=== PATIENT | female | born 1980 | race Caucasian/White ===

== ENCOUNTER → 2017-07-29 12:05 | Outpatient (CLI) | payer OTHER, SELFPAY | PROVIDERS: Family Provider Family Medicine; PCP Family Medicine; Visit Provider Family Medicine | DX: R07.81 Pleurodynia (principal) | CPT/HCPCS: 87086 ==

== ENCOUNTER → 2017-08-06 14:56 | Outpatient (CLI) | payer OTHER, SELFPAY | PROVIDERS: Family Provider Family Medicine; PCP Family Medicine; Visit Provider Family Medicine | DX: N89.8 Other specified noninflammatory disorders of vagina (principal) | CPT/HCPCS: 87070; 87205 ==

== ENCOUNTER → 2017-09-24 14:46 | Outpatient (CLI) | payer OTHER, SELFPAY ==
[2017-09-24 15:46] LABS: Hematocrit 39.6 % (36-46); Hemoglobin 13.2 g/dL (12.0-16.0); Mean Corpuscular HGB Conc 33.2 % (30-36); Mean Corpuscular Hemoglobin 29.3 PG (26-34); Mean Corpuscular Volume 88.1 fL (80-100); Platelet Count 392 X10^3/uL (150-400); Red Cell Distribution Width 13.9 % (11.6-14.8); White Blood Cell Count 8.6 X10^3/uL (4.5-11.0)
[2017-09-24 16:26] LABS: HEMOLYSIS < 15 (0-50); Iron 90 ug/dL (37-170)
[2017-09-24 16:39] LABS: Percent Iron Saturation 29 % (15-50); Total Iron Binding Capacity 307 ug/dL (265-497); Transferrin 252 mg/dL (206-381)
[2017-09-24 16:41] LABS: Vitamin D 25 Hydroxy (D3) 75.1 ng/mL (30.0-100.0)
== END ==
PROVIDERS: Family Provider Family Medicine; PCP Family Medicine; Visit Provider Family Medicine
DX: D64.9 Anemia, unspecified (principal); E55.9 Vitamin D deficiency, unspecified
CPT/HCPCS: 36415; 82306; 83540; 83550; 85027

== ENCOUNTER → 2018-11-24 10:48 | Outpatient (CLI) | payer OTHER, SELFPAY ==
[2018-11-24 12:07] LABS: Add Manual Diff / Slide Review NO; Basophils Absolute Auto 200 /uL (0-100); Basophils Percent Auto 2.3 % (0-2); Eosinophils Absolute Auto 600 /uL (0-450); Eosinophils Percent Auto 8.5 % (2-4); Hematocrit 40.7 % (36-46); Hemoglobin 13.9 g/dL (12.0-16.0); Lymphocytes Absolute Auto 3200 /uL (1100-4500); Lymphocytes Percent Auto 42.4 % (25-40); Mean Corpuscular HGB Conc 34.1 % (30-36); Mean Corpuscular Hemoglobin 29.7 PG (26-34); Monocytes Absolute Auto 600 /uL (0-900); Monocytes Percent Auto 7.6 % (3-14); Neutrophils Absolute Auto 2900 /uL (1500-7000); Neutrophils Percent Auto 39.2 % (50-75); Platelet Count 373 X10^3/uL (150-400); Red Blood Cell Count 4.68 X10^6/uL (4.0-5.2); Red Cell Distribution Width 13.7 % (11.6-14.8); White Blood Cell Count 7.5 X10^3/uL (4.5-11.0)
[2018-11-24 12:15] LABS: Hemoglobin A1C% w Est Avg Glu 5.2 % (4.0-6.0)
[2018-11-24 13:25] LABS: Alanine Aminotransferase 25 IU/L (9-52); Albumin Globulin Ratio 1.4 (1.0-2.8); Alkaline Phosphatase 70 U/L (38-126); Aspartate Aminotransferase 19 IU/L (14-36); BUN Creatinine Ratio 14.3 (6-22); Bilirubin Total 0.3 mg/dL (0.2-1.3); Blood Urea Nitrogen 10 mg/dL (7-17); Calcium 9.5 mg/dL (8.4-10.2); Carbon Dioxide 28 mmol/L (22-32); Chloride 104 mmol/L (98-107); Cholesterol 209 mg/dL (140-199); Estimated Glomerular Filt Rate > 60.0 mL/min (>60); Globulin 2.8 g/dL (1.7-4.1); Glucose 92 mg/dL (70-100); HDL Cholesterol 50 mg/dL (40-60); HEMOLYSIS < 15 (0-50); LDL Cholesterol Calculated 131 mg/dL (<100); Potassium 4.7 mmol/L (3.4-5.1); Sodium 140 mmol/L (137-145); Total Protein 6.8 g/dL (6.3-8.2); Triglycerides 139 mg/dL (35-150)
[2018-11-24 13:26] LABS: HEMOLYSIS < 15 (0-50); Iron 38 ug/dL (37-170)
[2018-11-24 13:38] LABS: Percent Iron Saturation 12 % (15-50); Total Iron Binding Capacity 315 ug/dL (265-497); Transferrin 267 mg/dL (206-381)
[2018-11-24 13:45] LABS: Free T3, Triiodothyronine Free 3.79 pg/mL (2.77-5.27); Free T4, Direct Thyroxine 0.96 ng/dL (0.78-2.19)
[2018-11-24 13:58] LABS: Thyroid Stimulating Hormone 1.59 uIU/mL (0.47-4.68)
[2018-11-24 14:00] LABS: Ferritin 13.8 ng/mL (6.27-137)
== END ==
PROVIDERS: PCP Family Medicine; Visit Provider Naturopath
DX: R53.82 Chronic fatigue, unspecified (principal); R63.5 Abnormal weight gain; J30.2 Other seasonal allergic rhinitis; G47.00 Insomnia, unspecified; N95.8 Other specified menopausal and perimenopausal disorders
CPT/HCPCS: 36415; 80053; 80061; 82728; 83036; 83540; 83550; 84439; 84443; 84481; 85025

== ENCOUNTER → 2019-01-20 13:30 | Outpatient (CLI) | payer OTHER, SELFPAY ==
--- NOTE | 2019-01-20 13:35 | DI.RAD.S_ITS ---
PROCEDURE: XR LUMBAR SPINE 2-3V INDICATIONS: back pain with L sided sciatica, r/o bony abnormality TECHNIQUE: 3 views of the lumbar spine were acquired. COMPARISON: None. FINDINGS: Bones: 5 [id number] vertebrae are present. There is normal bony alignment. No vertebral body compression fractures. No suspicious bony lesions. The disc heights are well-preserved. Soft tissues: Overlying bowel gas pattern is normal. No suspicious soft tissue calcifications. IMPRESSION: Normal lumbar plain films. If it would be helpful for clinical management decision making, please consider a dedicated lumbar spine MRI for further evaluation (assuming that there is no contraindication). Dictated by: Dinh Robert M.D. on 01/20/2019 at 13:07 Approved by: Dinh Robert M.D. on 01/20/2019 at 13:07
== END ==
PROVIDERS: Visit Provider Physician Assistant
DX: M54.42 Lumbago with sciatica, left side (principal)
CPT/HCPCS: 72100

== ENCOUNTER → 2019-02-04 20:39 | Outpatient (CLI) | payer OTHER, SELFPAY ==
--- NOTE | 2019-02-04 | DI.MRI.S_ITS ---
PROCEDURE: MR LUMBAR SPINE WO CON INDICATIONS: Low back pain TECHNIQUE: Noncontrast sagittal T1 spin echo and T2 fast echo, sagittal STIR, axial T1 and T2 fast spin echo through the lumbar spine. In cases with scoliosis, additional coronal T2 fast spin echo may be performed. COMPARISON: [facility], CR, XR LUMBAR SPINE 2-3V, 01/20/2019, 13:35. FINDINGS: Image quality: Excellent. Alignment and Curvature: 5 lumbar type vertebral bodies are present by plain film. Bone Marrow: Marrow is of normal overall signal. No acute vertebral body compression fractures. Spinal Cord: Conus medullaris terminates at the upper L1 level. Visualized cord demonstrates normal signal and size. Paraspinous Soft Tissues: No paravertebral masses. L1-L2: Normal appearance. L2-L3: Normal appearance. L3-L4: Normal appearance. L4-L5: Mild facet hypertrophy. No significant canal, nor foraminal stenosis. L5-S1: Mild facet hypertrophy. No significant canal, nor foraminal stenosis. IMPRESSION: 1. Mild lower lumbar facet osteoarthritis. No significant canal, nor foraminal stenosis. No neural impingement. Dictated by: Saran Phelan M.D. on 02/06/2019 at 8:54 Approved by: Saran Phelan M.D. on 02/06/2019 at 8:56
== END ==
PROVIDERS: Visit Provider Orthopaedic Surgery Orthopaedic Surgery of the Spine
DX: M54.5 Low back pain (principal); M47.816 Spondylosis without myelopathy or radiculopathy, lumbar region; M47.817 Spondylosis without myelopathy or radiculopathy, lumbosacral region
CPT/HCPCS: 72148

== ENCOUNTER → 2019-08-27 15:38 | Outpatient (CLI) | payer OTHER, SELFPAY ==
--- NOTE | 2019-08-27 | DI.CT.S_ITS ---
PROCEDURE: CT SINUS SCREEN WO CON INDICATIONS: Other chronic sinusitis TECHNIQUE: Noncontrast 3.0 mm axial images acquired from the frontal sinuses to the mid-sella, with coronal and sagittal reformats. For radiation dose reduction, the following was used: automated exposure control, adjustment of mA and/or kV according to patient size. COMPARISON: [facility], CT, SINUS SCREEN WO CONTRAST, 12/11/2013, 9:36. FINDINGS: Image quality: Excellent. Maxillary Sinuses: There is a mild to moderate amount of mucosal thickening seen within the inferior maxillary sinuses. Sinuses are clear. Ethmoid Air Cells: No bony remodeling or destruction. Sinuses are clear. Sphenoid Sinuses: No bony remodeling or destruction. Sinuses are clear. Frontal Sinuses: No bony remodeling or destruction. Sinuses are clear. Ostiomeatal Complexes: Ostiomeatal complexes are patent. No Marina cells. Miscellaneous: Visualized intra-orbital contents are normal. No eyad bullosa or paradoxical turbinate curvature. There is mild rightward nasal septal deviation. IMPRESSION: Focal mild to moderate mucosal thickening is seen within the inferior aspects of both maxillary sinuses. The sinuses demonstrate an improved appearance compared to 2013. Mild rightward nasal septal deviation. Dictated by: Dinh Robert M.D. on 08/27/2019 at 15:19 Approved by: Dinh Robert M.D. on 08/27/2019 at 15:21
== END ==
PROVIDERS: PCP Naturopath; Referring Provider Otolaryngology; Visit Provider Otolaryngology
DX: J32.8 Other chronic sinusitis (principal); J34.2 Deviated nasal septum
CPT/HCPCS: 70486

== ENCOUNTER → 2019-12-31 11:01 | Outpatient (CLI) | payer OTHER, SELFPAY ==
[2020-01-01 09:02] LABS: COVID19 Sendout Not Detected (Not Detected)
== END ==
PROVIDERS: PCP Naturopath; Visit Provider Physician Assistant
DX: Z11.59 Encounter for screening for other viral diseases (principal)
CPT/HCPCS: 87635

== ENCOUNTER → 2020-05-13 12:43 | Outpatient (CLI) | payer OTHER, MEDICAID, SELFPAY ==
--- NOTE | 2020-05-13 12:44 | DI.US.S_ITS ---
PROCEDURE: US PELVIC COMPLETE INDICATIONS: DUB TECHNIQUE: Real-time scanning was performed of the pelvic organs, with image documentation. Additional endovaginal scanning was necessary due to incomplete visualization of the adnexal and endometrial structures by transabdominal scanning. COMPARISON: None. FINDINGS: Uterus: Uterus is normal in size at 7.4 x 4.1 x 4.8 cm. The endometrium measures 9.2 mm in combined thickness. Ovaries: Simple cyst involving the left ovary measuring up to 2.1 cm; otherwise normal ovaries. No free fluid. Other: No pathologic free abdominal or pelvic fluid. IMPRESSION: No source for menorrhagia identified. Dictated by: Nathan ARNOLD Interpreted: Adolfo De Los Santos MD on 05/13/2020 at 13:41 Approved by: Adolfo De Los Santos M.D. on 05/13/2020 at 13:51
== END ==
PROVIDERS: PCP Family Medicine; Referring Provider Family Medicine; Visit Provider Family Medicine
DX: N92.0 Excessive and frequent menstruation with regular cycle (principal); N83.292 Other ovarian cyst, left side
CPT/HCPCS: 76830; 76856

== ENCOUNTER → 2020-06-10 12:45 | Outpatient (CLI) | payer OTHER, MEDICAID, SELFPAY ==
--- NOTE | 2020-06-10 | DI.US.S_ITS ---
ULTRASOUND OF RIGHT BREAST: 06/10/2020 CLINICAL: Intermitten pain in bilateral breasts. Comparison is made to exams dated: 06/10/2020 ultrasound and 06/10/2020 mammogram [facility]. Real-time ultrasound of the right breast was performed. Escobar scale images of the real-time examination were reviewed. No significant abnormalities were seen sonographically in the right breast. IMPRESSION: NEGATIVE There is no sonographic evidence of malignancy. There is no abnormality seen in the right breast to correspond with the nonfocal area of right breast pain/burning. No sonographic abnormality to correlate with mammography finding in the posterior right breast which is consistent with expected dense fibroglandular breast tissue. Recommend clinical follow up for persistent or worsening symptoms, or development of any clinically suspicious findings. A 1 year screening mammogram is recommended. Findings and recommendations were conveyed to the patient during today's evaluation. This exam was interpreted at Station ID: [id number]. Electronically Signed By: Sathya Garcia M.D. at/:06/10/2020 14:48:29 copy to: CRISTY COTE letter sent: Clinical Evaluation Ultrasound BI-RADS: 1 Negative
--- NOTE | 2020-06-10 | DI.MG.S_ITS ---
BILATERAL DIGITAL DIAGNOSTIC MAMMOGRAM 3D/2D: 06/10/2020 CLINICAL: Burning sensation in the Right breast. Non focal pain. Baseline exam. Additional history of recent COVID-19 vaccine in the left arm and control device removal from the left arm. No prior exams were available for comparison. The tissue of both breasts is heterogeneously dense. This may lower the sensitivity of mammography. There are oval lymph nodes in the left breast posterior depth superior region seen on the mediolateral oblique view only which are not seen on the right. The possible oval focal asymmetry seen only on the right breast craniocaudal view disperses with spot compression and likely represents dense fibroglandular tissue. No other significant masses, calcifications, or other findings are seen in either breast. IMPRESSION: INCOMPLETE: NEEDS ADDITIONAL IMAGING EVALUATION The oval lymph nodes in the left breasts are indeterminate. An ultrasound is recommended for further evaluation and is scheduled to immediately follow this examination. There is no abnormality seen in the right breast to correspond with the diffuse area pain/burning. There is no abnormality seen in the right breast to correspond with the mammography finding central to the nipple which likely represents normal fibroglandular tissue as it dispersed with additional views during today's evaluation, however, ultrasound is recommended to confirm. This exam was interpreted at Station ID: [id number]. NOTE: For mammograms, a report in lay terms will be sent to the patient. Approximately 15% of breast malignancies will not be visualized mammographically. In the management of a palpable breast mass, a negative mammogram must not discourage biopsy of a clinically suspicious lesion. Electronically Signed By: Sathya Garcia M.D. aty/:06/10/2020 14:37:14 copy to: CRISTY COTE ACR BI-RADS Category 0: Incomplete [id number]
--- NOTE | 2020-06-10 | DI.US.S_ITS ---
ULTRASOUND OF LEFT BREAST: 06/10/2020 CLINICAL: Intermitten pain in bilateral breasts. Comparison is made to exam dated: 06/10/2020 [facility]. Color flow and real-time ultrasound of the left breast were performed. Escobar scale images of the real-time examination were reviewed. There are benign appearing lymph nodes in the left axilla that correlates with mammography findings. No significant abnormalities were seen sonographically in the left breast. IMPRESSION: BENIGN There is no sonographic evidence of malignancy. A 1 year screening mammogram is recommended. Findings and recommendations were conveyed to the patient during today's evaluation. This exam was interpreted at Station ID: [id number]. Electronically Signed By: Sathya Garcia M.D. aty/:06/10/2020 14:51:30 copy to: CRISTY COTE Ultrasound BI-RADS: 2 Benign
== END ==
PROVIDERS: PCP Family Medicine; Referring Provider Nurse Practitioner; Visit Provider Nurse Practitioner
DX: N64.4 Mastodynia (principal)
CPT/HCPCS: 76642; 77066; G0279

== ENCOUNTER → 2020-08-17 17:36 | Outpatient (CLI) | payer OTHER, MEDICAID, SELFPAY | PROVIDERS: PCP Family Medicine; Visit Provider Physician Assistant | DX: L02.215 Cutaneous abscess of perineum (principal) | CPT/HCPCS: 87070; 87075; 87205 ==

== ENCOUNTER → 2020-08-23 16:23 | Outpatient (CLI) | payer OTHER, MEDICAID, SELFPAY ==
[2020-08-23 17:37] LABS: Add Manual Diff / Slide Review NO; Basophils Absolute Auto 200 /uL (0-100); Eosinophils Absolute Auto 400 /uL (0-450); Eosinophils Percent Auto 4.9 % (2-4); Hemoglobin 14.5 g/dL (12.0-16.0); Lymphocytes Absolute Auto 2800 /uL (1100-4500); Lymphocytes Percent Auto 32.5 % (25-40); Mean Corpuscular HGB Conc 33.8 % (30-36); Mean Corpuscular Hemoglobin 30.6 PG (26-34); Mean Corpuscular Volume 90.6 fL (80-100); Monocytes Absolute Auto 700 /uL (0-900); Monocytes Percent Auto 8.2 % (3-14); Neutrophils Absolute Auto 4500 /uL (1500-7000); Neutrophils Percent Auto 52.4 % (50-75); Platelet Count 308 X10^3/uL (150-400); Red Blood Cell Count 4.74 X10^6/uL (4.0-5.2); Red Cell Distribution Width 13.8 % (11.6-14.8); White Blood Cell Count 8.6 X10^3/uL (4.5-11.0)
[2020-08-23 17:49] LABS: HEMOLYSIS < 15 (0-50); Iron 72 ug/dL (37-170)
[2020-08-23 17:50] LABS: Alanine Aminotransferase 35 IU/L (<35); Albumin 4.4 g/dL (3.5-5.0); Albumin Globulin Ratio 1.5 (1.0-2.8); Alkaline Phosphatase 85 U/L (38-126); Aspartate Aminotransferase 33 IU/L (14-36); Bilirubin Total 0.4 mg/dL (0.2-1.3); Blood Urea Nitrogen 8 mg/dL (7-17); Calcium 9.6 mg/dL (8.4-10.2); Carbon Dioxide 26 mmol/L (22-32); Chloride 103 mmol/L (98-107); Estimated Glomerular Filt Rate > 60.0 mL/min (>60); Glucose 96 mg/dL (70-100); HEMOLYSIS < 15 (0-50); Sodium 136 mmol/L (137-145); Total Protein 7.4 g/dL (6.3-8.2)
[2020-08-23 17:59] LABS: Percent Iron Saturation 25 % (15-50); Total Iron Binding Capacity 290 ug/dL (265-497); Transferrin 243 mg/dL (206-381)
[2020-08-23 18:11] LABS: Free T3, Triiodothyronine Free 3.52 pg/mL (2.77-5.27); Free T4, Direct Thyroxine 0.78 ng/dL (0.78-2.19)
[2020-08-23 18:25] LABS: Thyroid Stimulating Hormone 1.96 uIU/mL (0.47-4.68)
[2020-08-23 18:28] LABS: Ferritin 211 ng/mL (6-137)
[2020-08-23 18:59] LABS: Folate 6.2 ng/mL (2.76-20.0); Vitamin B12 508 pg/mL (239-931)
[2020-08-24 05:57] LABS: Thyroid Peroxidase Antibodies 56 IU/mL (0-34)
[2020-08-24 19:20] LABS: Anti Thyroglobulin Antibody <1.0 IU/mL (0.0-0.9)
[2020-08-26 10:33] LABS: Triiodothyronine T3 Reverse 10.5 ng/dL (9.2-24.1)
== END ==
PROVIDERS: Internal Medicine Hematology & Oncology; PCP Family Medicine; Referring Provider Family Medicine; Visit Provider Family Medicine
DX: D64.9 Anemia, unspecified (principal); E06.3 Autoimmune thyroiditis; R76.8 Other specified abnormal immunological findings in serum
CPT/HCPCS: 36415; 80053; 82607; 82728; 82746; 83540; 83550; 84439; 84443; 84481; 84482; 85025; 86376; 86800

== ENCOUNTER → 2020-10-17 14:13 | Outpatient (CLI) | payer OTHER, MEDICAID, SELFPAY ==
[2020-10-17 17:41] LABS: COVID19 -Nasal RAPID Negative (Negative)
== END ==
PROVIDERS: PCP Family Medicine; Visit Provider Nurse Practitioner
DX: Z01.812 Encounter for preprocedural laboratory examination (principal); Z20.822 Contact with and (suspected) exposure to COVID-19
CPT/HCPCS: 87635; C9803

== ENCOUNTER 2020-10-19 10:23 | Day surgery (SDC) | payer OTHER, MEDICAID, SELFPAY ==
[2020-10-19] VITALS (9 sets, daily range): BP systolic 105–129; BP diastolic 65–76; PULSE 42–72; RESP 11–16; TEMP 36.4–36.8; O2SAT 94–96; BMI 29.0
--- NOTE | 2020-10-19 | PATH_ITS ---
[facility] Accession Number: [id number] . 01 Material submitted: . colon - RANDOM COLON . 02 Diagnosis: Random Colon, Biopsies: Colonic mucosa with no diagnostic abnormality. Negative for active, chronic, and microscopic colitis. Negative for dysplasia and malignancy. . MRV 10/21/2020 1111 Local . 02 Electronically signed: . Lis Cunha MD, Pathologist NPI- [id number] . 01 Gross description: . RANDOM COLON: Received in formalin are 4 fragment(s) of juarez, soft tissue measuring 0.6 x 0.2 x 0.1 cm to 0.3 x 0.1 x 0.1 cm submitted entirely in 1 cassette(s) /RAFAEL 10/20/2020 0415 Local . 02 Pathologist provided ICD-10: R19.7 . 02 CPT . 193163 Performed at: 01 [facility] [address], [place], [place] [id number] MD Corey Hook MD Phone: [phone] Performed at: [address] [facility] [address] [place], [place] [id number] MD Lis Cunha MD Phone: [phone]
--- NOTE | 2020-10-19 10:19 | PM.PREOP ---
Pre-operative Note Interval Note History & Physical reviewed/Exam performed by Physician: Yes Changes to H&P: No ASA Class (for procedural sedation): II
--- NOTE | 2020-10-19 10:20 | PM.OP.ENDO ---
Operative Date/Time/Diagnoses Date of procedure: 10/19/20 Pre-op diagnosis: See indication Procedure & Clinicians Study performed: Colonoscopy Indications: Rectal pain, diarrhea and history of colon polyps Surgeon: Samantha Willingham Procedure Notes Procedure in detail: After informed consent was obtained the patient was placed in left lateral decubitus position. The video colonoscope was introduced the rectum slowly advanced to the cecum. Preparation was good. On slow withdrawal mucosa was carefully examined. The scope was removed. The patient the procedure well. Blood loss none Complications none Sedation Total sedation time 14 minutes Fentanyl 200 micro g Versed 10 mg IV titration Findings 1. Normal colonoscopy to cecum. Random biopsies taken to rule out microscopic colitis Because of the lack of polyps on her procedure today she will not need follow-up colonoscopy for 5 years. Due to the large number and advanced adenomas on previous colonoscopy I would not go above 5 years at this time.
[2020-10-19] MEDS: fentaNYL 250 MCG/5 ML INJ IV (11:42)
[2020-10-19] MEDS: MIDAZOLAM 5 MG/5 ML VIAL IV (11:42)
== END 2020-10-19 13:30 | disposition home or self-care (01) ==
PROVIDERS: PCP Family Medicine; Referring Provider Internal Medicine Gastroenterology; Visit Provider Internal Medicine Gastroenterology
PROC: 0DJD8ZZ Inspection of Lower Intestinal Tract, Via Natural or Artificial Opening Endoscopic (ICD-10-PCS; CPT 45378; principal; 2020-10-19 11:30)
DX: R19.7 Diarrhea, unspecified (principal); K62.89 Other specified diseases of anus and rectum
CPT/HCPCS: 45380; J2250; J3010

== ENCOUNTER → 2020-11-23 11:58 | Outpatient (CLI) | payer OTHER, MEDICAID, SELFPAY ==
--- NOTE | 2020-11-23 11:59 | DI.US.S_ITS ---
ULTRASOUND OF RIGHT AXILLA: 11/23/2020 CLINICAL: Lateral right axillary lump. Comparison is made to exam dated: 06/10/2020 [facility]. Color flow and real-time ultrasound of the right axilla were performed. Escobar scale images of the real-time examination were reviewed. No significant abnormalities were seen sonographically in the right axilla. IMPRESSION: NEGATIVE There is no sonographic evidence of malignancy. There is no abnormality seen in the right breast to correspond with the diffuse area of clinical concern, mammography finding, and pain which is consistent with normal fibroglandular tissue, however, clinical followup is recommended. Future imaging is recommended as follows: 06/11/2021 screening mammogram. This exam was interpreted at Station ID: [id number]. Electronically Signed By: Adolfo De Los Santos M.D., jr/fabian:11/23/2020 16:30:25 copy to: CRISTY COTE letter sent: Normal Exam Ultrasound BI-RADS: 1 Negative
== END ==
PROVIDERS: PCP Family Medicine; Referring Provider Family Medicine; Visit Provider Family Medicine
DX: R22.31 Localized swelling, mass and lump, right upper limb (principal)
CPT/HCPCS: 76882; 77065; G0279

== ENCOUNTER → 2020-11-23 12:18 | Outpatient (CLI) | payer OTHER, MEDICAID, SELFPAY ==
[2020-11-23 13:24] LABS: Add Manual Diff / Slide Review NO; Basophils Absolute Auto 200 /uL (0-100); Basophils Percent Auto 2.2 % (0-2); Eosinophils Absolute Auto 500 /uL (0-450); Eosinophils Percent Auto 6.8 % (2-4); Hematocrit 43.1 % (36-46); Hemoglobin 14.5 g/dL (12.0-16.0); Lymphocytes Absolute Auto 2500 /uL (1100-4500); Lymphocytes Percent Auto 32.4 % (25-40); Mean Corpuscular HGB Conc 33.5 % (30-36); Mean Corpuscular Hemoglobin 31.6 PG (26-34); Mean Corpuscular Volume 94.2 fL (80-100); Monocytes Absolute Auto 700 /uL (0-900); Monocytes Percent Auto 8.6 % (3-14); Neutrophils Absolute Auto 3900 /uL (1500-7000); Platelet Count 338 X10^3/uL (150-400); Red Blood Cell Count 4.58 X10^6/uL (4.0-5.2); Red Cell Distribution Width 13.7 % (11.6-14.8); White Blood Cell Count 7.8 X10^3/uL (4.5-11.0)
[2020-11-23 13:55] LABS: Free T3, Triiodothyronine Free 4.26 pg/mL (2.77-5.27); Free T4, Direct Thyroxine 0.98 ng/dL (0.78-2.19)
[2020-11-23 14:09] LABS: Thyroid Stimulating Hormone 3.29 uIU/mL (0.47-4.68)
[2020-11-24 08:14] LABS: Thyroid Peroxidase Antibodies 61 IU/mL (0-34)
[2020-11-25 00:32] LABS: Anti Thyroglobulin Antibody <1.0 IU/mL (0.0-0.9)
[2020-11-26 20:13] LABS: Triiodothyronine T3 Reverse 14.2 ng/dL (9.2-24.1)
== END ==
PROVIDERS: PCP Family Medicine; Referring Provider Family Medicine; Visit Provider Family Medicine
DX: D50.0 Iron deficiency anemia secondary to blood loss (chronic) (principal); D64.9 Anemia, unspecified; E06.3 Autoimmune thyroiditis; R22.31 Localized swelling, mass and lump, right upper limb
CPT/HCPCS: 36415; 76882; 84439; 84443; 84481; 84482; 85025; 86376; 86800

== ENCOUNTER 2020-11-27 02:17 | Observation (INO) | payer OTHER, MEDICAID, SELFPAY ==
[2020-11-27] VITALS (18 sets, daily range): BP systolic 111–148; BP diastolic 55–99; PULSE 64–101; RESP 11–20; TEMP 35.9–36.9; O2SAT 94–99; BMI 29.8; BMI 29.5
--- NOTE | 2020-11-27 | PATH_ITS ---
[facility] Accession Number: [id number] . 01 Material submitted: . gallbladder - GALLBLADDER . 02 Diagnosis: Gallbladder, Cholecystectomy: Chronic cholecystitis with cholelithiasis. Cholesterolosis. Negative for dysplasia and malignancy. [facility] 11/30/2020 1255 Local . 02 Electronically signed: . Lis Cunha MD, Pathologist NPI- [id number] . 01 Gross description: . The specimen is received in formalin, labeled gallbladder and consists of a 9.0 x 4.0 x 3.2 cm intact gallbladder with a 0.2 cm in diameter cystic duct. The serosa is juarez-mattson and smooth. Opening reveals green viscous bile with multiple juarez-yellow bosselated choleliths ranging from 0.1-0.7 cm. The mucosa is juarez-green and velvety with cholesterolosis and the wall thickness measures 0.1 cm. Questioned Documents Examiner sections are submitted, to include the en face cystic duct margin (blue), in cassette A1. ([id number]) /[facility] 11/29/2020 1053 Local . 02 Pathologist provided ICD-10: K80.60 . 02 CPT . 982362 Performed at: [address] [facility] [address], [place], [place] [id number] MD Corey Hook MD Phone: [phone] Performed at: 02 [facility] [address] [place], [place] [id number] MD Lis Cunha MD Phone: [phone]
--- NOTE | 2020-11-27 02:33 | DI.US.S_ITS ---
PROCEDURE: US ABDOMEN LIMITED INDICATIONS: SEVERE RIGHT UPPER QUADRANT PAIN TECHNIQUE: Real-time focused scanning was performed of the abdomen, with image documentation. COMPARISON: None. FINDINGS: The liver demonstrates normal size. The liver demonstrates generalized mildly increased echogenicity. This decreases ultrasound sensitivity for detection of hepatic masses. Multiple small layering gallstones are seen. The gallbladder wall measures near the upper limits of normal at 2.7 mm. No specific pericholecystic fluid is seen. The sonographic Desai sign is negative. The common hepatic duct is prominent at 6.8 mm. The common bile duct measures 6.9 mm. No significant pancreatic abnormality is seen on these images. IMPRESSION: Gallstones are seen, yet without additional sonographic signs of cholecystitis. Please correlate with physical examination findings, patient presentation, and laboratory values. No christian biliary dilatation can be seen, although the common hepatic duct common bile duct are prominent. If clinically appropriate, an MRCP could be considered for further evaluation (assuming that there is no contraindication to MRI). Note: No significant discrepancy from the preliminary report. Dictated by: Dinh Robert M.D. on 11/27/2020 at 8:06 Approved by: Dinh Robert M.D. on 11/27/2020 at 8:08
--- NOTE | 2020-11-27 02:38 | ED_ITS ---
HPI - Abdominal Pain General Chief Complaint: Abdominal Pain Stated Complaint: abd pain right side and back Time Seen by Provider: 11/27/20 02:25 Source: patient Mode of arrival: Ambulatory Limitations: no limitations History of Present Illness HPI narrative: 40-year-old female smoker presents with her significant other and a chief complaint of severe right upper quadrant pain worsening over the past few hours. She states it started rather suddenly and is worsened by motion while and improves with rest. She states that it is sharp, stabbing and crampy and radiates to her back. She has had nausea and at least 1 episode of vomiting. She has had no fever or chills. She denies runny nose, sore throat or cough. She last ate at 5:00 p.m. and had some water just prior to her arrival. She denies any change in bowel habits and has had no dysuria, frequency or urgency. She denies any chance of . Prior abdominal surgeries include a laparoscopy, and a few endoscopic procedures Related Data Home Medications Medication Instructions Recorded Confirmed cholecalciferol (vitamin D3) 250 10,000 unit PO DAILY 09/18/17 11/02/20 mcg (10,000 unit) capsule ascorbic acid (vitamin C) 500 mg 500 mg DAILY 07/25/20 11/02/20 tablet (Vitamin C) cetirizine 10 mg capsule (Zyrtec) 10 mg PO DAILY 07/25/20 11/02/20 magnesium 200 mg tablet 400 mg PO DAILY 07/25/20 11/02/20 omeprazole 20 mg capsule,delayed 20 mg PO DAILY 07/25/20 11/02/20 release selenium 100 mcg tablet 100 mcg PO DAILY 07/25/20 11/02/20 vitamin A 2,400 mcg capsule 2,400 mcg PO DAILY 07/25/20 11/02/20 zinc 25 mg tablet 30 mg PO DAILY 07/25/20 11/02/20 Vitamin D+K 10,000 units PO DAILY 10/10/20 11/02/20 heme iron 20 mg PO TID 10/10/20 11/02/20 Previous Rx's Medication Instructions Recorded sertraline 100 mg tablet (Zoloft) 100 mg PO DAILY #90 tab 10/05/20 duloxetine 20 mg capsule,delayed 20 mg PO BID #60 cap 11/02/20 release levothyroxine 25 mcg tablet 25 mcg PO DAILY #30 tab 11/25/20 Allergies Allergy/AdvReac Type Severity Reaction Status Date / Time No Known Drug Allergies Allergy Verified 11/02/20 09:11 Review of Systems Review of Systems Narrative: GENERAL: Denies chills, fatigue, malaise, fever, sweats. HEENT: Denies sinus pain, ear pain, sore throat, difficulty swallowing, dizziness. RESPIRATORY: Denies dyspnea, cough, wheezing, hemoptysis, sputum. CARDIOVASCULAR: Denies chest pain, palpitations, orthopnea, edema, GASTROINTESTINAL: See HPI : Denies dysuria, frequency, incontinence, hematuria, urinary retention. MUSCULOSKELETAL: denies weakness, joint pain, or bony pain SKIN: Denies rash, skin lesions, or other NEUROLOGIC: Denies weakness, headache, numbness, change in speech, confusion, seizures, incoordination. PSYCHIATRIC: No concerning psychosocial issues. 12 point review of systems is negative except for those stated above Patient History Medical History Abnormal Pap smear of cervix (~2011) Abscess Acne (~1987) Anemia (08/31/14) Anti-TPO antibodies present Bartholin gland cyst Benign mole (1997) Chicken pox (~1990) Environmental allergies (08/24/13) Foot pain Hayfever Hemorrhoids HPV (human papilloma virus) infection (~2011) Labial abscess Menorrhagia with regular cycle MRSA infection (~2011) Murmur Muscle spasm Ocular migraine (08/24/13) Pinched nerve Rectal pain Rheumatoid arthritis Shoulder pain Surgical History Anesthesia History of colonoscopy with polypectomy (~08/2019) History of esophagogastroduodenoscopy (EGD) (~08/2019) History of evacuation of hematoma (01/12/14) History of gynecologic surgery (01/15/14) S/P primary low transverse (2017) Status post colposcopy (04/25/11) Status post incision and drainage (2010) Status post tendon repair (~2009) Status post tonsillectomy and adenoidectomy Family History Family/Other Abnormal blood pressure Stroke Family history of high cholesterol Family/Other Heart disease Scoliosis Brother Age: 40 Hypertension Father Hypertension History of cancer of sphenoid sinus Mother Age: 72 MD (Meckel's diverticulum) Hypertension High cholesterol Tachycardia Social History household members: none pets and animals: No education level: college occupational status: employed [employer] Spiritual leisure activities: art and other other: hiking, photography, seatbelt use: always helmet use: Yes water heater temp set < 120 deg: Yes working smoke detector in home: Yes fire extinguisher in home: Yes carbon monox detector in home: Yes firearms in home: No Smoking Status: Current some day smoker alcohol intake: current substance use type: does not use during the past year weight has: remained stable well-balanced diet: daily or most days daily servings fruits/ve-4 caffeine: Yes (1/2 to 1 drink per day) eating out: other frequency: daily duration: > 90 minutes/day additional social history: 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 Well-developed patient, in mild distress. HEAD: Atraumatic. Normocephalic. EYES: Pupils equal round and reactive. Extraocular motions intact. No scleral icterus. No injection or drainage. ENT: Nose without bleeding, purulent drainage. Throat without erythema, tonsillar hypertrophy or exudate. Airway patent. NECK: Trachea midline. Non tender CARDIOVASCULAR: Regular rate and rhythm without murmurs, gallops, or rubs. RESPIRATORY: Clear to auscultation. Breath sounds equal bilaterally. No wheezes, rales, or rhonchi. GASTROINTESTINAL: Abdomen soft, tender in the right upper quadrant, nondistended. EXTREMITIES: No edema or joint tenderness. BACK: Nontender without deformity or crepitance. No flank tenderness. NEURO: AOx3. SKIN: No rash or erythema of visible areas Initial Vital Signs Initial Vital Signs: Vital Signs Temperature 97.7 F 11/27/20 02:27 Pulse Rate 68 11/27/20 02:27 Respiratory Rate 17 11/27/20 02:27 Blood Pressure 148/86 H 11/27/20 02:27 Pulse Oximetry 99 11/27/20 02:27 Course Orders Ordered: ED Orders 11/27/20 02:30 Complete Blood Count AUTO DIFF Stat Comprehensive Metabolic Panel Stat Lipase Stat 11/27/20 02:33 US abdomen limited Stat 11/27/20 04:44 COVID19 - ADMIT (MONITORING AND EVALUATION ADVISOR swab/PCR) Stat 11/27/20 04:49 Education, smoking cessation ONGOING Acetaminophen (Acetaminophen 325 Mg Tablet) 650 mg PO Q6HR PRN PRN Reason: Fever/Mild Pain (1-3) Celecoxib (Celecoxib 200 Mg Capsule) 200 mg PO DAILY CINDA Hydromorphone HCl (Hydromorphone 0.5 Mg Inj) 0.5 mg IV Q3HR PRN PRN Reason: Pain, Severe (7-10) Dextrose/Lactated Ringer's (Dextrose 5%-Lactated Ringers) 1,000 mls @ 100 mls/hr IV CONT CINDA Naloxone HCl (Naloxone 0.4 Mg/Ml Vial) 0.2 mg IV Q2MIN PRN PRN Reason: Opiate Reversal Discontinued Medications Docusate Sodium (Docusate 100 Mg Capsule) 100 mg PO NOW ONE Stop: 11/27/20 02:34 Last Admin: 11/27/20 02:39 Dose: 100 mg Documented by: ALLAN Gabapentin (Gabapentin 300 Mg Capsule) 300 mg PO NOW ONE Stop: 11/27/20 04:50 Hydromorphone HCl (Hydromorphone 0.5 Mg Inj) 0.5 mg IV NOW ONE Stop: 11/27/20 02:33 Last Admin: 11/27/20 02:41 Dose: 0.5 mg Documented by: ALLAN Sodium Chloride (Normal Saline 0.9%) 1,000 mls @ 1,000 mls/hr IV BOLUS ONE Stop: 11/27/20 03:31 Last Infusion: 11/27/20 04:14 Dose: 0 mls/hr Documented by: Admin: 11/27/20 02:39 Dose: 1,000 mls/hr Documented by: ALLAN Ondansetron HCl (Ondansetron 4 Mg/2 Ml Inj) 4 mg IV NOW ONE Stop: 11/27/20 02:33 Last Admin: 11/27/20 02:39 Dose: 4 mg Documented by: ALLAN Scopolamine (Scopolamine 1 Patch) 1 patch TOP NOW ONE Stop: 11/27/20 04:50 Vital Signs Vital signs: Vital Signs - 8 hr 11/27/20 02:27 Temperature 97.7 F Pulse Rate 68 Respiratory Rate 17 Blood Pressure 148/86 H Pulse Oximetry 99 MDM - Abdominal Pain Lab Data Result diagrams: 11/27/20 02:30 11/27/20 02:30 Labs: Lab Results 11/27/20 11/27/20 Range/Units 02:30 02:30 WBC 12.4 H (4.5-11.0) X10^3/uL RBC 4.52 (4.0-5.2) X10^6/uL Hgb 14.3 (12.0-16.0) g/dL Hct 42.1 (36-46) % MCV 93.1 (80-100) fL MCH 31.6 (26-34) PG MCHC 34.0 (30-36) % RDW 13.7 (11.6-14.8) % Plt Count 319 (150-400) X10^3/uL Neut % (Auto) 64.0 (50-75) % Lymph % (Auto) 22.7 L (25-40) % [place] % (Auto) 6.7 (3-14) % Eos % (Auto) 5.4 H (2-4) % Baso % (Auto) 1.2 (0-2) % Neut # (Auto) 7900 H (7012-0955) /uL Lymph # (Auto) 2800 (8568-2066) /uL [place] # (Auto) 800 (0-900) /uL Eos # (Auto) 700 H (0-450) /uL Baso # (Auto) 200 H (0-100) /uL Sodium 137 (137-145) mmol/L Potassium 3.7 (3.4-5.1) mmol/L Chloride 106 (98-107) mmol/L Carbon Dioxide 26 (22-32) mmol/L BUN 12 (7-17) mg/dL Creatinine 0.63 (0.52-1.04) mg/dL Estimated GFR > 60.0 (>60) mL/min BUN/Creatinine Ratio 19.0 (6-22) Glucose 143 H (70-100) mg/dL Calcium 9.2 (8.4-10.2) mg/dL Total Bilirubin 0.3 (0.2-1.3) mg/dL AST 24 (14-36) IU/L ALT 21 (<35) IU/L Alkaline Phosphatase 76 (38-126) U/L Total Protein 7.5 (6.3-8.2) g/dL Albumin 4.5 (3.5-5.0) g/dL Globulin 3.0 (1.7-4.1) g/dL Albumin/Globulin Ratio 1.5 (1.0-2.8) Lipase 163 (23-300) U/L Point of care testing: Urine Dip Bedside Urine Glucose Negative Bedside Urine Bilirubin - Negative Bedside Urine Ketone - Negative Urine Specific [place] 1.010 Bedside Urine Occult Blood - Negative Bedside Urine pH 8.0 Bedside Urine Protein - Negative Bedside Urine Urobilinogen - Negative Bedside Urine Nitrite - Negative Bedside Urine Leukocytes - Negative Esterase Imaging Data US - abdomen: Radiologist's Impression: Distention of the gallbladder with multiple small dependent layering gallstones and gallbladder wall thickening Discharge Plan Departure Patient Disposition: Admitted as Observation Clinical Impression: Acute cholecystitis Admit Date/Time: 11/27/20 04:49 Admit Provider: Kailey Chaidez
[2020-11-27] MEDS: DOCUSATE 100 MG CAPSULE PO (02:39)
[2020-11-27] MEDS: SODIUM CHLORIDE 0.9% 1,000 ML 1000 ML IV (02:39)
[2020-11-27] MEDS: ONDANSETRON 4 MG/2 ML INJ IV ×2 (02:39→10:25)
[2020-11-27 02:40] LABS: Add Manual Diff / Slide Review NO; Basophils Absolute Auto 200 /uL (0-100); Basophils Percent Auto 1.2 % (0-2); Eosinophils Absolute Auto 700 /uL (0-450); Eosinophils Percent Auto 5.4 % (2-4); Hematocrit 42.1 % (36-46); Hemoglobin 14.3 g/dL (12.0-16.0); Lymphocytes Absolute Auto 2800 /uL (1100-4500); Lymphocytes Percent Auto 22.7 % (25-40); Mean Corpuscular Hemoglobin 31.6 PG (26-34); Mean Corpuscular Volume 93.1 fL (80-100); Monocytes Absolute Auto 800 /uL (0-900); Monocytes Percent Auto 6.7 % (3-14); Neutrophils Absolute Auto 7900 /uL (1500-7000); Platelet Count 319 X10^3/uL (150-400); Red Blood Cell Count 4.52 X10^6/uL (4.0-5.2); Red Cell Distribution Width 13.7 % (11.6-14.8); White Blood Cell Count 12.4 X10^3/uL (4.5-11.0)
[2020-11-27] MEDS: HYDROMORPHONE 0.5 MG INJ IV (02:41)
[2020-11-27 02:47] LABS: Alanine Aminotransferase 21 IU/L (<35); Albumin 4.5 g/dL (3.5-5.0); Albumin Globulin Ratio 1.5 (1.0-2.8); Alkaline Phosphatase 76 U/L (38-126); Aspartate Aminotransferase 24 IU/L (14-36); Bilirubin Total 0.3 mg/dL (0.2-1.3); Blood Urea Nitrogen 12 mg/dL (7-17); Calcium 9.2 mg/dL (8.4-10.2); Carbon Dioxide 26 mmol/L (22-32); Chloride 106 mmol/L (98-107); Estimated Glomerular Filt Rate > 60.0 mL/min (>60); Glucose 143 mg/dL (70-100); HEMOLYSIS < 15 (0-50); Lipase 163 U/L (23-300); Potassium 3.7 mmol/L (3.4-5.1); Sodium 137 mmol/L (137-145); Total Protein 7.5 g/dL (6.3-8.2)
[2020-11-27] MEDS: DEXTROSE 5%-LACTATED RINGERS 1,000 ML 100 ML IV (05:24)
[2020-11-27] MEDS: ACETAMINOPHEN 325 MG TABLET 650 MG PO ×2 (05:32→15:46)
[2020-11-27] MEDS: SCOPOLAMINE 1 PATCH TOP (05:32)
[2020-11-27] MEDS: GABAPENTIN 300 MG CAPSULE PO (05:32)
[2020-11-27 05:34] LABS: COVID19 - ADMIT (NP swab/PCR) Negative (Negative)
--- NOTE | 2020-11-27 06:22 | PC.ADMIT ---
[email or web address] Macie Anne Admission Note: Patient arrived to the unit at 0514 via wheelchair from ED. Patient is A/O, RA with pain rated 4/10. Patient was oriented to room, call light, and fall procedures. Patient requests to have belongings placed in the safe this morning when her leaves to cotton picker her daughter. Bed was left in lowest position with call light and belongings within reach. The patient,Cece Bender,40 y/o, was given written information regarding hospital policies, unit procedures and contact persons. Patient's smoking status: Current some day smoker. Vital Signs - 8 hr 11/27/20 02:27 11/27/20 05:10 11/27/20 05:15 Temperature 97.7 F 96.7 F L Pulse Rate 68 64 70 Respiratory Rate 17 16 16 Blood Pressure 148/86 H 118/55 L 134/81 Pulse Oximetry 99 99 98
--- NOTE | 2020-11-27 08:18 | PC.NURSE ---
Addendum entered by Angle Grayson R.N. 11/27/20 11:38: Patient brought back from pacu around 1115. She is awake and denies nausea. She has 3 small incision sites, one at umbilicus has some bloody drainage, all are covered with tegaderm and 2x2. to put in some orders for ivf when she is done with a procedure in OR. Addendum entered by Angle Grayson R.N. 11/27/20 09:59: Patient down to surgery a bit before 0900am. Report given to Jessica, [facility]. Celebrex given prior to leaving. Original Note: Patient is aware that she will be going to surgery at 0900 for a lap mo. She denies pain at this time. Abdomen is soft, bt are positive. Patient is lying on her r.side with ivf infusing.
[2020-11-27] MEDS: CELECOXIB 200 MG CAPSULE PO (08:23)
--- NOTE | 2020-11-27 08:54 | CM.DANOTE ---
DCP: Case received, EMR reviewed and met with patient. Introduced self and role. Was able to obtain information regarding some of patient's history prior to hospitalization. DCP assessment was completed with information currently available. Patient is a 40 year old female who admitted early this morning to the care of the hospitalist team. PCP: Dr. Robison. Payer: [employer]/Medicaid Patient came to the hospital via private vehicle secondary to her having increased right upper quadrant abdominal pain, and nausea. Patient was diagnosed with acute cholecystitis, with layering gallstones. She will be going to surgery soon. Met with patient in her room. She is alert and oriented, getting ready for surgery. Confirmed with patient that she resides on [address] with , 3 year old daughter, mother, grandmother, and great grandmother. She is independent. Stated, they had to call a special ferry to get here due to the pain. P: DCP to continue to follow. Patient will have surgery. She should be able to go home when she is deemed medically stable post surgery. Elizabeth Horowitz RN/Leather Colorer Discharge Planning/Care Management CM Discharge Assessment Start: 11/27/20 08:52 Freq: Status: Active Protocol: Document 11/27/20 08:52 (Rec: 11/27/20 08:54 [email or web address]) Discharge Planning Assessment Assigned Cloth Bolt Bander Elizabeth Horowitz RN/Leather Colorer Advance Directives? No History Provided By Patient,Medical Record Prior Living Arrangements House Household Members family Type of transporation used prior to Drives own vehicle admit Independent with ADL's Yes Is patient alert and oriented? Yes Caregiver for Another She has a 3 year old daughter Barriers to Discharge No Discharge Plan Home Transportation Arrangement Family Referrals Initiated None needed Whiteboard Updated in Patient Room with Yes name and ext. # of Cloth Bolt Bander Review Status In Process Next Review Type Continued Stay Review
--- NOTE | 2020-11-27 08:58 | P.HP_ITS ---
History of Present Illness History of Present Illness Date Patient Seen: 11/27/20 Time Patient Seen: 08:45 Chief complaint: abd pain right side and back Narrative: RUQ pain(sharp and tenderness) with nausea. No fever, + emesis, diarrhea or cough. H/o diagnostic laparoscopy for endometriosis. She has had RUQ pain/sensitivities off and on. Is due for Mold Unloader consult on Saturday for hysterectomy. Has a 3 year old child at home. Patient History Medical History Abnormal Pap smear of cervix (~2011) Abscess Acne (~1987) Anemia (08/31/14) Anti-TPO antibodies present Bartholin gland cyst Benign mole (1997) Chicken pox (~1990) Environmental allergies (08/24/13) Foot pain Hayfever Hemorrhoids HPV (human papilloma virus) infection (~2011) Labial abscess Menorrhagia with regular cycle MRSA infection (~2011) Murmur Muscle spasm Ocular migraine (08/24/13) Pinched nerve Rectal pain Rheumatoid arthritis Shoulder pain Surgical History Anesthesia History of colonoscopy with polypectomy (~08/2019) History of esophagogastroduodenoscopy (EGD) (~08/2019) History of evacuation of hematoma (01/12/14) History of gynecologic surgery (01/15/14) S/P primary low transverse (2017) Status post colposcopy (04/25/11) Status post incision and drainage (2010) Status post tendon repair (~2009) Status post tonsillectomy and adenoidectomy Family & Social History Family History Family/Other Abnormal blood pressure Stroke Family history of high cholesterol Family/Other Heart disease Scoliosis Brother Age: 40 Hypertension Father Hypertension History of cancer of sphenoid sinus Mother Age: 72 MD (Meckel's diverticulum) Hypertension High cholesterol Tachycardia Social History: household members family Prior Living Arrangements House other hiking, photography, Safety & Behavioral: Feels Safe in Current Yes Environment Been Physically Hurt or No Threatened By a Person Suicidal Ideation Description None Suicide Plan Description No Plan Tobacco & Substance use: Tobacco type cigarettes Smoking Status Current some day smoker alcohol intake current alcohol intake frequency a few times a week Substance Use Type marijuana Meds Home Medications and Allergies Home Medications Medication Instructions Recorded Confirmed Type ascorbic acid (vitamin C) 500 mg 500 mg DAILY 07/25/20 11/27/20 History tablet (Vitamin C) cetirizine 10 mg capsule (Zyrtec) 10 mg PO DAILY 07/25/20 11/27/20 History magnesium 200 mg tablet 400 mg PO DAILY 07/25/20 11/27/20 History omeprazole 20 mg capsule,delayed 20 mg PO DAILY 07/25/20 11/27/20 History release selenium 100 mcg tablet 100 mcg PO DAILY 07/25/20 11/27/20 History vitamin A 2,400 mcg capsule 2,400 mcg PO DAILY 07/25/20 11/27/20 History zinc 25 mg tablet 30 mg PO DAILY 07/25/20 11/27/20 History sertraline 100 mg tablet (Zoloft) 100 mg PO DAILY #90 tab 10/05/20 11/27/20 Rx Vitamin D+K 10,000 units PO DAILY 10/10/20 11/27/20 History heme iron 20 mg PO TID 10/10/20 11/27/20 History duloxetine 20 mg capsule,delayed 20 mg PO BID #60 cap 11/02/20 11/27/20 Rx release levothyroxine 25 mcg tablet 25 mcg PO DAILY #30 tab 11/25/20 11/27/20 Rx Allergies Allergy/AdvReac Type Severity Reaction Status Date / Time No Known Drug Allergies Allergy Verified 11/27/20 08:55 Review of Systems Review of Systems ROS: Yes All systems reviewed with the patient and are negative except as otherwise documented Exam Vital Signs (past 8 hours): - 11/27/20 02:27 11/27/20 05:10 11/27/20 05:15 Temperature 97.7 F 96.7 F L Pulse Rate 68 64 70 Respiratory Rate 17 16 16 Blood Pressure 148/86 H 118/55 L 134/81 Pulse Oximetry 99 99 98 11/27/20 08:12 Temperature 97.4 F L Pulse Rate 71 Respiratory Rate 16 Blood Pressure 123/65 Pulse Oximetry 96 Oxygen Delivery Method Room Air Oxygen Flow Rate 0 Const General: cooperative and comfortable Orientation: alert and awake [facility] Head: normal to inspection Ears: hearing grossly normal bilaterally Nose: external nose normal Eyes General: appearance normal, both eyes and all related structures Sclera: sclerae normal Neck Neck: normal visual inspection and trachea midline Chest Chest: normal inspection of the chest Resp Effort & Inspection: normal respiratory effort and able to speak in complete sentences Cardio Rate: regular rate Rhythm: regular rhythm GI Other: RUQ tenderness to palpation Back/Spine/Pelvis Sacroiliac Joints: nontender Skin General: no rashes or lesions noted Neuro General: patient alert and patient oriented x3 Speech: speech normal Extrem General: normal to inspection and full ROM Psych Appearance: grossly normal Attitude: cooperative Judgment: judgment good Objective Labs Result Diagrams: 11/27/20 02:30 11/27/20 02:30 Labs: Laboratory Results - last 24 hr 11/27/20 11/27/20 11/27/20 02:30 02:30 04:44 WBC 12.4 H RBC 4.52 Hgb 14.3 Hct 42.1 MCV 93.1 MCH 31.6 MCHC 34.0 RDW 13.7 Plt Count 319 Neut % (Auto) 64.0 Lymph % (Auto) 22.7 L [place] % (Auto) 6.7 Eos % (Auto) 5.4 H Baso % (Auto) 1.2 Neut # (Auto) 7900 H Lymph # (Auto) 2800 [place] # (Auto) 800 Eos # (Auto) 700 H Baso # (Auto) 200 H Sodium 137 Potassium 3.7 Chloride 106 Carbon Dioxide 26 BUN 12 Creatinine 0.63 Estimated GFR > 60.0 BUN/Creatinine Ratio 19.0 Glucose 143 H Calcium 9.2 Total Bilirubin 0.3 AST 24 ALT 21 Alkaline Phosphatase 76 Total Protein 7.5 Albumin 4.5 Globulin 3.0 Albumin/Globulin Ratio 1.5 Lipase 163 SARS-CoV-2 (PCR) Negative Assessment & Plan Assessment & Plan narrative: Acute cholecystitis. Endometriosis Plan: Laparoscopic cholecystectomy COVID-19 COVID-19 status: Negative Time Spent With Patient Time with patient: 30 to 49 minutes with 50% spent counseling/coordinating care Critical Care time: I spent a total of [] minutes of critical care time on this patient's care today; this time is exclusive of procedural time.
[2020-11-27] MEDS: LACTATED RINGERS 1,000 ML 42 ML IV (09:11)
[2020-11-27] MEDS: CEFAZOLIN 1 GM VIAL 2 GM IV (09:28)
--- NOTE | 2020-11-27 09:40 | SUR.OPER ---
Supine on padded OR bed, head on pillow, arms secured on padded arm boards at <90 degrees abduction, legs uncrossed, safety belt at thigh, tape over blanket over lower legs.
[2020-11-27] MEDS: EPINEPHrine 1 MG/ML 0.15 MG INJ (09:48)
[2020-11-27] MEDS: BUPIVACAINE 0.5% (PF) VIAL 30 ML INJ (09:48)
--- NOTE | 2020-11-27 10:16 | PM.OP.1 ---
Operative Date/Time/Diagnoses Date of procedure: 11/27/20 Time of procedure: 10:16 Pre-op diagnosis: acute mo Post-op diagnosis: same Procedure & Clinicians Procedure: lap mo Same procedure as scheduled: Yes Indications: Acute cholecystitis Surgeon: Kailey Chaidez Click Yes if Unassisted: Yes Anesthesia Type: General Operative Notes Findings: Acute cholecystitis Closure Type: primary Specimen(s): other (Gallbladder) Estimated Blood Loss (mL): 15 Blood products transfused: none Procedure in detail: Prep diagnosis: Acute cholecystitis Postop diagnosis: Same Operative procedure: Laparoscopic cholecystectomy Surgeon: Dr. Dm MD Anesthesiologist: Candy Rodney MD Findings: Acute cholecystitis Procedure: Patient placed in a supine position. Prepped and draped in a sterile fashion. Surgical time-out was performed. Incisions included infraumbilical port site using open technique and a 12 mm port. Epigastric port of 10 mm, and 2 right lateral abdomen 5 mm ports. The latter placed under direct vision of camera. Insufflation and placement of the above was without complications. Gallbladder was grasped pushed cephalad for exposure. Cystic duct was identified clipped once distally twice proximally and transected. Cystic artery was identified clipped once proximally and cauterized along with transection using scissors. Gallbladder is removed from the fossa bed electrocautery and excellent hemostasis. Gallbladder itself was pulled put into an Endo-Catch bag pulled through the infraumbilical port site intact without spillage of bile or stones. Residual fluid was suctioned from the abdomen, no irrigation was used. I then removed all ports and began closure. Closure consisted of interrupted 0 Vicryl for fascial closure of the infraumbilical port site. All others ports were closed with running 4-0 Vicryl subcutaneous stitching. Steri-Strips and sterile dressings were placed. Patient was awakened, extubated, taken to recovery room in stable condition. Needle, instrument, sponge counts were correct. Blood loss: 15 mL Specimen: Gallbladder Complications: none Post-operative Condition: stable Disposition: PACU Plan for aftercare: continue obs
[2020-11-27] MEDS: KETOROLAC 30 MG/ML VIAL IV (10:37)
[2020-11-27] MEDS: OXYCODONE IR 5 MG TABLET PO (10:44)
[2020-11-27] MEDS: hydrOXYzine pamoate 25 MG CAPSULE PO (10:44)
[2020-11-27] MEDS: LACTATED RINGERS 1,000 ML 120 ML IV (10:45)
--- NOTE | 2020-11-27 11:11 | SUR.PHASEI ---
Patient transferred to room 210 in bed by this RN. SBAR report to Angle Spivey. Bed in low position. Call light in reach.
[2020-11-27] MEDS: NICOTINE 21 MG PATCH TOP (18:21)
[2020-11-27] MEDS: HYDROCODONE/ACET 5/325 TABLET 2 TAB PO ×2 (18:29→20:12)
[2020-11-27] MEDS: DULOXETINE 20 MG CAPSULE PO (20:12)
[2020-11-27] MEDS: polyethylene glycoL 3350 17 GM POWD.PACK PO (20:12)
--- NOTE | 2020-11-27 22:37 | PC.NURSE ---
Patient is alert and oriented, has 3 incision sites covered with gauze and tegaderm. Dressing near umbilicus has bloody drainage and is leaking through tegaderm, reinforced with 4x4 gauze and tegaderm. Also, patient brought bag of home medications with her, medications were sent to pharmacy.
[2020-11-28] MEDS: HYDROCODONE/ACET 5/325 TABLET 2 TAB PO ×2 (00:07→08:21)
[2020-11-28 00:20] VITALS: BP 115/79; PULSE 79; RESP 18; TEMP 36.4; O2SAT 98
[2020-11-28] MEDS: PANTOPRAZOLE DR 20 MG TABLET PO (00:36)
[2020-11-28] MEDS: SERTRALINE 50 MG TABLET 100 MG PO (00:36)
[2020-11-28] MEDS: LORATADINE 10 MG TABLET PO (00:36)
[2020-11-28 06:02] LABS: Hematocrit 40.1 % (36-46); Hemoglobin 13.5 g/dL (12.0-16.0); Mean Corpuscular HGB Conc 33.6 % (30-36); Mean Corpuscular Hemoglobin 31.6 PG (26-34); Platelet Count 307 X10^3/uL (150-400); Red Blood Cell Count 4.27 X10^6/uL (4.0-5.2); Red Cell Distribution Width 13.5 % (11.6-14.8); White Blood Cell Count 10.4 X10^3/uL (4.5-11.0)
[2020-11-28] MEDS: LEVOTHYROXINE 25 MCG TABLET PO (06:04)
[2020-11-28 06:09] VITALS: BP 137/72; PULSE 88; RESP 18; TEMP 36.5; O2SAT 97
[2020-11-28 06:09] LABS: Alanine Aminotransferase 37 IU/L (<35); Albumin 3.8 g/dL (3.5-5.0); Albumin Globulin Ratio 1.4 (1.0-2.8); Alkaline Phosphatase 59 U/L (38-126); Aspartate Aminotransferase 35 IU/L (14-36); BUN Creatinine Ratio 10.6 (6-22); Bilirubin Total 0.3 mg/dL (0.2-1.3); Blood Urea Nitrogen 7 mg/dL (7-17); Calcium 8.8 mg/dL (8.4-10.2); Carbon Dioxide 25 mmol/L (22-32); Chloride 109 mmol/L (98-107); Estimated Glomerular Filt Rate > 60.0 mL/min (>60); Globulin 2.8 g/dL (1.7-4.1); Glucose 126 mg/dL (70-100); HEMOLYSIS < 15 (0-50); Potassium 4.1 mmol/L (3.4-5.1); Sodium 137 mmol/L (137-145); Total Protein 6.6 g/dL (6.3-8.2)
[2020-11-28 07:45] VITALS: BP 131/77; PULSE 75; RESP 18; TEMP 36.6; O2SAT 98
[2020-11-28] MEDS: DULOXETINE 20 MG CAPSULE PO (08:24)
[2020-11-28] MEDS: ASCORBIC ACID 500 MG TABLET PO (08:24)
[2020-11-28] MEDS: MAGNESIUM OXIDE 400 MG TABLET PO (08:25)
[2020-11-28] MEDS: CELECOXIB 200 MG CAPSULE PO (08:25)
[2020-11-28] MEDS: NICOTINE 21 MG PATCH TOP (08:29)
[2020-11-28] MEDS: polyethylene glycoL 3350 17 GM POWD.PACK PO (10:03)
--- NOTE | 2020-11-28 11:06 | PC.NURSE ---
Pt A&O x3, VSS, afebrile on RA. She is tolerating good po intake. She denies N/V and has +BS x4. Dressings to abdomen x 4 over lap sites.C/D/I slight shadow dressing on low mid abdomen dressing. Pt reports pain to abdomen 4-5/10 and medicated with PRN hydrocodone with good effect bringing pain level down to 2/10. MD at bedside this a.m. clearing patient for discharge home today. She verbalizes understanding of activity restrictions, site care, signs of infection/ worsening symptoms and medications. No orders for follow up appointments for suture removal. Pt escorted by RN via w/ch to private vehicle with her spouse at approximately 1050 with all of her belongings including her home medications.
--- NOTE | 2020-11-28 11:21 | PM.DS.1 ---
History of Present Illness History of Present Illness Chief complaint: abd pain right side and back Narrative: RUQ pain(sharp and tenderness) with nausea. No fever, + emesis, diarrhea or cough. H/o diagnostic laparoscopy for endometriosis. She has had RUQ pain/sensitivities off and on. 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 Has a 3 year old child at home. Discharge Providers Provider Date of admission: 11/27/20 04:49 Discharge Date: 11/28/20 Primary care physician: Brigida Robison DO Discharge provider: Kailey Chaidez MD Summary Hospital Course Discharge Diagnosis: acute cholecystitis Hospital Course: Lap mo, no complications Status at Discharge Cognitive/behavioral status at discharge: at baseline, oriented Functional status at discharge: independent ambulation Time Spent with Patient Time spent: Less than 30 minutes Exam Vital Signs (past 8 hours): - 11/28/20 06:09 11/28/20 07:45 Temperature 97.7 F 97.9 F Pulse Rate 88 75 Respiratory Rate 18 18 Blood Pressure 137/72 131/77 Pulse Oximetry 97 98 Oxygen Delivery Method Room Air Oxygen Flow Rate 0 Narrative Exam Narrative: no complications, abdomen benign Objective Labs Result Diagrams: 11/28/20 05:40 11/28/20 05:40 Labs: Laboratory Results - last 24 hr 11/28/20 11/28/20 05:40 05:40 WBC 10.4 RBC 4.27 Hgb 13.5 Hct 40.1 MCV 94.0 MCH 31.6 MCHC 33.6 RDW 13.5 Plt Count 307 Sodium 137 Potassium 4.1 Chloride 109 H Carbon Dioxide 25 BUN 7 Creatinine 0.66 Estimated GFR > 60.0 BUN/Creatinine Ratio 10.6 Glucose 126 H Calcium 8.8 Total Bilirubin 0.3 AST 35 ALT 37 H Alkaline Phosphatase 59 Total Protein 6.6 Albumin 3.8 Globulin 2.8 Albumin/Globulin Ratio 1.4 [facility] Medical History Abnormal Pap smear of cervix (~2011) Abscess Acne (~1987) Anemia (08/31/14) Anti-TPO antibodies present Bartholin gland cyst Benign mole (1997) Chicken pox (~1990) Environmental allergies (08/24/13) Foot pain Hayfever Hemorrhoids HPV (human papilloma virus) infection (~2011) Labial abscess Menorrhagia with regular cycle MRSA infection (~2011) Murmur Muscle spasm Ocular migraine (08/24/13) Pinched nerve Rectal pain Rheumatoid arthritis Shoulder pain Surgical History Anesthesia History of colonoscopy with polypectomy (~08/2019) History of esophagogastroduodenoscopy (EGD) (~08/2019) History of evacuation of hematoma (01/12/14) History of gynecologic surgery (01/15/14) S/P primary low transverse (2017) Status post colposcopy (04/25/11) Status post incision and drainage (2010) Status post tendon repair (~2009) Status post tonsillectomy and adenoidectomy Family History Family/Other Abnormal blood pressure Stroke Family history of high cholesterol Family/Other Heart disease Scoliosis Brother Age: 40 Hypertension Father Hypertension History of cancer of sphenoid sinus Mother Age: 72 MD (Meckel's diverticulum) Hypertension High cholesterol Tachycardia Social History household members: family pets and animals: No education level: college occupational status: employed [employer]: Spiritual leisure activities: art and other other: hiking, photography, seatbelt use: always helmet use: Yes water heater temp set < 120 deg: Yes working smoke detector in home: Yes fire extinguisher in home: Yes carbon monox detector in home: Yes firearms in home: No Smoking Status: Current some day smoker alcohol intake: current substance use type: does not use during the past year weight has: remained stable well-balanced diet: daily or most days daily servings fruits/ve-4 caffeine: Yes (1/2 to 1 drink per day) eating out: other frequency: daily duration: > 90 minutes/day additional social history: 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 Plan of Treatment: no heavy lifting for 4 weeks (15 lb limit). follow up as needed. Discharge Plan Discharge Plan Patient Disposition: Home Provider Discharge Comment: if tolerating po. home today Discharge orders & Medications Prescriptions: New hydrocodone-acetaminophen 5-325 mg Tablet 2 tab PO Q4-8H PRN (Reason: Pain, Moderate (4-6)) Qty: 15 RF: 0 naproxen 500 mg tablet 500 mg PO BID PRN (Reason: pain) Qty: 30 RF: 0 Continued sertraline [Zoloft] 100 mg tablet 100 mg PO DAILY Qty: 90 RF: 3 heme iron 20 mg PO TID RF: 0 Vitamin D+K 10,000 units PO DAILY RF: 0 levothyroxine 25 mcg tablet 25 mcg PO DAILY Qty: 30 RF: 1 duloxetine 20 mg capsule,delayed release(DR/EC) 20 mg PO BID Qty: 60 RF: 0 vitamin A 2,400 mcg Capsule 2,400 mcg PO DAILY RF: 0 ascorbic acid (vitamin C) [Vitamin C] 500 mg Tablet 500 mg DAILY RF: 0 zinc 25 mg Tablet 30 mg PO DAILY RF: 0 omeprazole 20 mg Capsule,Delayed Release(Dr/Ec) 20 mg PO DAILY RF: 0 selenium 100 mcg Tablet 100 mcg PO DAILY RF: 0 magnesium 200 mg Tablet 400 mg PO DAILY RF: 0 Zyrtec 10 mg Capsule 10 mg PO DAILY RF: 0 Follow up/Referrals: Brigida Robison DO [Primary Care Provider] - Diet/Activity/Treatments Diet: Diet as Tolerated Diet comment: no restrictions Activity: no lifting greater than 15 lbs for 4 weeks Other treatments: due to COVID and staffing struggles, call if you have issues. No follow up will be scheduled Skin/Wound/Dressing Care Report to your healthcare provider any signs of infection, such as:: chills, fever, increased pain, unusual drainage and unusual redness Dressing: remove outer dressing anytime. replace for drainage or comfort. Leave steri strips on for 10 days total and then remove. Ok to shower with wound open to air. No soaking such as bathes or swimming for 1 week. Visit Report/Discharge Packet Instructions: DI for Open Cholecystectomy, DI for Laparoscopy, DI for Prescription Opioid Use Stand Alone Forms: Surgery Discharge Discharge Data Primary Care Provider: Brigida Robison Attending Provider: Kailey Chaidez
== END 2020-11-28 10:50 | disposition home or self-care (01) ==
LOC: ED 02:32 → AC 04:49
PROVIDERS: Admitting Provider Surgery; Emergency Provider Emergency Medicine; PCP Family Medicine; Referring Provider Emergency Medicine; Visit Provider Surgery
PROC: 0FT44ZZ Resection of Gallbladder, Percutaneous Endoscopic Approach (ICD-10-PCS; CPT 47562; principal; 2020-11-27 09:00)
DX: K81.0 Acute cholecystitis (principal); R10.11 Right upper quadrant pain; M54.9 Dorsalgia, unspecified; F17.210 Nicotine dependence, cigarettes, uncomplicated
CPT/HCPCS: 47562; 36415; 76705; 80053; 81003; 83690; 85025; 85027; 87635; 96361; 96374; 96375; 96376; 99220; 99285; C9803; G0378; J0171; J0330; J0690; J1100; J1170; J1885; J2250; J2405; J2704; J3010; J7121

== ENCOUNTER → 2020-12-01 19:04 | Outpatient (CLI) | payer OTHER, MEDICAID, SELFPAY ==
[2020-11-27 05:38] VITALS: BMI 29.5
[2020-12-01 19:32] LABS: HEMOLYSIS < 15 (0-50); Iron 78 ug/dL (37-170)
[2020-12-01 19:43] LABS: Percent Iron Saturation 27 % (15-50); Total Iron Binding Capacity 287 ug/dL (265-497); Transferrin 256 mg/dL (206-381)
[2020-12-01 20:08] LABS: Ferritin 111 ng/mL (6-137)
== END ==
PROVIDERS: PCP Family Medicine; Visit Provider Family Medicine
DX: D50.0 Iron deficiency anemia secondary to blood loss (chronic) (principal)
CPT/HCPCS: 82728; 83540; 83550

== ENCOUNTER → 2021-01-16 12:28 | Outpatient (CLI) | payer OTHER, MEDICAID, SELFPAY ==
[2021-01-16 12:26] VITALS: BMI 29.5
[2021-01-16 14:04] LABS: Free T3, Triiodothyronine Free 3.46 pg/mL (2.77-5.27); Free T4, Direct Thyroxine 0.85 ng/dL (0.78-2.19)
[2021-01-16 14:18] LABS: Thyroid Stimulating Hormone 3.74 uIU/mL (0.47-4.68)
== END ==
PROVIDERS: PCP Family Medicine; Referring Provider Family Medicine; Visit Provider Family Medicine
DX: E06.3 Autoimmune thyroiditis (principal)
CPT/HCPCS: 36415; 84439; 84443; 84481; 85018

== ENCOUNTER → 2021-04-14 15:32 | Outpatient (CLI) | payer OTHER, MEDICAID, SELFPAY ==
[2021-02-01 17:22] VITALS: BMI 29.5
[2021-04-14 16:42] LABS: Add Manual Diff / Slide Review NO; Basophils Absolute Auto 200 /uL (0-100); Basophils Percent Auto 2.7 % (0-2); Eosinophils Absolute Auto 800 /uL (0-450); Eosinophils Percent Auto 10.1 % (2-4); Hematocrit 41.1 % (36-46); Hemoglobin 14.1 g/dL (12.0-16.0); Lymphocytes Absolute Auto 2800 /uL (1100-4500); Lymphocytes Percent Auto 37.4 % (25-40); Mean Corpuscular HGB Conc 34.4 % (30-36); Mean Corpuscular Volume 93.2 fL (80-100); Monocytes Absolute Auto 600 /uL (0-900); Monocytes Percent Auto 7.7 % (3-14); Neutrophils Absolute Auto 3200 /uL (1500-7000); Neutrophils Percent Auto 42.1 % (50-75); Platelet Count 345 X10^3/uL (150-400); Red Blood Cell Count 4.42 X10^6/uL (4.0-5.2); Red Cell Distribution Width 13.2 % (11.6-14.8); White Blood Cell Count 7.6 X10^3/uL (4.5-11.0)
[2021-04-14 17:37] LABS: HEMOLYSIS < 15 (0-50); Iron 51 ug/dL (37-170)
[2021-04-14 17:42] LABS: Alanine Aminotransferase 31 IU/L (<35); Albumin 4.3 g/dL (3.5-5.0); Albumin Globulin Ratio 1.5 (1.0-2.8); Alkaline Phosphatase 66 U/L (38-126); Aspartate Aminotransferase 30 IU/L (14-36); BUN Creatinine Ratio 11.7 (6-22); Bilirubin Total 0.4 mg/dL (0.2-1.3); Blood Urea Nitrogen 9 mg/dL (7-17); Calcium 9.5 mg/dL (8.4-10.2); Carbon Dioxide 33 mmol/L (22-32); Chloride 104 mmol/L (98-107); Estimated Glomerular Filt Rate > 60.0 mL/min (>60); Globulin 2.9 g/dL (1.7-4.1); Glucose 103 mg/dL (70-100); HEMOLYSIS < 15 (0-50); Potassium 4.4 mmol/L (3.4-5.1); Sodium 140 mmol/L (137-145); Total Protein 7.2 g/dL (6.3-8.2)
[2021-04-14 17:48] LABS: Percent Iron Saturation 16 % (15-50); Total Iron Binding Capacity 324 ug/dL (265-497); Transferrin 267 mg/dL (206-381)
[2021-04-14 18:09] LABS: TSH w/ Reflex to FT4 0.93 uIU/mL (0.47-4.68)
[2021-04-14 18:19] LABS: Ferritin 54 ng/mL (6-137)
[2021-04-19 18:41] LABS: Triiodothyronine T3 Reverse 12.2 ng/dL (9.2-24.1)
== END ==
PROVIDERS: Internal Medicine Hematology & Oncology; PCP Family Medicine; Referring Provider Family Medicine; Visit Provider Family Medicine
DX: D50.0 Iron deficiency anemia secondary to blood loss (chronic) (principal); D64.9 Anemia, unspecified; E06.3 Autoimmune thyroiditis
CPT/HCPCS: 36415; 80053; 82728; 83540; 83550; 84443; 84482; 85025

== ENCOUNTER → 2021-07-17 16:16 | Outpatient (CLI) | payer OTHER, MEDICAID, SELFPAY ==
[2021-02-01 17:22] VITALS: BMI 29.5
--- NOTE | 2021-07-17 16:19 | DI.RAD.S_ITS ---
PROCEDURE: XR LUMBAR SPINE MIN 4V INDICATIONS: BACK AND LEG PAIN TECHNIQUE: 5 views of the lumbar spine acquired, including flexion and extension views. COMPARISON: [facility], CR, XR LUMBAR SPINE 2-3V, 01/20/2019, 13:35. FINDINGS: Bones: 5 nonrib-bearing vertebrae are present. 2 mm retrolisthesis L3-L4, L4-L5 and L5-S1.. No vertebral body compression fractures. No suspicious bony lesions. Disc height is well maintained. Soft tissues: Overlying bowel gas pattern is normal. No suspicious soft tissue calcifications. Cholecystectomy clips. IMPRESSION: 1. Multilevel trace grade 1 retrolisthesis. Dictated by: Nathan ARNOLD Interpreted: Sarthak Fonseca MD on 07/17/2021 at 16:35 Transcribed by: VELASQUEZ on 07/17/2021 at 16:36 Approved by: Sarthak Fonseca M.D. on 07/17/2021 at 17:18
== END ==
PROVIDERS: PCP Family Medicine; Referring Provider Physical Medicine & Rehabilitation; Visit Provider Physical Medicine & Rehabilitation
DX: M79.605 Pain in left leg (principal); M54.9 Dorsalgia, unspecified
CPT/HCPCS: 72110

== ENCOUNTER 2021-07-24 08:03 | Emergency (ER) | payer OTHER, MEDICAID, SELFPAY ==
[2021-02-01 17:22] VITALS: BMI 29.5
[2021-07-24] VITALS (7 sets, daily range): BP systolic 130–158; BP diastolic 63–87; PULSE 76–88; RESP 18; TEMP 36.6; O2SAT 97–99; BMI 29.0
[2021-07-24] MEDS: ONDANSETRON 4 MG/2 ML INJ IV (08:33)
[2021-07-24] MEDS: SODIUM CHLORIDE 0.9% 1,000 ML 1000 ML IV (08:34)
[2021-07-24 08:35] LABS: Add Manual Diff / Slide Review NO; Basophils Absolute Auto 0 /uL (0-100); Basophils Percent Auto 0.2 % (0-2); Eosinophils Absolute Auto 400 /uL (0-450); Eosinophils Percent Auto 2.5 % (2-4); Hemoglobin 15.1 g/dL (12.0-16.0); Lymphocytes Absolute Auto 700 /uL (1100-4500); Lymphocytes Percent Auto 4.5 % (25-40); Mean Corpuscular HGB Conc 34.3 % (30-36); Mean Corpuscular Hemoglobin 31.3 PG (26-34); Mean Corpuscular Volume 91.2 fL (80-100); Monocytes Absolute Auto 700 /uL (0-900); Monocytes Percent Auto 4.2 % (3-14); Neutrophils Absolute Auto 13600 /uL (1500-7000); Neutrophils Percent Auto 88.6 % (50-75); Platelet Count 339 X10^3/uL (150-400); Red Blood Cell Count 4.82 X10^6/uL (4.0-5.2); Red Cell Distribution Width 12.8 % (11.6-14.8); White Blood Cell Count 15.4 X10^3/uL (4.5-11.0)
--- NOTE | 2021-07-24 08:39 | ED.NAVMDI ---
HPI - Nausea/Vomiting/Diarrhea General Chief complaint: Nausea/Vomiting/Diarrhea Stated complaint: 2 weeks post op,vomiting Time Seen by Provider: 07/24/21 08:27 Source: patient Mode of arrival: Ambulatory History of Present Illness HPI Narrative: Patient is a 41-year-old female with history of hypothyroid hiatal hernia recently had a hysterectomy 2 weeks ago presents today with nausea vomiting diarrhea. She states that her daughter had similar illness. She had runny stuffy nose and then the same. Patient states that vomiting started this morning. She is unable to keep anything down. She has had explosive diarrhea. She denies significant abdominal pain. She actually says that her abdomen feels better than it did before her surgery. She says that she has been dry heaving. She overall does not feel well Related Data Home Medications Medication Instructions Recorded Confirmed omeprazole 20 mg capsule,delayed 20 mg PO DAILY 07/25/20 05/22/21 release Vitamin D+K 10,000 units PO DAILY 10/10/20 05/22/21 ibuprofen 800 mg tablet 800 mg PO BID tab 07/19/21 07/19/21 ondansetron 4 mg disintegrating 4 mg PO BID tab 07/19/21 07/19/21 tablet oxycodone-acetaminophen 5 mg-325 1 tab PO Q6H tab 07/19/21 07/19/21 mg tablet Previous Rx's Medication Instructions Recorded levothyroxine 75 mcg tablet 75 mcg PO DAILY #90 tab 06/12/21 sertraline 25 mg tablet See Rx Instructions PO DAILY #50 06/28/21 tab gabapentin 300 mg capsule 300 mg PO .COMPLEX #90 cap 07/19/21 ondansetron 4 mg disintegrating 4 mg PO Q8H PRN #10 tab 07/24/21 tablet Allergies Allergy/AdvReac Type Severity Reaction Status Date / Time No Known Drug Allergies Allergy Verified 07/19/21 15:18 Review of Systems Review of Systems Narrative: GENERAL: Denies chills, fatigue, malaise, fever, sweats, travel HEENT: Denies sinus pain, ear pain, sore throat, difficulty swallowing, neck pain RESPIRATORY: Denies dyspnea, cough, wheezing, hemoptysis, sputum. CARDIOVASCULAR: Denies chest pain, palpitations, orthopnea, edema GASTROINTESTINAL: See HPI : Denies dysuria, frequency, incontinence, hematuria, urinary retention, flank pain. MUSCULOSKELETAL: Denies weakness, joint pain, or bony pain SKIN: No rash, no erythema, no pruritus NEUROLOGIC: Denies weakness, dizziness, headache, numbness, change in speech, confusion PSYCHIATRIC: No concerning psychosocial issues. 12 point review of systems is negative except for those stated above and HPI Patient History Medical History Abdominal bloating with cramps Abnormal Pap smear of cervix (~2011) Abscess Acne (~1987) Anemia (08/31/14) Anti-TPO antibodies present Bartholin gland cyst Benign mole (1997) Chicken pox (~1990) Endometriosis Environmental allergies (08/24/13) Foot pain Shima's thyroiditis Hayfever Hemorrhoids HPV (human papilloma virus) infection (~2011) Iron deficiency anemia due to chronic blood loss Labial abscess Lumbosacral radiculopathy at L5 Menorrhagia with regular cycle Mixed anxiety depressive disorder (10/28/15) MRSA infection (~2011) Murmur Muscle spasm Ocular migraine (08/24/13) Pinched nerve Rectal pain Rheumatoid arthritis Shoulder pain Tobacco use disorder Surgical History Anesthesia History of colonoscopy with polypectomy (~08/2019) History of esophagogastroduodenoscopy (EGD) (~08/2019) History of evacuation of hematoma (01/12/14) History of gynecologic surgery (01/15/14) S/P primary low transverse (2017) Status post colposcopy (04/25/11) Status post hysterectomy with oophorectomy Status post incision and drainage (2010) Status post tendon repair (~2009) Status post tonsillectomy and adenoidectomy Family History Family/Other Abnormal blood pressure Stroke Family history of high cholesterol Family/Other Heart disease Scoliosis Brother Age: 40 Hypertension Father Hypertension History of cancer of sphenoid sinus Mother Age: 72 MD (Meckel's diverticulum) Hypertension High cholesterol Tachycardia Social History household members: family pets and animals: No education level: college occupational status: employed [employer]: Spiritual leisure activities: art and other other: hiking, photography, seatbelt use: always helmet use: Yes water heater temp set < 120 deg: Yes working smoke detector in home: Yes fire extinguisher in home: Yes carbon monox detector in home: Yes firearms in home: No Smoking Status: Current some day smoker alcohol intake: current substance use type: does not use during the past year weight has: remained stable well-balanced diet: daily or most days daily servings fruits/ve-4 caffeine: Yes (1/2 to 1 drink per day) eating out: other frequency: daily duration: > 90 minutes/day additional social history: 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 RESPIRATORY: Breath sounds equal bilaterally, no wheezes rales or rhonchi. ABDOMEN:. Incision sites clean and dry no sign of infection. Abdomen is very soft no significant tenderness EXTREMITIES: Normal range of motion, no clubbing or edema. Neurovascularly intact NEUROLOGICAL: Alert and oriented x4. SKIN: Warm, dry, no laceration, no petechiae, no rashes or lesions. Course Orders Ordered: Discontinued Medications Sodium Chloride (Normal Saline 0.9%) 1,000 mls @ 1,000 mls/hr IV CONT CINDA Last Infusion: 07/24/21 09:55 Dose: 0 mls/hr Documented by: Admin: 07/24/21 08:34 Dose: 1,000 mls/hr Documented by: ROD Ketorolac Tromethamine (Ketorolac 30 Mg/Ml Vial) 15 mg IV NOW ONE Stop: 07/24/21 08:48 Last Admin: 07/24/21 08:53 Dose: 15 mg Documented by: STEVIE Ondansetron HCl (Ondansetron 4 Mg/2 Ml Inj) 4 mg IV NOW ONE Stop: 07/24/21 08:29 Last Admin: 07/24/21 08:33 Dose: 4 mg Documented by: ROD Pantoprazole Sodium (Pantoprazole 40 Mg Vial) 40 mg IV NOW ONE Stop: 07/24/21 08:48 Last Admin: 07/24/21 08:53 Dose: 40 mg Documented by: STEVIE Vital Signs Vital signs: Vital Signs - 8 hr 07/24/21 08:05 Temperature 97.9 F Pulse Rate 87 Respiratory Rate 18 Blood Pressure 158/85 H Pulse Oximetry 97 MDM - Nausea/Vomiting/Diarrhea Lab Data Result diagrams: 07/24/21 08:15 07/24/21 08:15 Labs: Lab Results 07/24/21 07/24/21 07/24/21 Range/Units 08:15 08:15 08:41 WBC 15.4 H (4.5-11.0) X10^3/uL RBC 4.82 (4.0-5.2) X10^6/uL Hgb 15.1 (12.0-16.0) g/dL Hct 44.0 (36-46) % MCV 91.2 (80-100) fL MCH 31.3 (26-34) PG MCHC 34.3 (30-36) % RDW 12.8 (11.6-14.8) % Plt Count 339 (150-400) X10^3/uL Neut % (Auto) 88.6 H (50-75) % Lymph % (Auto) 4.5 L (25-40) % Greer % (Auto) 4.2 (3-14) % Eos % (Auto) 2.5 (2-4) % Baso % (Auto) 0.2 (0-2) % Neut # (Auto) 27088 H (6987-0502) /uL Lymph # (Auto) 700 L (7322-5298) /uL Greer # (Auto) 700 (0-900) /uL Eos # (Auto) 400 (0-450) /uL Baso # (Auto) 0 (0-100) /uL Sodium 140 (137-145) mmol/L Potassium 4.4 (3.4-5.1) mmol/L Chloride 106 (98-107) mmol/L Carbon Dioxide 28 (22-32) mmol/L BUN 10 (7-17) mg/dL Creatinine 0.72 (0.52-1.04) mg/dL Estimated GFR > 60 (>60) mL/min BUN/Creatinine Ratio 13.9 (6-22) Glucose 153 H (70-100) mg/dL Calcium 9.3 (8.4-10.2) mg/dL Total Bilirubin 0.4 (0.2-1.3) mg/dL AST 38 H (14-36) IU/L ALT 48 H (<35) IU/L Alkaline Phosphatase 77 (38-126) U/L Total Protein 8.4 H (6.3-8.2) g/dL Albumin 4.8 (3.5-5.0) g/dL Globulin 3.6 (1.7-4.1) g/dL Albumin/Globulin Ratio 1.3 (1.0-2.8) Lipase 64 (23-300) U/L SARS-CoV-2 (PCR) Negative (Negative) Influenza A (RT-PCR) (NEGATIVE) Influenza B (RT-PCR) (NEGATIVE) 07/24/21 Range/Units 08:56 WBC (4.5-11.0) X10^3/uL RBC (4.0-5.2) X10^6/uL Hgb (12.0-16.0) g/dL Hct (36-46) % MCV (80-100) fL MCH (26-34) PG MCHC (30-36) % RDW (11.6-14.8) % Plt Count (150-400) X10^3/uL Neut % (Auto) (50-75) % Lymph % (Auto) (25-40) % Greer % (Auto) (3-14) % Eos % (Auto) (2-4) % Baso % (Auto) (0-2) % Neut # (Auto) (0162-6943) /uL Lymph # (Auto) (1450-7764) /uL Greer # (Auto) (0-900) /uL Eos # (Auto) (0-450) /uL Baso # (Auto) (0-100) /uL Sodium (137-145) mmol/L Potassium (3.4-5.1) mmol/L Chloride (98-107) mmol/L Carbon Dioxide (22-32) mmol/L BUN (7-17) mg/dL Creatinine (0.52-1.04) mg/dL Estimated GFR (>60) mL/min BUN/Creatinine Ratio (6-22) Glucose (70-100) mg/dL Calcium (8.4-10.2) mg/dL Total Bilirubin (0.2-1.3) mg/dL AST (14-36) IU/L ALT (<35) IU/L Alkaline Phosphatase (38-126) U/L Total Protein (6.3-8.2) g/dL Albumin (3.5-5.0) g/dL Globulin (1.7-4.1) g/dL Albumin/Globulin Ratio (1.0-2.8) Lipase (23-300) U/L SARS-CoV-2 (PCR) (Negative) Influenza A (RT-PCR) Flu a negative (NEGATIVE) Influenza B (RT-PCR) Flu b negative (NEGATIVE) MDM Narrative Medical decision making narrative: Patient is having signs and symptoms consistent with a gastroenteritis with nausea and vomiting. Her daughter had similar symptoms. No significant abdominal pain. Even though she is postop. She has mild leukocytosis. At this time based on her clinical exam and presentation I do not see need for CT or imaging. Patient is overall feeling significantly better after medication. She is tolerating ice chips. Abdomen remains soft. At this time will discharge home. Discussed rehydration technique with her and when to return to ED. Discharge Plan Departure Patient Disposition: Home Clinical Impression: Gastroenteritis Instructions: DI for Viral Gastroenteritis -- Adult Activity Restrictions/Additional Instructions: *You have been diagnosed with gastroenteritis *What to do: Increase fluid intake as tolerated. Recommend Pedialyte, Gatorade, broth or other like substance for rehydration. May increased food as tolerated. This can last 7-10 days hopefully this lasts 1-2 for you. *Continue to take medications as directed Zofran 4 mg 1 tablet every is a hours if for nausea or vomiting--> SENT TO [facility] [place] *Follow up with your primary care provider in 2-3 days or call [phone] *Return to ER if you should have persistent vomiting dizziness, lightheadedness severe abdominal pain, or any new, worsening or concerning symptoms Prescriptions: New ondansetron 4 mg tablet,disintegrating 4 mg PO Q8H PRN (Reason: nausea and vomiting) Qty: 10 0RF No Action Vitamin D+K 10,000 units PO DAILY 0RF levothyroxine 75 mcg tablet 75 mcg PO DAILY Qty: 90 3RF sertraline 25 mg tablet See Rx Instructions PO DAILY Qty: 50 0RF Rx Instructions: Take 3 tablets daily for one week then Take 2 tablets daily for next week then Take one tablet daily for one week then Take one tablet every other day for the last week. omeprazole 20 mg Capsule,Delayed Release(Dr/Ec) 20 mg PO DAILY 0RF ondansetron 4 mg tablet,disintegrating 4 mg PO BID 0RF ibuprofen 800 mg tablet 800 mg PO BID 0RF Label Comments: take 1 tablet by mouth every 8 hours NEEDED FOR PAIN oxycodone-acetaminophen 5-325 mg tablet 1 tab PO Q6H 0RF gabapentin 300 mg capsule 300 mg PO .COMPLEX Qty: 90 2RF Rx Instructions: 1-2 PO Tid to begin at HS and titrate to pain relief Referrals: Kadi Aguilar MD [Primary Care Provider] -
[2021-07-24 08:40] LABS: Alanine Aminotransferase 48 IU/L (<35); Albumin 4.8 g/dL (3.5-5.0); Albumin Globulin Ratio 1.3 (1.0-2.8); Alkaline Phosphatase 77 U/L (38-126); Aspartate Aminotransferase 38 IU/L (14-36); BUN Creatinine Ratio 13.9 (6-22); Bilirubin Total 0.4 mg/dL (0.2-1.3); Blood Urea Nitrogen 10 mg/dL (7-17); Calcium 9.3 mg/dL (8.4-10.2); Carbon Dioxide 28 mmol/L (22-32); Chloride 106 mmol/L (98-107); Estimated Glomerular Filt Rate > 60 mL/min (>60); Globulin 3.6 g/dL (1.7-4.1); Glucose 153 mg/dL (70-100); HEMOLYSIS 17 (0-50); Lipase 64 U/L (23-300); Potassium 4.4 mmol/L (3.4-5.1); Sodium 140 mmol/L (137-145); Total Protein 8.4 g/dL (6.3-8.2)
[2021-07-24] MEDS: PANTOPRAZOLE 40 MG VIAL IV (08:53)
[2021-07-24] MEDS: KETOROLAC 30 MG/ML VIAL 15 MG IV (08:53)
[2021-07-24 08:56] LABS: COVID19 -Nasal RAPID Negative (Negative)
[2021-07-24 09:40] LABS: Influenza A - CEPHEID Flu A NEGATIVE (NEGATIVE); Influenza B - CEPHEID Flu B NEGATIVE (NEGATIVE)
== END 2021-07-24 10:22 | disposition home or self-care (01) ==
PROVIDERS: Emergency Provider Emergency Medicine; PCP Family Medicine
DX: K52.9 Noninfective gastroenteritis and colitis, unspecified (principal); R11.2 Nausea with vomiting, unspecified; Z20.822 Contact with and (suspected) exposure to COVID-19
CPT/HCPCS: 36415; 80053; 83690; 85025; 87502; 87635; 96361; 96374; 96375; 99284; C9803; C9113; J1885; J2405

== ENCOUNTER → 2021-08-03 13:19 | Outpatient (CLI) | payer OTHER, MEDICAID, SELFPAY ==
[2021-02-01 17:22] VITALS: BMI 29.5
--- NOTE | 2021-08-03 13:20 | DI.MRI.S_ITS ---
PROCEDURE: MR LUMBAR SPINE WO CON INDICATIONS: Chronic low back pain left lower extremity symptoms TECHNIQUE: Noncontrast sagittal T1 spin echo and T2 fast echo, sagittal STIR, and T2 fast spin echo through the lumbar spine. In cases with scoliosis, additional coronal T2 fast spin echo may be performed. COMPARISON: [facility], MR, MR LUMBAR SPINE WO CON, 02/04/2019, 20:41. FINDINGS: Image quality: Excellent. Alignment and Curvature: There is normal bony alignment. Bone Marrow: Marrow is of normal overall signal. No acute vertebral body compression fractures. Spinal Cord: Conus medullaris terminates at the L1 level. Visualized cord demonstrates normal signal and size. Paraspinous Soft Tissues: No paravertebral masses. T12-L1: Normal appearance. L1-L2: Asymmetric right disc bulge minimally effaces the right lateral recess. No central or foraminal stenosis. L2-L3: Normal appearance. L3-L4: Normal appearance. L4-L5: Mild disc space narrowing and circumferential disc bulge with hypertrophic facet joints results in trace central stenosis. No foraminal stenosis. L5-S1: Mild disc space narrowing without central or foraminal stenosis IMPRESSION: Minimal degenerative changes without significant central or foraminal stenosis Approved by: Fab Martinez M.D. on 08/03/2021 at 16:40
== END ==
PROVIDERS: PCP Family Medicine; Referring Provider Physical Medicine & Rehabilitation; Visit Provider Physical Medicine & Rehabilitation
DX: M54.17 Radiculopathy, lumbosacral region (principal)
CPT/HCPCS: 72148

== ENCOUNTER → 2021-10-09 11:34 | Outpatient (CLI) | payer OTHER, MEDICAID, SELFPAY ==
[2021-09-22 15:45] VITALS: BMI 29.5
[2021-10-09 12:15] LABS: Add Manual Diff / Slide Review NO; Basophils Absolute Auto 100 /uL (0-100); Basophils Percent Auto 1.3 % (0-2); Eosinophils Absolute Auto 600 /uL (0-450); Eosinophils Percent Auto 7.4 % (2-4); Hematocrit 41.7 % (36-46); Hemoglobin 14.6 g/dL (12.0-16.0); Lymphocytes Absolute Auto 3400 /uL (1100-4500); Lymphocytes Percent Auto 39.1 % (25-40); Mean Corpuscular Hemoglobin 31.8 PG (26-34); Mean Corpuscular Volume 90.8 fL (80-100); Monocytes Absolute Auto 700 /uL (0-900); Neutrophils Absolute Auto 3900 /uL (1500-7000); Neutrophils Percent Auto 44.2 % (50-75); Platelet Count 343 X10^3/uL (150-400); Red Cell Distribution Width 12.5 % (11.6-14.8); White Blood Cell Count 8.8 X10^3/uL (4.5-11.0)
[2021-10-09 12:51] LABS: Hemoglobin A1C% w Est Avg Glu 5.2 % (4.0-6.0)
[2021-10-09 13:23] LABS: Ferritin 190 ng/mL (6-137)
[2021-10-09 13:28] LABS: HEMOLYSIS < 15 (0-50); Iron 84 ug/dL (37-170)
[2021-10-09 13:39] LABS: Percent Iron Saturation 30 % (15-50); Total Iron Binding Capacity 277 ug/dL (265-497); Transferrin 219 mg/dL (206-381)
[2021-10-09 13:44] LABS: Vitamin B12 369 pg/mL (239-931)
== END ==
PROVIDERS: Internal Medicine Hematology & Oncology; Family Provider Family Medicine; PCP Pediatrics; Referring Provider Pediatrics; Visit Provider Pediatrics
DX: D50.0 Iron deficiency anemia secondary to blood loss (chronic) (principal); L50.8 Other urticaria; R10.9 Unspecified abdominal pain; R14.0 Abdominal distension (gaseous); R61 Generalized hyperhidrosis; R73.09 Other abnormal glucose
CPT/HCPCS: 36415; 82607; 82728; 83036; 83540; 83550; 85025

== ENCOUNTER → 2021-11-03 10:33 | Outpatient (CLI) | payer OTHER, MEDICAID, SELFPAY ==
[2021-09-22 15:45] VITALS: BMI 29.5
[2021-11-03 11:53] LABS: Hemoglobin A1C% w Est Avg Glu 5.1 % (4.0-6.0)
[2021-11-09 17:36] LABS: Methylmalonic Acid,Serum 89 nmol/L (0-378)
== END ==
PROVIDERS: Family Provider Family Medicine; PCP Pediatrics; Referring Provider Pediatrics; Visit Provider Pediatrics
DX: E53.8 Deficiency of other specified B group vitamins (principal); R73.09 Other abnormal glucose
CPT/HCPCS: 36415; 83036; 83921

== ENCOUNTER → 2021-11-06 10:00 | Outpatient (CLI) | payer OTHER, MEDICAID, SELFPAY ==
[2021-09-22 15:45] VITALS: BMI 29.5
[2021-11-06 13:35] LABS: COVID19 -Nasal RAPID Negative (Negative)
== END ==
PROVIDERS: Family Provider Family Medicine; PCP Pediatrics; Visit Provider Physical Medicine & Rehabilitation
DX: Z20.822 Contact with and (suspected) exposure to COVID-19 (principal)
CPT/HCPCS: 87635; C9803

== ENCOUNTER 2021-11-07 09:47 | Outpatient (CLI) | payer OTHER, MEDICAID, SELFPAY ==
[2021-09-22 15:45] VITALS: BMI 29.5
[2021-11-07] VITALS (8 sets, daily range): BP systolic 112–134; BP diastolic 63–85; PULSE 63–76; RESP 14–22; TEMP 36.6; O2SAT 97–100
--- NOTE | 2021-11-07 09:49 | DI.RAD.S_ITS ---
PROCEDURE: PAIN SI JOINT INJECTION INDICATIONS: LEFT SACROILIAC DISORDER COMPARISON: [facility], CR, XR LUMBAR SPINE MIN 4V, 07/17/2021, 16:09. FINDINGS: On these intraprocedural images, there is a spinal needle seen overlying the inferior aspect of the left sacroiliac joint. Appropriate position of the tip of the needle was confirmed by injection of a small amount of iodinated contrast. IMPRESSION: Successful sacroiliac joint injection. Dictated by: Dinh Robert M.D. on 11/07/2021 at 12:23 Approved by: Dinh Robert M.D. on 11/07/2021 at 12:23
[2021-11-07] MEDS: MIDAZOLAM 2 MG/2 ML VIAL IV (10:40)
[2021-11-07] MEDS: IOPAMIDOL 15 ML VIAL 3 ML INJ (10:45)
[2021-11-07] MEDS: BUPIVACAINE 0.5% (PF) VIAL 2 ML INJ (10:45)
[2021-11-07] MEDS: BETAMETHASONE 30 MG/5 ML MDV 12 MG INJ (10:46)
--- NOTE | 2021-11-07 10:55 | PM.PROC.IR.1 ---
Date/Time/Diagnoses Date of procedure: 11/07/21 Time of procedure: 10:55 Pre-procedure diagnosis: Sacroiliac Joint Pain/DJD Post-procedure diagnosis: same Procedure Notes Procedure: Fluoroscopically guided contrast controlled left sacroiliac joint injection Indications: Cece is referred by Dr. Ewing for treatment of left sacroiliac joint DJD Physician: Mik Armijo Total Fluoroscopy time (seconds): 7 Total sedation minutes: 10 Complications: none Procedure in detail & Post-procedure care: DESCRIPTION OF PROCEDURE Fluoroscopic guided, contrast controlled left sacroiliac joint injection Following review of allergies and review of potential side effects and complications, including, but not necessarily limited to, infection, allergic reaction, local tissue breakdown, temporary as well as permanent nerve injury, paralysis, stroke and possible , the patient indicated that they understood and agreed to proceed. An informed consent was signed by the patient, witnessed by a nurse, and placed in the patient's chart. Additionally, other treatment options including modalities, medications, and physical therapy were reviewed with the patient. After review of previous anaesthesic history and IV conscious sedation the patient was deemed safe to proceed with today?s procedure with IV conscious sedation as ASA class II designation. Safety time-out was performed to confirm patient ID, procedure to be performed and site of procedure. IV sedation was accomplished with a combination of 2mg of Versed administered by the RN after DO order, titrated to patient comfort during the course of the procedure while the patient remained responsive to all verbal commands. In the prone position following sterile prep and drape of the pelvic region, the hyper lucency on in the inferior aspect of the left sacroiliac joint was identified fluoroscopically the skin was anesthetized be a 25 gauge 1 eventual with approximately 2cc of 1% lidocaine solution. At this point, a 22 gauge 3inch spinal needle was atraumatically introduced and advanced under fluoroscopic guidance into the inferior aspect of the left sacroiliac joint. Following negative aspiration, approximately 0.3cc of [id number]-[id number] was injected confirming intra-articular placement without vascular uptake. Radiographic data, including multiple fluoroscopic views of the pelvis, reveals a spinal needle in the left sacroiliac joint hyper lucent zone. Subsequent view show flow contrast tear superiorly and inferiorly within the joint capsule without vascular intrathecal uptake. At this point a total of 1cc or 0.5% Marcaine was combined with 1cc of 6mg of betamethasone was injected without incident. The patient tolerated the procedure well without signs or symptoms of complications prior to transfer to the recovery area for further monitoring. The patient was then transferred to the recovery area with a bur observed for an appropriate time after the injection. The patient reverted a vas score of 7 prior to the procedure and postprocedure vas of 1. POSTOP INSTRUCTIONS The patient was provided with a pain like to continue to record the patient's response to the target specific procedure prior to the patient's follow-up visit with the referring physician. Additionally, specific post injection care instructions and a contact number to our office were provided if concerns arise regarding the possible complications associated with procedure are suspected.
== END 2021-11-07 11:11 | disposition home or self-care (01) ==
PROVIDERS: Family Provider Family Medicine; PCP Pediatrics; Referring Provider Physical Medicine & Rehabilitation; Visit Provider Physical Medicine & Rehabilitation
DX: M53.3 Sacrococcygeal disorders, not elsewhere classified (principal); M46.1 Sacroiliitis, not elsewhere classified
CPT/HCPCS: 27096; 99152; J0702; J2250

== ENCOUNTER → 2021-11-16 12:02 | Outpatient (CLI) | payer OTHER, MEDICAID, SELFPAY ==
[2021-09-22 15:45] VITALS: BMI 29.5
--- NOTE | 2021-11-16 12:04 | DI.CT.S_ITS ---
PROCEDURE: CT ABDOMEN PELVIS WO CON INDICATIONS: chronic abd distension s/p hysterectomy TECHNIQUE: Noncontrast 5 mm thick sections acquired from the diaphragms to the symphysis. 5 mm coronal and sagittal reformats were then performed. For radiation dose reduction, the following was used: automated exposure control, adjustment of mA and/or kV according to patient size. COMPARISON: None. FINDINGS: Image quality: Excellent. ABDOMEN: Lung bases: Lung bases are clear. Heart size is normal. Solid organs: Liver is normal in size. Gallbladder is surgically absent. Pancreas is normal in contours. Spleen is normal in size. No adrenal nodules. Kidneys are normal in size, without hydronephrosis or nephrolithiasis. Peritoneum and bowel: Unenhanced bowel loops demonstrate normal caliber. Mild fecal stasis in the colon is seen. Questionable mild colonic wall thickening is noted extending to sigmoid colon and rectum without significant mesenteric fat stranding. Appendix is visualized and is within normal limits. No abscess collection. No free fluid or free air. Nodes and vessels: No retroperitoneal or mesenteric adenopathy by size criteria. Aorta and inferior vena cava are normal in caliber. Miscellaneous: No ventral hernias. PELVIS: Genitourinary: Bladder wall thickness is normal. Miscellaneous: No inguinal hernias or adenopathy. Bones: No suspicious bony lesions. No vertebral body compression fractures. IMPRESSION: 1. Finding is concerning for low-grade infectious or inflammatory colitis. No bowel obstruction. Normal appendix. No free fluid or free air. 2. No renal stones or hydronephrosis. Normal appearing urinary bladder. Dictated by: Harvey Camara M.D. on 11/16/2021 at 14:42 Approved by: Harvey Camara M.D. on 11/16/2021 at 15:11
== END ==
PROVIDERS: Family Provider Family Medicine; PCP Family Medicine; Referring Provider Pediatrics; Visit Provider Pediatrics
DX: R14.0 Abdominal distension (gaseous) (principal); L50.8 Other urticaria; R10.9 Unspecified abdominal pain; R61 Generalized hyperhidrosis; D50.0 Iron deficiency anemia secondary to blood loss (chronic)
CPT/HCPCS: 74176

== ENCOUNTER → 2022-04-10 16:00 | Outpatient (CLI) | payer OTHER, MEDICAID, SELFPAY ==
[2021-09-22 15:45] VITALS: BMI 29.5
[2022-04-10 16:16] LABS: Add Manual Diff / Slide Review NO; Basophils Absolute Auto 100 /uL (0-100); Basophils Percent Auto 0.7 % (0-2); Eosinophils Absolute Auto 200 /uL (0-450); Eosinophils Percent Auto 2.4 % (2-4); Hematocrit 43.7 % (36-46); Hemoglobin 14.8 g/dL (12.0-16.0); Lymphocytes Absolute Auto 2900 /uL (1100-4500); Lymphocytes Percent Auto 39.1 % (25-40); Mean Corpuscular HGB Conc 33.9 % (30-36); Mean Corpuscular Hemoglobin 31.6 PG (26-34); Mean Corpuscular Volume 93.1 fL (80-100); Monocytes Absolute Auto 600 /uL (0-900); Monocytes Percent Auto 7.5 % (3-14); Neutrophils Absolute Auto 3700 /uL (1500-7000); Neutrophils Percent Auto 50.3 % (50-75); Platelet Count 340 X10^3/uL (150-400); Red Blood Cell Count 4.69 X10^6/uL (4.0-5.2); White Blood Cell Count 7.4 X10^3/uL (4.5-11.0)
[2022-04-10 16:46] LABS: Erythrocyte Sedimentation Rate 4 MM/HR (0-20)
[2022-04-10 17:21] LABS: HEMOLYSIS < 15 (0-50); Iron 135 ug/dL (37-170)
[2022-04-10 17:22] LABS: Alanine Aminotransferase 72 IU/L (<35); Albumin 4.6 g/dL (3.5-5.0); Albumin Globulin Ratio 1.4 (1.0-2.8); Alkaline Phosphatase 81 U/L (38-126); Aspartate Aminotransferase 36 IU/L (14-36); BUN Creatinine Ratio 14.3 (6-22); Bilirubin Total 0.6 mg/dL (0.2-1.3); Blood Urea Nitrogen 11 mg/dL (7-17); Calcium 9.1 mg/dL (8.4-10.2); Carbon Dioxide 27 mmol/L (22-32); Chloride 102 mmol/L (98-107); Estimated Glomerular Filt Rate > 60 mL/min (>60); Globulin 3.3 g/dL (1.7-4.1); Glucose 96 mg/dL (70-100); HEMOLYSIS < 15 (0-50); Potassium 3.9 mmol/L (3.4-5.1); Sodium 137 mmol/L (137-145); Total Protein 7.9 g/dL (6.3-8.2)
[2022-04-10 17:27] LABS: C-Reactive Protein Quant < 0.5 mg/dL (<1.0)
[2022-04-10 17:33] LABS: Percent Iron Saturation 45 % (15-50); Total Iron Binding Capacity 299 ug/dL (265-497); Transferrin 236 mg/dL (206-381)
[2022-04-10 18:01] LABS: Ferritin 157 ng/mL (6-137)
== END ==
PROVIDERS: Internal Medicine Hematology & Oncology; Family Provider Family Medicine; PCP Family Medicine; Referring Provider Family Medicine; Visit Provider Family Medicine
DX: D50.0 Iron deficiency anemia secondary to blood loss (chronic) (principal); M79.2 Neuralgia and neuritis, unspecified
CPT/HCPCS: 36415; 80053; 82728; 83540; 83550; 85025; 85651; 86140

== ENCOUNTER 2022-05-01 15:30 | Outpatient (CLI) | payer OTHER, MEDICAID, SELFPAY ==
[2021-09-22 15:45] VITALS: BMI 29.5
[2022-05-01] VITALS (9 sets, daily range): BP systolic 116–131; BP diastolic 59–82; PULSE 62–82; RESP 12–17; TEMP 36.2; O2SAT 97–100
--- NOTE | 2022-05-01 15:31 | DI.RAD.S_ITS ---
PROCEDURE: PAIN L/S TRANSFORAMINAL INJECT INDICATIONS: SPONDYLOSIS COMPARISON: None. FINDINGS: Fluoroscopic spot filming was performed to verify placement of spinal needles at the left L4-L5 neural foramen level(s), as labeled on the films. Appropriate location(s) of the needle tip(s) was confirmed by injection of iodinated contrast. IMPRESSION: Access needle at the left L4-L5 neural foramen for transforaminal epidural steroid injection. Dictated by: Frances Sanchez MD, PhD on 05/01/2022 at 16:39 Approved by: Frances Sanchez MD, PhD on 05/01/2022 at 16:39
[2022-05-01] MEDS: MIDAZOLAM 2 MG/2 ML VIAL 1 MG IV (16:04)
[2022-05-01] MEDS: IOPAMIDOL 15 ML VIAL 3 ML INJ (16:07)
[2022-05-01] MEDS: DEXAMETHASONE 10 MG/ML VIAL 20 MG INJ (16:08)
[2022-05-01] MEDS: BETAMETHASONE 30 MG/5 ML MDV 6 MG INJ (16:08)
[2022-05-01] MEDS: BUPIVACAINE 0.25% (PF) VIAL 2 ML INJ (16:08)
--- NOTE | 2022-05-01 16:17 | P.PCN_ITS ---
Date/Time/Diagnoses Date of procedure: 05/01/22 Time of procedure: 16:17 Pre-procedure diagnosis: 1. FORAMINAL STENOSIS WITH LE SYMPTOMS Post-procedure diagnosis: same Procedure Notes Procedure: 1. FLUOROSCOPICALLY GUIDED CONTRAST CONTROLLED TRANSFORAMINAL EPIDURAL STEROID INJECTION - LEFT L4/5 Indications: Cece is referred by Dr. Bloom for treatment of Foraminal Stenosis with Left LE Symptoms Physician: Mik Armijo Total Fluoroscopy time (seconds): 6 Total sedation minutes: 9 Complications: none Procedure in detail & Post-procedure care: FINDINGS Foraminal Nerve Root Compression secondary to disc disease and facet hypertrophy DESCRIPTION OF PROCEDURE Following review of allergy and review of potential side effects and complications, including, but not necessarily limited to, infection, allergic reaction, local tissue breakdown, stroke, temporary or permanent nerve injury, paralysis, and possible , the patient indicated that the patient understood and agreed to proceed. An informed consent document was signed by the patient, witnessed by a nurse, and placed in the patient's chart. Additionally, other treatment options including medications, modalities, and physical therapy were reviewed with the patient. After review of previous anaesthesic history and IV conscious sedation the patient was deemed safe to proceed with today?s procedure with IV conscious sedation as ASA class II designation. Safety time-out was performed to confirm patient ID, procedure to be performed and site of procedure. IV sedation was accomplished with a combination of 1mg of Versed administered by the RN after DO order, titrated to patient comfort during the course of the procedure while the patient remained responsive to all verbal commands In the prone position following sterile prep and drape of the lumbar region, the left L4/5 posterior neuroforamen was identified fluoroscopically. The skin was anesthetized via a 25-gauge 1.5-inch needle with 1% lidocaine solution. At this point, a 25-gauge 3.5-inch spinal needle was atraumatically introduced and advanced under fluoroscopic guidance through the posterior left L4/5 neuroforamen to approximately the anterior aspect of the canal. Depth was confirmed on lateral view. Following negative aspiration, injection of approximately 1.5 cc of Isovue 200 under live fluoroscopy in the AP view confirmed excellent flow along the nerve root, into the epidural space without vascular or intrathecal uptake observed Radiological data, including multiple fluoroscopic views of the lumbosacral spine, reveal a spinal needle at the left L4/5 posterior neuroforamen. Subsequent views show flow of contrast material flowing superiorly and inferiorly along the nerve root confirming epidural flow. Subsequently, a test dose of 1.5 cc of 1% lidocaine solution was administered and patient was observed for two minutes for signs or symptoms of complications, including abdominal pain, shortness of breath, bilateral upper or lower extremity weakness, nausea and vomiting, prior to steroid injection. At this point, a total of 3cc or 20mg of dexamethasone and 6mg of betamethasone was injected without incident. The procedure tolerated the procedure well without signs or symptoms of complications prior to transfer to the recovery area continued monitoring without incident. The patient was then transferred to the recovery area where they were observed for an appropriate time after the injection. The patient reported a VAS score of 7 prior to the procedure and a post- procedure VAS of 0. POST OP INSTRUCTIONS The patient was provided a Pain Log to continue to record their response to the target-specific procedure prior to follow-up visit with their referring physician. Additionally, specific post-injection care instructions and a contact number to our office were provided if concerns arise regarding possible complications associated with the procedure are suspected.
== END 2022-05-01 16:38 | disposition home or self-care (01) ==
PROVIDERS: Family Provider Family Medicine; PCP Family Medicine; Referring Provider Physical Medicine & Rehabilitation; Visit Provider Physical Medicine & Rehabilitation
DX: M48.061 Spinal stenosis, lumbar region without neurogenic claudication (principal); M51.16 Intervertebral disc disorders with radiculopathy, lumbar region
CPT/HCPCS: 64483; J0702; J1100; J2250; J3490

== ENCOUNTER 2022-07-19 10:51 | Outpatient (CLI) | payer OTHER, MEDICAID, SELFPAY ==
[2021-09-22 15:45] VITALS: BMI 29.5
[2022-07-19] VITALS (8 sets, daily range): BP systolic 130–145; BP diastolic 75–91; PULSE 67–78; RESP 12–21; TEMP 36.1; O2SAT 99–100
--- NOTE | 2022-07-19 10:52 | DI.RAD.S_ITS ---
PROCEDURE: PAIN L INTERLAMINAR/CAUDAL INJ INDICATIONS: SPONDYLOSIS COMPARISON: [facility], XA, PAIN L/S TRANSFORAMINAL INJECT, 05/01/2022, 17:07. FINDINGS: Fluoroscopic spot filming was performed to verify placement of a spinal needle at the L4-L5 level, as labeled on the films. Appropriate location of the needle tip was confirmed by injection of iodinated contrast. IMPRESSION: Intraprocedural examination within normal limits. Dictated by: Dinh Robert M.D. on 07/19/2022 at 11:44 Approved by: Dinh Robert M.D. on 07/19/2022 at 11:44
[2022-07-19] MEDS: MIDAZOLAM 2 MG/2 ML VIAL 1 MG IV (12:22)
[2022-07-19] MEDS: BETAMETHASONE 30 MG/5 ML MDV 6 MG INJ (12:23)
[2022-07-19] MEDS: DEXAMETHASONE 10 MG/ML VIAL 20 MG INJ (12:24)
[2022-07-19] MEDS: BUPIVACAINE 0.25% (PF) VIAL 2 ML INJ (12:24)
[2022-07-19] MEDS: IOPAMIDOL 15 ML VIAL 3 ML INJ (12:25)
--- NOTE | 2022-07-19 12:32 | P.PCN_ITS ---
Date/Time/Diagnoses Date of procedure: 07/19/22 Time of procedure: 12:32 Pre-procedure diagnosis: 1. HNP WITH RADICULAR FEATURES, 2. MULTILEVEL CENTRAL STENOSIS, Post-procedure diagnosis: same Procedure Notes Procedure: 1. FLUOROSCOPICALLY GUIDED CONTRAST CONTROLLED INTERLAMINAR EPIDURAL STEROID INJECTION -L4/5 Indications: Cece is referred by Dr. Bloom for treatment of Bilateral Foraminal Stenosis R>L LE symptoms. Physician: Mik Armijo Total Fluoroscopy time (seconds): 6 Total sedation minutes: 6 Complications: none Procedure in detail & Post-procedure care: FINDINGS Multilevel Central Spinal Stenosis with Nerve Root Compression DESCRIPTION OF PROCEDURE Fluoroscopically guided, contrast-controlled L4/5 translaminar epidural steroid injection. Following review of allergy and review of potential side effects and complications, including, but not necessarily limited to, infection, allergic reaction, local tissue breakdown, temporary as well as permanent nerve injury, paralysis, stroke and possible , the patient indicated that the patient understood and agreed to proceed. An informed consent document was signed by the patient, witnessed by a nurse, and placed in the patient's chart. Additionally, other treatment options including modalities, medications, and physical therapy were reviewed with the patient. After review of previous anaesthesic history and IV conscious sedation the patient was deemed safe to proceed with today?s procedure with IV conscious sedation as ASA class II designation. Safety time-out was performed to confirm patient ID, procedure to be performed and site of procedure. IV sedation was accomplished with a combination of 1mg of Versed was administered by the RN after DO order, titrated to patient comfort during the course of the procedure while the patient remained responsive to all verbal commands In the prone position, following sterile prep and drape of the lumbar region, the L4/5 translaminar space was identified fluoroscopically. The skin was anesthetized via a 25-gauge, 1.5inch needle with 1% lidocaine solution. At this point, a 22-gauge short bevel spinal needle was atraumatically introduced and advanced under fluoroscopic guidance into the region of the L4/5 translaminar space. Depth was confirmed on lateral view. Radiological data, including multiple fluoroscopic views of the lumbar spine, reveal a spinal needle at the L4/5 translaminar space. Lateral views then show placement of the needle in the epidural space. Subsequent views show contrast material flowing superiorly and inferiorly in the epidural space. No vascular or intrathecal uptake is observed. At this point, using loss of resistance technique with saline and air, the epidural space was entered. This was confirmed following negative aspiration with injection of approximately 1.5cc of Isovue 200, showing excellent epidural flow without vascular or intrathecal uptake. At this point, 1cc of 1% lidocaine solution combined with 3cc or 20mg of dexamethasone and 6mg betamethasone was injected without incident. The patient tolerated the procedure well without signs or symptoms of complications prior to transfer to the recovery area continued monitoring without incident. The patient was then transferred to the recovery area where they were observed for an appropriate period of time after the injection. The patient reported a VAS score of 6 prior to the procedure and a post- procedure VAS of 0. POST OP INSTRUCTIONS The patient was provided a Pain Log to continue to record their response to the target-specific procedure prior to follow-up visit with their referring physician. Additionally, specific post-injection care instructions and a contact number to our office were provided if concerns arise regarding possible complications associated with the procedure are suspected.
== END 2022-07-19 12:57 | disposition home or self-care (01) ==
PROVIDERS: Family Provider Family Medicine; PCP Family Medicine; Referring Provider Physical Medicine & Rehabilitation; Visit Provider Physical Medicine & Rehabilitation
DX: M51.16 Intervertebral disc disorders with radiculopathy, lumbar region (principal); M48.061 Spinal stenosis, lumbar region without neurogenic claudication
CPT/HCPCS: 62323; J0702; J1100; J2250; J3490

== ENCOUNTER → 2022-10-19 14:51 | Outpatient (CLI) | payer OTHER, MEDICAID, SELFPAY ==
[2021-09-22 15:45] VITALS: BMI 29.5
[2022-10-19 18:20] LABS: Influenza A - CEPHEID Flu A NEGATIVE (NEGATIVE); Influenza B - CEPHEID Flu B NEGATIVE (NEGATIVE); Respiratory Syncytial Virus Negative (Negative)
[2022-10-19 18:23] LABS: COVID-19 CEPHEID 4-PLEX PCR Negative (Negative)
== END ==
PROVIDERS: Family Provider Family Medicine; PCP Family Medicine; Visit Provider Family Medicine
DX: R51.9 Headache, unspecified (principal); R53.81 Other malaise; Z20.822 Contact with and (suspected) exposure to COVID-19
CPT/HCPCS: 0241U

== ENCOUNTER 2022-10-30 13:32 | Outpatient (CLI) | payer OTHER, MEDICAID, SELFPAY ==
[2021-09-22 15:45] VITALS: BMI 29.5
[2022-10-30] VITALS (8 sets, daily range): BP systolic 124–155; BP diastolic 72–96; PULSE 62–80; RESP 12–20; TEMP 36.4; O2SAT 98–100
--- NOTE | 2022-10-30 13:33 | DI.RAD.S_ITS ---
PROCEDURE: PAIN SI JOINT INJECTION INDICATIONS: SACROILIAC DISORDER COMPARISON: [facility], XA, PAIN L INTERLAMINAR/CAUDAL INJ, 07/19/2022, 12:22. FINDINGS: On these intraprocedural images, there is a spinal needle seen overlying the inferior aspect of the left sacroiliac joint. Appropriate position of the tip of the needle was confirmed by injection of a small amount of iodinated contrast. IMPRESSION: Successful sacroiliac joint injection. Dictated by: Dinh Robert M.D. on 10/31/2022 at 12:14 Approved by: Dinh Robert M.D. on 10/31/2022 at 12:15
[2022-10-30] MEDS: MIDAZOLAM 2 MG/2 ML VIAL IV (14:52)
[2022-10-30] MEDS: fentaNYL 100 MCG/2 ML INJ 50 MCG IV (14:52)
[2022-10-30] MEDS: IOPAMIDOL 15 ML VIAL 3 ML INJ (14:58)
[2022-10-30] MEDS: BUPIVACAINE 0.5% (PF) 10 ML VIAL 2 ML INJ (14:58)
[2022-10-30] MEDS: DEXTROSE 25 % IN WATER 2.5 GM/10 ML SYRINGE 5 GM INJ (15:02)
--- NOTE | 2022-10-30 15:13 | P.PCN_ITS ---
Date/Time/Diagnoses Date of procedure: 10/30/22 Time of procedure: 15:13 Pre-procedure diagnosis: Left Sacral Ligamentous Laxity Post-procedure diagnosis: same Procedure Notes Procedure: Fluoroscopically guided left sacral ligamentous and joint injection with prolotherapy Indications: Cece is referred by Dr. Bloom for Sacral with Ligamentous Laxity Physician: Mik Armijo Total Fluoroscopy time (seconds): 9 Total sedation minutes: 14 Complications: none Procedure in detail & Post-procedure care: Following review of allergies and review of potential side effects and complications, including, but not necessarily limited to, infection, allergic reaction, local tissue breakdown, temporary as well as permanent nerve injury, paralysis, stroke and possible , the patient indicated that they understood and agreed to proceed.? An informed consent was signed by the patient, witnessed by a nurse, and placed in the patient's chart.? Additionally, other treatment options including modalities, medications, and physical therapy were reviewed with the patient. After review of previous anaesthesic history and IV conscious sedation the patient was deemed safe to proceed with today?s procedure with IV conscious juan tion as ASA class II designation. Safety time-out was performed to confirm patient ID, procedure to be performed and site of procedure. IV sedation was accomplished with a combination of 2mg of Versed and 50mcg of Fentanyl was administered by the RN after DO order, titrated to patient comfort during the course of the procedure while the patient remained responsive to all verbal commands. In the prone position following sterile prep and drape of the pelvic region, the hyper lucency on in the inferior aspect of the left sacral joint was identified fluoroscopically the skin was anesthetized be a 25 gauge 1.5 needle with approximately 2cc of 1% lidocaine solution.? At this point, a 25 gauge 1.5 inch needle was atraumatically introduced and advanced under fluoroscopic guidance into the inferior aspect of the sacral joint and sacro-coccyxgeal ligament complex.? Following negative aspiration, approximately 0.3cc of Isovue-300 was injected confirming intra-articular placement without vascular uptake. Radiographic data, including multiple fluoroscopic views of the pelvis, reveals a spinal needle in the coccyx. ? At this point a total of 20cc of 20% dextrose solution was injected to the left sacro-coccygeal joint and ligamentous complex without incident. The patient tolerated the procedure well without signs or symptoms of complications prior to transfer to the recovery area for further monitoring. The patient was then transferred to the recovery area and observed for an appropriate time after the injection.? The patient reverted a vas score of 7 prior to the procedure and postprocedure vas of 1. POSTOP INSTRUCTIONS The patient was provided with a pain like to continue to record the patient's response to the target specific procedure prior to the patient's follow-up visit with the referring physician.? Additionally, specific post injection care instructions and a contact number to our office were provided if concerns arise regarding the possible complications associated with procedure are suspected.
== END 2022-10-30 15:28 | disposition home or self-care (01) ==
PROVIDERS: Family Provider Family Medicine; PCP Family Medicine; Referring Provider Physical Medicine & Rehabilitation; Visit Provider Physical Medicine & Rehabilitation
DX: M53.3 Sacrococcygeal disorders, not elsewhere classified (principal); M24.28 Disorder of ligament, vertebrae
CPT/HCPCS: 27096; 99152; J2250; J3010

== ENCOUNTER 2023-01-29 13:57 | Outpatient (CLI) | payer OTHER, MEDICAID, SELFPAY ==
[2021-09-22 15:45] VITALS: BMI 29.5
[2023-01-29] VITALS (8 sets, daily range): BP systolic 115–143; BP diastolic 53–80; PULSE 65–82; RESP 11–18; TEMP 36.6; O2SAT 97–100
--- NOTE | 2023-01-29 13:58 | DI.RAD.S_ITS ---
PROCEDURE: PAIN SI JOINT INJECTION INDICATIONS: SACROILIAC DISORDER COMPARISON: [facility], , PAIN SI JOINT INJECTION, 10/30/2022, 14:56. FINDINGS: On these intraprocedural images, there is a spinal needle seen overlying the inferior aspect of the left sacroiliac joint. Appropriate position of the tip of the needle was confirmed by injection of a small amount of iodinated contrast. IMPRESSION: Successful sacroiliac joint injection. Dictated by: Dinh Robert M.D. on 01/29/2023 at 17:32 Approved by: Dinh Robert M.D. on 01/29/2023 at 17:32
[2023-01-29] MEDS: MIDAZOLAM 2 MG/2 ML VIAL IV (14:47)
[2023-01-29] MEDS: fentaNYL 100 MCG/2 ML INJ 50 MCG IV (14:47)
[2023-01-29] MEDS: BUPIVACAINE 0.5% (PF) 10 ML VIAL 5 ML INJ (14:50)
[2023-01-29] MEDS: iopamidoL 15 ML VIAL 3 ML INJ (14:51)
[2023-01-29] MEDS: DEXTROSE 25 % IN WATER 2.5 GM/10 ML SYRINGE 3.75 GM INJ (14:59)
--- NOTE | 2023-01-29 15:04 | PM.PROC.IR.1 ---
Date/Time/Diagnoses Date of procedure: 01/29/23 Time of procedure: 15:04 Pre-procedure diagnosis: Sacral Dysfunction Procedure Notes Procedure: Fluoroscopically guided left sacral ligamentous and joint injection with prolotherapy Indications: Cece is referred by Dr. Bloom for Sacral with Ligamentous Laxity Physician: Mik Armijo Total Fluoroscopy time (seconds): 8 Total sedation minutes: 12 Complications: none Procedure in detail & Post-procedure care: Following review of allergies and review of potential side effects and complications, including, but not necessarily limited to, infection, allergic reaction, local tissue breakdown, temporary as well as permanent nerve injury, paralysis, stroke and possible , the patient indicated that they understood and agreed to proceed.? An informed consent was signed by the patient, witnessed by a nurse, and placed in the patient's chart.? Additionally, other treatment options including modalities, medications, and physical therapy were reviewed with the patient. After review of previous anaesthesic history and IV conscious sedation the patient was deemed safe to proceed with today?s procedure with IV conscious sedation as ASA class II designation. Safety time-out was performed to confirm patient ID, procedure to be performed and site of procedure. IV sedation was accomplished with a combination of 2mg of Versed and 50mcg of Fentanyl was administered by the RN after DO order, titrated to patient comfort during the course of the procedure while the patient remained responsive to all verbal commands. In the prone position following sterile prep and drape of the pelvic region, the hyper lucency on in the inferior aspect of the left sacral joint was identified fluoroscopically the skin was anesthetized be a 25 gauge 1.5 needle with approximately 2cc of 1% lidocaine solution.? At this point, a 25 gauge 1.5 inch needle was atraumatically introduced and advanced under fluoroscopic guidance into the inferior aspect of the sacral joint and sacro-coccyxgeal ligament complex.? Following negative aspiration, approximately 0.3cc of Isovue-300 was injected confirming intra-articular placement without vascular uptake. Radiographic data, including multiple fluoroscopic views of the pelvis, reveals a spinal needle in the coccyx. ? At this point a total of 20cc of 20% dextrose solution was injected to the left sacro-coccygeal joint and ligamentous complex without incident. The patient tolerated the procedure well without signs or symptoms of complications prior to transfer to the recovery area for further monitoring. The patient was then transferred to the recovery area and observed for an appropriate time after the injection.? The patient reverted a vas score of 7 prior to the procedure and postprocedure vas of 1. POSTOP INSTRUCTIONS The patient was provided with a pain like to continue to record the patient's response to the target specific procedure prior to the patient's follow-up visit with the referring physician.? Additionally, specific post injection care instructions and a contact number to our office were provided if concerns arise regarding the possible complications associated with procedure are suspected.
== END 2023-01-29 15:44 | disposition home or self-care (01) ==
LOC: RAD 13:58
PROVIDERS: Family Provider Family Medicine; PCP Family Medicine; Referring Provider Physical Medicine & Rehabilitation; Visit Provider Physical Medicine & Rehabilitation
DX: M53.3 Sacrococcygeal disorders, not elsewhere classified (principal); M24.28 Disorder of ligament, vertebrae
CPT/HCPCS: 27096; 99152; J2250; J3010

== ENCOUNTER → 2023-05-16 12:05 | Outpatient (CLI) | payer OTHER, MEDICAID, SELFPAY ==
[2021-09-22 15:45] VITALS: BMI 29.5
== END ==
LOC: PHYS 12:06
PROVIDERS: Family Provider Family Medicine; PCP Family Medicine; Referring Provider Physical Medicine & Rehabilitation; Visit Provider Physical Medicine & Rehabilitation
DX: M51.26 Other intervertebral disc displacement, lumbar region (principal)
CPT/HCPCS: 95886; 95909

== ENCOUNTER → 2023-06-20 13:08 | Outpatient (CLI) | payer OTHER, MEDICAID, SELFPAY ==
[2021-09-22 15:45] VITALS: BMI 29.5
--- NOTE | 2023-06-20 13:09 | DI.MRI.S_ITS ---
PROCEDURE: MR PELVIS WO CON INDICATIONS: MR OF SACRUM PLEASE LEFT S1 RADIC IDENTIFIED VIA EMG TECHNIQUE: Noncontrast axial and oblique coronal T1 spin echo and STIR through the sacroiliac joints. COMPARISON: [facility], MR, MR LUMBAR SPINE WO CON, 08/03/2021, 13:30. [facility], CR, XR SACROILIAC JOINTS 3+ VIEWS, 12/07/2021, 13:53. FINDINGS: Image quality: Excellent. Bones: The sacroiliac joints appear intact. No adjacent bone marrow edema to suggest active sacroiliitis. No bony ankylosis. No suspicious marrow space occupying lesions. Mild degenerative changes are seen at the left sacroiliac joint with mild subchondral edema. Soft tissues: No presacral masses. Rectum appears normal in caliber and wall thickness. No pathologic free pelvic fluid. Status post hysterectomy. Piriformis muscles are symmetric. IMPRESSION: 1. Mild focal edema at the left sacroiliac joint may be secondary to mild degenerative subchondral edema or mild sacroiliitis. 2. No presacral mass. No definite compressive lesion is seen along the course of the left S1 nerve root. Approved by: Sarthak Fonseca M.D. on 06/21/2023 at 8:57
== END ==
LOC: MRI 13:08
PROVIDERS: Family Provider Family Medicine; PCP Family Medicine; Referring Provider Physical Medicine & Rehabilitation; Visit Provider Physical Medicine & Rehabilitation
DX: M54.17 Radiculopathy, lumbosacral region (principal)
CPT/HCPCS: 72195

== ENCOUNTER 2023-06-23 15:51 | Emergency (ER) | payer OTHER, MEDICAID, SELFPAY ==
[2021-09-22 15:45] VITALS: BMI 29.5
[2023-06-23 15:53] VITALS: BP 147/85; PULSE 88; RESP 18; TEMP 36.6; O2SAT 98; BMI 27.4
--- NOTE | 2023-06-23 16:14 | DI.CT.S_ITS ---
PROCEDURE: CT SOFT TISSUE NECK W CON INDICATIONS: trouble opening mouth, swelling left cheek/TMJ, since weds TECHNIQUE: After the administration of intravenous contrast, 3.0 mm axial sections acquired from the sella to the aortic arch. Additional oblique axial 3.0 mm sections acquired through the pharynx. 3 mm thick coronal and sagittal reformats were generated. For radiation dose reduction, the following was used: automated exposure control. COMPARISON: None. FINDINGS: Image quality: Excellent. Lymph nodes: No enlarged lymph nodes seen throughout the neck. Vessels: Visualized vasculature appears patent. Neck spaces: Left perimandibular soft tissue swelling is seen. No soft tissue abscess can be seen. No soft tissue gas is seen. The oropharynx, nasopharynx, and pharynx demonstrate no mucosal lesions. The vocal cords, false vocal cords, pyriform sinuses, epiglottis, vallecula, and tongue base all appear normal. Glands: The parotid and submandibular glands appear normal. Thyroid gland demonstrates no significant abnormality. Miscellaneous: Visualized brain and orbits appear normal. Lung apices appear clear. Superficial soft tissues appear normal. Bones: No suspicious bony lesions. Visualized sinuses and mastoids appear unremarkable. IMPRESSION: Left facial soft tissue swelling is seen, without soft tissue gas or abscess seen. Dictated by: Dinh Robert M.D. on 06/23/2023 at 16:08 Approved by: Dinh Robert M.D. on 06/23/2023 at 16:09
--- NOTE | 2023-06-23 16:16 | ED.GENADULT ---
HPI - General Adult General Chief complaint: Dental/Oral Stated complaint: jaw spasm/cannot open mouth fully Time Seen by Provider: 06/23/23 15:56 Source: patient Mode of arrival: Ambulatory Limitations: no limitations History of Present Illness HPI narrative: 43-year-old female with history of GERD, hypothyroidism, bruxism who presents with complaint of difficulty opening her mouth. Patient had a dental procedure a week and a half ago. She states then 1st few days was sore but she could move her mouth normally. Starting Saturday she had some increasing tightness sensation discomfort in the left cheek some very mild swelling and has had difficulty opening her mouth beyond a couple cm. She states she is able to speak normally she does not have any swelling underneath tongue she notices a little bit of fullness on the left. She denies fevers or chills. She states it is little bit painful she has been taking ibuprofen. She denies any nausea or vomiting. Denies any swelling of her airway. She has not noticed any redness or skin changes. She was seen at walk-in clinic yesterday prescribed antibiotics but did not start them. Patient has had bruxism and had tightness in her jaw in the past but not like this. She has had multiple abdominal surgeries. Patient states some tobacco use, occasional alcohol, marijuana no recreational drugs. Related Data Home Medications Medication Instructions Recorded Confirmed Bifidobacterium infantis 4 mg 4 mg PO DAILY 04/04/22 06/22/23 capsule (Align) ascorbic acid (vitamin C) 500 mg 500 mg PO DAILY 05/03/22 06/22/23 capsule,extended release (Vitamin C) cholecalciferol (vitamin D3) 125 125 mcg PO DAILY 05/29/23 06/22/23 mcg (5,000 unit) capsule loratadine 10 mg tablet 10 mg PO DAILY 05/29/23 06/22/23 Previous Rx's Medication Instructions Recorded famotidine 20 mg tablet See Rx Instructions .Route 03/25/23 .COMPLEX #90 tabs levocetirizine 5 mg tablet 5 mg PO DAILY #90 tabs 06/19/23 levothyroxine 75 mcg tablet 75 mcg PO DAILY #90 tabs 06/19/23 pantoprazole 40 mg tablet,delayed 40 mg PO BEDTIME #90 tabs 06/19/23 release sodium sul 1.479 gram-[facility] See Rx Instructions PO PER PKG DIR 06/19/23 0.188 gram-magnes sul 0.225 gram #24 tabs tablet (Sutab) amoxicillin 875 mg-potassium 1 tab PO BID DENTAL INFECTION 10 06/22/23 clavulanate 125 mg tablet days #20 tabs Allergies Allergy/AdvReac Type Severity Reaction Status Date / Time No Known Drug Allergies Allergy Verified 06/22/23 17:13 Review of Systems Review of Systems ROS Unobtainable: All systems reviewed & are unremarkable except as noted in HPI and below Patient History Medical History Lumbosacral radiculopathy at S1 Ligamentous laxity of multiple sites Low vitamin B12 level Elevated glucose level Peripheral neuralgia Elevated glucose Chronic urticaria Herniated nucleus pulposus, L4-5 Sacral dysfunction Endometriosis Lumbosacral radiculopathy at L5 Tobacco use disorder Abdominal bloating with cramps Bartholin gland cyst Labial abscess Rectal pain Abscess Shima's thyroiditis Iron deficiency anemia due to chronic blood loss Anti-TPO antibodies present Menorrhagia with regular cycle Muscle spasm Pinched nerve Shoulder pain Foot pain Benign mole (1997) Murmur Chicken pox (~1990) Abnormal Pap smear of cervix (~2011) Acne (~1987) Hemorrhoids Hayfever Rheumatoid arthritis HPV (human papilloma virus) infection (~2011) MRSA infection (~2011) Mixed anxiety depressive disorder (10/28/15) Environmental allergies (08/24/13) Anemia (08/31/14) Ocular migraine (08/24/13) Surgical History Status post hysterectomy with oophorectomy History of esophagogastroduodenoscopy (EGD) (~08/2019) History of colonoscopy with polypectomy (~08/2019) History of evacuation of hematoma (01/12/14) Anesthesia Status post tendon repair (~2009) History of gynecologic surgery (01/15/14) Status post incision and drainage (2010) S/P primary low transverse (2017) Status post colposcopy (04/25/11) Status post tonsillectomy and adenoidectomy Family History Family/Other Abnormal blood pressure Stroke Family history of high cholesterol Family/Other Heart disease Scoliosis Brother Age: 42 Hypertension Father Hypertension History of cancer of sphenoid sinus Mother Age: 74 MD (Meckel's diverticulum) Hypertension High cholesterol Tachycardia Social History household members: family pets and animals: No education level: college occupational status: employed [employer]: Spiritual leisure activities: art and other other: hiking, photography, seatbelt use: always helmet use: Yes water heater temp set < 120 deg: Yes working smoke detector in home: Yes fire extinguisher in home: Yes carbon monox detector in home: Yes firearms in home: No Smoking Status: Current some day smoker alcohol intake: current substance use type: does not use during the past year weight has: remained stable well-balanced diet: daily or most days daily servings fruits/ve-4 caffeine: Yes (1/2 to 1 drink per day) eating out: other frequency: daily duration: > 90 minutes/day additional social history: 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 HEENT: Atraumatic, pupils are equal round reactive to light, extraocular movements are intact, nares are clear, TMs are clear with no fluid, there is no conjunctival pallor. Throat is clear without any exudates, erythema, tonsillar enlargement or uvular deviation, patient has very mild swelling of the left cheek in comparison to the right, there is some slight submandibular lymphadenopathy. There is no warmth there is no erythema it is nontender, palpation over the TM joint joint shows normal movement. Patient can open and close her mouth but states she can not proceed beyond a couple cm. She does not have any obvious oropharyngeal swelling. No muffled voice and normal speech. No malocclusion. No stridor or difficulty swallowing secretions. HEART: Regular rate and rhythm without murmur, clicks, rubs. LUNGS:Lungs clear to auscultation, no wheezes, rales, crackles, chest moves symmetrically ABD:bowel sounds normal, soft, non-tender, no guarding, rebound, rigidity, no masses noted, no hepatosplenomegaly MSCL: full range of motion, normal gait NEURO:CN 2-12 intact, sensation normal SKIN: No rash, erythema or other skin changes appreciated. Initial Vital Signs Initial Vital Signs: Vital Signs Temperature 97.8 F 06/23/23 15:53 Pulse Rate 88 06/23/23 15:53 Respiratory Rate 18 06/23/23 15:53 Blood Pressure 147/85 H 06/23/23 15:53 Pulse Oximetry 98 06/23/23 15:53 Oxygen Delivery Method Room Air 06/23/23 15:53 Course Orders Ordered: Discontinued Medications Cyclobenzaprine HCl (Cyclobenzaprine 10 Mg Prepack) 1 bottle MISC DIRECTED ONE Stop: 06/23/23 18:09 Last Admin: 06/23/23 18:17 Dose: 1 bottle Documented By: RB Dexamethasone (Dexamethasone 10 Mg/Ml Vial) 10 mg IV NOW ONE Stop: 06/23/23 16:15 Last Admin: 06/23/23 16:28 Dose: 10 mg Documented By: RB Ampicillin Sodium/Sulbactam (Sodium 3 gm/ Sodium Chloride) 100 mls @ 200 mls/hr IV NOW ONE Stop: 06/23/23 16:15 Last Infusion: 06/23/23 17:14 Dose: Infused Documented By: Admin: 06/23/23 16:39 Dose: 200 mls/hr Documented By: RB Sodium Chloride (Normal Saline 0.9%) 1,000 mls @ 1,000 mls/hr IV BOLUS ONE Stop: 06/23/23 17:13 Last Infusion: 06/23/23 17:34 Dose: Infused Documented By: Admin: 06/23/23 16:27 Dose: 1,000 mls/hr Documented By: RB Ketorolac Tromethamine (Ketorolac 30 Mg/Ml Vial) 15 mg IV NOW ONE Stop: 06/23/23 16:15 Last Admin: 06/23/23 16:27 Dose: 15 mg Documented By: RB Vital Signs Vital signs: Vital Signs - 8 hr 06/23/23 15:53 Temperature 97.8 F Pulse Rate 88 Respiratory Rate 18 Blood Pressure 147/85 H Pulse Oximetry 98 Oxygen Delivery Method Room Air Medical Decision Making Lab Data 06/23/23 16:24 06/23/23 16:24 Labs: Lab Results 06/23/23 Range/Units 16:24 WBC 9.4 (4.5-11.0) X10^3/uL RBC 4.45 (4.0-5.2) X10^6/uL Hgb 14.4 (12.0-16.0) g/dL Hct 42.2 (36-46) % MCV 94.8 (80-100) fL MCH 32.3 (26-34) PG MCHC 34.1 (30-36) % RDW 12.9 (11.6-14.8) % Plt Count 319 (150-400) X10^3/uL Neut % (Auto) 46.7 L (50-75) % Lymph % (Auto) 37.9 (25-40) % Banner % (Auto) 8.3 (3-14) % Eos % (Auto) 6.7 H (2-4) % Baso % (Auto) 0.4 (0-2) % Neut # (Auto) 4400 (4086-8484) /uL Lymph # (Auto) 3600 (1135-2088) /uL Banner # (Auto) 800 (0-900) /uL Eos # (Auto) 600 H (0-450) /uL Baso # (Auto) 0 (0-100) /uL Sodium 137 (137-145) mmol/L Potassium 3.8 (3.4-5.1) mmol/L Chloride 105 (98-107) mmol/L Carbon Dioxide 29 (22-32) mmol/L BUN 7 (7-17) mg/dL Creatinine 0.80 (0.52-1.04) mg/dL Estimated GFR > 60 (>60) mL/min BUN/Creatinine Ratio 8.8 (6-22) Glucose 110 H (70-100) mg/dL Calcium 9.3 (8.4-10.2) mg/dL Total Bilirubin 0.6 (0.2-1.3) mg/dL AST 31 (14-36) IU/L ALT 41 H (<35) IU/L Alkaline Phosphatase 64 (38-126) U/L Total Protein 7.1 (6.3-8.2) g/dL Albumin 4.6 (3.5-5.0) g/dL Globulin 2.5 (1.7-4.1) g/dL Albumin/Globulin Ratio 1.8 (1.0-2.8) Imaging Data CT soft tissue neck: Radiologist's Impression: [address] [address] [address] Scan Report Signed Patient: Cece Bender MR#: [id number] : 1980 Acct:[id number] Age/Sex: 43 / F Date of Service: 06/23/23 Loc: ED Accession Number: [id number] Procedure: CT soft tissue neck w con Ordering Provider: Gena Urbina D.O. PROCEDURE: CT SOFT TISSUE NECK W CON INDICATIONS: trouble opening mouth, swelling left cheek/TMJ, since weds TECHNIQUE: After the administration of intravenous contrast, 3.0 mm axial sections acquired from the sella to the aortic arch. Additional oblique axial 3.0 mm sections acquired through the pharynx. 3 mm thick coronal and sagittal reformats were generated. For radiation dose reduction, the following was used: automated exposure control. COMPARISON: None. FINDINGS: Image quality: Excellent. Lymph nodes: No enlarged lymph nodes seen throughout the neck. Vessels: Visualized vasculature appears patent. Neck spaces: Left perimandibular soft tissue swelling is seen. No soft tissue abscess can be seen. No soft tissue gas is seen. The oropharynx, nasopharynx, and pharynx demonstrate no mucosal lesions. The vocal cords, false vocal cords, pyriform sinuses, epiglottis, vallecula, and tongue base all appear normal. Glands: The parotid and submandibular glands appear normal. Thyroid gland demonstrates no significant abnormality. Miscellaneous: Visualized brain and orbits appear normal. Lung apices appear clear. Superficial soft tissues appear normal. Bones: No suspicious bony lesions. Visualized sinuses and mastoids appear unremarkable. IMPRESSION: Left facial soft tissue swelling is seen, without soft tissue gas or abscess seen. Dictated by: Dinh Robert M.D. on 06/23/2023 at 16:08 Approved by: Dinh Robert M.D. on 06/23/2023 at 16:09 [facility] Narrative Medical decision making narrative: 43-year-old female who had recent dental procedure week and a half ago has had increasing fullness tightness over the muscle of her jaw and states some difficulty with opening her mouth. No difficulty swallowing secretions speech no obvious oropharyngeal swelling. She has some very mild swelling of the cheek some submandibular lymphadenopathy on the left but no warmth or erythema. Plan for CT soft tissue neck to evaluate for deep space infection: Left facial soft tissue swelling seeing without gas or abscess. Parotid submandibular glands appear normal. Oropharynx, nasopharynx and pharynx demonstrate no lesions, vocal cords and surrounding structures all appear normal. No enlarged lymph nodes. Labs white count of 9.4 hemoglobin of 14 platelets of 319. Electrolytes are otherwise appropriate, glucose is 110. Patient received IV fluids, Toradol and steroids as well as a dose of Unasyn. Patient has some soft tissue swelling, did have a recent dental procedure I would treat for infection. I would have them follow up with their dental provider. Strict return precautions as patient does have some difficulty opening the mouth fully but can without any clear airway issues. Patient appears to have better movement recheck after medications. Discharge Plan Departure Patient Disposition: Home Clinical Impression: Left facial swelling Activity Restrictions/Additional Instructions: Your imaging does not show any abscess or fluid collection but does show swelling of the soft tissue around the mandible. Please follow-up with your dental provider for recheck. Take the antibiotics prescribed until completed. You can continue with Tylenol up to a 1000 mg and/or ibuprofen up to 600 mg every 6 hours. You can try a muscle relaxer to see if this is helpful but I think if we can improve the swelling you will have significant improvement. This medication can make you sleepy do not drive, perform hazardous activities with any major decisions while taking it. If you are having any fevers, increasing swelling, increasing difficulty of opening your mouth, swallowing your tongue, airway, any difficulty swallowing or secretions Prescriptions: No Action amoxicillin-pot clavulanate 875-125 mg tablet 1 tab PO BID 10 Days Qty: 20 0RF famotidine 20 mg tablet See Rx Instructions .ROUTE .COMPLEX Qty: 90 1RF Dose Instruction: take 1 tablet by mouth at bedtime IN ADDITION TO OMEPRAZOLE Rx Instructions: take 1 tablet by mouth at bedtime IN ADDITION TO OMEPRAZOLE Sutab 1.479-0.188- 0.225 gram tablet See Rx Instructions PO PER PKG DIR Qty: 24 0RF Rx Instructions: PO PER PKG DIR levothyroxine 75 mcg tablet 75 mcg PO DAILY Qty: 90 3RF levocetirizine 5 mg tablet 5 mg PO DAILY Qty: 90 3RF pantoprazole 40 mg tablet,delayed release (DR/EC) 40 mg PO BEDTIME Qty: 90 3RF loratadine 10 mg tablet 10 mg PO DAILY cholecalciferol (vitamin D3) 125 mcg (5,000 unit) capsule 125 mcg PO DAILY ascorbic acid (vitamin C) [Vitamin C] 500 mg Capsule, Extended Release 500 mg PO DAILY Align 4 mg capsule 4 mg PO DAILY Referrals: Madeleine Bloom DO [Primary Care Provider] - Stand Alone Forms: Patient Portal/API
[2023-06-23] MEDS: SODIUM CHLORIDE 0.9% 1,000 ML 1000 ML IV (16:27)
[2023-06-23] MEDS: KETOROLAC 30 MG/ML VIAL 15 MG IV (16:27)
[2023-06-23] MEDS: DEXAMETHASONE 10 MG/ML VIAL IV (16:28)
[2023-06-23] MEDS: AMPICILLIN/SULBACTAM 3 GM 3 GM in SODIUM CHLORIDE 0.9% 100 ML IV (16:39)
[2023-06-23 16:42] LABS: Add Manual Diff / Slide Review NO; Basophils Absolute Auto 0 /uL (0-100); Basophils Percent Auto 0.4 % (0-2); Eosinophils Absolute Auto 600 /uL (0-450); Eosinophils Percent Auto 6.7 % (2-4); Hematocrit 42.2 % (36-46); Hemoglobin 14.4 g/dL (12.0-16.0); Lymphocytes Absolute Auto 3600 /uL (1100-4500); Lymphocytes Percent Auto 37.9 % (25-40); Mean Corpuscular HGB Conc 34.1 % (30-36); Mean Corpuscular Hemoglobin 32.3 PG (26-34); Mean Corpuscular Volume 94.8 fL (80-100); Monocytes Absolute Auto 800 /uL (0-900); Monocytes Percent Auto 8.3 % (3-14); Neutrophils Absolute Auto 4400 /uL (1500-7000); Neutrophils Percent Auto 46.7 % (50-75); Platelet Count 319 X10^3/uL (150-400); Red Blood Cell Count 4.45 X10^6/uL (4.0-5.2); Red Cell Distribution Width 12.9 % (11.6-14.8); White Blood Cell Count 9.4 X10^3/uL (4.5-11.0)
[2023-06-23 16:48] LABS: Alanine Aminotransferase 41 IU/L (<35); Albumin 4.6 g/dL (3.5-5.0); Albumin Globulin Ratio 1.8 (1.0-2.8); Alkaline Phosphatase 64 U/L (38-126); Aspartate Aminotransferase 31 IU/L (14-36); BUN Creatinine Ratio 8.8 (6-22); Bilirubin Total 0.6 mg/dL (0.2-1.3); Blood Urea Nitrogen 7 mg/dL (7-17); Calcium 9.3 mg/dL (8.4-10.2); Carbon Dioxide 29 mmol/L (22-32); Chloride 105 mmol/L (98-107); Estimated Glomerular Filt Rate > 60 mL/min (>60); Globulin 2.5 g/dL (1.7-4.1); Glucose 110 mg/dL (70-100); HEMOLYSIS 15 (0-50); Potassium 3.8 mmol/L (3.4-5.1); Sodium 137 mmol/L (137-145); Total Protein 7.1 g/dL (6.3-8.2)
[2023-06-23 17:07] VITALS: PULSE 66; O2SAT 98
[2023-06-23 17:08] VITALS: BP 123/77; PULSE 67; O2SAT 98
[2023-06-23 17:30] VITALS: BP 132/78; PULSE 63; O2SAT 100
[2023-06-23 18:00] VITALS: BP 123/77; PULSE 61; O2SAT 98
[2023-06-23] MEDS: CYCLOBENZAPRINE 10 MG PREPACK 1 BOTTLE MISC (18:17)
== END 2023-06-23 18:25 | disposition home or self-care (01) ==
PROVIDERS: Emergency Provider Emergency Medicine; Family Provider Family Medicine; PCP Family Medicine
DX: R22.0 Localized swelling, mass and lump, head (principal)
CPT/HCPCS: 36415; 70491; 80053; 85025; 96365; 96375; 99284; J0295; J1100; J1885; Q9967

== ENCOUNTER 2023-09-24 12:47 | Outpatient (CLI) | payer OTHER, MEDICAID, SELFPAY ==
[2021-09-22 15:45] VITALS: BMI 29.5
[2023-09-24] VITALS (9 sets, daily range): BP systolic 134–148; BP diastolic 69–86; PULSE 68–87; RESP 8–18; TEMP 36.6; O2SAT 98–100
--- NOTE | 2023-09-24 13:30 | DI.RAD.S_ITS ---
PROCEDURE: PAIN L/S TRANSFORAMINAL INJECT INDICATIONS: Left L5-S1 transforaminal BERENICE COMPARISON: [facility], , PAIN L/S TRANSFORAMINAL INJECT, 05/01/2022, 17:07. FINDINGS: Fluoroscopic spot filming was performed to verify placement of spinal needles at the left L5-S1 level(s), as labeled on the films. Appropriate location(s) of the needle tip(s) was confirmed by injection of iodinated contrast. IMPRESSION: Intra procedural examination demonstrating appropriate positions of the needles. Dictated by: Demario Salgado M.D. on 09/24/2023 at 15:58 Approved by: Demario Salgado M.D. on 09/24/2023 at 15:58
[2023-09-24] MEDS: MIDAZOLAM 2 MG/2 ML VIAL IV (13:57)
[2023-09-24] MEDS: BUPIVACAINE 0.25% (PF) VIAL 2 ML INJ (14:01)
[2023-09-24] MEDS: BETAMETHASONE 30 MG/5 ML MDV 6 MG INJ (14:01)
[2023-09-24] MEDS: DEXAMETHASONE 10 MG/ML VIAL INJ (14:01)
[2023-09-24] MEDS: iopamidoL 15 ML VIAL 3 ML INJ (14:02)
[2023-09-24] MEDS: LIDOCAINE 1% 20 ML 3 ML INJ (14:03)
--- NOTE | 2023-09-24 14:13 | P.PCN_ITS ---
Date/Time/Diagnoses Date of procedure: 09/24/23 Time of procedure: 14:13 Pre-procedure diagnosis: 1. FORAMINAL STENOSIS WITH LE SYMPTOMS Post-procedure diagnosis: same Procedure Notes Procedure: 1. FLUOROSCOPICALLY GUIDED CONTRAST CONTROLLED TRANSFORAMINAL EPIDURAL STEROID INJECTION - Left L5/S1 Indications: Cece is referred by Dr. Bloom for treatment of Foraminal Stenosis with Left LE Symptoms Physician: Mik Armijo Total Fluoroscopy time (seconds): 8 Total sedation minutes: 11 Complications: none Procedure in detail & Post-procedure care: FINDINGS Foraminal Nerve Root Compression secondary to disc disease and facet hypertrophy DESCRIPTION OF PROCEDURE Following review of allergy and review of potential side effects and complications, including, but not necessarily limited to, infection, allergic reaction, local tissue breakdown, stroke, temporary or permanent nerve injury, paralysis, and possible , the patient indicated that the patient understood and agreed to proceed. An informed consent document was signed by the patient, witnessed by a nurse, and placed in the patient's chart. Additionally, other treatment options including medications, modalities, and physical therapy were reviewed with the patient. After review of previous anaesthesic history and IV conscious sedation the patient was deemed safe to proceed with today?s procedure with IV conscious sedation as ASA class II designation. Safety time-out was performed to confirm patient ID, procedure to be performed and site of procedure. IV sedation was accomplished with a combination of 2mg of Versed was administered by the RN after DO order, titrated to patient comfort during the course of the procedure while the patient remained responsive to all verbal commands In the prone position following sterile prep and drape of the lumbar region, the Left L5/S1 posterior neuroforamen was identified fluoroscopically. The skin was anesthetized via a 25-gauge 1.5-inch needle with 1% lidocaine solution. At this point, a 25-gauge 3.5-inch spinal needle was atraumatically introduced and advanced under fluoroscopic guidance through the posterior Left L5/S1 neuroforamen to approximately the anterior aspect of the canal. Depth was confirmed on lateral view. Following negative aspiration, injection of approximately 1.5 cc of Isovue 200 under live fluoroscopy in the AP view confirmed excellent flow along the nerve root, into the epidural space without vascular or intrathecal uptake observed Radiological data, including multiple fluoroscopic views of the lumbosacral spine, reveal a spinal needle at the Left L5/S1 posterior neuroforamen. Subsequent views show flow of contrast material flowing superiorly and inferiorly along the nerve root confirming epidural flow. Subsequently, a test dose of 1.5 cc of 1% lidocaine solution was administered and patient was observed for two minutes for signs or symptoms of complications, including abdominal pain, shortness of breath, bilateral upper or lower extremity weakness, nausea and vomiting, prior to steroid injection. At this point, a total of 2cc or 10mg of dexamethasone and 6mg of betamethasone was injected without incident. The procedure tolerated the procedure well without signs or symptoms of complications prior to transfer to the recovery area continued monitoring without incident. The patient was then transferred to the recovery area where they were observed for an appropriate time after the injection. The patient reported a VAS score of 7 prior to the procedure and a post-procedure VAS of 0. POST OP INSTRUCTIONS The patient was provided a Pain Log to continue to record their response to the target-specific procedure prior to follow-up visit with their referring physicia n. Additionally, specific post-injection care instructions and a contact number to our office were provided if concerns arise regarding possible complications associated with the procedure are suspected.
== END 2023-09-24 14:50 | disposition home or self-care (01) ==
PROVIDERS: Family Provider Family Medicine; PCP Family Medicine; Referring Provider Physical Medicine & Rehabilitation; Visit Provider Physical Medicine & Rehabilitation
DX: M48.07 Spinal stenosis, lumbosacral region (principal); M51.17 Intervertebral disc disorders with radiculopathy, lumbosacral region; M47.27 Other spondylosis with radiculopathy, lumbosacral region
CPT/HCPCS: 64483; 99152; J0702; J1100; J2250; J3490

== ENCOUNTER → 2023-12-25 13:58 | Outpatient (CLI) | payer OTHER, MEDICAID, SELFPAY ==
[2021-09-22 15:45] VITALS: BMI 29.5
[2023-12-25 14:58] LABS: Alanine Aminotransferase 67 IU/L (<35); Albumin 4.4 g/dL (3.5-5.0); Albumin Globulin Ratio 1.7 (1.0-2.8); Alkaline Phosphatase 73 U/L (38-126); Aspartate Aminotransferase 51 IU/L (14-36); BUN Creatinine Ratio 9.6 (6-22); Bilirubin Total 0.5 mg/dL (0.2-1.3); Blood Urea Nitrogen 8 mg/dL (7-17); Calcium 9.9 mg/dL (8.4-10.2); Carbon Dioxide 27 mmol/L (22-32); Chloride 102 mmol/L (98-107); Estimated Glomerular Filt Rate > 60 mL/min (>60); Globulin 2.6 g/dL (1.7-4.1); Glucose 99 mg/dL (70-100); HEMOLYSIS < 15 (0-50); Potassium 4.7 mmol/L (3.4-5.1); Sodium 136 mmol/L (137-145)
== END ==
LOC: LAB 14:00
PROVIDERS: Family Provider Family Medicine; PCP Family Medicine; Referring Provider Family Medicine; Visit Provider Family Medicine
DX: E83.52 Hypercalcemia (principal)
CPT/HCPCS: 36415; 80053; 82310; 83970

== ENCOUNTER → 2024-04-15 13:50 | Outpatient (CLI) | payer OTHER, SELFPAY ==
[2021-09-22 15:45] VITALS: BMI 29.5
--- NOTE | 2024-04-15 13:52 | DI.RAD.S_ITS ---
PROCEDURE: XR CHEST 2V INDICATIONS: Cough TECHNIQUE: 2 views of the chest were acquired. COMPARISON: None. FINDINGS: Surgical changes and devices: None. Lungs and pleura: Lungs are clear. No pleural effusions or pneumothorax. Mediastinum: Mediastinal contours are normal. Heart size is normal. Bones and chest wall: No suspicious bony abnormalities. Soft tissues appear unremarkable. IMPRESSION: No cardiopulmonary disease evident Dictated by: Dougie Poon M.D. on 04/16/2024 at 17:46 Approved by: Dougie Poon M.D. on 04/16/2024 at 17:47
== END ==
LOC: RAD 13:51
PROVIDERS: Family Provider Family Medicine; PCP Family Medicine; Referring Provider Nurse Practitioner Family; Visit Provider Nurse Practitioner Family
DX: R05.9 Cough, unspecified (principal)
CPT/HCPCS: 71046

== ENCOUNTER → 2024-04-15 15:32 | Outpatient (CLI) | payer OTHER, SELFPAY ==
[2021-09-22 15:45] VITALS: BMI 29.5
[2024-04-15 16:28] LABS: Influenza A - CEPHEID Flu A NEGATIVE (NEGATIVE); Influenza B - CEPHEID Flu B NEGATIVE (NEGATIVE); Respiratory Syncytial Virus Negative (Negative)
[2024-04-15 16:36] LABS: COVID-19 CEPHEID 4-PLEX PCR Negative (Negative)
== END ==
PROVIDERS: Family Provider Family Medicine; PCP Family Medicine; Visit Provider Nurse Practitioner Family
DX: R05.9 Cough, unspecified (principal)
CPT/HCPCS: 87635; 87400 ×2; 87420; 0241U; 71046

== ENCOUNTER 2024-04-23 13:00 | Outpatient (RCR) | payer OTHER, MEDICAID, SELFPAY ==
[2021-09-22 15:45] VITALS: BMI 29.5
--- NOTE | 2021-11-14 16:00 | PT.OIE ---
Current Diagnoses Stress incontinence (female) (male) (11/14/21) Pelvic and perineal pain (11/14/21) Past Medical History (Last Updated 11/03/21 @ 10:32 by Shay Ewing MD) Abdominal bloating with cramps Abnormal Pap smear of cervix (~2011) Abscess Acne (~1987) Anemia (08/31/14) Anti-TPO antibodies present Bartholin gland cyst Benign mole (1997) Chicken pox (~1990) Chronic urticaria Elevated glucose Elevated glucose level Endometriosis Environmental allergies (08/24/13) Foot pain Shima's thyroiditis Hayfever Hemorrhoids Herniated nucleus pulposus, L4-5 HPV (human papilloma virus) infection (~2011) Iron deficiency anemia due to chronic blood loss Labial abscess Low vitamin B12 level Lumbosacral radiculopathy at L5 Menorrhagia with regular cycle Mixed anxiety depressive disorder (10/28/15) MRSA infection (~2011) Murmur Muscle spasm Ocular migraine (08/24/13) Peripheral neuralgia Pinched nerve Rectal pain Rheumatoid arthritis Sacral dysfunction Shoulder pain Tobacco use disorder Past Surgical History (Last Reviewed 09/21/21 @ 15:17 by Mik Armijo DO) Anesthesia History of colonoscopy with polypectomy (~08/2019) History of esophagogastroduodenoscopy (EGD) (~08/2019) History of evacuation of hematoma (01/12/14) History of gynecologic surgery (01/15/14) S/P primary low transverse (2017) Status post colposcopy (04/25/11) Status post hysterectomy with oophorectomy Status post incision and drainage (2010) Status post tendon repair (~2009) Status post tonsillectomy and adenoidectomy Visit Care Team Role Provider Type Madeleine Bloom DO Primary Care Provider Physician Specialty: Medical Address: [address] [place] [address], [address], [address] Fax: Email: Kadi Aguilar MD Family Provider Physician Specialty: Family Practice Address: [address] [place] [address], [address] Phone: Fax: Email: [email or web address] Attending Provider Non-Staff Referring Provider Specialty: DECORATIVE [employer]ICE Address: [address] [place] [address], [place] [address], [place], [address] Email: Physical Therapy Initial Evaluation PT-OP-A Visit Information Start: 11/02/21 13:47 Freq: Status: Active Protocol: Document 11/14/21 16:00 [facility] (Rec: 11/14/21 16:50 [facility] [id number]) Out-Patient Physical Therapy Visit Information Visit Information Visit Type Initial Evaluation Visit Start Time 16:00 PT-OP-B Current Condition Start: 11/02/21 13:47 Freq: Status: Active Protocol: Document 11/14/21 16:00 [facility] (Rec: 11/14/21 16:50 [facility] [id number]) Current Condition History of Current Condition History of Current Condition diagnosed with endometerous in July in 2021 and had a full hysterectomy july 10 with endo excision in [place]. Also working with Dr Chaparro at the pain clinic and had an injection on the left SI , She has had SI pain x 5 years. 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 She feels off balance all the time . She has a 4 year daughter. C section delivery after 4 hours of pushing. She would like PT for pelvic stability and her SI is where most of her pain She did start experiencing some urinary leakage post hysterectomy She does have urgency Its hard for her to sleep in the right side She has had a few falls as she doesn't feel stable has a referral PT-OP-C Subjective Start: 11/02/21 13:47 Freq: Status: Active Protocol: Document 11/14/21 16:00 [facility] (Rec: 11/15/21 14:20 [facility] [id number]) Patient Questionnaires Pelvic Pain and Urgency/Frequency Patient Symptom Scale Pelvic Pain Score 14 OP-PT Pain Assessment Location abdominal and pelvic pain Intensity 6 Scale Used Numeric (0 - 10) L SI joint Intensity 5 Scale Used Numeric (0 - 10) PT-OP-J Posture/Palpation/Skin Start: 11/02/21 13:47 Freq: Status: Active Protocol: Document 11/14/21 16:00 [facility] (Rec: 11/14/21 17:31 [facility] [id number]) Posture Evaluation Comments Posture Comments pt sits shifted to the right taking pressure off her left SI joint Palpation Assessment Location left SI joint Palpation Location pain left SI joint Palpation Findings Tenderness PT-OP-K Range of Motion Start: 11/16/21 09:34 Freq: Status: Active Protocol: Document 11/14/21 16:00 [facility] (Rec: 11/16/21 09:36 [facility] [id number]) Hip Goniometric Range of Motion Hip Active Hip ROM WFL Yes Comments pt presents with 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, especially with hip ER, IR PT-OP-L Special Tests Start: 11/02/21 13:47 Freq: Status: Active Protocol: Document 11/14/21 16:00 [facility] (Rec: 11/14/21 17:30 [facility] [id number]) Special Tests Lumbar Spine Special Tests +ASLR Test Results + for left side SI unlocking PT-OP-M Strength Start: 11/16/21 09:34 Freq: Status: Active Protocol: Document 11/14/21 16:00 [facility] (Rec: 11/16/21 09:37 [facility] [id number]) Trunk Strength Trunk Manual Muscle Testing Testing Position Supine Core Stabilization decreased core stabilization with left SI joint unlocking with movement of the right LE. Difficult for Cece to maintain TA stabilzation for repetitive movement PT-OP-T Assessment and Plan Start: 11/02/21 13:47 Freq: Status: Active Protocol: Document 11/14/21 16:00 [facility] (Rec: 11/15/21 09:43 [facility] [id number]) Physical Therapy Assessment Rehab Potential Rehabilitation Potential Excellent Evaluation Complexity Number of Personal Factors/Comorbidities 0 Number of Body Systems Impaired 1-2 Clinical Presentation at Evaluation Stable Impairments Impairments Activity Tolerance,Functional Activities,Functional Mobility ,Gait,Pain,Soft Tissue Mobility,Strength,Tone Goals SI instability Impairment left sided SI instability with + ASLR test on the right side for left side unlocking Short Term Goal (STG) Cece is able to perform supine marches and heel slides with TA activation without left side SI unlocking STG Duration 6 weeks Pipe Roller Goal (LTG) Cece is able to perform dynamic stabilization exercises without the SI joint unlocking and has a neg ASLR test LTG Duration 12 weeks urinary stress incontinence and urgency Impairment urinary stress incontinence and urgency Short Term Goal (STG) Cece is educated on pelvic floor and transverse abdominal strenthening to help provide improved SI and bladder support STG Duration 5 weeks Pipe Roller Goal (LTG) Cece is no longer c/o urinary urgency or leakage LTG Duration 12 weeks left SI pain rated 5/10 Impairment left SI pain rated 5/10 making it difficult to sit symmetrically Pipe Roller Goal (LTG) Cece reports a continued reduction in left sided SI pain as she become more stable in her SI joint from core stabilization exercises LTG Duration 12 weeks Assessment Summary Assessment Cece is a 41 year old female referred to PT with pelvic pain and urinary stress incontinence. Pt has a history of robotic hysterectomy, bilateral salpingectomy, left ovarian cystectomy with excision of endometriosis in July of 2021. This was performed by Dr. Yvette Gaming DO. Cece is very happy with the results from her hysterectomy and pain levels have decreased since surgery. Cece reports she was diagnosed with endometriosis in July 2021. She is 4 years from a delivery of her daughter. She reports since being she has experienced SI pain on the left side. She underwent a cortisone injection to the left SI joint on 11/07/[address] Zelda Armijo. 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 She reports being unstable on her feet and often feels off balance. She also reports hypermobility. Cece report frequent voiding and urinary leakage with strong cough or sneeze. She leaks in all positions and the severity of leakage can be wetting through her underwear and at times her outerwear. She wakes 1-2 times per night to void Her pain chart reveals pain rated 5 in the SI joint following the injection (it was 7-9/10 pre-injection) Her pain radiates to the left lateral leg to her knee. She reports pelvic pain and abdominal pain that have lesened since her hysterectomy . She feels weak in her core and pelvic floor. With evaluation today Cece has tenderness at the left SI joint to palpation, her incisions in the abdominal wall are well healed and I do not find any scar tissue adhesions present. Cece denies tenderness over the bladder. with objective testing Cece unlocks in the left SI joint with ASLR test and has pain with this test in the left SI joint. Her lumbar paraspinals muscles are tight and guarded and it is difficult for her to lay flat on the table due to lumbar extension and left SI pain. Her leg length is equal today in supine. Her hip ROM is extremely mobile to the point that she notes she can't feel a stretch to to hypermobility. She is able to facilitate contraction of her transverse abdominal wall however she has decreased endurance in both her transverse abdominus and pelvic floor. Further assessment is needed for pelvic floor evaluation as time was spent today on pt history and SI pain. Cece is a good candidate for PT with focus on inner core stabilization, neuro re-ed for her SI joint and pelvic girdle. Physical Therapy Plan Frequency and Duration Frequency of Treatment 1x/Week Duration of Treatment 12 Plan of Care Start Date 11/14/21 Plan of Care End Date 02/13/22 Therapeutic Interventions Therapeutic Interventions Home Exercise Program,Manual Therapy,Neuromuscular Re- education,Patient/Caregiver Education,Self-Care/Home Management,Soft Tissue Mobilization,Therapeutic Exercises Modalities Biofeedback,Electric Stimulation Next Visit Focus/Plan Next Note Type Treatment Note Next Visit Plan Pelvic floor examination next visit for tone, strength, and endurance, begin EMG biofeedback for pelvic floor neuromuscular awareness and review Transverse abdominal stabiliation exercise given today.
--- NOTE | 2021-11-14 16:00 | PT.OIE ---
Current Diagnoses Stress incontinence (female) (male) (11/14/21) Pelvic and perineal pain (11/14/21) Past Medical History (Last Updated 11/03/21 @ 10:32 by Shay Ewing MD) Abdominal bloating with cramps Abnormal Pap smear of cervix (~2011) Abscess Acne (~1987) Anemia (08/31/14) Anti-TPO antibodies present Bartholin gland cyst Benign mole (1997) Chicken pox (~1990) Chronic urticaria Elevated glucose Elevated glucose level Endometriosis Environmental allergies (08/24/13) Foot pain Shima's thyroiditis Hayfever Hemorrhoids Herniated nucleus pulposus, L4-5 HPV (human papilloma virus) infection (~2011) Iron deficiency anemia due to chronic blood loss Labial abscess Low vitamin B12 level Lumbosacral radiculopathy at L5 Menorrhagia with regular cycle Mixed anxiety depressive disorder (10/28/15) MRSA infection (~2011) Murmur Muscle spasm Ocular migraine (08/24/13) Peripheral neuralgia Pinched nerve Rectal pain Rheumatoid arthritis Sacral dysfunction Shoulder pain Tobacco use disorder Past Surgical History (Last Reviewed 09/21/21 @ 15:17 by Mik Armijo DO) Anesthesia History of colonoscopy with polypectomy (~08/2019) History of esophagogastroduodenoscopy (EGD) (~08/2019) History of evacuation of hematoma (01/12/14) History of gynecologic surgery (01/15/14) S/P primary low transverse (2017) Status post colposcopy (04/25/11) Status post hysterectomy with oophorectomy Status post incision and drainage (2010) Status post tendon repair (~2009) Status post tonsillectomy and adenoidectomy Visit Care Team Role Provider Type Madeleine Bloom DO Primary Care Provider Physician Specialty: Medical Address: [address] [place] [address], [address], [address] Fax: Email: Kadi Aguilar MD Family Provider Physician Specialty: Family Practice Address: [address] [place] [address], [address] Phone: Fax: Email: [email or web address] Attending Provider Non-Staff Referring Provider Specialty: MACHINE FORMER Address: [address] [place] [address], [place] [address], [address] Email: Physical Therapy Initial Evaluation PT-OP-A Visit Information Start: 11/02/21 13:47 Freq: Status: Active Protocol: Document 11/14/21 16:00 [facility] (Rec: 11/14/21 16:50 [facility] [id number]) Out-Patient Physical Therapy Visit Information Visit Information Visit Type Initial Evaluation Visit Start Time 16:00 PT-OP-B Current Condition Start: 11/02/21 13:47 Freq: Status: Active Protocol: Document 11/14/21 16:00 [facility] (Rec: 11/14/21 16:50 [facility] [id number]) Current Condition History of Current Condition History of Current Condition diagnosed with endometriosis in July in 2021 and had a full hysterectomy july 10 with endo excision in [place]. Also working with Dr Chaparro at the pain clinic and had an injection on the left SI , She has had SI pain x 5 years. She has a history of peripheral neuropathy in B LE , mouth face and hands. She feels off balance all the time . She has a 4 year daughter. C section delivery after 4 hours of pushing. She would like PT for pelvic stability and her SI is where most of her pain She did start experiencing some urinary leakage post hysterectomy She does have urgency Its hard for her to sleep in the right side She has had a few falls as she doesn't feel stable has a referral PT-OP-C Subjective Start: 11/02/21 13:47 Freq: Status: Active Protocol: Document 11/14/21 16:00 [facility] (Rec: 11/15/21 14:20 [facility] [id number]) Patient Questionnaires Pelvic Pain and Urgency/Frequency Patient Symptom Scale Pelvic Pain Score 14 OP-PT Pain Assessment Location abdominal and pelvic pain Intensity 6 Scale Used Numeric (0 - 10) L SI joint Intensity 5 Scale Used Numeric (0 - 10) PT-OP-J Posture/Palpation/Skin Start: 11/02/21 13:47 Freq: Status: Active Protocol: Document 11/14/21 16:00 [facility] (Rec: 11/14/21 17:31 [facility] [id number]) Posture Evaluation Comments Posture Comments pt sits shifted to the right taking pressure off her left SI joint Palpation Assessment Location left SI joint Palpation Location pain left SI joint Palpation Findings Tenderness PT-OP-K Range of Motion Start: 11/16/21 09:34 Freq: Status: Active Protocol: Document 11/14/21 16:00 [facility] (Rec: 11/16/21 09:36 [facility] [id number]) Hip Goniometric Range of Motion Hip Active Hip ROM WFL Yes Comments pt presents with 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, especially with hip ER, IR PT-OP-L Special Tests Start: 11/02/21 13:47 Freq: Status: Active Protocol: Document 11/14/21 16:00 [facility] (Rec: 11/14/21 17:30 [facility] [id number]) Special Tests Lumbar Spine Special Tests +ASLR Test Results + for left side SI unlocking PT-OP-M Strength Start: 11/16/21 09:34 Freq: Status: Active Protocol: Document 11/14/21 16:00 [facility] (Rec: 11/16/21 09:37 [facility] [id number]) Trunk Strength Trunk Manual Muscle Testing Testing Position Supine Core Stabilization decreased core stabilization with left SI joint unlocking with movement of the right LE. Difficult for Cece to maintain TA stabilization for repetitive movement PT-OP-T Assessment and Plan Start: 11/02/21 13:47 Freq: Status: Active Protocol: Document 11/14/21 16:00 [facility] (Rec: 11/15/21 09:43 [facility] [id number]) Physical Therapy Assessment Rehab Potential Rehabilitation Potential Excellent Evaluation Complexity Number of Personal Factors/Comorbidities 0 Number of Body Systems Impaired 1-2 Clinical Presentation at Evaluation Stable Impairments Impairments Activity Tolerance,Functional Activities,Functional Mobility ,Gait,Pain,Soft Tissue Mobility,Strength,Tone Assessment Summary Assessment Cece is a 41 year old female referred to PT with pelvic pain and urinary stress incontinence. Pt has a history of robotic hysterectomy, bilateral salpingectomy, left ovarian cystectomy with excision of endometriosis in July of 2021. This was performed by Dr. Yvette Gaming DO. Cece is very happy with the results from her hysterectomy and pain levels have decreased since surgery. Cece reports she was diagnosed with endometriosis in July 2021. She is 4 years from a delivery of her daughter. She reports since being she has experienced SI pain on the left side. She underwent a cortisone injection to the left SI joint on 11/07/[address] Zelda Armijo. 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 She reports being unstable on her feet and often feels off balance. She also reports hypermobility. Cece report frequent voiding and urinary leakage with strong cough or sneeze. She leaks in all positions and the severity of leakage can be wetting through her underwear and at times her outerwear. She wakes 1-2 times per night to void Her pain chart reveals pain rated 5 in the SI joint following the injection (it was 7-9/10 pre-injection) Her pain radiates to the left lateral leg to her knee. She reports pelvic pain and abdominal pain that have lesened since her hysterectomy . She feels weak in her core and pelvic floor. With evaluation today Cece has tenderness at the left SI joint to palpation, her incisions in the abdominal wall are well healed and I do not find any scar tissue adhesions present. Cece denies tenderness over the bladder. with objective testing Cece unlocks in the left SI joint with ASLR test and has pain with this test in the left SI joint. Her lumbar paraspinals muscles are tight and guarded and it is difficult for her to lay flat on the table due to lumbar extension and left SI pain. Her leg length is equal today in supine. Her hip ROM is extremely mobile to the point that she notes she can't feel a stretch to to hypermobility. She is able to facilitate contraction of her transverse abdominal wall however she has decreased endurance in both her transverse abdominus and pelvic floor. Further assessment is needed for pelvic floor evaluation as time was spent today on pt history and SI pain. Cece is a good candidate for PT with focus on inner core stabilization, neuro re-ed for her SI joint and pelvic girdle. Physical Therapy Plan Frequency and Duration Frequency of Treatment 1x/Week Duration of Treatment 12 Plan of Care Start Date 11/14/21 Plan of Care End Date 02/13/22 Therapeutic Interventions Therapeutic Interventions Home Exercise Program,Manual Therapy,Neuromuscular Re- education,Patient/Caregiver Education,Self-Care/Home Management,Soft Tissue Mobilization,Therapeutic Exercises Modalities Biofeedback,Electric Stimulation Next Visit Focus/Plan Next Note Type Treatment Note Next Visit Plan Pelvic floor examination next visit for tone, strength, and endurance, begin EMG biofeedback for pelvic floor neuromuscular awareness and review Transverse abdominal stabiliation exercise given today.
--- NOTE | 2021-11-14 17:31 | PT.OPPOC ---
Physical, Occupational & Speech Therapy At [facility] Current Diagnoses Stress incontinence (female) (male) (11/14/21) Pelvic and perineal pain (11/14/21) Visit Care Team Role Provider Type Madeleine Bloom DO Primary Care Provider Physician Specialty: Medical Address: [address] [place] [address], [address], [place], [address] Fax: Email: Kadi Aguilar MD Family Provider Physician Specialty: Family Practice Address: [address] [place] [address], [address] Phone: Fax: Email: [email or web address] Yvette Gaming DO Attending Provider Non-Staff Referring Provider Specialty: CREW CHIEF Address: [address] [place] [address], [facility] [address], [place], [address] Email: Plan Of Care PT-OP-T Assessment and Plan Start: 11/02/21 13:47 Freq: Status: Active Protocol: Document 11/14/21 16:00 [facility] (Rec: 11/15/21 09:43 [facility] [id number]) Physical Therapy Assessment Rehab Potential Rehabilitation Potential Excellent Evaluation Complexity Number of Personal Factors/Comorbidities 0 Number of Body Systems Impaired 1-2 Clinical Presentation at Evaluation Stable Impairments Impairments Activity Tolerance,Functional Activities,Functional Mobility ,Gait,Pain,Soft Tissue Mobility,Strength,Tone Goals SI instability Impairment left sided SI instability with + ASLR test on the right side for left side unlocking Short Term Goal (STG) Cece is able to perform supine marches and heel slides with TA activation without left side SI unlocking STG Duration 6 weeks [employer] Goal (LTG) Cece is able to perform dynamic stabilization exercises without the SI joint unlocking and has a neg ASLR test LTG Duration 12 weeks urinary stress incontinence and urgency Impairment urinary stress incontinence and urgency Short Term Goal (STG) Cece is educated on pelvic floor and transverse abdominal strengthening to help provide improved SI and bladder support STG Duration 5 weeks [employer] Chief Goal (LTG) Cece is no longer c/o urinary urgency or leakage LTG Duration 12 weeks left SI pain rated 5/10 Impairment left SI pain rated 5/10 making it difficult to sit symmetrically Half-Way Goal (LTG) Cece reports a continued reduction in left sided SI pain as she become more stable in her SI joint from core stabilization exercises LTG Duration 12 weeks Assessment Summary Assessment Cece is a 41 year old female referred to PT with pelvic pain and urinary stress incontinence. Pt has a history of robotic hysterectomy, bilateral salpingectomy, left ovarian cystectomy with excision of endometriosis in July of 2021. This was performed by Dr. Yvette Gaming DO. Cece is very happy with the results from her hysterectomy and pain levels have decreased since surgery. Cece reports she was diagnosed with endometriosis in July 2021. She is 4 years from a delivery of her daughter. She reports since being she has experienced SI pain on the left side. She underwent a cortisone injection to the left SI joint on 11/07/[address] Zelda Armijo. 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 She reports being unstable on her feet and often feels off balance. She also reports hypermobility. Cece report frequent voiding and urinary leakage with strong cough or sneeze. She leaks in all positions and the severity of leakage can be wetting through her underwear and at times her outerwear. She wakes 1-2 times per night to void Her pain chart reveals pain rated 5 in the SI joint following the injection (it was 7-9/10 pre-injection) Her pain radiates to the left lateral leg to her knee. She reports pelvic pain and abdominal pain that have lesened since her hysterectomy . She feels weak in her core and pelvic floor. With evaluation today Cece has tenderness at the left SI joint to palpation, her incisions in the abdominal wall are well healed and I do not find any scar tissue adhesions present. Cece denies tenderness over the bladder. with objective testing Cece unlocks in the left SI joint with ASLR test and has pain with this test in the left SI joint. Her lumbar paraspinals muscles are tight and guarded and it is difficult for her to lay flat on the table due to lumbar extension and left SI pain. Her leg length is equal today in supine. Her hip ROM is extremely mobile to the point that she notes she can't feel a stretch to to hypermobility. She is able to facilitate contraction of her transverse abdominal wall however she has decreased endurance in both her transverse abdominus and pelvic floor. Further assessment is needed for pelvic floor evaluation as time was spent today on pt history and SI pain. Cece is a good candidate for PT with focus on inner core stabilization, neuro re-ed for her SI joint and pelvic girdle. Physical Therapy Plan Frequency and Duration Frequency of Treatment 1x/Week Duration of Treatment 12 Plan of Care Start Date 11/14/21 Plan of Care End Date 02/13/22 Therapeutic Interventions Therapeutic Interventions Home Exercise Program,Manual Therapy,Neuromuscular Re- education,Patient/Caregiver Education,Self-Care/Home Management,Soft Tissue Mobilization,Therapeutic Exercises Modalities Biofeedback,Electric Stimulation Next Visit Focus/Plan Next Note Type Treatment Note Next Visit Plan Pelvic floor examination next visit for tone, strength, and endurance, begin EMG biofeedback for pelvic floor neuromuscular awareness and review Transverse abdominal stabilization exercise given today. Plan of Care Dates Plan of Care Start Date 11/14/21 Plan of Care End Date 02/13/22 Electronically Signed by: Rea Edwards, PT 11/16/21 5228 If you are in agreement with this Plan of Care, please return a signed and dated copy. I have reviewed this Plan of Care and certify that the skilled therapy services above are required to meet the patient?s needs. Physician Signature Date Printed Name and Credentials Clinical Instructor Signature Printed Name and Credentials
--- NOTE | 2021-11-21 17:28 | PT.OTN ---
Current Diagnoses Stress incontinence (female) (male) (11/21/21) Pelvic and perineal pain (11/21/21) Physical Therapy Treatment Note PT-OP-A Visit Information Start: 11/02/21 13:47 Freq: Status: Active Protocol: Document 11/21/21 12:58 [facility] (Rec: 11/21/21 13:10 [facility] [id number]) Out-Patient Physical Therapy Visit Information Visit Information Visit Type Treatment Note Visit Start Time 13:00 Visit Stop Time 13:45 Total Visit Minutes 45 Visit Number 2 Evaluation Information Evaluation Date 11/14/21 PT-OP-B Current Condition Start: 11/02/21 13:47 Freq: Status: Active Protocol: Document 11/21/21 12:58 [facility] (Rec: 11/21/21 13:10 [facility] [id number]) Current Condition History of Current Condition Onset Date July 2021 diagnosis with endometreosis Current Complaints pelvic pain, L SI pain PT-OP-C Subjective Start: 11/02/21 13:47 Freq: Status: Active Protocol: Document 11/21/21 12:58 [facility] (Rec: 11/21/21 13:10 [facility] [id number]) OP-PT Subjective Patient Comments Patient Comments pt notes she hasn't been able to sleep on her back yet. She did have a CT scan this last week that shows questionable inflammatory collitis. Patient has a follow up with brandy regarding this in January. She reports continued SI joint pain despite cortisone injection Patient Reported Progress Same PT-OP-I Pelvic Floor Start: 11/02/21 13:47 Freq: Status: Active Protocol: Document 11/21/21 12:58 [facility] (Rec: 11/21/21 13:24 [facility] [id number]) Pelvic Floor Assessment Pelvic Clock Pelvic Clock 3-6 Guarding Pelvic Clock Other left sided levator ani guarding, difficult to relax the pelvic floor following a contractions SEMG (uV) Baseline 4.0 Recruitment Pattern Good Relaxation Fair Holding Fair Stability of Hold Fair SEMG Stability of Rest Fair PT-OP-J Posture/Palpation/Skin Start: 11/02/21 13:47 Freq: Status: Active Protocol: Document 11/14/21 16:00 [facility] (Rec: 11/14/21 17:31 [facility] [id number]) Posture Evaluation Comments Posture Comments pt sits shifted to the right taking pressure off her left SI joint Palpation Assessment Location left SI joint Palpation Location pain left SI joint Palpation Findings Tenderness PT-OP-K Range of Motion Start: 11/16/21 09:34 Freq: Status: Active Protocol: Document 11/14/21 16:00 [facility] (Rec: 11/16/21 09:36 [facility] [id number]) Hip Goniometric Range of Motion Hip Active Hip ROM WFL Yes Comments pt presents with 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, especially with hip ER, IR PT-OP-L Special Tests Start: 11/02/21 13:47 Freq: Status: Active Protocol: Document 11/14/21 16:00 [facility] (Rec: 11/14/21 17:30 [facility] [id number]) Special Tests Lumbar Spine Special Tests +ASLR Test Results + for left side SI unlocking PT-OP-M Strength Start: 11/16/21 09:34 Freq: Status: Active Protocol: Document 11/14/21 16:00 [facility] (Rec: 11/16/21 09:37 [facility] [id number]) Trunk Strength Trunk Manual Muscle Testing Testing Position Supine Core Stabilization decreased core stabilization with left SI joint unlocking with movement of the right LE. Difficult for Cece to maintain TA stabilzation for repetitive movement PT-OP-Q Treatments Start: 11/21/21 12:58 Freq: Status: Active Protocol: Document 11/21/21 12:58 [facility] (Rec: 11/21/21 13:46 [facility] [id number]) Therapeutic Exercises Supine Exercises pelvic floor long holds Reps/Minutes 10 seconds on 10 seconds off Comments 13.8 uv average max gave for HEP Manual Therapy Treatment Manual Techniques manual assessment of levator ani tone and strength Body Position Hooklying Comments pelvic floor assessment performed, pt able to contract all buchanan of the levator ani, she is tight and guarded in the left lateral wall of the levator ani. She has difficulty relaxing following a pelvic floor contraction Neuro Re-Education Treatment Other Activities EMG biofeedback Details EMG biofeedback Reps/Duration 20 min Comments EMG biofeedback was performed for assessment of pelvic floor endurance and objective strength assessment. Elevated resting tone at rest at 4.0 and pt had difficulty fully relaxing her pelvic floor following contractions PT-OP-T Assessment and Plan Start: 11/02/21 13:47 Freq: Status: Active Protocol: Document 11/21/21 12:58 [facility] (Rec: 11/21/21 13:10 [facility] [id number]) Physical Therapy Assessment Assessment Summary Assessment pelvic floor assessment was performed today and Cece is guarded in the left lateral buchanan of her levator ani, she has difficulty relaxing her pelvic floor on the left. She has a strong pelvic floor contraction however has decreased pelvic floor endurance. I started her today with contract relax pelvic floor exercises with emphasis on relaxation. MFR was performed over the left gluteals. Cece tolerated this well and was given information on miracle balls for self release of the gluteals to help decrease SI pain Physical Therapy Plan Frequency and Duration Frequency of Treatment 1x/Week Duration of Treatment 12 Plan of Care Start Date 11/14/21 Plan of Care End Date 02/13/22 Therapeutic Interventions Therapeutic Interventions Home Exercise Program,Manual Therapy,Neuromuscular Re- education,Patient/Caregiver Education,Self-Care/Home Management,Soft Tissue Mobilization,Therapeutic Exercises Modalities Biofeedback,Electric Stimulation Next Visit Focus/Plan Next Note Type Treatment Note Next Visit Plan review pelvic floor and TA stabilization exercises, MFR over the sacral region and gluteals
--- NOTE | 2021-11-30 17:41 | PT.OTN ---
Current Diagnoses Stress incontinence (female) (male) (11/30/21) Pelvic and perineal pain (11/30/21) Physical Therapy Treatment Note PT-OP-A Visit Information Start: 11/02/21 13:47 Freq: Status: Active Protocol: Document 11/30/21 13:02 [facility] (Rec: 11/30/21 13:36 [facility] [id number]) Out-Patient Physical Therapy Visit Information Visit Information Visit Type Treatment Note Visit Start Time 13:00 Visit Stop Time 13:45 Total Visit Minutes 45 Visit Number 3 PT-OP-B Current Condition Start: 11/02/21 13:47 Freq: Status: Active Protocol: Document 11/21/21 12:58 [facility] (Rec: 11/21/21 13:10 [facility] [id number]) Current Condition History of Current Condition Onset Date July 2021 diagnosis with endometreosis Current Complaints pelvic pain, L SI pain PT-OP-C Subjective Start: 11/02/21 13:47 Freq: Status: Active Protocol: Document 11/30/21 13:02 [facility] (Rec: 11/30/21 13:36 [facility] [id number]) OP-PT Subjective Patient Comments Patient Comments pt notes her pain is in the annoying range today. She is inbetween doctors at this time . GI doctor is in January. She has a appoointment with rhemotology. PT-OP-I Pelvic Floor Start: 11/02/21 13:47 Freq: Status: Active Protocol: Document 11/30/21 13:36 [facility] (Rec: 11/30/21 13:41 [facility] [id number]) Pelvic Floor Assessment SEMG (uV) Baseline 3.0 PT-OP-J Posture/Palpation/Skin Start: 11/02/21 13:47 Freq: Status: Active Protocol: Document 11/14/21 16:00 [facility] (Rec: 11/14/21 17:31 [facility] [id number]) Posture Evaluation Comments Posture Comments pt sits shifted to the right taking pressure off her left SI joint Palpation Assessment Location left SI joint Palpation Location pain left SI joint Palpation Findings Tenderness PT-OP-K Range of Motion Start: 11/16/21 09:34 Freq: Status: Active Protocol: Document 11/14/21 16:00 [facility] (Rec: 11/16/21 09:36 [facility] [id number]) Hip Goniometric Range of Motion Hip Active Hip ROM WFL Yes Comments pt presents with 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, especially with hip ER, IR PT-OP-L Special Tests Start: 11/02/21 13:47 Freq: Status: Active Protocol: Document 11/14/21 16:00 [facility] (Rec: 11/14/21 17:30 [facility] [id number]) Special Tests Lumbar Spine Special Tests +ASLR Test Results + for left side SI unlocking PT-OP-M Strength Start: 11/16/21 09:34 Freq: Status: Active Protocol: Document 11/14/21 16:00 [facility] (Rec: 11/16/21 09:37 [facility] [id number]) Trunk Strength Trunk Manual Muscle Testing Testing Position Supine Core Stabilization decreased core stabilization with left SI joint unlocking with movement of the right LE. Difficult for Cece to maintain TA stabilzation for repetitive movement PT-OP-Q Treatments Start: 11/21/21 12:58 Freq: Status: Active Protocol: Document 11/30/21 13:02 [facility] (Rec: 11/30/21 13:36 [facility] [id number]) Therapeutic Exercises Supine Exercises TA with march Reps/Minutes x 10 reps pelvic floor long holds Side bilateral Reps/Minutes x 10 reps Comments 14.9 uv average 27.2 max Manual Therapy Treatment Soft Tissue Mobilization MFR over the left piriformis and sacral region Mobilization Type Myofascial Release Comments tightness throughout the left piriformis today PT-OP-T Assessment and Plan Start: 11/02/21 13:47 Freq: Status: Active Protocol: Document 11/30/21 13:00 [facility] (Rec: 11/30/21 17:41 [facility] [id number]) Physical Therapy Assessment Assessment Summary Assessment There is a great deal of guarding and tightness over the left piriformis and along the sacral attachments today. Cece was also shown how to use a xs dilator for self release of the left lateral wall and time was spent showing her how to do this. Physical Therapy Plan Frequency and Duration Frequency of Treatment 1x/Week Duration of Treatment 12 Plan of Care Start Date 11/14/21 Plan of Care End Date 02/13/22 Therapeutic Interventions Therapeutic Interventions Home Exercise Program,Manual Therapy,Neuromuscular Re- education,Patient/Caregiver Education,Self-Care/Home Management,Soft Tissue Mobilization,Therapeutic Exercises Modalities Biofeedback,Electric Stimulation Next Visit Focus/Plan Next Note Type Treatment Note Next Visit Plan check in on self release of the levator ani, progress TA and stabilization exercises, MFR techniques
--- NOTE | 2021-12-05 17:31 | PT.OTN ---
Current Diagnoses Stress incontinence (female) (male) (12/05/21) Pelvic and perineal pain (12/05/21) Physical Therapy Treatment Note PT-OP-A Visit Information Start: 11/02/21 13:47 Freq: Status: Active Protocol: Document 12/05/21 12:57 [facility] (Rec: 12/05/21 13:45 [facility] [id number]) Out-Patient Physical Therapy Visit Information Visit Information Visit Type Treatment Note Visit Start Time 13:00 Visit Stop Time 13:45 Total Visit Minutes 45 Visit Number 4 PT-OP-B Current Condition Start: 11/02/21 13:47 Freq: Status: Active Protocol: Document 11/21/21 12:58 [facility] (Rec: 11/21/21 13:10 [facility] [id number]) Current Condition History of Current Condition Onset Date July 2021 diagnosis with endometreosis Current Complaints pelvic pain, L SI pain PT-OP-C Subjective Start: 11/02/21 13:47 Freq: Status: Active Protocol: Document 12/05/21 12:57 [facility] (Rec: 12/05/21 13:45 [facility] [id number]) OP-PT Subjective Patient Comments Patient Comments pt ordered the pelvic wand, she was using the miracle balls and they felt great but was then sore afterwards. Giving it a couple of days rest PT-OP-I Pelvic Floor Start: 11/02/21 13:47 Freq: Status: Active Protocol: Document 11/30/21 13:36 [facility] (Rec: 11/30/21 13:41 [facility] [id number]) Pelvic Floor Assessment SEMG (uV) Baseline 3.0 PT-OP-J Posture/Palpation/Skin Start: 11/02/21 13:47 Freq: Status: Active Protocol: Document 11/14/21 16:00 [facility] (Rec: 11/14/21 17:31 [facility] [id number]) Posture Evaluation Comments Posture Comments pt sits shifted to the right taking pressure off her left SI joint Palpation Assessment Location left SI joint Palpation Location pain left SI joint Palpation Findings Tenderness PT-OP-K Range of Motion Start: 11/16/21 09:34 Freq: Status: Active Protocol: Document 11/14/21 16:00 [facility] (Rec: 11/16/21 09:36 [facility] [id number]) Hip Goniometric Range of Motion Hip Active Hip ROM WFL Yes Comments pt presents with 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, especially with hip ER, IR PT-OP-L Special Tests Start: 11/02/21 13:47 Freq: Status: Active Protocol: Document 11/14/21 16:00 [facility] (Rec: 11/14/21 17:30 [facility] [id number]) Special Tests Lumbar Spine Special Tests +ASLR Test Results + for left side SI unlocking PT-OP-M Strength Start: 11/16/21 09:34 Freq: Status: Active Protocol: Document 11/14/21 16:00 [facility] (Rec: 11/16/21 09:37 [facility] [id number]) Trunk Strength Trunk Manual Muscle Testing Testing Position Supine Core Stabilization decreased core stabilization with left SI joint unlocking with movement of the right LE. Difficult for Cece to maintain TA stabilzation for repetitive movement PT-OP-Q Treatments Start: 11/21/21 12:58 Freq: Status: Active Protocol: Document 12/05/21 12:57 [facility] (Rec: 12/05/21 13:45 [facility] [id number]) Therapeutic Exercises Supine Exercises TA with march Reps/Minutes x 10 reps Other Exercises quadruped TA Reps/Minutes x 10 reps Manual Therapy Treatment Soft Tissue Mobilization MFR over the left piriformis and sacral region Mobilization Type Myofascial Release Comments tightness throughout the left piriformis today PT-OP-T Assessment and Plan Start: 11/02/21 13:47 Freq: Status: Active Protocol: Document 12/05/21 12:57 [facility] (Rec: 12/05/21 13:45 [facility] [id number]) Physical Therapy Assessment Assessment Summary Assessment worked again on release of the sacral region on the left, piriformis and deep gluteals, worked on TA stabilization in quadruped and in supine. Pt may try wearing her SI belt for supine marches as she unlocks on the left side with right side march. Pt may also be a candidate for prolotherapy due to 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 SI joint Physical Therapy Plan Frequency and Duration Frequency of Treatment 1x/Week Plan of Care Start Date 11/14/21 Plan of Care End Date 02/13/22 Therapeutic Interventions Therapeutic Interventions Home Exercise Program,Manual Therapy,Neuromuscular Re- education,Patient/Caregiver Education,Self-Care/Home Management,Soft Tissue Mobilization,Therapeutic Exercises Modalities Biofeedback,Electric Stimulation Next Visit Focus/Plan Next Note Type Treatment Note Next Visit Plan check in on self release of the levator ani, progress TA and stabilization exercises, MFR techniques
--- NOTE | 2022-01-03 14:06 | PT.OTN ---
Current Diagnoses Stress incontinence (female) (male) (01/03/22) Pelvic and perineal pain (01/03/22) Physical Therapy Treatment Note PT-OP-A Visit Information Start: 11/02/21 13:47 Freq: Status: Active Protocol: Document 01/03/22 12:50 [facility] (Rec: 01/03/22 14:05 [facility] [id number]) Out-Patient Physical Therapy Visit Information Visit Information Visit Type Treatment Note Visit Start Time 12:50 Visit Stop Time 13:00 PT-OP-B Current Condition Start: 11/02/21 13:47 Freq: Status: Active Protocol: Document 11/21/21 12:58 [facility] (Rec: 11/21/21 13:10 [facility] [id number]) Current Condition History of Current Condition Onset Date July 2021 diagnosis with endometreosis Current Complaints pelvic pain, L SI pain PT-OP-C Subjective Start: 11/02/21 13:47 Freq: Status: Active Protocol: Document 01/03/22 12:50 [facility] (Rec: 01/03/22 14:05 [facility] [id number]) OP-PT Subjective Patient Comments Patient Comments pt saw the rhumatolosits and was diagnosed with hypermobility spectrom disorder she has started taking magnusium and that has helped. Her SI pain is tolerable but present, not as sharp as it used to be. Pelvic floor leakage has been okay if she sneezes she can leak. Not leaking unless a strong cough or sneeze. PT-OP-I Pelvic Floor Start: 11/02/21 13:47 Freq: Status: Active Protocol: Document 11/30/21 13:36 [facility] (Rec: 11/30/21 13:41 [facility] [id number]) Pelvic Floor Assessment SEMG (uV) Baseline 3.0 PT-OP-J Posture/Palpation/Skin Start: 11/02/21 13:47 Freq: Status: Active Protocol: Document 11/14/21 16:00 [facility] (Rec: 11/14/21 17:31 [facility] [id number]) Posture Evaluation Comments Posture Comments pt sits shifted to the right taking pressure off her left SI joint Palpation Assessment Location left SI joint Palpation Location pain left SI joint Palpation Findings Tenderness PT-OP-K Range of Motion Start: 11/16/21 09:34 Freq: Status: Active Protocol: Document 11/14/21 16:00 [facility] (Rec: 11/16/21 09:36 [facility] [id number]) Hip Goniometric Range of Motion Hip Active Hip ROM WFL Yes Comments pt presents with 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, especially with hip ER, IR PT-OP-L Special Tests Start: 11/02/21 13:47 Freq: Status: Active Protocol: Document 11/14/21 16:00 [facility] (Rec: 11/14/21 17:30 [facility] [id number]) Special Tests Lumbar Spine Special Tests +ASLR Test Results + for left side SI unlocking PT-OP-M Strength Start: 11/16/21 09:34 Freq: Status: Active Protocol: Document 11/14/21 16:00 [facility] (Rec: 11/16/21 09:37 [facility] [id number]) Trunk Strength Trunk Manual Muscle Testing Testing Position Supine Core Stabilization decreased core stabilization with left SI joint unlocking with movement of the right LE. Difficult for Cece to maintain TA stabilzation for repetitive movement PT-OP-Q Treatments Start: 11/21/21 12:58 Freq: Status: Active Protocol: Document 01/03/22 12:50 [facility] (Rec: 01/03/22 14:05 [facility] [id number]) Therapeutic Exercises Supine Exercises supine ball squeeze Comments cues for hip IR with ball squeeze as to not aggravate the piriformis TA with may Comments pt to stay with one leg at a time as alternating causes piriformis tightnes Other Exercises mouna pose Comments modified with pillows under buttocks, had pt work on pelvic floor contralx Self-Care/Home Management Treatment Activities Self-Care/Home Management Activities pt to use SI belt for home with backlying ther ex, HEP given with handouts, hip IR for standing to help shut off the piriformis muscle PT-OP-T Assessment and Plan Start: 11/02/21 13:47 Freq: Status: Active Protocol: Document 01/03/22 12:50 [facility] (Rec: 01/03/22 14:05 [facility] [id number]) Physical Therapy Assessment Assessment Summary Assessment worked on stabilization for the SI joint, added in standing squats with emphasis on pelvic floor relaxation with a squat and contraction on the return to stand, hands and knees position and working on pelvic floor squeezes in mouna pose. Pt has difficulty with backlying exercises and alternating knees with TA stabilization due to piriformis tightness. She is able to tolerate hip IR with pelvic floor squeeze. Physical Therapy Plan Frequency and Duration Frequency of Treatment 1x/Week Duration of treatment (weeks) 12 Plan of Care Start Date 11/14/21 Plan of Care End Date 02/13/22 Therapeutic Interventions Therapeutic Interventions Home Exercise Program,Manual Therapy,Neuromuscular Re- education,Patient/Caregiver Education,Self-Care/Home Management,Soft Tissue Mobilization,Therapeutic Exercises Modalities Biofeedback,Electric Stimulation Next Visit Focus/Plan Next Note Type Treatment Note Next Visit Plan EMG biofeedback for pelvic floor, work in sidelying position, check in on standing squats and quadruped exercises
--- NOTE | 2022-01-31 09:25 | PT.OTN ---
Current Diagnoses Stress incontinence (female) (male) (01/30/22) Pelvic and perineal pain (01/30/22) Physical Therapy Treatment Note PT-OP-A Visit Information Start: 11/02/21 13:47 Freq: Status: Active Protocol: Document 01/30/22 10:29 [facility] (Rec: 01/30/22 11:16 [facility] [id number]) Out-Patient Physical Therapy Visit Information Visit Information Visit Type Treatment Note Visit Start Time 10:40 Visit Stop Time 11:15 Total Visit Minutes 30 Visit Number 5 PT-OP-B Current Condition Start: 11/02/21 13:47 Freq: Status: Active Protocol: Document 11/21/21 12:58 [facility] (Rec: 11/21/21 13:10 [facility] [id number]) Current Condition History of Current Condition Onset Date July 2021 diagnosis with endometreosis Current Complaints pelvic pain, L SI pain PT-OP-C Subjective Start: 11/02/21 13:47 Freq: Status: Active Protocol: Document 01/30/22 10:29 [facility] (Rec: 01/30/22 11:16 [facility] [id number]) OP-PT Subjective Patient Comments Patient Comments pt notes she still has the sciatic pain, She has a follow up with Dr. Chaparro and she was referred to a chiropractor Dr. Mendoza in [facility] for manipulation and then prolotherapy following adjustments PT-OP-I Pelvic Floor Start: 11/02/21 13:47 Freq: Status: Active Protocol: Document 11/30/21 13:36 [facility] (Rec: 11/30/21 13:41 [facility] [id number]) Pelvic Floor Assessment SEMG (uV) Baseline 3.0 PT-OP-J Posture/Palpation/Skin Start: 11/02/21 13:47 Freq: Status: Active Protocol: Document 11/14/21 16:00 [facility] (Rec: 11/14/21 17:31 [facility] [id number]) Posture Evaluation Comments Posture Comments pt sits shifted to the right taking pressure off her left SI joint Palpation Assessment Location left SI joint Palpation Location pain left SI joint Palpation Findings Tenderness PT-OP-K Range of Motion Start: 11/16/21 09:34 Freq: Status: Active Protocol: Document 11/14/21 16:00 [facility] (Rec: 11/16/21 09:36 [facility] [id number]) Hip Goniometric Range of Motion Hip Active Hip ROM WFL Yes Comments pt presents with 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, especially with hip ER, IR PT-OP-L Special Tests Start: 11/02/21 13:47 Freq: Status: Active Protocol: Document 11/14/21 16:00 [facility] (Rec: 11/14/21 17:30 [facility] [id number]) Special Tests Lumbar Spine Special Tests +ASLR Test Results + for left side SI unlocking PT-OP-M Strength Start: 11/16/21 09:34 Freq: Status: Active Protocol: Document 11/14/21 16:00 [facility] (Rec: 11/16/21 09:37 [facility] [id number]) Trunk Strength Trunk Manual Muscle Testing Testing Position Supine Core Stabilization decreased core stabilization with left SI joint unlocking with movement of the right LE. Difficult for Cece to maintain TA stabilzation for repetitive movement PT-OP-Q Treatments Start: 11/21/21 12:58 Freq: Status: Active Protocol: Document 01/30/22 10:29 [facility] (Rec: 01/30/22 11:16 [facility] [id number]) Therapeutic Exercises Supine Exercises supine bridges with ball squeeze Reps/Minutes x 10 reps supine ball squeeze Reps/Minutes x 10 reps Manual Therapy Treatment Manual Techniques manual assessment of SI joint and alignment Comments SI tests and measures performed, leg length equal today, + ASLR test with active SLR on the right. PT-OP-T Assessment and Plan Start: 11/02/21 13:47 Freq: Status: Active Protocol: Document 01/30/22 10:29 [facility] (Rec: 01/30/22 11:16 [facility] [id number]) Physical Therapy Assessment Goals SI instability Impairment left sided SI instability with + ASLR test on the right side for left side unlocking Short Term Goal (STG) Cece is able to perform supine marches and heel slides with TA activation without left side SI unlocking STG Duration 6 weeks Home Health Aide Caregiver Goal (LTG) Cece is able to perform dynamic stabilization exercises without the SI joint unlocking and has a neg ASLR test LTG Duration 12 weeks urinary stress incontinence and urgency Impairment urinary stress incontinence and urgency Short Term Goal (STG) Cece is educated on pelvic floor and transverse abdominal strenthening to help provide improved SI and bladder support STG Duration 5 weeks Halfway Goal (LTG) Cece is no longer c/o urinary urgency or leakage 01/30/22 only happening with big sneezes LTG Duration 12 weeks left SI pain rated 5/10 Impairment left SI pain rated 5/10 making it difficult to sit symmetrically Halfway Goal (LTG) Cece reports a continued reduction in left sided SI pain as she become more stable in her SI joint from core stabilization exercises LTG Duration 12 weeks Assessment Summary Assessment Cece was 15 min late to her appt today. Time was spent reviewing her stabilization program. I also checked her SI alignment and leg length today and they were equal. She continues to test positive with ASLR test for SI instability. I feel prolotherapy is a good option for her to help provide more stabilization for her SI joint specifically. Physical Therapy Plan Frequency and Duration Frequency of Treatment 1x/Week Duration of treatment (weeks) 12 Plan of Care Start Date 11/14/21 Plan of Care End Date 02/13/22 Therapeutic Interventions Therapeutic Interventions Home Exercise Program,Manual Therapy,Neuromuscular Re- education,Patient/Caregiver Education,Self-Care/Home Management,Soft Tissue Mobilization,Therapeutic Exercises Modalities Biofeedback,Electric Stimulation Next Visit Focus/Plan Next Note Type Treatment Note Next Visit Plan EMG biofeedback for pelvic floor, work in sidelying position, check in on standing squats and quadruped exercises
--- NOTE | 2022-02-06 17:33 | PT.OTN ---
Current Diagnoses Stress incontinence (female) (male) (02/06/22) Pelvic and perineal pain (02/06/22) Physical Therapy Treatment Note PT-OP-A Visit Information Start: 11/02/21 13:47 Freq: Status: Active Protocol: Document 02/06/22 11:18 [facility] (Rec: 02/06/22 12:09 [facility] [id number]) Out-Patient Physical Therapy Visit Information Visit Information Visit Type Treatment Note Visit Start Time 11:20 Visit Stop Time 12:00 Total Visit Minutes 40 Visit Number 6 PT-OP-B Current Condition Start: 11/02/21 13:47 Freq: Status: Active Protocol: Document 11/21/21 12:58 [facility] (Rec: 11/21/21 13:10 [facility] [id number]) Current Condition History of Current Condition Onset Date July 2021 diagnosis with endometreosis Current Complaints pelvic pain, L SI pain PT-OP-C Subjective Start: 11/02/21 13:47 Freq: Status: Active Protocol: Document 02/06/22 11:18 [facility] (Rec: 02/06/22 12:09 [facility] [id number]) OP-PT Subjective Patient Comments Patient Comments pt notes she drove to [place] for [employer] and was sore after the drive She had dessert last night and she feels like the sugar contributed to her pain last night. She has her chiropractic visit on February 08. Patient Reported Progress Same PT-OP-I Pelvic Floor Start: 11/02/21 13:47 Freq: Status: Active Protocol: Document 11/30/21 13:36 [facility] (Rec: 11/30/21 13:41 [facility] [id number]) Pelvic Floor Assessment SEMG (uV) Baseline 3.0 PT-OP-J Posture/Palpation/Skin Start: 11/02/21 13:47 Freq: Status: Active Protocol: Document 11/14/21 16:00 [facility] (Rec: 11/14/21 17:31 [facility] [id number]) Posture Evaluation Comments Posture Comments pt sits shifted to the right taking pressure off her left SI joint Palpation Assessment Location left SI joint Palpation Location pain left SI joint Palpation Findings Tenderness PT-OP-K Range of Motion Start: 11/16/21 09:34 Freq: Status: Active Protocol: Document 11/14/21 16:00 [facility] (Rec: 11/16/21 09:36 [facility] [id number]) Hip Goniometric Range of Motion Hip Active Hip ROM WFL Yes Comments pt presents with 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, especially with hip ER, IR PT-OP-L Special Tests Start: 11/02/21 13:47 Freq: Status: Active Protocol: Document 11/14/21 16:00 [facility] (Rec: 11/14/21 17:30 [facility] [id number]) Special Tests Lumbar Spine Special Tests +ASLR Test Results + for left side SI unlocking PT-OP-M Strength Start: 11/16/21 09:34 Freq: Status: Active Protocol: Document 11/14/21 16:00 [facility] (Rec: 11/16/21 09:37 [facility] [id number]) Trunk Strength Trunk Manual Muscle Testing Testing Position Supine Core Stabilization decreased core stabilization with left SI joint unlocking with movement of the right LE. Difficult for Cece to maintain TA stabilzation for repetitive movement PT-OP-Q Treatments Start: 11/21/21 12:58 Freq: Status: Active Protocol: Document 02/06/22 11:18 [facility] (Rec: 02/06/22 12:09 [facility] [id number]) Manual Therapy Treatment Soft Tissue Mobilization MFR over the left piriformis and sacral region Mobilization Type Myofascial Release Comments tightness throughout the left piriformis today Manual Techniques sacral counternutation Type MET for sacral counter nutation Reps/Duration x 5 reps Comments sacral mobilizations into counternutation bring relief to Cece PT-OP-T Assessment and Plan Start: 11/02/21 13:47 Freq: Status: Active Protocol: Document 02/06/22 11:18 [facility] (Rec: 02/06/22 17:32 [facility] [id number]) Physical Therapy Assessment Assessment Summary Assessment I worked on releasing the sacral attachments today as well as sacral counternutation which gave Cece relief. She also finds relief in mouna pose position. She has been working on her stabilization exercises and finds she needs a day inbetween to stretch. Physical Therapy Plan Frequency and Duration Frequency of Treatment 1x/Week Duration of treatment (weeks) 12 Plan of Care Start Date 11/14/21 Plan of Care End Date 02/13/22 Therapeutic Interventions Therapeutic Interventions Home Exercise Program,Manual Therapy,Neuromuscular Re- education,Patient/Caregiver Education,Self-Care/Home Management,Soft Tissue Mobilization,Therapeutic Exercises Modalities Biofeedback,Electric Stimulation Next Visit Focus/Plan Next Note Type Progress Note Next Visit Plan recheck pelvic floor strength next visit, Progress note to
--- NOTE | 2022-02-20 18:18 | PT.OTN ---
Current Diagnoses Stress incontinence (female) (male) (02/20/22) Pelvic and perineal pain (02/20/22) Physical Therapy Treatment Note PT-OP-A Visit Information Start: 11/02/21 13:47 Freq: Status: Active Protocol: Document 02/20/22 11:24 [facility] (Rec: 02/20/22 12:17 [facility] [id number]) Out-Patient Physical Therapy Visit Information Visit Information Visit Type Treatment Note Visit Start Time 11:25 Visit Stop Time 12:05 Total Visit Minutes 40 Visit Number 7 PT-OP-B Current Condition Start: 11/02/21 13:47 Freq: Status: Active Protocol: Document 11/21/21 12:58 [facility] (Rec: 11/21/21 13:10 [facility] [id number]) Current Condition History of Current Condition Onset Date July 2021 diagnosis with endometreosis Current Complaints pelvic pain, L SI pain PT-OP-C Subjective Start: 11/02/21 13:47 Freq: Status: Active Protocol: Document 02/20/22 11:24 [facility] (Rec: 02/20/22 12:17 [facility] [id number]) OP-PT Subjective Patient Comments Patient Comments pt feels like she are a bit better with chiropractic PT and massage, the chiropractic in the upper back. She has a follow up with Krysta in March. Her nerve symptoms are still in the left leg and worse at night than in the AM Patient Reported Progress Improving PT-OP-I Pelvic Floor Start: 11/02/21 13:47 Freq: Status: Active Protocol: Document 11/30/21 13:36 [facility] (Rec: 11/30/21 13:41 [facility] [id number]) Pelvic Floor Assessment SEMG (uV) Baseline 3.0 PT-OP-J Posture/Palpation/Skin Start: 11/02/21 13:47 Freq: Status: Active Protocol: Document 11/14/21 16:00 [facility] (Rec: 11/14/21 17:31 [facility] [id number]) Posture Evaluation Comments Posture Comments pt sits shifted to the right taking pressure off her left SI joint Palpation Assessment Location left SI joint Palpation Location pain left SI joint Palpation Findings Tenderness PT-OP-K Range of Motion Start: 11/16/21 09:34 Freq: Status: Active Protocol: Document 11/14/21 16:00 [facility] (Rec: 11/16/21 09:36 [facility] [id number]) Hip Goniometric Range of Motion Hip Active Hip ROM WFL Yes Comments pt presents with 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, especially with hip ER, IR PT-OP-L Special Tests Start: 11/02/21 13:47 Freq: Status: Active Protocol: Document 11/14/21 16:00 [facility] (Rec: 11/14/21 17:30 [facility] [id number]) Special Tests Lumbar Spine Special Tests +ASLR Test Results + for left side SI unlocking PT-OP-M Strength Start: 11/16/21 09:34 Freq: Status: Active Protocol: Document 11/14/21 16:00 [facility] (Rec: 11/16/21 09:37 [facility] [id number]) Trunk Strength Trunk Manual Muscle Testing Testing Position Supine Core Stabilization decreased core stabilization with left SI joint unlocking with movement of the right LE. Difficult for Cece to maintain TA stabilzation for repetitive movement PT-OP-Q Treatments Start: 11/21/21 12:58 Freq: Status: Active Protocol: Document 02/20/22 11:24 [facility] (Rec: 02/20/22 12:17 [facility] [id number]) Therapeutic Exercises Supine Exercises supine bridges with ball squeeze Reps/Minutes x 10 reps supine ball squeeze Reps/Minutes x 10 reps pelvic floor long holds Side bilateral Reps/Minutes x 10 reps Other Exercises mouna pose Comments modified with pillows under buttocks, had pt work on pelvic floor contralx quadruped TA Reps/Minutes x 10 reps Manual Therapy Treatment Soft Tissue Mobilization MFR over the left piriformis and sacral region Mobilization Type Myofascial Release Comments tightness throughout the left piriformis today PT-OP-T Assessment and Plan Start: 11/02/21 13:47 Freq: Status: Active Protocol: Document 02/20/22 11:24 [facility] (Rec: 02/20/22 12:17 [facility] [id number]) Physical Therapy Assessment Goals SI instability Impairment left sided SI instability with + ASLR test on the right side for left side unlocking Short Term Goal (STG) Cece is able to perform supine marches and heel slides with TA activation without left side SI unlocking STG Duration 6 weeks Manager Recovery Goal (LTG) Cece is able to perform dynamic stabilization exercises without the SI joint unlocking and has a neg ASLR test LTG Duration 12 weeks urinary stress incontinence and urgency Impairment urinary stress incontinence and urgency Short Term Goal (STG) Cece is educated on pelvic floor and transverse abdominal strenthening to help provide improved SI and bladder support STG Duration 5 weeks Manager Recovery Goal (LTG) Leakage is only occuring now with strong cough laugh or sneeze, she is no longer complaining of urgency. She is voiding 0-1 xms per night. LTG Duration 12 weeks left SI pain rated 5/10 Impairment left SI pain rated 5/10 making it difficult to sit symmetrically Jail Goal (LTG) As of 02/20/22 Pt is now a 4/ 10 pain and this are a little bit better. Cece reports a continued reduction in left sided SI pain as she become more stable in her SI joint from core stabilization exercises LTG Duration 12 weeks Assessment Summary Assessment pt was able to relax to baseline today following manual release of the sacrum. She is not as guarded in her pelvic floor. Cece would benefit from continued PT focusing on SI stabilization as well as manual therapy techniques to decrease pelvic floor tightness and gluteal tightness. Physical Therapy Plan Frequency and Duration Frequency of Treatment 1x/Week Duration of treatment (weeks) 12 Plan of Care Start Date 02/20/22 Plan of Care End Date 05/18/22 Therapeutic Interventions Therapeutic Interventions Home Exercise Program,Manual Therapy,Neuromuscular Re- education,Patient/Caregiver Education,Self-Care/Home Management,Soft Tissue Mobilization,Therapeutic Exercises Modalities Biofeedback,Electric Stimulation Next Visit Focus/Plan Next Note Type Progress Note Next Visit Plan recheck pelvic floor strength next visit, stabilization exercises to help with SI stabilization, manual therapy techniques to help stabilize the SI joint
--- NOTE | 2022-02-20 18:19 | PT.OPPOC ---
Physical, Occupational & Speech Therapy At [facility] Current Diagnoses Stress incontinence (female) (male) (02/20/22) Pelvic and perineal pain (02/20/22) Visit Care Team Role Provider Type Madeleine Bloom DO Primary Care Provider Physician Specialty: Medical Address: [address] [place] [address], [address], [address] Email: [email or web address] Kadi Aguilar MD Family Provider Physician Specialty: Family Practice Address: [address] [place] [address], [address] Phone: Fax: Email: [email or web address] DO Attending Provider Non-Staff Referring Provider Specialty: ENROLLMENT MANAGEMENT MANAGER Address: [address] [place] [address], [address], [place], [address] Email: Plan Of Care PT-OP-T Assessment and Plan Start: 11/02/21 13:47 Freq: Status: Active Protocol: Document 02/20/22 11:24 [facility] (Rec: 02/20/22 12:17 [facility] [id number]) Physical Therapy Assessment Goals SI instability Impairment left sided SI instability with + ASLR test on the right side for left side unlocking Short Term Goal (STG) Cece is able to perform supine marches and heel slides with TA activation without left side SI unlocking STG Duration 6 weeks Filler Shredder Helper Goal (LTG) Cece is able to perform dynamic stabilization exercises without the SI joint unlocking and has a neg ASLR test LTG Duration 12 weeks urinary stress incontinence and urgency Impairment urinary stress incontinence and urgency Short Term Goal (STG) Cece is educated on pelvic floor and transverse abdominal strengthening to help provide improved SI and bladder support STG Duration 5 weeks Residential Goal (LTG) Leakage is only occurring now with strong cough laugh or sneeze, she is no longer complaining of urgency. She is voiding 0-1 xms per night. LTG Duration 12 weeks left SI pain rated 5/10 Impairment left SI pain rated 5/10 making it difficult to sit symmetrically Residential Goal (LTG) As of 02/20/22 Pt is now a 4/ 10 pain and this are a little bit better. Cece reports a continued reduction in left sided SI pain as she become more stable in her SI joint from core stabilization exercises LTG Duration 12 weeks Assessment Summary Assessment pt was able to relax to baseline today following manual release of the sacrum. She is not as guarded in her pelvic floor. Cece would benefit from continued PT focusing on SI stabilization as well as manual therapy techniques to decrease pelvic floor tightness and gluteal tightness. Physical Therapy Plan Frequency and Duration Frequency of Treatment 1x/Week Duration of treatment (weeks) 12 Plan of Care Start Date 02/20/22 Plan of Care End Date 05/18/22 Therapeutic Interventions Therapeutic Interventions Home Exercise Program,Manual Therapy,Neuromuscular Re- education,Patient/Caregiver Education,Self-Care/Home Management,Soft Tissue Mobilization,Therapeutic Exercises Modalities Biofeedback,Electric Stimulation Next Visit Focus/Plan Next Note Type Progress Note Next Visit Plan recheck pelvic floor strength next visit, stabilization exercises to help with SI stabilization, manual therapy techniques to help stabilize the SI joint Plan of Care Dates Plan of Care Start Date 02/20/22 Plan of Care End Date 05/18/22 Electronically Signed by: Rea Edwards, PT 02/20/22 [id number] If you are in agreement with this Plan of Care, please return a signed and dated copy. I have reviewed this Plan of Care and certify that the skilled therapy services above are required to meet the patient?s needs. Physician Signature Date Printed Name and Credentials Clinical Instructor Signature Printed Name and Credentials
--- NOTE | 2022-03-06 15:53 | PT.OTN ---
Current Diagnoses Stress incontinence (female) (male) (03/06/22) Pelvic and perineal pain (03/06/22) Physical Therapy Treatment Note PT-OP-A Visit Information Start: 11/02/21 13:47 Freq: Status: Active Protocol: Document 03/06/22 15:49 [facility] (Rec: 03/06/22 15:53 [facility] [id number]) Out-Patient Physical Therapy Visit Information Visit Information Visit Type Treatment Note Visit Start Time 11:30 Visit Stop Time 12:15 Total Visit Minutes 45 Visit Number 8 PT-OP-B Current Condition Start: 11/02/21 13:47 Freq: Status: Active Protocol: Document 11/21/21 12:58 [facility] (Rec: 11/21/21 13:10 [facility] [id number]) Current Condition History of Current Condition Onset Date July 2021 diagnosis with endometreosis Current Complaints pelvic pain, L SI pain PT-OP-C Subjective Start: 11/02/21 13:47 Freq: Status: Active Protocol: Document 03/06/22 15:49 [facility] (Rec: 03/06/22 15:53 [facility] [id number]) OP-PT Subjective Patient Comments Patient Comments Cece hasn't seen the chiropractor since last visit due to the holidays. She also slipped and took a fall in the snow but overall she is still feeling a little improvement. She is feeling the left sided ITB pain today from hip to her knee PT-OP-I Pelvic Floor Start: 11/02/21 13:47 Freq: Status: Active Protocol: Document 11/30/21 13:36 [facility] (Rec: 11/30/21 13:41 [facility] [id number]) Pelvic Floor Assessment SEMG (uV) Baseline 3.0 PT-OP-J Posture/Palpation/Skin Start: 11/02/21 13:47 Freq: Status: Active Protocol: Document 11/14/21 16:00 [facility] (Rec: 11/14/21 17:31 [facility] [id number]) Posture Evaluation Comments Posture Comments pt sits shifted to the right taking pressure off her left SI joint Palpation Assessment Location left SI joint Palpation Location pain left SI joint Palpation Findings Tenderness PT-OP-K Range of Motion Start: 11/16/21 09:34 Freq: Status: Active Protocol: Document 11/14/21 16:00 [facility] (Rec: 11/16/21 09:36 [facility] [id number]) Hip Goniometric Range of Motion Hip Active Hip ROM WFL Yes Comments pt presents with 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, especially with hip ER, IR PT-OP-L Special Tests Start: 11/02/21 13:47 Freq: Status: Active Protocol: Document 11/14/21 16:00 [facility] (Rec: 11/14/21 17:30 [facility] [id number]) Special Tests Lumbar Spine Special Tests +ASLR Test Results + for left side SI unlocking PT-OP-M Strength Start: 11/16/21 09:34 Freq: Status: Active Protocol: Document 11/14/21 16:00 [facility] (Rec: 11/16/21 09:37 [facility] [id number]) Trunk Strength Trunk Manual Muscle Testing Testing Position Supine Core Stabilization decreased core stabilization with left SI joint unlocking with movement of the right LE. Difficult for Cece to maintain TA stabilzation for repetitive movement PT-OP-Q Treatments Start: 11/21/21 12:58 Freq: Status: Active Protocol: Document 03/06/22 15:49 [facility] (Rec: 03/06/22 15:53 [facility] [id number]) Manual Therapy Treatment Soft Tissue Mobilization MFR over the left ITB Mobilization Type Myofascial Release Comments worked on both proximal and distal attachments today MFR over the left piriformis and sacral region Mobilization Type Myofascial Release Comments tightness throughout the left piriformis today Joint Mobilizations Thoracic joint mobilizations Direction GEORGETTE portillo Grade III Reps/Duration T2-T10 PT-OP-T Assessment and Plan Start: 11/02/21 13:47 Freq: Status: Active Protocol: Document 03/06/22 15:49 [facility] (Rec: 03/06/22 15:53 [facility] [id number]) Physical Therapy Assessment Assessment Summary Assessment pt notes she felt good release after treatment today. She has been recommended to start taking collagen to see if this will help with ligamentous stability Physical Therapy Plan Frequency and Duration Frequency of Treatment 1x/Week Duration of treatment (weeks) 12 Plan of Care Start Date 02/20/22 Plan of Care End Date 05/18/22 Therapeutic Interventions Therapeutic Interventions Home Exercise Program,Manual Therapy,Neuromuscular Re- education,Patient/Caregiver Education,Self-Care/Home Management,Soft Tissue Mobilization,Therapeutic Exercises Modalities Biofeedback,Electric Stimulation Next Visit Focus/Plan Next Note Type Progress Note Next Visit Plan recheck pelvic floor strength next visit, stabilization exercises to help with SI stabilization, manual therapy techniques to help stabilize the SI joint
--- NOTE | 2022-03-22 13:45 | PT.OTN ---
Current Diagnoses Stress incontinence (female) (male) (04/05/22) Pelvic and perineal pain (04/05/22) Physical Therapy Treatment Note PT-OP-A Visit Information Start: 11/02/21 13:47 Freq: Status: Active Protocol: Document 03/22/22 13:01 [facility] (Rec: 03/22/22 13:47 [facility] [id number]) Out-Patient Physical Therapy Visit Information Visit Information Visit Type Treatment Note Visit Start Time 13:00 Visit Stop Time 13:45 Total Visit Minutes 45 Visit Number 9 PT-OP-B Current Condition Start: 11/02/21 13:47 Freq: Status: Active Protocol: Document 11/21/21 12:58 [facility] (Rec: 11/21/21 13:10 [facility] [id number]) Current Condition History of Current Condition Onset Date July 2021 diagnosis with endometreosis Current Complaints pelvic pain, L SI pain PT-OP-C Subjective Start: 11/02/21 13:47 Freq: Status: Active Protocol: Document 03/22/22 13:01 [facility] (Rec: 03/22/22 13:47 [facility] [id number]) OP-PT Subjective Patient Comments Patient Comments pt feels like a combo of chiro massage and PT exercises she feels like she is getting some pain improvement. She feels most of her pain in the left hip attachment and the coccyx bone. PT-OP-I Pelvic Floor Start: 11/02/21 13:47 Freq: Status: Active Protocol: Document 11/30/21 13:36 [facility] (Rec: 11/30/21 13:41 [facility] [id number]) Pelvic Floor Assessment SEMG (uV) Baseline 3.0 PT-OP-J Posture/Palpation/Skin Start: 11/02/21 13:47 Freq: Status: Active Protocol: Document 11/14/21 16:00 [facility] (Rec: 11/14/21 17:31 [facility] [id number]) Posture Evaluation Comments Posture Comments pt sits shifted to the right taking pressure off her left SI joint Palpation Assessment Location left SI joint Palpation Location pain left SI joint Palpation Findings Tenderness PT-OP-K Range of Motion Start: 11/16/21 09:34 Freq: Status: Active Protocol: Document 11/14/21 16:00 [facility] (Rec: 11/16/21 09:36 [facility] [id number]) Hip Goniometric Range of Motion Hip Active Hip ROM WFL Yes Comments pt presents with 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, especially with hip ER, IR PT-OP-L Special Tests Start: 11/02/21 13:47 Freq: Status: Active Protocol: Document 11/14/21 16:00 [facility] (Rec: 11/14/21 17:30 [facility] [id number]) Special Tests Lumbar Spine Special Tests +ASLR Test Results + for left side SI unlocking PT-OP-M Strength Start: 11/16/21 09:34 Freq: Status: Active Protocol: Document 11/14/21 16:00 [facility] (Rec: 11/16/21 09:37 [facility] [id number]) Trunk Strength Trunk Manual Muscle Testing Testing Position Supine Core Stabilization decreased core stabilization with left SI joint unlocking with movement of the right LE. Difficult for Cece to maintain TA stabilzation for repetitive movement PT-OP-Q Treatments Start: 11/21/21 12:58 Freq: Status: Active Protocol: Document 03/22/22 13:01 [facility] (Rec: 03/22/22 13:47 [facility] [id number]) Therapeutic Exercises Supine Exercises roll outs with theraband Reps/Minutes 2 x 10 reps PT-OP-T Assessment and Plan Start: 11/02/21 13:47 Freq: Status: Active Protocol: Document 03/22/22 13:02 [facility] (Rec: 04/05/22 13:03 [facility] [id number]) Physical Therapy Assessment Assessment Summary Assessment pt notes she felt good release after treatment today. She has been recommneded to start taking collagen to see if this will help with ligamentous stability Physical Therapy Plan Frequency and Duration Frequency of Treatment 1x/Week Duration of treatment (weeks) 12 Plan of Care Start Date 02/20/22 Plan of Care End Date 05/18/22 Next Visit Focus/Plan Next Note Type Treatment Note Next Visit Plan recheck pelvic floor strength next visit, stabilization exercises to help with SI stabilization, manual therapy techniques to help stabilize the SI joint
--- NOTE | 2022-04-19 17:07 | PT.OTN ---
Current Diagnoses Stress incontinence (female) (male) (04/19/22) Pelvic and perineal pain (04/19/22) Physical Therapy Treatment Note PT-OP-A Visit Information Start: 11/02/21 13:47 Freq: Status: Active Protocol: Document 04/19/22 13:05 [facility] (Rec: 04/19/22 13:42 [facility] [id number]) Out-Patient Physical Therapy Visit Information Visit Information Visit Type Treatment Note Visit Start Time 13:05 Visit Stop Time 13:45 Total Visit Minutes 40 Visit Number 11 PT-OP-B Current Condition Start: 11/02/21 13:47 Freq: Status: Active Protocol: Document 11/21/21 12:58 [facility] (Rec: 11/21/21 13:10 [facility] [id number]) Current Condition History of Current Condition Onset Date July 2021 diagnosis with endometreosis Current Complaints pelvic pain, L SI pain PT-OP-C Subjective Start: 11/02/21 13:47 Freq: Status: Active Protocol: Document 04/19/22 13:05 [facility] (Rec: 04/19/22 13:42 [facility] [id number]) OP-PT Subjective Patient Comments Patient Comments pt is seeing DR hobson for a injection into the left L4-5 to see if this helps her hip pain. She is scheduled on May 01. PT-OP-I Pelvic Floor Start: 11/02/21 13:47 Freq: Status: Active Protocol: Document 11/30/21 13:36 [facility] (Rec: 11/30/21 13:41 [facility] [id number]) Pelvic Floor Assessment SEMG (uV) Baseline 3.0 PT-OP-J Posture/Palpation/Skin Start: 11/02/21 13:47 Freq: Status: Active Protocol: Document 11/14/21 16:00 [facility] (Rec: 11/14/21 17:31 [facility] [id number]) Posture Evaluation Comments Posture Comments pt sits shifted to the right taking pressure off her left SI joint Palpation Assessment Location left SI joint Palpation Location pain left SI joint Palpation Findings Tenderness PT-OP-K Range of Motion Start: 11/16/21 09:34 Freq: Status: Active Protocol: Document 11/14/21 16:00 [facility] (Rec: 11/16/21 09:36 [facility] [id number]) Hip Goniometric Range of Motion Hip Active Hip ROM WFL Yes Comments pt presents with 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, especially with hip ER, IR PT-OP-L Special Tests Start: 11/02/21 13:47 Freq: Status: Active Protocol: Document 11/14/21 16:00 [facility] (Rec: 11/14/21 17:30 [facility] [id number]) Special Tests Lumbar Spine Special Tests +ASLR Test Results + for left side SI unlocking PT-OP-M Strength Start: 11/16/21 09:34 Freq: Status: Active Protocol: Document 11/14/21 16:00 [facility] (Rec: 11/16/21 09:37 [facility] [id number]) Trunk Strength Trunk Manual Muscle Testing Testing Position Supine Core Stabilization decreased core stabilization with left SI joint unlocking with movement of the right LE. Difficult for Cece to maintain TA stabilzation for repetitive movement PT-OP-Q Treatments Start: 11/21/21 12:58 Freq: Status: Active Protocol: Document 04/19/22 13:05 [facility] (Rec: 04/19/22 13:50 [facility] [id number]) Manual Therapy Treatment Soft Tissue Mobilization MFR over the left ITB Mobilization Type Myofascial Release Comments worked on both proximal and distal attachments today MFR over the left piriformis and sacral region Mobilization Type Myofascial Release Comments tightness throughout the left piriformis today PT-OP-T Assessment and Plan Start: 11/02/21 13:47 Freq: Status: Active Protocol: Document 04/19/22 13:05 [facility] (Rec: 04/19/22 13:46 [facility] [id number]) Physical Therapy Assessment Assessment Summary Assessment Cece will undergo a steroid injection on 05/01/22. She will be seen 2 days later in PT. At that time I would like to revisit pelvic floor tone on EMG biofeedback to see if a reduction in pain helps her pelvic floor relax Physical Therapy Plan Frequency and Duration Frequency of Treatment 1x/Week Duration of treatment (weeks) 12 Plan of Care Start Date 02/20/22 Plan of Care End Date 05/18/22 Next Visit Focus/Plan Next Note Type Treatment Note Next Visit Plan recheck the pelvic floor with EMG biofeedback next visit. Pt will be two days s/p cortisone injection L4-L5
--- NOTE | 2022-05-03 17:20 | PT.OTN ---
Current Diagnoses Stress incontinence (female) (male) (05/03/22) Pelvic and perineal pain (05/03/22) Physical Therapy Treatment Note PT-OP-A Visit Information Start: 11/02/21 13:47 Freq: Status: Active Protocol: Document 05/03/22 13:01 [facility] (Rec: 05/03/22 13:15 [facility] [id number]) Out-Patient Physical Therapy Visit Information Visit Information Visit Type Treatment Note Visit Start Time 13:00 Visit Stop Time 13:45 Total Visit Minutes 45 Visit Number 12 PT-OP-B Current Condition Start: 11/02/21 13:47 Freq: Status: Active Protocol: Document 11/21/21 12:58 [facility] (Rec: 11/21/21 13:10 [facility] [id number]) Current Condition History of Current Condition Onset Date July 2021 diagnosis with endometreosis Current Complaints pelvic pain, L SI pain PT-OP-C Subjective Start: 11/02/21 13:47 Freq: Status: Active Protocol: Document 05/03/22 13:01 [facility] (Rec: 05/03/22 13:15 [facility] [id number]) OP-PT Subjective Patient Comments Patient Comments pt had her injection on the and she is feeling that it is helping she feels no pain but occasional twinges. Patient Reported Progress Improving PT-OP-I Pelvic Floor Start: 11/02/21 13:47 Freq: Status: Active Protocol: Document 05/03/22 13:15 [facility] (Rec: 05/03/22 13:16 [facility] [id number]) Pelvic Floor Assessment SEMG (uV) Baseline 0 PT-OP-J Posture/Palpation/Skin Start: 11/02/21 13:47 Freq: Status: Active Protocol: Document 11/14/21 16:00 [facility] (Rec: 11/14/21 17:31 [facility] [id number]) Posture Evaluation Comments Posture Comments pt sits shifted to the right taking pressure off her left SI joint Palpation Assessment Location left SI joint Palpation Location pain left SI joint Palpation Findings Tenderness PT-OP-K Range of Motion Start: 11/16/21 09:34 Freq: Status: Active Protocol: Document 11/14/21 16:00 [facility] (Rec: 11/16/21 09:36 [facility] [id number]) Hip Goniometric Range of Motion Hip Active Hip ROM WFL Yes Comments pt presents with 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, especially with hip ER, IR PT-OP-L Special Tests Start: 11/02/21 13:47 Freq: Status: Active Protocol: Document 11/14/21 16:00 [facility] (Rec: 11/14/21 17:30 [facility] [id number]) Special Tests Lumbar Spine Special Tests +ASLR Test Results + for left side SI unlocking PT-OP-M Strength Start: 11/16/21 09:34 Freq: Status: Active Protocol: Document 11/14/21 16:00 [facility] (Rec: 11/16/21 09:37 [facility] [id number]) Trunk Strength Trunk Manual Muscle Testing Testing Position Supine Core Stabilization decreased core stabilization with left SI joint unlocking with movement of the right LE. Difficult for Cece to maintain TA stabilzation for repetitive movement PT-OP-Q Treatments Start: 11/21/21 12:58 Freq: Status: Active Protocol: Document 05/03/22 13:01 [facility] (Rec: 05/03/22 13:15 [facility] [id number]) Therapeutic Exercises Supine Exercises pelvic floor long holds Reps/Minutes 9.1 and max 16.3 Comments resting tone down to baseline Manual Therapy Treatment Soft Tissue Mobilization MFR over the left ITB Mobilization Type Myofascial Release Comments worked on both proximal and distal attachments today MFR over the left piriformis and sacral region Mobilization Type Myofascial Release Comments tightness throughout the left piriformis today PT-OP-T Assessment and Plan Start: 11/02/21 13:47 Freq: Status: Active Protocol: Document 05/03/22 13:01 [facility] (Rec: 05/03/22 17:18 [facility] [id number]) Physical Therapy Assessment Assessment Summary Assessment With EMG biofeedback today Cece's resting tone was down to baseline. She was also able to fully relax inbetween contractions. This is a great improvement and she is already feeling pain relief in the left leg from the cortisone injection on 05/01/22 Physical Therapy Plan Frequency and Duration Frequency of Treatment 1x/Week Duration of treatment (weeks) 12 Plan of Care Start Date 02/20/22 Plan of Care End Date 05/18/22 Therapeutic Interventions Therapeutic Interventions Home Exercise Program,Manual Therapy,Neuromuscular Re- education,Patient/Caregiver Education,Self-Care/Home Management,Soft Tissue Mobilization,Therapeutic Exercises Modalities Biofeedback,Electric Stimulation Next Visit Focus/Plan Next Note Type Treatment Note Next Visit Plan review SI stabilization exercises with pt to see if her tolerance is increased now with decreased pain
--- NOTE | 2022-05-10 17:47 | PT.OTN ---
Current Diagnoses Stress incontinence (female) (male) (05/10/22) Pelvic and perineal pain (05/10/22) Physical Therapy Treatment Note PT-OP-A Visit Information Start: 11/02/21 13:47 Freq: Status: Active Protocol: Document 05/10/22 13:08 [facility] (Rec: 05/10/22 13:27 [facility] [id number]) Out-Patient Physical Therapy Visit Information Visit Information Visit Type Treatment Note Visit Start Time 13:05 Visit Stop Time 13:45 Total Visit Minutes 40 Visit Number 13 PT-OP-B Current Condition Start: 11/02/21 13:47 Freq: Status: Active Protocol: Document 11/21/21 12:58 [facility] (Rec: 11/21/21 13:10 [facility] [id number]) Current Condition History of Current Condition Onset Date July 2021 diagnosis with endometreosis Current Complaints pelvic pain, L SI pain PT-OP-C Subjective Start: 11/02/21 13:47 Freq: Status: Active Protocol: Document 05/10/22 13:08 [facility] (Rec: 05/10/22 13:27 [facility] [id number]) OP-PT Subjective Patient Comments Patient Comments Cece reports she is still feeling good relief from the cortisone injection, pt reports she is feeling like she can fully empty her bladder PT-OP-I Pelvic Floor Start: 11/02/21 13:47 Freq: Status: Active Protocol: Document 05/03/22 13:15 [facility] (Rec: 05/03/22 13:16 [facility] [id number]) Pelvic Floor Assessment SEMG (uV) Baseline 0 PT-OP-J Posture/Palpation/Skin Start: 11/02/21 13:47 Freq: Status: Active Protocol: Document 11/14/21 16:00 [facility] (Rec: 11/14/21 17:31 [facility] [id number]) Posture Evaluation Comments Posture Comments pt sits shifted to the right taking pressure off her left SI joint Palpation Assessment Location left SI joint Palpation Location pain left SI joint Palpation Findings Tenderness PT-OP-K Range of Motion Start: 11/16/21 09:34 Freq: Status: Active Protocol: Document 11/14/21 16:00 [facility] (Rec: 11/16/21 09:36 [facility] [id number]) Hip Goniometric Range of Motion Hip Active Hip ROM WFL Yes Comments pt presents with 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, especially with hip ER, IR PT-OP-L Special Tests Start: 11/02/21 13:47 Freq: Status: Active Protocol: Document 11/14/21 16:00 [facility] (Rec: 11/14/21 17:30 [facility] [id number]) Special Tests Lumbar Spine Special Tests +ASLR Test Results + for left side SI unlocking PT-OP-M Strength Start: 11/16/21 09:34 Freq: Status: Active Protocol: Document 11/14/21 16:00 [facility] (Rec: 11/16/21 09:37 [facility] [id number]) Trunk Strength Trunk Manual Muscle Testing Testing Position Supine Core Stabilization decreased core stabilization with left SI joint unlocking with movement of the right LE. Difficult for Cece to maintain TA stabilzation for repetitive movement PT-OP-Q Treatments Start: 11/21/21 12:58 Freq: Status: Active Protocol: Document 05/10/22 13:08 [facility] (Rec: 05/10/22 13:27 [facility] [id number]) Therapeutic Exercises Supine Exercises quick flicks Reps/Minutes x 10 reps pelvic floor long holds Reps/Minutes 8.7 and max of 18.3 Manual Therapy Treatment Soft Tissue Mobilization lumbar paraspinals Mobilization Type Myofascial Release Body Position prone over body pillow MFR over the left ITB Mobilization Type Myofascial Release Comments worked on both proximal and distal attachments today MFR over the left piriformis and sacral region Mobilization Type Myofascial Release Comments tightness throughout the left piriformis today PT-OP-T Assessment and Plan Start: 11/02/21 13:47 Freq: Status: Active Protocol: Document 05/10/22 13:08 [facility] (Rec: 05/10/22 13:27 [facility] [id number]) Physical Therapy Assessment Goals SI instability Impairment left sided SI instability with + ASLR test on the right side for left side unlocking Short Term Goal (STG) Cece is able to perform supine marches and heel slides with TA activation without left side SI unlocking We have not yet returned to dynamic stabilization as prior to her injection she was not tolerating this well STG Duration 6 weeks Skilled Nursing Goal (LTG) Cece is able to perform dynamic stabilization exercises without the SI joint unlocking and has a neg ASLR test Goal not yet met LTG Duration 12 weeks urinary stress incontinence and urgency Impairment urinary stress incontinence and urgency Short Term Goal (STG) Cece is educated on pelvic floor and transverse abdominal strenthening to help provide improved SI and bladder support Goal met STG Duration 5 weeks Skilled Nursing Goal (LTG) Leakage is only occuring now with strong cough laugh or sneeze, she is no longer complaining of urgency. She is voiding 0-1 xms per night. As of 05/10/22 she is sleeping through the night and wakes at 6am and then voids LTG Duration 12 weeks left SI pain rated 5/10 Impairment left SI pain rated 5/10 making it difficult to sit symmetrically Handbag Framer Goal (LTG) Following her cortisone injection pain levels are decreased and Cece is ready to start working towards postural exercises and dynamic lumbar stabilization LTG Duration 12 weeks Assessment Summary Assessment Cece is doing better with pelvic floor tone following her cortisone injection, decreased pain has helped with decreased muscle guarding and pain. She is no longer experiencing urinary incontinence. At this point I would like to work more on stabilization as her pain levels are decreased. She would benefit from continued PT at this point to progress her exercise program. Physical Therapy Plan Frequency and Duration Frequency of Treatment 1x/Week Duration of treatment (weeks) 12 Plan of Care Start Date 05/10/22 Plan of Care End Date 08/10/22
--- NOTE | 2022-05-10 17:48 | PT.OPPOC ---
Physical, Occupational & Speech Therapy At [facility] Current Diagnoses Stress incontinence (female) (male) (05/10/22) Pelvic and perineal pain (05/10/22) Visit Care Team Role Provider Type Madeleine Bloom DO Primary Care Provider Physician Specialty: Medical Address: [address] [place] [address], [address], [place], [address] Email: [email or web address] Aguilar MD Family Provider Physician Specialty: Family Practice Address: [address] [place] [address], [address] Phone: Fax: Email: [email or web address] Gaming DO Attending Provider Non-Staff Referring Provider Specialty: [employer]IP GAUGER Address: [id number] [place] [address], [address], [place], [address] Email: Plan Of Care PT-OP-T Assessment and Plan Start: 11/02/21 13:47 Freq: Status: Active Protocol: Document 05/10/22 13:08 [facility] (Rec: 05/10/22 13:27 [facility] [id number]) Physical Therapy Assessment Goals SI instability Impairment left sided SI instability with + ASLR test on the right side for left side unlocking Short Term Goal (STG) Cece is able to perform supine marches and heel slides with TA activation without left side SI unlocking We have not yet returned to dynamic stabilization as prior to her injection she was not tolerating this well STG Duration 6 weeks Prison Goal (LTG) Cece is able to perform dynamic stabilization exercises without the SI joint unlocking and has a neg ASLR test Goal not yet met LTG Duration 12 weeks urinary stress incontinence and urgency Impairment urinary stress incontinence and urgency Short Term Goal (STG) Cece is educated on pelvic floor and transverse abdominal strengthening to help provide improved SI and bladder support Goal met STG Duration 5 weeks Food Scientist Goal (LTG) Leakage is only occurring now with strong cough laugh or sneeze, she is no longer complaining of urgency. She is voiding 0-1 xms per night. As of 05/10/22 she is sleeping through the night and wakes at 6am and then voids LTG Duration 12 weeks left SI pain rated 5/10 Impairment left SI pain rated 5/10 making it difficult to sit symmetrically Food Scientist Goal (LTG) Following her cortisone injection pain levels are decreased and Cece is ready to start working towards postural exercises and dynamic lumbar stabilization LTG Duration 12 weeks Assessment Summary Assessment Cece is doing better with pelvic floor tone following her cortisone injection, decreased pain has helped with decreased muscle guarding and pain. She is no longer experiencing urinary incontinence. At this point I would like to work more on stabilization as her pain levels are decreased. She would benefit from continued PT at this point to progress her exercise program. Physical Therapy Plan Frequency and Duration Frequency of Treatment 1x/Week Duration of treatment (weeks) 12 Plan of Care Start Date 05/10/22 Plan of Care End Date 08/10/22 Plan of Care Dates Plan of Care Start Date 05/10/22 Plan of Care End Date 08/10/22 Electronically Signed by: Rea Edwards, PT 05/10/22 9781 If you are in agreement with this Plan of Care, please return a signed and dated copy. I have reviewed this Plan of Care and certify that the skilled therapy services above are required to meet the patient?s needs. Physician Signature Date Printed Name and Credentials Clinical Instructor Signature Printed Name and Credentials
--- NOTE | 2022-06-05 15:52 | PT.OTN ---
Current Diagnoses Stress incontinence (female) (male) (06/05/22) Pelvic and perineal pain (06/05/22) Physical Therapy Treatment Note PT-OP-A Visit Information Start: 11/02/21 13:47 Freq: Status: Active Protocol: Document 06/05/22 13:01 [facility] (Rec: 06/05/22 13:49 [facility] [id number]) Out-Patient Physical Therapy Visit Information Visit Information Visit Type Treatment Note Visit Start Time 13:02 Visit Stop Time 13:45 Total Visit Minutes 43 Visit Number 14 PT-OP-B Current Condition Start: 11/02/21 13:47 Freq: Status: Active Protocol: Document 11/21/21 12:58 [facility] (Rec: 11/21/21 13:10 [facility] [id number]) Current Condition History of Current Condition Onset Date July 2021 diagnosis with endometreosis Current Complaints pelvic pain, L SI pain PT-OP-C Subjective Start: 11/02/21 13:47 Freq: Status: Active Protocol: Document 06/05/22 13:01 [facility] (Rec: 06/05/22 13:49 [facility] [id number]) OP-PT Subjective Patient Comments Patient Comments pt notes she has been staying around a 3-4/10. She saw Dr. Armijo's yesterday and they are going to do another injection L4-L5. She continues to note improved voiding pattern and decreased incontinence overall. She did try to jump on the trampoline with her daughter and this caused leakage. Patient Reported Progress Improving PT-OP-I Pelvic Floor Start: 11/02/21 13:47 Freq: Status: Active Protocol: Document 05/03/22 13:15 [facility] (Rec: 05/03/22 13:16 [facility] [id number]) Pelvic Floor Assessment SEMG (uV) Baseline 0 PT-OP-J Posture/Palpation/Skin Start: 11/02/21 13:47 Freq: Status: Active Protocol: Document 11/14/21 16:00 [facility] (Rec: 11/14/21 17:31 [facility] [id number]) Posture Evaluation Comments Posture Comments pt sits shifted to the right taking pressure off her left SI joint Palpation Assessment Location left SI joint Palpation Location pain left SI joint Palpation Findings Tenderness PT-OP-K Range of Motion Start: 11/16/21 09:34 Freq: Status: Active Protocol: Document 11/14/21 16:00 [facility] (Rec: 11/16/21 09:36 [facility] [id number]) Hip Goniometric Range of Motion Hip Active Hip ROM WFL Yes Comments pt presents with 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, especially with hip ER, IR PT-OP-L Special Tests Start: 11/02/21 13:47 Freq: Status: Active Protocol: Document 11/14/21 16:00 [facility] (Rec: 11/14/21 17:30 [facility] [id number]) Special Tests Lumbar Spine Special Tests +ASLR Test Results + for left side SI unlocking PT-OP-M Strength Start: 11/16/21 09:34 Freq: Status: Active Protocol: Document 11/14/21 16:00 [facility] (Rec: 11/16/21 09:37 [facility] [id number]) Trunk Strength Trunk Manual Muscle Testing Testing Position Supine Core Stabilization decreased core stabilization with left SI joint unlocking with movement of the right LE. Difficult for Cece to maintain TA stabilzation for repetitive movement PT-OP-Q Treatments Start: 11/21/21 12:58 Freq: Status: Active Protocol: Document 06/05/22 13:01 [facility] (Rec: 06/05/22 13:49 [facility] [id number]) Therapeutic Exercises Supine Exercises roll outs with theraband Side bilateral Reps/Minutes x 10 reps supine ball squeeze Reps/Minutes x 10 Comments used manual pressure and pt was shown a foam roll pelvic floor long holds Reps/Minutes 16.4 max is 46.7 Manual Therapy Treatment Soft Tissue Mobilization MFR over the left piriformis and sacral region Mobilization Type Myofascial Release Comments tightness throughout the left piriformis today PT-OP-T Assessment and Plan Start: 11/02/21 13:47 Freq: Status: Active Protocol: Document 06/05/22 13:01 [facility] (Rec: 06/05/22 13:49 [facility] [id number]) Physical Therapy Assessment Assessment Summary Assessment reviewed SI stabilization exercises today and Cece is tolerating symmetrical exercises well. She has doubled her average pelvic floor contraction on EMG biofeedback. Continue progressing stabilization as Cece can tolerate. Physical Therapy Plan Frequency and Duration Frequency of Treatment 1x/Week Duration of treatment (weeks) 12 Plan of Care Start Date 05/10/22 Plan of Care End Date 08/10/22 Next Visit Focus/Plan Next Note Type Treatment Note Next Visit Plan progress dynamic stabilization exercises
--- NOTE | 2022-08-02 14:29 | PT.OTN ---
Current Diagnoses Stress incontinence (female) (male) (08/02/22) Pelvic and perineal pain (08/02/22) Physical Therapy Treatment Note PT-OP-A Visit Information Start: 11/02/21 13:47 Freq: Status: Active Protocol: Document 08/02/22 13:51 [facility] (Rec: 08/02/22 14:29 [facility] [id number]) Out-Patient Physical Therapy Visit Information Visit Information Visit Type Progress Note Visit Start Time 13:45 Visit Stop Time 14:15 Total Visit Minutes 30 Visit Number 15 PT-OP-B Current Condition Start: 11/02/21 13:47 Freq: Status: Active Protocol: Document 11/21/21 12:58 [facility] (Rec: 11/21/21 13:10 [facility] [id number]) Current Condition History of Current Condition Onset Date July 2021 diagnosis with endometreosis Current Complaints pelvic pain, L SI pain PT-OP-C Subjective Start: 11/02/21 13:47 Freq: Status: Active Protocol: Document 08/02/22 13:51 [facility] (Rec: 08/02/22 14:29 [facility] [id number]) OP-PT Subjective Patient Comments Patient Comments pt had the injection at L4-5 on July 19 but she notes most of the pain she has is in the SI joint and the back of her hamstring. She is curious to see what her pelvic floor tone is like today. She did get a trampoline and has been trying to work on pelvic floor contractions PT-OP-I Pelvic Floor Start: 11/02/21 13:47 Freq: Status: Active Protocol: Document 05/03/22 13:15 [facility] (Rec: 05/03/22 13:16 [facility] [id number]) Pelvic Floor Assessment SEMG (uV) Baseline 0 PT-OP-J Posture/Palpation/Skin Start: 11/02/21 13:47 Freq: Status: Active Protocol: Document 11/14/21 16:00 [facility] (Rec: 11/14/21 17:31 [facility] [id number]) Posture Evaluation Comments Posture Comments pt sits shifted to the right taking pressure off her left SI joint Palpation Assessment Location left SI joint Palpation Location pain left SI joint Palpation Findings Tenderness PT-OP-K Range of Motion Start: 11/16/21 09:34 Freq: Status: Active Protocol: Document 11/14/21 16:00 [facility] (Rec: 11/16/21 09:36 [facility] [id number]) Hip Goniometric Range of Motion Hip Active Hip ROM WFL Yes Comments pt presents with 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, especially with hip ER, IR PT-OP-L Special Tests Start: 11/02/21 13:47 Freq: Status: Active Protocol: Document 11/14/21 16:00 [facility] (Rec: 11/14/21 17:30 [facility] [id number]) Special Tests Lumbar Spine Special Tests +ASLR Test Results + for left side SI unlocking PT-OP-M Strength Start: 11/16/21 09:34 Freq: Status: Active Protocol: Document 11/14/21 16:00 [facility] (Rec: 11/16/21 09:37 [facility] [id number]) Trunk Strength Trunk Manual Muscle Testing Testing Position Supine Core Stabilization decreased core stabilization with left SI joint unlocking with movement of the right LE. Difficult for Cece to maintain TA stabilzation for repetitive movement PT-OP-Q Treatments Start: 11/21/21 12:58 Freq: Status: Active Protocol: Document 08/02/22 13:51 [facility] (Rec: 08/02/22 14:29 [facility] [id number]) Therapeutic Exercises Supine Exercises supine crunches with small ball between knees Reps/Minutes x 10 reps supine ball squeeze Reps/Minutes x 10 reps pelvic floor long holds Reps/Minutes 15.2 max 47.1 Self-Care/Home Management Treatment Education Patient Education Home Exercise Program,Joint Protection,Pain Management PT-OP-T Assessment and Plan Start: 11/02/21 13:47 Freq: Status: Active Protocol: Document 08/02/22 13:51 [facility] (Rec: 08/02/22 14:29 [facility] [id number]) Physical Therapy Assessment Goals SI instability Impairment left sided SI instability with + ASLR test on the right side for left side unlocking Short Term Goal (STG) Cece is able to perform supine marches and heel slides with TA activation without left side SI unlocking We have not yet returned to dynamic stabilization as prior to her injection she was not tolerating this well STG Duration 6 weeks Care Home Goal (LTG) Cece is able to perform dynamic stabilization exercises without the SI joint unlocking and has a neg ASLR test Goal not yet met LTG Duration 12 weeks urinary stress incontinence and urgency Impairment urinary stress incontinence and urgency Short Term Goal (STG) Cece is educated on pelvic floor and transverse abdominal strenthening to help provide improved SI and bladder support Goal met STG Duration 5 weeks Care Home Goal (LTG) Leakage is only occuring now with strong cough laugh or sneeze, she is no longer complaining of urgency. She is voiding 0-1 xms per night. As of 08/02/22 she is sleeping through the night and wakes at 6am and then voids. Cece has also noted that she is not experiencing the bowel urgency now that she is no longer guarding in her pelvic floor and lower abdominal muscles LTG Duration 12 weeks left SI pain rated 5/10 Impairment left SI pain rated 5/10 making it difficult to sit symmetrically Care Home Goal (LTG) Following her cortisone injection pain levels are decreased and Cece is ready to start working towards postural exercises and dynamic lumbar stabilization Cece is able to tolerate lower abdominal crunches as of today 08/02/22 LTG Duration 12 weeks Assessment Summary Assessment Since the cortisone injections Cece is not having as much issue with her bowels or with urgency of her bladder since she has been able to relax her pelvic floor and decrease the guarding that was occuring. She recently received the injection into her L4-5 and feels this has helped with the back pain. She is still feeling the pain in the hamstring region. Cece has been able to add in standing pelvc floor exercises and has been able to jump gently on her trampoline with pelvic floor contractions. She was able to tolerate the addition of lower abdominal crunches today with pelvic floor and TA engaged. Cece would like to continue progressing her exercises with PT as her pain levels are decreasing from her injections. Physical Therapy Plan Frequency and Duration Frequency of Treatment 1x/Week Duration of treatment (weeks) 12 Plan of Care Start Date 08/02/22 Plan of Care End Date 10/25/22 Next Visit Focus/Plan Next Note Type Treatment Note Next Visit Plan progress dynamic stabilization exercises
--- NOTE | 2022-08-02 14:30 | PT.OPPOC ---
Physical, Occupational & Speech Therapy At [facility] Current Diagnoses Stress incontinence (female) (male) (08/02/22) Pelvic and perineal pain (08/02/22) Visit Care Team Role Provider Type Madeleine Bloom DO Primary Care Provider Physician Specialty: Medical Address: [address] [place] [address], [address], [address] Email: [email or web address] Kadi Aguilar MD Family Provider Physician Specialty: Family Practice Address: [address] [place] [address], [id number] Phone: Fax: Email: [email or web address] Gaming DO Attending Provider Non-Staff Referring Provider Specialty: DIRECTOR OF COLLECTIONS AND ARCHIVES Address: [id number] [place] [address], [address], [place], [address] Email: Plan Of Care PT-OP-T Assessment and Plan Start: 11/02/21 13:47 Freq: Status: Active Protocol: Document 08/02/22 13:51 [facility] (Rec: 08/02/22 14:29 [facility] [id number]) Physical Therapy Assessment Goals SI instability Impairment left sided SI instability with + ASLR test on the right side for left side unlocking Short Term Goal (STG) Cece is able to perform supine marches and heel slides with TA activation without left side SI unlocking We have not yet returned to dynamic stabilization as prior to her injection she was not tolerating this well STG Duration 6 weeks Half-Way Goal (LTG) Cece is able to perform dynamic stabilization exercises without the SI joint unlocking and has a neg ASLR test Goal not yet met LTG Duration 12 weeks urinary stress incontinence and urgency Impairment urinary stress incontinence and urgency Short Term Goal (STG) Cece is educated on pelvic floor and transverse abdominal strengthening to help provide improved SI and bladder support Goal met STG Duration 5 weeks Support Manager Goal (LTG) Leakage is only occurring now with strong cough laugh or sneeze, she is no longer complaining of urgency. She is voiding 0-1 xms per night. As of 08/02/22 she is sleeping through the night and wakes at 6am and then voids. Cece has also noted that she is not experiencing the bowel urgency now that she is no longer guarding in her pelvic floor and lower abdominal muscles LTG Duration 12 weeks left SI pain rated 5/10 Impairment left SI pain rated 5/10 making it difficult to sit symmetrically Support Manager Goal (LTG) Following her cortisone injection pain levels are decreased and Cece is ready to start working towards postural exercises and dynamic lumbar stabilization Cece is able to tolerate lower abdominal crunches as of today 08/02/22 LTG Duration 12 weeks Assessment Summary Assessment Since the cortisone injections Cece is not having as much issue with her bowels or with urgency of her bladder since she has been able to relax her pelvic floor and decrease the guarding that was occurring. She recently received the injection into her L4-5 and feels this has helped with the back pain. She is still feeling the pain in the hamstring region. Cece has been able to add in standing pelvic floor exercises and has been able to jump gently on her trampoline with pelvic floor contractions. She was able to tolerate the addition of lower abdominal crunches today with pelvic floor and TA engaged. Cece would like to continue progressing her exercises with PT as her pain levels are decreasing from her injections. Physical Therapy Plan Frequency and Duration Frequency of Treatment 1x/Week Duration of treatment (weeks) 12 Plan of Care Start Date 08/02/22 Plan of Care End Date 10/25/22 Next Visit Focus/Plan Next Note Type Treatment Note Next Visit Plan progress dynamic stabilization exercises Plan of Care Dates Plan of Care Start Date 08/02/22 Plan of Care End Date 10/25/22 Electronically Signed by: Rea Edwards, PT 08/02/22 [id number] If you are in agreement with this Plan of Care, please return a signed and dated copy. I have reviewed this Plan of Care and certify that the skilled therapy services above are required to meet the patient?s needs. Physician Signature Date Printed Name and Credentials Clinical Instructor Signature Printed Name and Credentials
--- NOTE | 2022-08-16 14:43 | PT.OTN ---
Current Diagnoses Stress incontinence (female) (male) (08/16/22) Pelvic and perineal pain (08/16/22) Physical Therapy Treatment Note PT-OP-A Visit Information Start: 11/02/21 13:47 Freq: Status: Active Protocol: Document 08/16/22 14:38 [facility] (Rec: 08/16/22 14:43 [facility] [id number]) Out-Patient Physical Therapy Visit Information Visit Information Visit Type Treatment Note Visit Start Time 13:35 Visit Stop Time 14:15 Total Visit Minutes 40 Visit Number 16 PT-OP-B Current Condition Start: 11/02/21 13:47 Freq: Status: Active Protocol: Document 11/21/21 12:58 [facility] (Rec: 11/21/21 13:10 [facility] [id number]) Current Condition History of Current Condition Onset Date July 2021 diagnosis with endometreosis Current Complaints pelvic pain, L SI pain PT-OP-C Subjective Start: 11/02/21 13:47 Freq: Status: Active Protocol: Document 08/16/22 13:32 [facility] (Rec: 08/16/22 14:17 [facility] [id number]) OP-PT Subjective Patient Comments Patient Comments pt notes she still hasn't gotten relief from the sciatic nerve but her pelvic floor still feeling relaxed. Patient Reported Progress Same PT-OP-I Pelvic Floor Start: 11/02/21 13:47 Freq: Status: Active Protocol: Document 05/03/22 13:15 [facility] (Rec: 05/03/22 13:16 [facility] [id number]) Pelvic Floor Assessment SEMG (uV) Baseline 0 PT-OP-J Posture/Palpation/Skin Start: 11/02/21 13:47 Freq: Status: Active Protocol: Document 11/14/21 16:00 [facility] (Rec: 11/14/21 17:31 [facility] [id number]) Posture Evaluation Comments Posture Comments pt sits shifted to the right taking pressure off her left SI joint Palpation Assessment Location left SI joint Palpation Location pain left SI joint Palpation Findings Tenderness PT-OP-K Range of Motion Start: 11/16/21 09:34 Freq: Status: Active Protocol: Document 11/14/21 16:00 [facility] (Rec: 11/16/21 09:36 [facility] [id number]) Hip Goniometric Range of Motion Hip Active Hip ROM WFL Yes Comments pt presents with 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, especially with hip ER, IR PT-OP-L Special Tests Start: 11/02/21 13:47 Freq: Status: Active Protocol: Document 11/14/21 16:00 [facility] (Rec: 11/14/21 17:30 [facility] [id number]) Special Tests Lumbar Spine Special Tests +ASLR Test Results + for left side SI unlocking PT-OP-M Strength Start: 11/16/21 09:34 Freq: Status: Active Protocol: Document 11/14/21 16:00 [facility] (Rec: 11/16/21 09:37 [facility] [id number]) Trunk Strength Trunk Manual Muscle Testing Testing Position Supine Core Stabilization decreased core stabilization with left SI joint unlocking with movement of the right LE. Difficult for Cece to maintain TA stabilzation for repetitive movement PT-OP-Q Treatments Start: 11/21/21 12:58 Freq: Status: Active Protocol: Document 08/16/22 14:38 [facility] (Rec: 08/16/22 14:43 [facility] [id number]) Therapeutic Exercises Supine Exercises dynamic hamstring stretch for nerve flossing Reps/Minutes x 10 reps left leg, good tolerance Manual Therapy Treatment Soft Tissue Mobilization MFR over the left ITB Mobilization Type Myofascial Release Comments worked on both proximal and distal attachments today MFR over the left piriformis and sacral region Mobilization Type Myofascial Release Comments tightness throughout the left piriformis today Joint Mobilizations Thoracic joint mobilizations Direction GEORGETTE portillo Grade III Reps/Duration T2-T10 Manual Techniques manual assessment of SI joint and alignment Comments SI tests and measures performed, leg length equal today, + ASLR test with active SLR on the right. PT-OP-T Assessment and Plan Start: 11/02/21 13:47 Freq: Status: Active Protocol: Document 08/16/22 14:38 [facility] (Rec: 08/16/22 14:43 [facility] [id number]) Physical Therapy Assessment Assessment Summary Assessment Cece continues to be doing well with decreased urgency as well as improved bowel symptoms. She is still experiencing the sciatic symptoms down the left leg and will be proceeding with prolotherapy Physical Therapy Plan Frequency and Duration Frequency of Treatment 1x/Week Duration of treatment (weeks) 12 Plan of Care Start Date 08/02/22 Plan of Care End Date 10/25/22 Therapeutic Interventions Therapeutic Interventions Home Exercise Program,Manual Therapy,Neuromuscular Re- education,Patient/Caregiver Education,Self-Care/Home Management,Soft Tissue Mobilization,Therapeutic Exercises Modalities Biofeedback,Electric Stimulation Next Visit Focus/Plan Next Note Type Treatment Note Next Visit Plan progress dynamic stabilization exercises, continue to work on thoracic mobility, check in with hamstring flossing exercise
--- NOTE | 2022-08-30 14:24 | PT.OTN ---
Current Diagnoses Stress incontinence (female) (male) (08/30/22) Pelvic and perineal pain (08/30/22) Physical Therapy Treatment Note PT-OP-A Visit Information Start: 11/02/21 13:47 Freq: Status: Active Protocol: Document 08/30/22 13:35 [facility] (Rec: 08/30/22 14:23 [facility] [id number]) Out-Patient Physical Therapy Visit Information Visit Information Visit Type Treatment Note Visit Start Time 13:35 Visit Stop Time 14:15 Total Visit Minutes 40 Visit Number 17 PT-OP-B Current Condition Start: 11/02/21 13:47 Freq: Status: Active Protocol: Document 11/21/21 12:58 [facility] (Rec: 11/21/21 13:10 [facility] [id number]) Current Condition History of Current Condition Onset Date July 2021 diagnosis with endometreosis Current Complaints pelvic pain, L SI pain PT-OP-C Subjective Start: 11/02/21 13:47 Freq: Status: Active Protocol: Document 08/30/22 13:35 [facility] (Rec: 08/30/22 14:23 [facility] [id number]) OP-PT Subjective Patient Comments Patient Comments pt still notes the pain is stemming from her piriformis on the left side. PT-OP-I Pelvic Floor Start: 11/02/21 13:47 Freq: Status: Active Protocol: Document 05/03/22 13:15 [facility] (Rec: 05/03/22 13:16 [facility] [id number]) Pelvic Floor Assessment SEMG (uV) Baseline 0 PT-OP-J Posture/Palpation/Skin Start: 11/02/21 13:47 Freq: Status: Active Protocol: Document 11/14/21 16:00 [facility] (Rec: 11/14/21 17:31 [facility] [id number]) Posture Evaluation Comments Posture Comments pt sits shifted to the right taking pressure off her left SI joint Palpation Assessment Location left SI joint Palpation Location pain left SI joint Palpation Findings Tenderness PT-OP-K Range of Motion Start: 11/16/21 09:34 Freq: Status: Active Protocol: Document 11/14/21 16:00 [facility] (Rec: 11/16/21 09:36 [facility] [id number]) Hip Goniometric Range of Motion Hip Active Hip ROM WFL Yes Comments pt presents with 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, especially with hip ER, IR PT-OP-L Special Tests Start: 11/02/21 13:47 Freq: Status: Active Protocol: Document 11/14/21 16:00 [facility] (Rec: 11/14/21 17:30 [facility] [id number]) Special Tests Lumbar Spine Special Tests +ASLR Test Results + for left side SI unlocking PT-OP-M Strength Start: 11/16/21 09:34 Freq: Status: Active Protocol: Document 11/14/21 16:00 [facility] (Rec: 11/16/21 09:37 [facility] [id number]) Trunk Strength Trunk Manual Muscle Testing Testing Position Supine Core Stabilization decreased core stabilization with left SI joint unlocking with movement of the right LE. Difficult for Cece to maintain TA stabilzation for repetitive movement PT-OP-Q Treatments Start: 11/21/21 12:58 Freq: Status: Active Protocol: Document 08/30/22 14:23 [facility] (Rec: 08/30/22 14:24 [facility] [id number]) Manual Therapy Treatment Soft Tissue Mobilization lumbar paraspinals Mobilization Type Myofascial Release Body Position prone over body pillow MFR over the left piriformis and sacral region Mobilization Type Myofascial Release Comments tightness throughout the left piriformis today Manual Techniques sacral counternutation Type MET for sacral counter nutation Reps/Duration x 5 reps Comments sacral mobilizations into counternutation bring relief to Cece PT-OP-T Assessment and Plan Start: 11/02/21 13:47 Freq: Status: Active Protocol: Document 08/30/22 13:35 [facility] (Rec: 08/30/22 14:23 [facility] [id number]) Physical Therapy Assessment Assessment Summary Assessment Cece tolerated deep work into her piriformis today, she is still guarded in this region and is awaiting her prolotherapy for assist with SI stabilization Physical Therapy Plan Frequency and Duration Frequency of Treatment 1x/Week Duration of treatment (weeks) 12 Plan of Care Start Date 08/02/22 Plan of Care End Date 10/25/22 Next Visit Focus/Plan Next Note Type Treatment Note Next Visit Plan progress dynamic stabilization exercises, continue to work on thoracic mobility, check in with hamstring flossing exercise
--- NOTE | 2022-09-06 18:55 | PT.OTN ---
Current Diagnoses Stress incontinence (female) (male) (09/06/22) Pelvic and perineal pain (09/06/22) Physical Therapy Treatment Note PT-OP-A Visit Information Start: 11/02/21 13:47 Freq: Status: Active Protocol: Document 09/06/22 13:33 [facility] (Rec: 09/06/22 14:18 [facility] [id number]) Out-Patient Physical Therapy Visit Information Visit Information Visit Type Treatment Note Visit Start Time 13:35 Visit Stop Time 14:15 Total Visit Minutes 40 Visit Number 18 PT-OP-B Current Condition Start: 11/02/21 13:47 Freq: Status: Active Protocol: Document 11/21/21 12:58 [facility] (Rec: 11/21/21 13:10 [facility] [id number]) Current Condition History of Current Condition Onset Date July 2021 diagnosis with endometreosis Current Complaints pelvic pain, L SI pain PT-OP-C Subjective Start: 11/02/21 13:47 Freq: Status: Active Protocol: Document 09/06/22 13:33 [facility] (Rec: 09/06/22 14:18 [facility] [id number]) OP-PT Subjective Patient Comments Patient Comments pt has not being able to see the chiropractor she is feeling tighter in her upper back and still is feeling the piriformis tightness and guarding on the left side . She has a follow up with Dr Armijo early September to discuss prolotherapy PT-OP-I Pelvic Floor Start: 11/02/21 13:47 Freq: Status: Active Protocol: Document 05/03/22 13:15 [facility] (Rec: 05/03/22 13:16 [facility] [id number]) Pelvic Floor Assessment SEMG (uV) Baseline 0 PT-OP-J Posture/Palpation/Skin Start: 11/02/21 13:47 Freq: Status: Active Protocol: Document 11/14/21 16:00 [facility] (Rec: 11/14/21 17:31 [facility] [id number]) Posture Evaluation Comments Posture Comments pt sits shifted to the right taking pressure off her left SI joint Palpation Assessment Location left SI joint Palpation Location pain left SI joint Palpation Findings Tenderness PT-OP-K Range of Motion Start: 11/16/21 09:34 Freq: Status: Active Protocol: Document 11/14/21 16:00 [facility] (Rec: 11/16/21 09:36 [facility] [id number]) Hip Goniometric Range of Motion Hip Active Hip ROM WFL Yes Comments pt presents with 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, especially with hip ER, IR PT-OP-L Special Tests Start: 11/02/21 13:47 Freq: Status: Active Protocol: Document 11/14/21 16:00 [facility] (Rec: 11/14/21 17:30 [facility] [id number]) Special Tests Lumbar Spine Special Tests +ASLR Test Results + for left side SI unlocking PT-OP-M Strength Start: 11/16/21 09:34 Freq: Status: Active Protocol: Document 11/14/21 16:00 [facility] (Rec: 11/16/21 09:37 [facility] [id number]) Trunk Strength Trunk Manual Muscle Testing Testing Position Supine Core Stabilization decreased core stabilization with left SI joint unlocking with movement of the right LE. Difficult for Cece to maintain TA stabilzation for repetitive movement PT-OP-Q Treatments Start: 11/21/21 12:58 Freq: Status: Active Protocol: Document 09/06/22 18:54 [facility] (Rec: 09/06/22 18:54 [facility] [id number]) Manual Therapy Treatment Soft Tissue Mobilization lumbar paraspinals Mobilization Type Myofascial Release Body Position prone over body pillow MFR over the left piriformis and sacral region Mobilization Type Myofascial Release Comments tightness throughout the left piriformis today Joint Mobilizations Thoracic joint mobilizations Direction PA glides Grade III Reps/Duration T2-T10 Manual Techniques manual piriformis stretch B Comments hold 1-2 min, worked in prone sacral counternutation Type MET for sacral counter nutation Reps/Duration x 5 reps Comments sacral mobilizations into counternutation bring relief to Cece PT-OP-T Assessment and Plan Start: 11/02/21 13:47 Freq: Status: Active Protocol: Document 09/06/22 13:33 [facility] (Rec: 09/06/22 14:18 [facility] [id number]) Physical Therapy Assessment Assessment Summary Assessment Cece tolerates manual therapy well and it does help with temporary relief. I encouraged her to continue with her SI stabilization exercises at home Physical Therapy Plan Frequency and Duration Frequency of Treatment 1x/Week Duration of treatment (weeks) 12 Plan of Care Start Date 08/02/22 Plan of Care End Date 10/25/22 Therapeutic Interventions Therapeutic Interventions Home Exercise Program,Manual Therapy,Neuromuscular Re- education,Patient/Caregiver Education,Self-Care/Home Management,Soft Tissue Mobilization,Therapeutic Exercises Modalities Biofeedback,Electric Stimulation Next Visit Focus/Plan Next Note Type Treatment Note Next Visit Plan progress dynamic stabilization exercises, continue to work on thoracic mobility, check in with hamstring flossing exercise
--- NOTE | 2022-10-04 13:26 | PT.OTN ---
Current Diagnoses Stress incontinence (female) (male) (10/04/22) Pelvic and perineal pain (10/04/22) Physical Therapy Treatment Note PT-OP-A Visit Information Start: 11/02/21 13:47 Freq: Status: Active Protocol: Document 10/04/22 12:34 [facility] (Rec: 10/04/22 13:26 [facility] [id number]) Out-Patient Physical Therapy Visit Information Visit Information Visit Type Treatment Note Visit Start Time 12:34 Visit Stop Time 13:20 Total Visit Minutes 46 Visit Number 19 PT-OP-B Current Condition Start: 11/02/21 13:47 Freq: Status: Active Protocol: Document 11/21/21 12:58 [facility] (Rec: 11/21/21 13:10 [facility] [id number]) Current Condition History of Current Condition Onset Date July 2021 diagnosis with endometreosis Current Complaints pelvic pain, L SI pain PT-OP-C Subjective Start: 11/02/21 13:47 Freq: Status: Active Protocol: Document 10/04/22 12:34 [facility] (Rec: 10/04/22 13:26 [facility] [id number]) OP-PT Subjective Patient Comments Patient Comments pt notes she is still feeling the same, working on pre authorization with insurance to do protherapy. PT-OP-I Pelvic Floor Start: 11/02/21 13:47 Freq: Status: Active Protocol: Document 05/03/22 13:15 [facility] (Rec: 05/03/22 13:16 [facility] [id number]) Pelvic Floor Assessment SEMG (uV) Baseline 0 PT-OP-J Posture/Palpation/Skin Start: 11/02/21 13:47 Freq: Status: Active Protocol: Document 11/14/21 16:00 [facility] (Rec: 11/14/21 17:31 [facility] [id number]) Posture Evaluation Comments Posture Comments pt sits shifted to the right taking pressure off her left SI joint Palpation Assessment Location left SI joint Palpation Location pain left SI joint Palpation Findings Tenderness PT-OP-K Range of Motion Start: 11/16/21 09:34 Freq: Status: Active Protocol: Document 11/14/21 16:00 [facility] (Rec: 11/16/21 09:36 [facility] [id number]) Hip Goniometric Range of Motion Hip Active Hip ROM WFL Yes Comments pt presents with 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, especially with hip ER, IR PT-OP-L Special Tests Start: 11/02/21 13:47 Freq: Status: Active Protocol: Document 11/14/21 16:00 [facility] (Rec: 11/14/21 17:30 [facility] [id number]) Special Tests Lumbar Spine Special Tests +ASLR Test Results + for left side SI unlocking PT-OP-M Strength Start: 11/16/21 09:34 Freq: Status: Active Protocol: Document 11/14/21 16:00 [facility] (Rec: 11/16/21 09:37 [facility] [id number]) Trunk Strength Trunk Manual Muscle Testing Testing Position Supine Core Stabilization decreased core stabilization with left SI joint unlocking with movement of the right LE. Difficult for Cece to maintain TA stabilzation for repetitive movement PT-OP-Q Treatments Start: 11/21/21 12:58 Freq: Status: Active Protocol: Document 10/04/22 12:34 [facility] (Rec: 10/04/22 13:26 [facility] [id number]) Manual Therapy Treatment Soft Tissue Mobilization lumbar paraspinals Mobilization Type Myofascial Release Body Position prone over body pillow MFR over the left ITB Mobilization Type Myofascial Release Comments worked on both proximal and distal attachments today MFR over the left piriformis and sacral region Mobilization Type Myofascial Release Comments tightness throughout the left piriformis today Manual Techniques sacral counternutation Type MET for sacral counter nutation Reps/Duration x 5 reps Comments sacral mobilizations into counternutation bring relief to Cece PT-OP-T Assessment and Plan Start: 11/02/21 13:47 Freq: Status: Active Protocol: Document 10/04/22 12:34 [facility] (Rec: 10/04/22 13:26 [facility] [id number]) Physical Therapy Assessment Assessment Summary Assessment Cece is awaiting prolotherapy which I feel may be really helpful for her. Her piriformis continues to guard despite manual work in this region. She is so mobile that it is difficult for her to stretch it. She continues to gain temporary relief with PT Physical Therapy Plan Frequency and Duration Frequency of Treatment 1x/Week Duration of treatment (weeks) 12 Plan of Care Start Date 08/02/22 Plan of Care End Date 10/25/22 Therapeutic Interventions Therapeutic Interventions Home Exercise Program,Manual Therapy,Neuromuscular Re- education,Patient/Caregiver Education,Self-Care/Home Management,Soft Tissue Mobilization,Therapeutic Exercises Modalities Biofeedback,Electric Stimulation Next Visit Focus/Plan Next Note Type Treatment Note Next Visit Plan continue with manual therapy techniques and review HEP, progress thoracic mobility exercises
--- NOTE | 2022-10-11 14:44 | PT.OTN ---
Current Diagnoses Stress incontinence (female) (male) (10/11/22) Pelvic and perineal pain (10/11/22) Physical Therapy Treatment Note PT-OP-A Visit Information Start: 11/02/21 13:47 Freq: Status: Active Protocol: Document 10/11/22 13:53 [facility] (Rec: 10/11/22 14:44 [facility] [id number]) Out-Patient Physical Therapy Visit Information Visit Information Visit Type Treatment Note Visit Start Time 13:50 Visit Stop Time 14:35 Total Visit Minutes 45 Visit Number 20 PT-OP-B Current Condition Start: 11/02/21 13:47 Freq: Status: Active Protocol: Document 11/21/21 12:58 [facility] (Rec: 11/21/21 13:10 [facility] [id number]) Current Condition History of Current Condition Onset Date July 2021 diagnosis with endometreosis Current Complaints pelvic pain, L SI pain PT-OP-C Subjective Start: 11/02/21 13:47 Freq: Status: Active Protocol: Document 10/11/22 13:53 [facility] (Rec: 10/11/22 14:44 [facility] [id number]) OP-PT Subjective Patient Comments Patient Comments pt notes her insurance has approved prolotherapy so she is headed over after PT to see if she can get on the schedule. She reports pain in her left hamstring today and at the ischium. PT-OP-I Pelvic Floor Start: 11/02/21 13:47 Freq: Status: Active Protocol: Document 05/03/22 13:15 [facility] (Rec: 05/03/22 13:16 [facility] [id number]) Pelvic Floor Assessment SEMG (uV) Baseline 0 PT-OP-J Posture/Palpation/Skin Start: 11/02/21 13:47 Freq: Status: Active Protocol: Document 11/14/21 16:00 [facility] (Rec: 11/14/21 17:31 [facility] [id number]) Posture Evaluation Comments Posture Comments pt sits shifted to the right taking pressure off her left SI joint Palpation Assessment Location left SI joint Palpation Location pain left SI joint Palpation Findings Tenderness PT-OP-K Range of Motion Start: 11/16/21 09:34 Freq: Status: Active Protocol: Document 11/14/21 16:00 [facility] (Rec: 11/16/21 09:36 [facility] [id number]) Hip Goniometric Range of Motion Hip Active Hip ROM WFL Yes Comments pt presents with 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, especially with hip ER, IR PT-OP-L Special Tests Start: 11/02/21 13:47 Freq: Status: Active Protocol: Document 11/14/21 16:00 [facility] (Rec: 11/14/21 17:30 [facility] [id number]) Special Tests Lumbar Spine Special Tests +ASLR Test Results + for left side SI unlocking PT-OP-M Strength Start: 11/16/21 09:34 Freq: Status: Active Protocol: Document 11/14/21 16:00 [facility] (Rec: 11/16/21 09:37 [facility] [id number]) Trunk Strength Trunk Manual Muscle Testing Testing Position Supine Core Stabilization decreased core stabilization with left SI joint unlocking with movement of the right LE. Difficult for Cece to maintain TA stabilzation for repetitive movement PT-OP-Q Treatments Start: 11/21/21 12:58 Freq: Status: Active Protocol: Document 10/11/22 13:53 [facility] (Rec: 10/11/22 14:44 [facility] [id number]) Therapeutic Exercises Supine Exercises dynamic hamstring stretch for nerve flossing Reps/Minutes x 10 reps left leg, good tolerance Other Exercises standing dynamic hamstring flossing Reps/Minutes x 10 reps PT-OP-T Assessment and Plan Start: 11/02/21 13:47 Freq: Status: Active Protocol: Document 10/11/22 13:53 [facility] (Rec: 10/11/22 14:44 [facility] [id number]) Physical Therapy Assessment Assessment Summary Assessment Cece was shown standing dynamic hamstring flossing today from a squat position, I worked on releasing the posterior gluteals as well as hamstring insertions with manual therapy work. Physical Therapy Plan Frequency and Duration Frequency of Treatment 1x/Week Duration of treatment (weeks) 12 Plan of Care Start Date 08/02/22 Plan of Care End Date 10/25/22 Therapeutic Interventions Therapeutic Interventions Home Exercise Program,Manual Therapy,Neuromuscular Re- education,Patient/Caregiver Education,Self-Care/Home Management,Soft Tissue Mobilization,Therapeutic Exercises Modalities Biofeedback,Electric Stimulation Next Visit Focus/Plan Next Note Type Treatment Note Next Visit Plan review dynamic hamstring flossing, check alignment next visit
--- NOTE | 2022-10-18 14:28 | PT.OTN ---
Current Diagnoses Stress incontinence (female) (male) (10/18/22) Pelvic and perineal pain (10/18/22) Physical Therapy Treatment Note PT-OP-A Visit Information Start: 11/02/21 13:47 Freq: Status: Active Protocol: Document 10/18/22 13:26 [facility] (Rec: 10/18/22 14:03 [facility] [id number]) Out-Patient Physical Therapy Visit Information Visit Information Visit Type Treatment Note Visit Note Visit Start Time 13:20 Visit Stop Time 14:00 Total Visit Minutes 40 Visit Number 21 PT-OP-B Current Condition Start: 11/02/21 13:47 Freq: Status: Active Protocol: Document 11/21/21 12:58 [facility] (Rec: 11/21/21 13:10 [facility] [id number]) Current Condition History of Current Condition Onset Date July 2021 diagnosis with endometreosis Current Complaints pelvic pain, L SI pain PT-OP-C Subjective Start: 11/02/21 13:47 Freq: Status: Active Protocol: Document 10/18/22 13:26 [facility] (Rec: 10/18/22 14:03 [facility] [id number]) OP-PT Subjective Patient Comments Patient Comments pt notes she gets her prolotherapy injection next week. PT-OP-I Pelvic Floor Start: 11/02/21 13:47 Freq: Status: Active Protocol: Document 05/03/22 13:15 [facility] (Rec: 05/03/22 13:16 [facility] [id number]) Pelvic Floor Assessment SEMG (uV) Baseline 0 PT-OP-J Posture/Palpation/Skin Start: 11/02/21 13:47 Freq: Status: Active Protocol: Document 11/14/21 16:00 [facility] (Rec: 11/14/21 17:31 [facility] [id number]) Posture Evaluation Comments Posture Comments pt sits shifted to the right taking pressure off her left SI joint Palpation Assessment Location left SI joint Palpation Location pain left SI joint Palpation Findings Tenderness PT-OP-K Range of Motion Start: 11/16/21 09:34 Freq: Status: Active Protocol: Document 11/14/21 16:00 [facility] (Rec: 11/16/21 09:36 [facility] [id number]) Hip Goniometric Range of Motion Hip Active Hip ROM WFL Yes Comments pt presents with 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, especially with hip ER, IR PT-OP-L Special Tests Start: 11/02/21 13:47 Freq: Status: Active Protocol: Document 11/14/21 16:00 [facility] (Rec: 11/14/21 17:30 REPLACED BY [facility] [id number]) Special Tests Lumbar Spine Special Tests +ASLR Test Results + for left side SI unlocking PT-OP-M Strength Start: 11/16/21 09:34 Freq: Status: Active Protocol: Document 11/14/21 16:00 [facility] (Rec: 11/16/21 09:37 REPLACED BY [facility] [id number]) Trunk Strength Trunk Manual Muscle Testing Testing Position Supine Core Stabilization decreased core stabilization with left SI joint unlocking with movement of the right LE. Difficult for Cece to maintain TA stabilzation for repetitive movement PT-OP-Q Treatments Start: 11/21/21 12:58 Freq: Status: Active Protocol: Document 10/18/22 13:26 [facility] (Rec: 10/18/22 14:03 REPLACED BY [facility] [id number]) Therapeutic Exercises Supine Exercises supine bridges with ball squeeze Reps/Minutes x 10 reps supine ball squeeze Reps/Minutes x 10 reps Manual Therapy Treatment Soft Tissue Mobilization lumbar paraspinals Mobilization Type Myofascial Release Body Position prone over body pillow MFR over the left piriformis and sacral region Mobilization Type Myofascial Release Comments tightness throughout the left piriformis today Manual Techniques MET for right anterior Type right anterior innominant Reps/Duration x 5 reps sacral counternutation Type MET for sacral counter nutation Reps/Duration x 5 reps Comments sacral mobilizations into counternutation bring relief to Cece manual assessment of SI joint and alignment Comments SI tests and measures performed, leg length equal today, + ASLR test with active SLR on the right. PT-OP-T Assessment and Plan Start: 11/02/21 13:47 Freq: Status: Active Protocol: Document 10/18/22 14:21 [facility] (Rec: 10/18/22 14:28 REPLACED BY [facility] [id number]) Physical Therapy Assessment Goals SI instability Impairment left sided SI instability with + ASLR test on the right side for left side unlocking Short Term Goal (STG) Cece is able to perform supine marches and heel slides with TA activation without left side SI unlocking We have not yet returned to dynamic stabilization as prior to her injection she was not tolerating this well, we will resume dynamic stabilization following prolotherapy STG Duration 6 weeks [facility] Goal (LTG) Cece is able to perform dynamic stabilization exercises without the SI joint unlocking and has a neg ASLR test Goal not yet met LTG Duration 12 weeks urinary stress incontinence and urgency Impairment urinary stress incontinence and urgency Short Term Goal (STG) Cece is educated on pelvic floor and transverse abdominal strenthening to help provide improved SI and bladder support Goal met STG Duration 5 weeks Skilled Nursing Goal (LTG) Leakage is only occuring now with strong cough laugh or sneeze, she is no longer complaining of urgency. She is voiding 0-1 xms per night. GOAL MET LTG Duration 12 weeks left SI pain rated 5/10 Impairment left SI pain rated 5/10 making it difficult to sit symmetrically Skilled Nursing Goal (LTG) Following her cortisone injection pain levels are decreased and Cece is ready to start working towards postural exercises and dynamic lumbar stabilization pt still is experiencing the L sided SI instability and pain and we are helpful that after prolotherapy she is able to work into dynamic stabilization exercises LTG Duration 12 weeks Assessment Summary Assessment I checked Cece's leg length today and worked on balancing out her SI joint with MET as the right leg was shorter. She was given a iliopsoas stretch to work on lengthening the hip flexor on the right. We discussed continuing with her adductor ball squeeze and bridges as well. The plan will be to see her following her prolotherapy appt Physical Therapy Plan Frequency and Duration Frequency of Treatment 1x/Week Duration of treatment (weeks) 12 Plan of Care Start Date 08/02/22 Plan of Care End Date 10/25/22 Therapeutic Interventions Therapeutic Interventions Home Exercise Program,Manual Therapy,Neuromuscular Re- education,Patient/Caregiver Education,Self-Care/Home Management,Soft Tissue Mobilization,Therapeutic Exercises Modalities Biofeedback,Electric Stimulation Next Visit Focus/Plan Next Note Type Treatment Note Next Visit Plan Pt will be returning to PT 2 weeks s/p prolotherapy. Check in with how she is doing and proceed with stabilization exercises as she can tolerate
--- NOTE | 2022-10-18 14:29 | PT.OPPOC ---
Physical, Occupational & Speech Therapy At [facility] Current Diagnoses Stress incontinence (female) (male) (10/18/22) Pelvic and perineal pain (10/18/22) Visit Care Team Role Provider Type Madeleine Bloom DO Primary Care Provider Physician Specialty: Medical Address: [address] [place] [address], [address], [address] Email: [email or web address] Kadi Aguilar MD Family Provider Physician Specialty: Family Practice Address: [address] [place] [address], [address] Phone: Fax: Email: [email or web address] DO Attending Provider Non-Staff Referring Provider Specialty: STILL CLEANER Address: [address] [place] [address], [address], [place], [address] Email: Plan Of Care PT-OP-T Assessment and Plan Start: 11/02/21 13:47 Freq: Status: Active Protocol: Document 10/18/22 14:21 [facility] (Rec: 10/18/22 14:28 [facility] [id number]) Physical Therapy Assessment Goals SI instability Impairment left sided SI instability with + ASLR test on the right side for left side unlocking Short Term Goal (STG) Cece is able to perform supine marches and heel slides with TA activation without left side SI unlocking We have not yet returned to dynamic stabilization as prior to her injection she was not tolerating this well, we will resume dynamic stabilization following prolotherapy STG Duration 6 weeks [employer] [facility] Goal (LTG) Cece is able to perform dynamic stabilization exercises without the SI joint unlocking and has a neg ASLR test Goal not yet met LTG Duration 12 weeks urinary stress incontinence and urgency Impairment urinary stress incontinence and urgency Short Term Goal (STG) Cece is educated on pelvic floor and transverse abdominal strengthening to help provide improved SI and bladder support Goal met STG Duration 5 weeks [employer] [facility] Goal (LTG) Leakage is only occurring now with strong cough laugh or sneeze, she is no longer complaining of urgency. She is voiding 0-1 xms per night. GOAL MET LTG Duration 12 weeks left SI pain rated 5/10 Impairment left SI pain rated 5/10 making it difficult to sit symmetrically [employer] [facility] Goal (LTG) Following her cortisone injection pain levels are decreased and Cece is ready to start working towards postural exercises and dynamic lumbar stabilization pt still is experiencing the L sided SI instability and pain and we are helpful that after prolotherapy she is able to work into dynamic stabilization exercises LTG Duration 12 weeks Assessment Summary Assessment I checked Cece's leg length today and worked on balancing out her SI joint with MET as the right leg was shorter. She was given a iliopsoas stretch to work on lengthening the hip flexor on the right. We discussed continuing with her adductor ball squeeze and bridges as well. The plan will be to see her following her prolotherapy appt Physical Therapy Plan Frequency and Duration Frequency of Treatment 1x/Week Duration of treatment (weeks) 12 Plan of Care Start Date 08/02/22 Plan of Care End Date 10/25/22 Therapeutic Interventions Therapeutic Interventions Home Exercise Program,Manual Therapy,Neuromuscular Re- education,Patient/Caregiver Education,Self-Care/Home Management,Soft Tissue Mobilization,Therapeutic Exercises Modalities Biofeedback,Electric Stimulation Next Visit Focus/Plan Next Note Type Treatment Note Next Visit Plan Pt will be returning to PT 2 weeks s/p prolotherapy. Check in with how she is doing and proceed with stabilization exercises as she can tolerate Plan of Care Dates Plan of Care Start Date 08/02/22 Plan of Care End Date 10/25/22 Electronically Signed by: Rea Edwards, PT 10/18/22 2516 If you are in agreement with this Plan of Care, please return a signed and dated copy. I have reviewed this Plan of Care and certify that the skilled therapy services above are required to meet the patient?s needs. Physician Signature Date Printed Name and Credentials Clinical Instructor Signature Printed Name and Credentials
--- NOTE | 2022-11-29 15:12 | PT.OTN ---
Current Diagnoses Stress incontinence (female) (male) (11/29/22) Pelvic and perineal pain (11/29/22) Physical Therapy Treatment Note PT-OP-A Visit Information Start: 11/02/21 13:47 Freq: Status: Active Protocol: Document 11/29/22 13:15 [facility] (Rec: 11/29/22 15:01 [facility] [id number]) Out-Patient Physical Therapy Visit Information Visit Information Visit Type Treatment Note Visit Note Visit Start Time 13:15 Visit Stop Time 14:00 Total Visit Minutes 45 Visit Number 22 PT-OP-B Current Condition Start: 11/02/21 13:47 Freq: Status: Active Protocol: Document 11/21/21 12:58 [facility] (Rec: 11/21/21 13:10 [facility] [id number]) Current Condition History of Current Condition Onset Date July 2021 diagnosis with endometreosis Current Complaints pelvic pain, L SI pain PT-OP-C Subjective Start: 11/02/21 13:47 Freq: Status: Active Protocol: Document 11/29/22 13:15 [facility] (Rec: 11/29/22 13:22 [facility] [id number]) OP-PT Subjective Patient Comments Patient Comments pt notes she had prolotherapy, she has been able to walk 2 times per day . Her prolotherapy was two weeks ago . She still feels tension in her hamstring, the sharp pain in her SI is not as often now. Prolonged sitting is still rough Patient Reported Progress Improving PT-OP-I Pelvic Floor Start: 11/02/21 13:47 Freq: Status: Active Protocol: Document 05/03/22 13:15 [facility] (Rec: 05/03/22 13:16 [facility] [id number]) Pelvic Floor Assessment SEMG (uV) Baseline 0 PT-OP-J Posture/Palpation/Skin Start: 11/02/21 13:47 Freq: Status: Active Protocol: Document 11/14/21 16:00 [facility] (Rec: 11/14/21 17:31 [facility] [id number]) Posture Evaluation Comments Posture Comments pt sits shifted to the right taking pressure off her left SI joint Palpation Assessment Location left SI joint Palpation Location pain left SI joint Palpation Findings Tenderness PT-OP-K Range of Motion Start: 11/16/21 09:34 Freq: Status: Active Protocol: Document 11/14/21 16:00 [facility] (Rec: 11/16/21 09:36 [facility] [id number]) Hip Goniometric Range of Motion Hip Active Hip ROM WFL Yes Comments pt presents with 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, especially with hip ER, IR PT-OP-L Special Tests Start: 11/02/21 13:47 Freq: Status: Active Protocol: Document 11/14/21 16:00 [facility] (Rec: 11/14/21 17:30 [facility] [id number]) Special Tests Lumbar Spine Special Tests +ASLR Test Results + for left side SI unlocking PT-OP-M Strength Start: 11/16/21 09:34 Freq: Status: Active Protocol: Document 11/14/21 16:00 [facility] (Rec: 11/16/21 09:37 [facility] [id number]) Trunk Strength Trunk Manual Muscle Testing Testing Position Supine Core Stabilization decreased core stabilization with left SI joint unlocking with movement of the right LE. Difficult for Cece to maintain TA stabilzation for repetitive movement PT-OP-Q Treatments Start: 11/21/21 12:58 Freq: Status: Active Protocol: Document 11/29/22 13:15 [facility] (Rec: 11/29/22 15:01 [facility] [id number]) Therapeutic Exercises Supine Exercises dynamic hamstring stretch for nerve flossing Reps/Minutes x 10 reps left leg, good tolerance Standing Exercises single leg squat to plinth Reps/Minutes challenging for the left leg Comments pt to work on 10-20 reps standing squats to plinth Reps/Minutes x 5 Other Exercises modified down dog pose with hands on plinth Reps/Minutes hold 1-2 min Comments cues to hinge at the hips Manual Therapy Treatment Soft Tissue Mobilization MFR at the ischium hamstring attachments Mobilization Type Myofascial Release Body Position prone over body pillow MFR over the left piriformis and sacral region Mobilization Type Myofascial Release Comments tightness throughout the left piriformis today PT-OP-T Assessment and Plan Start: 11/02/21 13:47 Freq: Status: Active Protocol: Document 11/29/22 13:15 [facility] (Rec: 11/29/22 14:03 [facility] [id number]) Physical Therapy Assessment Goals improved functional strength of the gluteals Impairment pt has difficulty with returning to standing from a squat and with single leg squats Skilled Nursing Goal (LTG) Cece reports improved strength with returning from a squat and is able to perform 10 single leg squats from a raised chair LTG Duration 12 weeks SI instability Impairment left sided SI instability with + ASLR test on the right side for left side unlocking Short Term Goal (STG) Cece is able to perform supine marches and heel slides with TA activation without left side SI unlocking 11/29/22 there is overall decreased L sided Si joint unlocking STG Duration 6 weeks Rn Maternity Goal (LTG) Cece is able to perform dynamic stabilization exercises without the SI joint unlocking and has a neg ASLR test Goal not yet met LTG Duration 12 weeks urinary stress incontinence and urgency Impairment urinary stress incontinence and urgency Short Term Goal (STG) Cece is educated on pelvic floor and transverse abdominal strenthening to help provide improved SI and bladder support Goal met STG Duration 5 weeks Skilled Nursing Goal (LTG) Leakage is only occuring now with strong cough laugh or sneeze, she is no longer complaining of urgency. She is voiding 0-1 xms per night. GOAL MET LTG Duration 12 weeks left SI pain rated 5/10 Impairment left SI pain rated 5/10 making it difficult to sit symmetrically Rn Maternity Goal (LTG) Following her cortisone injection pain levels are decreased and Cece is ready to start working towards postural exercises and dynamic lumbar stabilization 11/29/22 Cece has been able to tolerate 3 miles of walking per day and tolerated squats and single leg squats today. She fatigues quickly on the left side but pain did not increase LTG Duration 12 weeks Assessment Summary Assessment pt would like to be able to squat to the floor as a goal and feel like she has enough stability to push back up with her gluts. She seems to be doing better and walking more now that she has had her prolotherapy into her SI joint . I started single leg squats from a raised chair today for her and the left side was much more difficult. Cece would benefit from continued gluteal strengthening and PT Physical Therapy Plan Frequency and Duration Frequency of Treatment 1x/Week Duration of treatment (weeks) 12 Plan of Care Start Date 11/29/22 Plan of Care End Date 02/21/23 Therapeutic Interventions Therapeutic Interventions Home Exercise Program,Manual Therapy,Neuromuscular Re- education,Patient/Caregiver Education,Self-Care/Home Management,Soft Tissue Mobilization,Therapeutic Exercises Modalities Biofeedback,Electric Stimulation Next Visit Focus/Plan Next Note Type Treatment Note Next Visit Plan stabilization exercises for the gluteals and SI joint, continue to work on dynamic stabilization and core strengthening
--- NOTE | 2022-11-29 15:12 | PT.OPPOC ---
Physical, Occupational & Speech Therapy At [facility] Current Diagnoses Stress incontinence (female) (male) (11/29/22) Pelvic and perineal pain (11/29/22) Visit Care Team Role Provider Type Madeleine Bloom DO Primary Care Provider Physician Specialty: Medical Address: [address] [place] [address], [address], [place], [address] Email: [email or web address] Kadi Aguilar MD Family Provider Physician Specialty: Family Practice Address: [address] [place] [address], [address] Phone: Fax: Email: [email or web address] DO Attending Provider Non-Staff Referring Provider Specialty: RESIDENTIAL SUPPORT WORKER Address: [id number] [place] [address], [address], [place], [address] Email: Plan Of Care PT-OP-T Assessment and Plan Start: 11/02/21 13:47 Freq: Status: Active Protocol: Document 11/29/22 13:15 [facility] (Rec: 11/29/22 14:03 [facility] [id number]) Physical Therapy Assessment Goals improved functional strength of the gluteals Impairment pt has difficulty with returning to standing from a squat and with single leg squats Skilled Nursing Goal (LTG) Cece reports improved strength with returning from a squat and is able to perform 10 single leg squats from a raised chair LTG Duration 12 weeks SI instability Impairment left sided SI instability with + ASLR test on the right side for left side unlocking Short Term Goal (STG) Cece is able to perform supine marches and heel slides with TA activation without left side SI unlocking 11/29/22 there is overall decreased L sided Si joint unlocking STG Duration 6 weeks Customer Experience Leader Goal (LTG) Cece is able to perform dynamic stabilization exercises without the SI joint unlocking and has a neg ASLR test Goal not yet met LTG Duration 12 weeks urinary stress incontinence and urgency Impairment urinary stress incontinence and urgency Short Term Goal (STG) Cece is educated on pelvic floor and transverse abdominal strenthening to help provide improved SI and bladder support Goal met STG Duration 5 weeks Customer Experience Leader Goal (LTG) Leakage is only occuring now with strong cough laugh or sneeze, she is no longer complaining of urgency. She is voiding 0-1 xms per night. GOAL MET LTG Duration 12 weeks left SI pain rated 5/10 Impairment left SI pain rated 5/10 making it difficult to sit symmetrically Customer Experience Leader Goal (LTG) Following her cortisone injection pain levels are decreased and Cece is ready to start working towards postural exercises and dynamic lumbar stabilization 11/29/22 Cece has been able to tolerate 3 miles of walking per day and tolerated squats and single leg squats today. She fatigues quickly on the left side but pain did not increase LTG Duration 12 weeks Assessment Summary Assessment pt would like to be able to squat to the floor as a goal and feel like she has enough stability to push back up with her gluts. She seems to be doing better and walking more now that she has had her prolotherapy into her SI joint . I started single leg squats from a raised chair today for her and the left side was much more difficult. Cece would benefit from continued gluteal strengthening and PT Physical Therapy Plan Frequency and Duration Frequency of Treatment 1x/Week Duration of treatment (weeks) 12 Plan of Care Start Date 11/29/22 Plan of Care End Date 02/21/23 Therapeutic Interventions Therapeutic Interventions Home Exercise Program,Manual Therapy,Neuromuscular Re- education,Patient/Caregiver Education,Self-Care/Home Management,Soft Tissue Mobilization,Therapeutic Exercises Modalities Biofeedback,Electric Stimulation Next Visit Focus/Plan Next Note Type Treatment Note Next Visit Plan stabilization exercises for the gluteals and SI joint, continue to work on dynamic stabilization and core strengthening Plan of Care Dates Plan of Care Start Date 11/29/22 Plan of Care End Date 02/21/23 Electronically Signed by: Rea Edwards, PT 11/29/22 8296 If you are in agreement with this Plan of Care, please return a signed and dated copy. I have reviewed this Plan of Care and certify that the skilled therapy services above are required to meet the patient?s needs. Physician Signature Date Printed Name and Credentials Clinical Instructor Signature Printed Name and Credentials
--- NOTE | 2022-12-26 13:19 | PT.OTN ---
Current Diagnoses Stress incontinence (female) (male) (12/26/22) Pelvic and perineal pain (12/26/22) Physical Therapy Treatment Note PT-OP-A Visit Information Start: 11/02/21 13:47 Freq: Status: Active Protocol: Document 12/26/22 12:22 [facility] (Rec: 12/26/22 13:19 [facility] [id number]) Out-Patient Physical Therapy Visit Information Visit Information Visit Type Treatment Note Visit Note Visit Start Time 12:45 Visit Stop Time 13:00 Total Visit Minutes 45 Visit Number 23 PT-OP-B Current Condition Start: 11/02/21 13:47 Freq: Status: Active Protocol: Document 11/21/21 12:58 [facility] (Rec: 11/21/21 13:10 [facility] [id number]) Current Condition History of Current Condition Onset Date July 2021 diagnosis with endometreosis Current Complaints pelvic pain, L SI pain PT-OP-C Subjective Start: 11/02/21 13:47 Freq: Status: Active Protocol: Document 12/26/22 12:22 [facility] (Rec: 12/26/22 13:19 [facility] [id number]) OP-PT Subjective Patient Comments Patient Comments pt notes since the prolotherapy she has been able to exercise more, she still feels the numbness in the left gluteal region, she doesn't feel as tight in the piriformis but still feel tightness and fatigue in the hamstring. Patient Reported Progress Improving PT-OP-I Pelvic Floor Start: 11/02/21 13:47 Freq: Status: Active Protocol: Document 05/03/22 13:15 [facility] (Rec: 05/03/22 13:16 [facility] [id number]) Pelvic Floor Assessment SEMG (uV) Baseline 0 PT-OP-J Posture/Palpation/Skin Start: 11/02/21 13:47 Freq: Status: Active Protocol: Document 11/14/21 16:00 [facility] (Rec: 11/14/21 17:31 [facility] [id number]) Posture Evaluation Comments Posture Comments pt sits shifted to the right taking pressure off her left SI joint Palpation Assessment Location left SI joint Palpation Location pain left SI joint Palpation Findings Tenderness PT-OP-K Range of Motion Start: 11/16/21 09:34 Freq: Status: Active Protocol: Document 11/14/21 16:00 [facility] (Rec: 11/16/21 09:36 [facility] [id number]) Hip Goniometric Range of Motion Hip Active Hip ROM WFL Yes Comments pt presents with 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, especially with hip ER, IR PT-OP-L Special Tests Start: 11/02/21 13:47 Freq: Status: Active Protocol: Document 11/14/21 16:00 [facility] (Rec: 11/14/21 17:30 [facility] [id number]) Special Tests Lumbar Spine Special Tests +ASLR Test Results + for left side SI unlocking PT-OP-M Strength Start: 11/16/21 09:34 Freq: Status: Active Protocol: Document 11/14/21 16:00 [facility] (Rec: 11/16/21 09:37 [facility] [id number]) Trunk Strength Trunk Manual Muscle Testing Testing Position Supine Core Stabilization decreased core stabilization with left SI joint unlocking with movement of the right LE. Difficult for Cece to maintain TA stabilzation for repetitive movement PT-OP-Q Treatments Start: 11/21/21 12:58 Freq: Status: Active Protocol: Document 12/26/22 12:22 [facility] (Rec: 12/26/22 13:19 [facility] [id number]) Manual Therapy Treatment Soft Tissue Mobilization MFR over the left ITB Mobilization Type Myofascial Release Comments worked on proximal attachment today MFR over the left piriformis and sacral region Mobilization Type Myofascial Release Comments tightness throughout the left piriformis today PT-OP-T Assessment and Plan Start: 11/02/21 13:47 Freq: Status: Active Protocol: Document 12/26/22 12:22 [facility] (Rec: 12/26/22 13:19 [facility] [id number]) Physical Therapy Assessment Assessment Summary Assessment Cece has been able to walk more and swam a lot while on vacation in [place]. She does feel more stable and has been working on all her exercises. She still notes left sided radicular symptoms. Cece has a appt with Dr Armijo later today to consult on additional prolotherapy Physical Therapy Plan Frequency and Duration Frequency of Treatment 1x/Week Duration of treatment (weeks) 12 Plan of Care Start Date 11/29/22 Plan of Care End Date 02/21/23 Therapeutic Interventions Therapeutic Interventions Home Exercise Program,Manual Therapy,Neuromuscular Re- education,Patient/Caregiver Education,Self-Care/Home Management,Soft Tissue Mobilization,Therapeutic Exercises Modalities Biofeedback,Electric Stimulation Next Visit Focus/Plan Next Note Type Treatment Note Next Visit Plan stabilization exercises for the gluteals and SI joint, continue to work on dynamic stabilization and core strengthening
--- NOTE | 2023-01-01 16:27 | PT.OTN ---
Current Diagnoses Stress incontinence (female) (male) (01/01/23) Pelvic and perineal pain (01/01/23) Physical Therapy Treatment Note PT-OP-A Visit Information Start: 11/02/21 13:47 Freq: Status: Active Protocol: Document 01/01/23 13:15 [facility] (Rec: 01/01/23 16:25 [facility] [id number]) Out-Patient Physical Therapy Visit Information Visit Information Visit Type Treatment Note Visit Note Visit Start Time 13:15 Visit Stop Time 14:00 Total Visit Minutes 45 Visit Number 24 PT-OP-B Current Condition Start: 11/02/21 13:47 Freq: Status: Active Protocol: Document 11/21/21 12:58 [facility] (Rec: 11/21/21 13:10 [facility] [id number]) Current Condition History of Current Condition Onset Date July 2021 diagnosis with endometreosis Current Complaints pelvic pain, L SI pain PT-OP-C Subjective Start: 11/02/21 13:47 Freq: Status: Active Protocol: Document 01/01/23 13:18 [facility] (Rec: 01/01/23 13:19 [facility] [id number]) OP-PT Subjective Patient Comments Patient Comments Cece notes she saw Dr. Armijo and she will have prolotherapy again into the SI joint and a little further down. PT-OP-I Pelvic Floor Start: 11/02/21 13:47 Freq: Status: Active Protocol: Document 05/03/22 13:15 [facility] (Rec: 05/03/22 13:16 [facility] [id number]) Pelvic Floor Assessment SEMG (uV) Baseline 0 PT-OP-J Posture/Palpation/Skin Start: 11/02/21 13:47 Freq: Status: Active Protocol: Document 11/14/21 16:00 [facility] (Rec: 11/14/21 17:31 [facility] [id number]) Posture Evaluation Comments Posture Comments pt sits shifted to the right taking pressure off her left SI joint Palpation Assessment Location left SI joint Palpation Location pain left SI joint Palpation Findings Tenderness PT-OP-K Range of Motion Start: 11/16/21 09:34 Freq: Status: Active Protocol: Document 11/14/21 16:00 [facility] (Rec: 11/16/21 09:36 [facility] [id number]) Hip Goniometric Range of Motion Hip Active Hip ROM WFL Yes Comments pt presents with 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, especially with hip ER, IR PT-OP-L Special Tests Start: 11/02/21 13:47 Freq: Status: Active Protocol: Document 11/14/21 16:00 [facility] (Rec: 11/14/21 17:30 [facility] [id number]) Special Tests Lumbar Spine Special Tests +ASLR Test Results + for left side SI unlocking PT-OP-M Strength Start: 11/16/21 09:34 Freq: Status: Active Protocol: Document 11/14/21 16:00 [facility] (Rec: 11/16/21 09:37 [facility] [id number]) Trunk Strength Trunk Manual Muscle Testing Testing Position Supine Core Stabilization decreased core stabilization with left SI joint unlocking with movement of the right LE. Difficult for Cece to maintain TA stabilzation for repetitive movement PT-OP-Q Treatments Start: 11/21/21 12:58 Freq: Status: Active Protocol: Document 01/01/23 13:15 [facility] (Rec: 01/01/23 16:25 [facility] [id number]) Therapeutic Exercises Supine Exercises dynamic hamstring stretch for nerve flossing Reps/Minutes x 10 reps left leg, good tolerance supine crunches with small ball between knees Reps/Minutes x 10 reps quick flicks Reps/Minutes x 10 reps roll outs with theraband Side bilateral Reps/Minutes x 10 reps supine bridges with ball squeeze Reps/Minutes x 10 reps supine ball squeeze Reps/Minutes x 10 reps TA with may Supine Exercise Name hold due to irritation at the SI joint pelvic floor long holds Supine Exercise Name HEP Manual Therapy Treatment Soft Tissue Mobilization MFR at the ischium hamstring attachments Mobilization Type Myofascial Release Body Position prone over body pillow MFR over the left piriformis and sacral region Mobilization Type Myofascial Release Comments tightness throughout the left piriformis today PT-OP-T Assessment and Plan Start: 11/02/21 13:47 Freq: Status: Active Protocol: Document 01/01/23 13:15 [facility] (Rec: 01/01/23 16:25 [facility] [id number]) Physical Therapy Assessment Assessment Summary Assessment Cece notes she has felt some twitching in her left hamstring this past week. She hasn't been able to walk as much with the weather changing but plans on upping her gear to be able to keep walking. Physical Therapy Plan Frequency and Duration Frequency of Treatment 1x/Week Duration of treatment (weeks) 12 Plan of Care Start Date 11/29/22 Plan of Care End Date 02/21/23 Next Visit Focus/Plan Next Note Type Treatment Note Next Visit Plan stabilization exercises for the gluteals and SI joint, continue to work on dynamic stabilization and core strengthening
--- NOTE | 2023-01-08 14:30 | PT.OTN ---
Current Diagnoses Stress incontinence (female) (male) (01/08/23) Pelvic and perineal pain (01/08/23) Physical Therapy Treatment Note PT-OP-A Visit Information Start: 11/02/21 13:47 Freq: Status: Active Protocol: Document 01/08/23 13:30 [facility] (Rec: 01/09/23 10:31 [facility] [id number]) Out-Patient Physical Therapy Visit Information Visit Information Visit Type Treatment Note Visit Start Time 13:30 Visit Stop Time 14:15 Total Visit Minutes 45 Visit Number 25 PT-OP-B Current Condition Start: 11/02/21 13:47 Freq: Status: Active Protocol: Document 11/21/21 12:58 [facility] (Rec: 11/21/21 13:10 [facility] [id number]) Current Condition History of Current Condition Onset Date July 2021 diagnosis with endometreosis Current Complaints pelvic pain, L SI pain PT-OP-C Subjective Start: 11/02/21 13:47 Freq: Status: Active Protocol: Document 01/08/23 13:23 [facility] (Rec: 01/08/23 14:25 [facility] [id number]) OP-PT Subjective Patient Comments Patient Comments prolotherapy is scheduled the week of PT-OP-I Pelvic Floor Start: 11/02/21 13:47 Freq: Status: Active Protocol: Document 05/03/22 13:15 [facility] (Rec: 05/03/22 13:16 [facility] [id number]) Pelvic Floor Assessment SEMG (uV) Baseline 0 PT-OP-J Posture/Palpation/Skin Start: 11/02/21 13:47 Freq: Status: Active Protocol: Document 11/14/21 16:00 [facility] (Rec: 11/14/21 17:31 [facility] [id number]) Posture Evaluation Comments Posture Comments pt sits shifted to the right taking pressure off her left SI joint Palpation Assessment Location left SI joint Palpation Location pain left SI joint Palpation Findings Tenderness PT-OP-K Range of Motion Start: 11/16/21 09:34 Freq: Status: Active Protocol: Document 11/14/21 16:00 [facility] (Rec: 11/16/21 09:36 [facility] [id number]) Hip Goniometric Range of Motion Hip Active Hip ROM WFL Yes Comments pt presents with 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, especially with hip ER, IR PT-OP-L Special Tests Start: 11/02/21 13:47 Freq: Status: Active Protocol: Document 11/14/21 16:00 [facility] (Rec: 11/14/21 17:30 [facility] [id number]) Special Tests Lumbar Spine Special Tests +ASLR Test Results + for left side SI unlocking PT-OP-M Strength Start: 11/16/21 09:34 Freq: Status: Active Protocol: Document 11/14/21 16:00 [facility] (Rec: 11/16/21 09:37 [facility] [id number]) Trunk Strength Trunk Manual Muscle Testing Testing Position Supine Core Stabilization decreased core stabilization with left SI joint unlocking with movement of the right LE. Difficult for Cece to maintain TA stabilzation for repetitive movement PT-OP-Q Treatments Start: 11/21/21 12:58 Freq: Status: Active Protocol: Document 01/08/23 13:30 [facility] (Rec: 01/09/23 10:31 [facility] [id number]) Manual Therapy Treatment Soft Tissue Mobilization MFR at the ischium hamstring attachments Mobilization Type Myofascial Release Body Position prone over body pillow lumbar paraspinals Mobilization Type Myofascial Release Body Position prone over body pillow MFR over the left ITB Mobilization Type Myofascial Release Comments worked on proximal attachment today MFR over the left piriformis and sacral region Mobilization Type Myofascial Release Comments tightness throughout the left piriformis today PT-OP-T Assessment and Plan Start: 11/02/21 13:47 Freq: Status: Active Protocol: Document 01/08/23 13:30 [facility] (Rec: 01/09/23 10:31 [facility] [id number]) Physical Therapy Assessment Assessment Summary Assessment still feeling tightness at the piriformis and proximal hamstring attachments. Physical Therapy Plan Frequency and Duration Frequency of Treatment 1x/Week Duration of treatment (weeks) 12 Plan of Care Start Date 11/29/22 Plan of Care End Date 02/21/23 Next Visit Focus/Plan Next Note Type Treatment Note Next Visit Plan trial of quadruped hip extension and abduction next visit for increased hip stabilization
--- NOTE | 2023-02-05 15:00 | PT.OTN ---
Current Diagnoses Stress incontinence (female) (male) (02/05/23) Pelvic and perineal pain (02/05/23) Physical Therapy Treatment Note PT-OP-A Visit Information Start: 11/02/21 13:47 Freq: Status: Active Protocol: Document 02/05/23 13:50 [facility] (Rec: 02/05/23 13:58 [facility] [id number]) Out-Patient Physical Therapy Visit Information Visit Information Visit Type Treatment Note Visit Note Visit Start Time 13:45 Visit Stop Time 14:30 Total Visit Minutes 45 Visit Number 26 PT-OP-B Current Condition Start: 11/02/21 13:47 Freq: Status: Active Protocol: Document 11/21/21 12:58 [facility] (Rec: 11/21/21 13:10 [facility] [id number]) Current Condition History of Current Condition Onset Date July 2021 diagnosis with endometreosis Current Complaints pelvic pain, L SI pain PT-OP-C Subjective Start: 11/02/21 13:47 Freq: Status: Active Protocol: Document 02/05/23 13:50 [facility] (Rec: 02/05/23 13:58 [facility] [id number]) OP-PT Subjective Patient Comments Patient Comments pt had her prolotherapy along the sacrum, she still feels the tightness at the hamstring and down the leg PT-OP-I Pelvic Floor Start: 11/02/21 13:47 Freq: Status: Active Protocol: Document 05/03/22 13:15 [facility] (Rec: 05/03/22 13:16 [facility] [id number]) Pelvic Floor Assessment SEMG (uV) Baseline 0 PT-OP-J Posture/Palpation/Skin Start: 11/02/21 13:47 Freq: Status: Active Protocol: Document 11/14/21 16:00 [facility] (Rec: 11/14/21 17:31 [facility] [id number]) Posture Evaluation Comments Posture Comments pt sits shifted to the right taking pressure off her left SI joint Palpation Assessment Location left SI joint Palpation Location pain left SI joint Palpation Findings Tenderness PT-OP-K Range of Motion Start: 11/16/21 09:34 Freq: Status: Active Protocol: Document 11/14/21 16:00 [facility] (Rec: 11/16/21 09:36 [facility] [id number]) Hip Goniometric Range of Motion Hip Active Hip ROM WFL Yes Comments pt presents with 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, especially with hip ER, IR PT-OP-L Special Tests Start: 11/02/21 13:47 Freq: Status: Active Protocol: Document 11/14/21 16:00 [facility] (Rec: 11/14/21 17:30 [facility] [id number]) Special Tests Lumbar Spine Special Tests +ASLR Test Results + for left side SI unlocking PT-OP-M Strength Start: 11/16/21 09:34 Freq: Status: Active Protocol: Document 11/14/21 16:00 [facility] (Rec: 11/16/21 09:37 [facility] [id number]) Trunk Strength Trunk Manual Muscle Testing Testing Position Supine Core Stabilization decreased core stabilization with left SI joint unlocking with movement of the right LE. Difficult for Cece to maintain TA stabilzation for repetitive movement PT-OP-Q Treatments Start: 11/21/21 12:58 Freq: Status: Active Protocol: Document 02/05/23 13:35 [facility] (Rec: 02/07/23 08:08 [facility] [id number]) Manual Therapy Treatment Soft Tissue Mobilization MFR at the ischium hamstring attachments Mobilization Type Myofascial Release Body Position prone over body pillow MFR over the left ITB Mobilization Type Myofascial Release Comments worked on proximal attachment today MFR over the left piriformis and sacral region Mobilization Type Myofascial Release Comments tightness throughout the left piriformis today PT-OP-T Assessment and Plan Start: 11/02/21 13:47 Freq: Status: Active Protocol: Document 02/05/23 13:35 [facility] (Rec: 02/07/23 08:08 [facility] [id number]) Physical Therapy Assessment Assessment Summary Assessment pt still presenting with piriformis tightness left side . Trial next visit to see if she can tolerate strengthening single leg squats since she has had 2 sessions of prolotherapy Physical Therapy Plan Frequency and Duration Frequency of Treatment 1x/Week Duration of treatment (weeks) 12 Plan of Care Start Date 11/29/22 Plan of Care End Date 02/21/23 Next Visit Focus/Plan Next Note Type Progress Note Next Visit Plan trial of quadruped hip extension and abduction next visit for increased hip stabilization and single leg squats
--- NOTE | 2023-02-12 13:22 | PT.OTN ---
Current Diagnoses Stress incontinence (female) (male) (02/12/23) Pelvic and perineal pain (02/12/23) Physical Therapy Treatment Note PT-OP-A Visit Information Start: 11/02/21 13:47 Freq: Status: Active Protocol: Document 02/12/23 13:46 [facility] (Rec: 02/12/23 14:49 [facility] [id number]) Out-Patient Physical Therapy Visit Information Visit Information Visit Type Treatment Note Visit Note Visit Start Time 13:45 Visit Stop Time 14:30 Total Visit Minutes 45 Visit Number 27 PT-OP-B Current Condition Start: 11/02/21 13:47 Freq: Status: Active Protocol: Document 11/21/21 12:58 [facility] (Rec: 11/21/21 13:10 [facility] [id number]) Current Condition History of Current Condition Onset Date July 2021 diagnosis with endometreosis Current Complaints pelvic pain, L SI pain PT-OP-C Subjective Start: 11/02/21 13:47 Freq: Status: Active Protocol: Document 02/12/23 13:45 [facility] (Rec: 02/13/23 13:21 [facility] [id number]) OP-PT Subjective Patient Comments Patient Comments Cece notes she does feel that her pelvis isn't as flexible when doing pigeon pose now so feels the prolotherapy is helping to stabilize her. Still experiencing the left gluteal and hamstring pain Patient Reported Progress Improving PT-OP-I Pelvic Floor Start: 11/02/21 13:47 Freq: Status: Active Protocol: Document 05/03/22 13:15 [facility] (Rec: 05/03/22 13:16 [facility] [id number]) Pelvic Floor Assessment SEMG (uV) Baseline 0 PT-OP-J Posture/Palpation/Skin Start: 11/02/21 13:47 Freq: Status: Active Protocol: Document 11/14/21 16:00 [facility] (Rec: 11/14/21 17:31 [facility] [id number]) Posture Evaluation Comments Posture Comments pt sits shifted to the right taking pressure off her left SI joint Palpation Assessment Location left SI joint Palpation Location pain left SI joint Palpation Findings Tenderness PT-OP-K Range of Motion Start: 11/16/21 09:34 Freq: Status: Active Protocol: Document 11/14/21 16:00 [facility] (Rec: 11/16/21 09:36 [facility] [id number]) Hip Goniometric Range of Motion Hip Active Hip ROM WFL Yes Comments pt presents with 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, especially with hip ER, IR PT-OP-L Special Tests Start: 11/02/21 13:47 Freq: Status: Active Protocol: Document 11/14/21 16:00 [facility] (Rec: 11/14/21 17:30 [facility] [id number]) Special Tests Lumbar Spine Special Tests +ASLR Test Results + for left side SI unlocking PT-OP-M Strength Start: 11/16/21 09:34 Freq: Status: Active Protocol: Document 11/14/21 16:00 [facility] (Rec: 11/16/21 09:37 [facility] [id number]) Trunk Strength Trunk Manual Muscle Testing Testing Position Supine Core Stabilization decreased core stabilization with left SI joint unlocking with movement of the right LE. Difficult for Cece to maintain TA stabilzation for repetitive movement PT-OP-Q Treatments Start: 11/21/21 12:58 Freq: Status: Active Protocol: Document 02/12/23 13:45 [facility] (Rec: 02/13/23 13:21 [facility] [id number]) Therapeutic Exercises Supine Exercises dynamic hamstring stretch for nerve flossing Reps/Minutes x 10 reps left leg, good tolerance Standing Exercises single leg squats with theraband over door for support Reps/Minutes 2 x 10 each leg Comments worked front, lateral, back single leg squat to plinth Reps/Minutes challenging for the left leg Comments pt to work on 10-20 reps Manual Therapy Treatment Soft Tissue Mobilization MFR at the ischium hamstring attachments Mobilization Type Myofascial Release Body Position prone over body pillow MFR over the left ITB Mobilization Type Myofascial Release Comments worked on proximal attachment today MFR over the left piriformis and sacral region Mobilization Type Myofascial Release Comments tightness throughout the left piriformis today PT-OP-T Assessment and Plan Start: 11/02/21 13:47 Freq: Status: Active Protocol: Document 02/12/23 13:46 [facility] (Rec: 02/12/23 14:49 [facility] [id number]) Physical Therapy Assessment Assessment Summary Assessment Cece tolerated the addition of single leg squats well with support better than at the plinth. Her left leg is not as strong as her right and it takes more effort to stabilize on the left side Physical Therapy Plan Frequency and Duration Frequency of Treatment 1x/Week Duration of treatment (weeks) 12 Plan of Care Start Date 11/29/22 Plan of Care End Date 02/21/23 Therapeutic Interventions Therapeutic Interventions Home Exercise Program,Manual Therapy,Neuromuscular Re- education,Patient/Caregiver Education,Self-Care/Home Management,Soft Tissue Mobilization,Therapeutic Exercises Modalities Biofeedback,Electric Stimulation Next Visit Focus/Plan Next Note Type Treatment Note Next Visit Plan review standing single leg squats next visit, work on the gym with cables for support, MFR techniques for the piriformis
--- NOTE | 2023-02-19 14:01 | PT.OTN ---
Current Diagnoses Stress incontinence (female) (male) (02/19/23) Pelvic and perineal pain (02/19/23) Physical Therapy Treatment Note PT-OP-A Visit Information Start: 11/02/21 13:47 Freq: Status: Active Protocol: Document 02/19/23 13:01 [facility] (Rec: 02/19/23 13:50 [facility] [id number]) Out-Patient Physical Therapy Visit Information Visit Information Visit Type Treatment Note Visit Start Time 13:05 Visit Stop Time 13:45 Total Visit Minutes 40 Visit Number 28 PT-OP-B Current Condition Start: 11/02/21 13:47 Freq: Status: Active Protocol: Document 11/21/21 12:58 [facility] (Rec: 11/21/21 13:10 [facility] [id number]) Current Condition History of Current Condition Onset Date July 2021 diagnosis with endometreosis Current Complaints pelvic pain, L SI pain PT-OP-C Subjective Start: 11/02/21 13:47 Freq: Status: Active Protocol: Document 02/19/23 13:01 [facility] (Rec: 02/19/23 13:50 [facility] [id number]) OP-PT Subjective Patient Comments Patient Comments pt notes she had a day and a half relief following last visit, she has been trying to work her squats into her normal day PT-OP-I Pelvic Floor Start: 11/02/21 13:47 Freq: Status: Active Protocol: Document 05/03/22 13:15 [facility] (Rec: 05/03/22 13:16 [facility] [id number]) Pelvic Floor Assessment SEMG (uV) Baseline 0 PT-OP-J Posture/Palpation/Skin Start: 11/02/21 13:47 Freq: Status: Active Protocol: Document 11/14/21 16:00 [facility] (Rec: 11/14/21 17:31 [facility] [id number]) Posture Evaluation Comments Posture Comments pt sits shifted to the right taking pressure off her left SI joint Palpation Assessment Location left SI joint Palpation Location pain left SI joint Palpation Findings Tenderness PT-OP-K Range of Motion Start: 11/16/21 09:34 Freq: Status: Active Protocol: Document 11/14/21 16:00 [facility] (Rec: 11/16/21 09:36 [facility] [id number]) Hip Goniometric Range of Motion Hip Active Hip ROM WFL Yes Comments pt presents with 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, especially with hip ER, IR PT-OP-L Special Tests Start: 11/02/21 13:47 Freq: Status: Active Protocol: Document 11/14/21 16:00 [facility] (Rec: 11/14/21 17:30 [facility] [id number]) Special Tests Lumbar Spine Special Tests +ASLR Test Results + for left side SI unlocking PT-OP-M Strength Start: 11/16/21 09:34 Freq: Status: Active Protocol: Document 11/14/21 16:00 [facility] (Rec: 11/16/21 09:37 [facility] [id number]) Trunk Strength Trunk Manual Muscle Testing Testing Position Supine Core Stabilization decreased core stabilization with left SI joint unlocking with movement of the right LE. Difficult for Cece to maintain TA stabilzation for repetitive movement PT-OP-Q Treatments Start: 11/21/21 12:58 Freq: Status: Active Protocol: Document 02/19/23 13:01 [facility] (Rec: 02/19/23 13:50 [facility] [id number]) Manual Therapy Treatment Soft Tissue Mobilization MFR at the ischium hamstring attachments Mobilization Type Myofascial Release Body Position prone over body pillow lumbar paraspinals Mobilization Type Myofascial Release Body Position prone over body pillow MFR over the left ITB Mobilization Type Myofascial Release Comments worked on proximal attachment today Self-Care/Home Management Treatment Education Patient Education Home Exercise Program Other Education review of standing squats and working on them both at the counter as well as with TRX straps for stabilization. Cece has access at the pool and may be able to use the TRX straps there PT-OP-T Assessment and Plan Start: 11/02/21 13:47 Freq: Status: Active Protocol: Document 02/19/23 13:01 [facility] (Rec: 02/19/23 13:59 [facility] [id number]) Physical Therapy Assessment Goals improved functional strength of the gluteals Impairment pt has difficulty with returning to standing from a squat and with single leg squats Correction Goal (LTG) Cece reports improved strength with returning from a squat and is able to perform 10 single leg squats from a raised chair some progress and Cece is working on single leg squats at home LTG Duration 12 weeks SI instability Impairment left sided SI instability with + ASLR test on the right side for left side unlocking Short Term Goal (STG) Cece is able to perform supine marches and heel slides with TA activation without left side SI unlocking this is improved overall decreased L sided Si joint unlocking STG Duration 6 weeks Correction Goal (LTG) Cece is able to perform dynamic stabilization exercises without the SI joint unlocking and has a neg ASLR test Cece has been able to start working on single leg dynamic activities without a increase in SI pain LTG Duration 12 weeks urinary stress incontinence and urgency Impairment urinary stress incontinence and urgency Short Term Goal (STG) Cece is educated on pelvic floor and transverse abdominal strenthening to help provide improved SI and bladder support Goal met STG Duration 5 weeks Correction Goal (LTG) Leakage is only occuring now with strong cough laugh or sneeze, she is no longer complaining of urgency. She is voiding 0-1 xms per night. GOAL MET LTG Duration 12 weeks left SI pain rated 5/10 Impairment left SI pain rated 5/10 making it difficult to sit symmetrically Radiation Control Specialist Goal (LTG) Following her cortisone injection pain levels are decreased and Cece is ready to start working towards postural exercises and dynamic lumbar stabilization as of 02/19/23 pain in the SI is improved however Cece is still experiencing pain in the piriformis and into the hamstring attachment that then feels like nerve referral LTG Duration 12 weeks Assessment Summary Assessment Cece has been working on her single leg squats and notes she is sore in her quads afterwards but is tolerating well with her hips. She notes she gets relief with PT but still has the guarding in her hamstring attachments and piriformis. She is hoping for prolotherapy in her hip after seeing Dr. Armijo next visit Physical Therapy Plan Frequency and Duration Frequency of Treatment 1x/Week Duration of treatment (weeks) 12 Plan of Care Start Date 02/19/23 Plan of Care End Date 05/14/23 Therapeutic Interventions Therapeutic Interventions Home Exercise Program,Manual Therapy,Neuromuscular Re- education,Patient/Caregiver Education,Self-Care/Home Management,Soft Tissue Mobilization,Therapeutic Exercises Modalities Biofeedback,Electric Stimulation Next Visit Focus/Plan Next Note Type Treatment Note Next Visit Plan review standing single leg squats next visit, work on the gym with cables for support, MFR techniques for the piriformis
--- NOTE | 2023-02-19 14:02 | PT.OPPOC ---
Physical, Occupational & Speech Therapy At [facility] Current Diagnoses Stress incontinence (female) (male) (02/19/23) Pelvic and perineal pain (02/19/23) Visit Care Team Role Provider Type Madeleine Bloom DO Primary Care Provider Physician Specialty: Medical Address: [address] [place] [address], [address], [place], [address] Email: [email or web address] Kadi Aguilar MD Family Provider Physician Specialty: Family Practice Address: [address] [place] [address], [address] Phone: Fax: Email: [email or web address] DO Attending Provider Non-Staff Referring Provider Specialty: DIGITAL PHOTO PRINTER Address: [id number] [place] [address], [address], [place], [address] Email: Plan Of Care PT-OP-T Assessment and Plan Start: 11/02/21 13:47 Freq: Status: Active Protocol: Document 02/19/23 13:01 [facility] (Rec: 02/19/23 13:59 [facility] [id number]) Physical Therapy Assessment Goals improved functional strength of the gluteals Impairment pt has difficulty with returning to standing from a squat and with single leg squats Longterm Goal (LTG) Cece reports improved strength with returning from a squat and is able to perform 10 single leg squats from a raised chair some progress and Cece is working on single leg squats at home LTG Duration 12 weeks SI instability Impairment left sided SI instability with + ASLR test on the right side for left side unlocking Short Term Goal (STG) Cece is able to perform supine marches and heel slides with TA activation without left side SI unlocking this is improved overall decreased L sided Si joint unlocking STG Duration 6 weeks Continuous Improvement Consultant Goal (LTG) Cece is able to perform dynamic stabilization exercises without the SI joint unlocking and has a neg ASLR test Cece has been able to start working on single leg dynamic activities without a increase in SI pain LTG Duration 12 weeks urinary stress incontinence and urgency Impairment urinary stress incontinence and urgency Short Term Goal (STG) Cece is educated on pelvic floor and transverse abdominal strenthening to help provide improved SI and bladder support Goal met STG Duration 5 weeks Continuous Improvement Consultant Goal (LTG) Leakage is only occuring now with strong cough laugh or sneeze, she is no longer complaining of urgency. She is voiding 0-1 xms per night. GOAL MET LTG Duration 12 weeks left SI pain rated 5/10 Impairment left SI pain rated 5/10 making it difficult to sit symmetrically Continuous Improvement Consultant Goal (LTG) Following her cortisone injection pain levels are decreased and Cece is ready to start working towards postural exercises and dynamic lumbar stabilization as of 02/19/23 pain in the SI is improved however Cece is still experiencing pain in the piriformis and into the hamstring attachment that then feels like nerve referral LTG Duration 12 weeks Assessment Summary Assessment Cece has been working on her single leg squats and notes she is sore in her quads afterwards but is tolerating well with her hips. She notes she gets relief with PT but still has the guarding in her hamstring attachments and piriformis. She is hoping for prolotherapy in her hip after seeing Dr. Armijo next visit Physical Therapy Plan Frequency and Duration Frequency of Treatment 1x/Week Duration of treatment (weeks) 12 Plan of Care Start Date 02/19/23 Plan of Care End Date 05/14/23 Therapeutic Interventions Therapeutic Interventions Home Exercise Program,Manual Therapy,Neuromuscular Re- education,Patient/Caregiver Education,Self-Care/Home Management,Soft Tissue Mobilization,Therapeutic Exercises Modalities Biofeedback,Electric Stimulation Next Visit Focus/Plan Next Note Type Treatment Note Next Visit Plan review standing single leg squats next visit, work on the gym with cables for support, MFR techniques for the piriformis Plan of Care Dates Plan of Care Start Date 02/19/23 Plan of Care End Date 05/14/23 Electronically Signed by: Rea Edwards, PT 02/19/23 1327 If you are in agreement with this Plan of Care, please return a signed and dated copy. I have reviewed this Plan of Care and certify that the skilled therapy services above are required to meet the patient?s needs. Physician Signature Date Printed Name and Credentials Clinical Instructor Signature Printed Name and Credentials
--- NOTE | 2023-03-21 14:59 | PT.OTN ---
Current Diagnoses Stress incontinence (female) (male) (03/21/23) Pelvic and perineal pain (03/21/23) Physical Therapy Treatment Note PT-OP-A Visit Information Start: 11/02/21 13:47 Freq: Status: Active Protocol: Document 02/19/23 13:01 [facility] (Rec: 02/19/23 13:50 [facility] [id number]) Out-Patient Physical Therapy Visit Information Visit Information Visit Type Treatment Note Visit Start Time 13:05 Visit Stop Time 13:45 Total Visit Minutes 40 Visit Number 28 PT-OP-B Current Condition Start: 11/02/21 13:47 Freq: Status: Active Protocol: Document 11/21/21 12:58 [facility] (Rec: 11/21/21 13:10 [facility] [id number]) Current Condition History of Current Condition Onset Date July 2021 diagnosis with endometreosis Current Complaints pelvic pain, L SI pain PT-OP-C Subjective Start: 11/02/21 13:47 Freq: Status: Active Protocol: Document 03/21/23 13:54 [facility] (Rec: 03/21/23 14:59 [facility] [id number]) OP-PT Subjective Patient Comments Patient Comments pt notes she went sking last weekend, she did great until the last few runs. She ended up stuck in a splits position she felt like she ripped all her prolotherapy also she got hit from the lift chair and it got her in the middle of her back. PT-OP-I Pelvic Floor Start: 11/02/21 13:47 Freq: Status: Active Protocol: Document 05/03/22 13:15 [facility] (Rec: 05/03/22 13:16 [facility] [id number]) Pelvic Floor Assessment SEMG (uV) Baseline 0 PT-OP-J Posture/Palpation/Skin Start: 11/02/21 13:47 Freq: Status: Active Protocol: Document 11/14/21 16:00 [facility] (Rec: 11/14/21 17:31 [facility] [id number]) Posture Evaluation Comments Posture Comments pt sits shifted to the right taking pressure off her left SI joint Palpation Assessment Location left SI joint Palpation Location pain left SI joint Palpation Findings Tenderness PT-OP-K Range of Motion Start: 11/16/21 09:34 Freq: Status: Active Protocol: Document 11/14/21 16:00 [facility] (Rec: 11/16/21 09:36 [facility] [id number]) Hip Goniometric Range of Motion Hip Active Hip ROM WFL Yes Comments pt presents with 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, especially with hip ER, IR PT-OP-L Special Tests Start: 11/02/21 13:47 Freq: Status: Active Protocol: Document 11/14/21 16:00 [facility] (Rec: 11/14/21 17:30 [facility] [id number]) Special Tests Lumbar Spine Special Tests +ASLR Test Results + for left side SI unlocking PT-OP-M Strength Start: 11/16/21 09:34 Freq: Status: Active Protocol: Document 11/14/21 16:00 [facility] (Rec: 11/16/21 09:37 [facility] [id number]) Trunk Strength Trunk Manual Muscle Testing Testing Position Supine Core Stabilization decreased core stabilization with left SI joint unlocking with movement of the right LE. Difficult for Cece to maintain TA stabilzation for repetitive movement PT-OP-Q Treatments Start: 11/21/21 12:58 Freq: Status: Active Protocol: Document 03/21/23 13:54 [facility] (Rec: 03/21/23 14:59 [facility] [id number]) Manual Therapy Treatment Soft Tissue Mobilization MFR at the ischium hamstring attachments Mobilization Type Myofascial Release Body Position prone over body pillow MFR over the left ITB Mobilization Type Myofascial Release Comments worked on proximal attachment today MFR over the left piriformis and sacral region Mobilization Type Myofascial Release Comments tightness throughout the left piriformis today Manual Techniques manual posterior hip capsule glides Type manual posterior hip capsule glides Body Location left hip Body Position Supine Self-Care/Home Management Treatment Education Patient Education Home Exercise Program Other Education pt's home exercise program was reviewed PT-OP-T Assessment and Plan Start: 11/02/21 13:47 Freq: Status: Active Protocol: Document 03/21/23 13:54 [facility] (Rec: 03/21/23 14:59 [facility] [id number]) Physical Therapy Assessment Assessment Summary Assessment Cece was tightner today after her ski weekend. She was equal in her leg length. Left side ITB tightness was present and decreased hip posterior glide. I worked on manual release of the hip and her exercises for stretching and stabilization were reviewed Physical Therapy Plan Frequency and Duration Frequency of Treatment 1x/Week Duration of treatment (weeks) 12 Plan of Care Start Date 02/19/23 Plan of Care End Date 05/14/23 Next Visit Focus/Plan Next Note Type Treatment Note Next Visit Plan reassess pelvic floor resting tone next visit
--- NOTE | 2023-04-09 13:40 | PT.OTN ---
Current Diagnoses Stress incontinence (female) (male) (04/09/23) Pelvic and perineal pain (04/09/23) Physical Therapy Treatment Note PT-OP-A Visit Information Start: 11/02/21 13:47 Freq: Status: Active Protocol: Document 04/09/23 13:47 [facility] (Rec: 04/09/23 14:33 [facility] [id number]) Out-Patient Physical Therapy Visit Information Visit Information Visit Type Treatment Note Visit Start Time 13:45 Visit Stop Time 14:30 Visit Number 30 PT-OP-B Current Condition Start: 11/02/21 13:47 Freq: Status: Active Protocol: Document 11/21/21 12:58 [facility] (Rec: 11/21/21 13:10 [facility] [id number]) Current Condition History of Current Condition Onset Date July 2021 diagnosis with endometreosis Current Complaints pelvic pain, L SI pain PT-OP-C Subjective Start: 11/02/21 13:47 Freq: Status: Active Protocol: Document 04/09/23 13:47 [facility] (Rec: 04/09/23 14:33 [facility] [id number]) OP-PT Subjective Patient Comments Patient Comments pt had follow up with Dr shannon and he is going to have Cece do a nerve study. She is still having both hamstring and pirifromis guarding. PT-OP-I Pelvic Floor Start: 11/02/21 13:47 Freq: Status: Active Protocol: Document 05/03/22 13:15 [facility] (Rec: 05/03/22 13:16 [facility] [id number]) Pelvic Floor Assessment SEMG (uV) Baseline 0 PT-OP-J Posture/Palpation/Skin Start: 11/02/21 13:47 Freq: Status: Active Protocol: Document 11/14/21 16:00 [facility] (Rec: 11/14/21 17:31 [facility] [id number]) Posture Evaluation Comments Posture Comments pt sits shifted to the right taking pressure off her left SI joint Palpation Assessment Location left SI joint Palpation Location pain left SI joint Palpation Findings Tenderness PT-OP-K Range of Motion Start: 11/16/21 09:34 Freq: Status: Active Protocol: Document 11/14/21 16:00 [facility] (Rec: 11/16/21 09:36 [facility] [id number]) Hip Goniometric Range of Motion Hip Active Hip ROM WFL Yes Comments pt presents with 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, especially with hip ER, IR PT-OP-L Special Tests Start: 11/02/21 13:47 Freq: Status: Active Protocol: Document 11/14/21 16:00 [facility] (Rec: 11/14/21 17:30 [facility] [id number]) Special Tests Lumbar Spine Special Tests +ASLR Test Results + for left side SI unlocking PT-OP-M Strength Start: 11/16/21 09:34 Freq: Status: Active Protocol: Document 11/14/21 16:00 [facility] (Rec: 11/16/21 09:37 [facility] [id number]) Trunk Strength Trunk Manual Muscle Testing Testing Position Supine Core Stabilization decreased core stabilization with left SI joint unlocking with movement of the right LE. Difficult for Cece to maintain TA stabilzation for repetitive movement PT-OP-Q Treatments Start: 11/21/21 12:58 Freq: Status: Active Protocol: Document 04/09/23 13:47 [facility] (Rec: 04/09/23 14:33 [facility] [id number]) Therapeutic Exercises Supine Exercises pelvic floor long holds Supine Exercise Name HEP Comments 15.2 and max 71 uv PT-OP-T Assessment and Plan Start: 11/02/21 13:47 Freq: Status: Active Protocol: Document 04/09/23 13:37 [facility] (Rec: 04/11/23 13:38 [facility] [id number]) Physical Therapy Assessment Assessment Summary Assessment Pelvic floor resting tone and strength was evaluated again today using EMG biofeedback. Cece is still doing really well with her resting tone and she is showing good overll pelvic floor strength. She continues to experience the left sided hamstring and piriformis type pain Physical Therapy Plan Frequency and Duration Frequency of Treatment 1x/Week Duration of treatment (weeks) 12 Plan of Care Start Date 02/19/23 Plan of Care End Date 05/14/23 Therapeutic Interventions Therapeutic Interventions Home Exercise Program,Manual Therapy,Neuromuscular Re- education,Patient/Caregiver Education,Self-Care/Home Management,Soft Tissue Mobilization,Therapeutic Exercises Modalities Biofeedback,Electric Stimulation Next Visit Focus/Plan Next Note Type Treatment Note Next Visit Plan review standing single leg squats next visit, work on the gym with cables for support, MFR techniques for the piriformis
--- NOTE | 2023-04-16 13:47 | PT.OTN ---
Current Diagnoses Stress incontinence (female) (male) (04/16/23) Pelvic and perineal pain (04/16/23) Physical Therapy Treatment Note PT-OP-A Visit Information Start: 11/02/21 13:47 Freq: Status: Active Protocol: Document 04/16/23 11:15 [facility] (Rec: 04/16/23 13:40 [facility] [id number]) Out-Patient Physical Therapy Visit Information Visit Information Visit Type Treatment Note Visit Start Time 11:15 Visit Stop Time 12:00 Visit Number 31 PT-OP-B Current Condition Start: 11/02/21 13:47 Freq: Status: Active Protocol: Document 11/21/21 12:58 [facility] (Rec: 11/21/21 13:10 [facility] [id number]) Current Condition History of Current Condition Onset Date July 2021 diagnosis with endometreosis Current Complaints pelvic pain, L SI pain PT-OP-C Subjective Start: 11/02/21 13:47 Freq: Status: Active Protocol: Document 04/16/23 11:15 [facility] (Rec: 04/16/23 12:04 [facility] [id number]) OP-PT Subjective Patient Comments Patient Comments pt notes she has her EMG study May 15 She has been able to do the single leg stance exercises She feels the hamstring tightness is greater than the gluteal tightness PT-OP-I Pelvic Floor Start: 11/02/21 13:47 Freq: Status: Active Protocol: Document 05/03/22 13:15 [facility] (Rec: 05/03/22 13:16 [facility] [id number]) Pelvic Floor Assessment SEMG (uV) Baseline 0 PT-OP-J Posture/Palpation/Skin Start: 11/02/21 13:47 Freq: Status: Active Protocol: Document 11/14/21 16:00 [facility] (Rec: 11/14/21 17:31 [facility] [id number]) Posture Evaluation Comments Posture Comments pt sits shifted to the right taking pressure off her left SI joint Palpation Assessment Location left SI joint Palpation Location pain left SI joint Palpation Findings Tenderness PT-OP-K Range of Motion Start: 11/16/21 09:34 Freq: Status: Active Protocol: Document 11/14/21 16:00 [facility] (Rec: 11/16/21 09:36 [facility] [id number]) Hip Goniometric Range of Motion Hip Active Hip ROM WFL Yes Comments pt presents with 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, especially with hip ER, IR PT-OP-L Special Tests Start: 11/02/21 13:47 Freq: Status: Active Protocol: Document 11/14/21 16:00 [facility] (Rec: 11/14/21 17:30 [facility] [id number]) Special Tests Lumbar Spine Special Tests +ASLR Test Results + for left side SI unlocking PT-OP-M Strength Start: 11/16/21 09:34 Freq: Status: Active Protocol: Document 11/14/21 16:00 [facility] (Rec: 11/16/21 09:37 [facility] [id number]) Trunk Strength Trunk Manual Muscle Testing Testing Position Supine Core Stabilization decreased core stabilization with left SI joint unlocking with movement of the right LE. Difficult for Cece to maintain TA stabilzation for repetitive movement PT-OP-Q Treatments Start: 11/21/21 12:58 Freq: Status: Active Protocol: Document 04/16/23 11:15 [facility] (Rec: 04/16/23 13:46 [facility] [id number]) Manual Therapy Treatment Soft Tissue Mobilization MFR over the hamstrings and attachments tot he ischium Mobilization Type Myofascial Release Intensity/Depth Moderate Body Position Prone MFR at the ischium hamstring attachments Mobilization Type Myofascial Release Body Position prone over body pillow MFR over the left ITB Mobilization Type Myofascial Release Comments worked on proximal attachment today MFR over the left piriformis and sacral region Mobilization Type Myofascial Release Comments tightness throughout the left piriformis today PT-OP-T Assessment and Plan Start: 11/02/21 13:47 Freq: Status: Active Protocol: Document 04/16/23 11:15 [facility] (Rec: 04/16/23 12:04 [facility] [id number]) Physical Therapy Assessment Assessment Summary Assessment I worked on both ITB as well as hamstring/gluteal MFR today . Cece is working on both dynamic and static stretching for hamstrings. I feel like the hamstrings and piriformis are guarding as stabilization method. We are working on single leg stability exercises as well for improved stabilization Physical Therapy Plan Frequency and Duration Frequency of Treatment 1x/Week Duration of treatment (weeks) 12 Plan of Care Start Date 02/19/23 Plan of Care End Date 05/14/23 Therapeutic Interventions Therapeutic Interventions Home Exercise Program,Manual Therapy,Neuromuscular Re- education,Patient/Caregiver Education,Self-Care/Home Management,Soft Tissue Mobilization,Therapeutic Exercises Modalities Biofeedback,Electric Stimulation Next Visit Focus/Plan Next Note Type Treatment Note Next Visit Plan review standing single leg squats next visit, work on the gym with cables for support, MFR techniques for the piriformis, and hamstrings
--- NOTE | 2023-05-21 16:00 | PT.OTN ---
Current Diagnoses Stress incontinence (female) (male) (05/21/23) Pelvic and perineal pain (05/21/23) Physical Therapy Treatment Note PT-OP-A Visit Information Start: 11/02/21 13:47 Freq: Status: Active Protocol: Document 05/21/23 13:49 [facility] (Rec: 05/21/23 14:37 [facility] [id number]) Out-Patient Physical Therapy Visit Information Visit Information Visit Type Progress Note Visit Start Time 13:50 Visit Stop Time 14:30 Visit Number 32 Evaluation Information Evaluation Date 11/14/21 PT-OP-B Current Condition Start: 11/02/21 13:47 Freq: Status: Active Protocol: Document 11/21/21 12:58 [facility] (Rec: 11/21/21 13:10 [facility] [id number]) Current Condition History of Current Condition Onset Date July 2021 diagnosis with endometreosis Current Complaints pelvic pain, L SI pain PT-OP-C Subjective Start: 11/02/21 13:47 Freq: Status: Active Protocol: Document 05/21/23 13:49 [facility] (Rec: 05/21/23 14:37 [facility] [id number]) OP-PT Subjective Patient Comments Patient Comments pt has a appointment with Dr Armijo July 09 to follow up on her EMG study She feels overall she is at a 4/10 with her pain and when she initially started she was a 8/10. Her hamstring still reall feels tight and spasmy especially after the nerve EMG study. PT-OP-I Pelvic Floor Start: 11/02/21 13:47 Freq: Status: Active Protocol: Document 05/03/22 13:15 [facility] (Rec: 05/03/22 13:16 [facility] [id number]) Pelvic Floor Assessment SEMG (uV) Baseline 0 PT-OP-J Posture/Palpation/Skin Start: 11/02/21 13:47 Freq: Status: Active Protocol: Document 11/14/21 16:00 [facility] (Rec: 11/14/21 17:31 [facility] [id number]) Posture Evaluation Comments Posture Comments pt sits shifted to the right taking pressure off her left SI joint Palpation Assessment Location left SI joint Palpation Location pain left SI joint Palpation Findings Tenderness PT-OP-K Range of Motion Start: 11/16/21 09:34 Freq: Status: Active Protocol: Document 11/14/21 16:00 [facility] (Rec: 11/16/21 09:36 [facility] [id number]) Hip Goniometric Range of Motion Hip Active Hip ROM WFL Yes Comments pt presents with 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, especially with hip ER, IR PT-OP-L Special Tests Start: 11/02/21 13:47 Freq: Status: Active Protocol: Document 11/14/21 16:00 [facility] (Rec: 11/14/21 17:30 [facility] [id number]) Special Tests Lumbar Spine Special Tests +ASLR Test Results + for left side SI unlocking PT-OP-M Strength Start: 11/16/21 09:34 Freq: Status: Active Protocol: Document 11/14/21 16:00 [facility] (Rec: 11/16/21 09:37 [facility] [id number]) Trunk Strength Trunk Manual Muscle Testing Testing Position Supine Core Stabilization decreased core stabilization with left SI joint unlocking with movement of the right LE. Difficult for Cece to maintain TA stabilzation for repetitive movement PT-OP-Q Treatments Start: 11/21/21 12:58 Freq: Status: Active Protocol: Document 05/21/23 13:49 [facility] (Rec: 05/21/23 14:37 [facility] [id number]) Manual Therapy Treatment Soft Tissue Mobilization left lateral calf Comments pt was sore in her left lateral calf s/p her nerve EMG study, there was muscle guarding along the lateral calf today MFR over the hamstrings and attachments tot he ischium Mobilization Type Myofascial Release Intensity/Depth Moderate Body Position Prone MFR at the ischium hamstring attachments Mobilization Type Myofascial Release Body Position prone over body pillow MFR over the left ITB Mobilization Type Myofascial Release Comments worked on proximal attachment today MFR over the left piriformis and sacral region Mobilization Type Myofascial Release Comments tightness throughout the left piriformis today PT-OP-T Assessment and Plan Start: 11/02/21 13:47 Freq: Status: Active Protocol: Document 05/21/23 13:50 [facility] (Rec: 05/22/23 08:55 [facility] [id number]) Physical Therapy Assessment Goals improved functional strength of the gluteals Impairment pt has difficulty with returning to standing from a squat and with single leg squats [employer] Goal (LTG) Cece reports improved strength with returning from a squat and is able to perform 10 single leg squats from a raised chair some progress and Cece is working on single leg squats at home LTG Duration 12 weeks SI instability Impairment left sided SI instability with + ASLR test on the right side for left side unlocking Short Term Goal (STG) Cece is able to perform supine marches and heel slides with TA activation without left side SI unlocking this is improved overall decreased L sided Si joint unlocking STG Duration 6 weeks Mcfp Goal (LTG) Cece is able to perform dynamic stabilization exercises without the SI joint unlocking and has a neg ASLR test Cece has been able to start working on single leg dynamic activities without a increase in SI pain LTG Duration 12 weeks urinary stress incontinence and urgency Impairment urinary stress incontinence and urgency Short Term Goal (STG) Cece is educated on pelvic floor and transverse abdominal strenthening to help provide improved SI and bladder support Goal met STG Duration 5 weeks Mcfp Goal (LTG) Leakage is only occuring now with strong cough laugh or sneeze, she is no longer complaining of urgency. She is voiding 0-1 xms per night. GOAL MET LTG Duration 12 weeks left SI pain rated 5/10 Impairment left SI pain rated 5/10 making it difficult to sit symmetrically [employer] Goal (LTG) Following her cortisone injection pain levels are decreased and Cece is ready to start working towards postural exercises and dynamic lumbar stabilization as of 05/21/23 pain in the SI is improved however Cece is still experiencing pain in the piriformis and into the hamstring attachment that then feels like nerve referral LTG Duration 12 weeks Assessment Summary Assessment Cece has undergone her needle EMG study and it does decreased nerve conduction from the S1 nerve root. She will follow up with Dr Armijo in July to review nerve conduction study and decide what is next for her. Cece does feel that since starting with both cortisone injections , prolotherapy, and PT her pain has been reduced from 8 to 4/10. She has been feeling more of the hamstring tightness and spasms lately and especially after the nerve study she notes her left hamstrings and lateral calf are sore. She does get temporary relief from manual treatments in PT and she would like to continue with PT . Physical Therapy Plan Frequency and Duration Frequency of Treatment 1x/Week Duration of treatment (weeks) 12 Plan of Care Start Date 05/21/23 Plan of Care End Date 08/13/23 Therapeutic Interventions Therapeutic Interventions Home Exercise Program,Manual Therapy,Neuromuscular Re- education,Patient/Caregiver Education,Self-Care/Home Management,Soft Tissue Mobilization,Therapeutic Exercises Modalities Biofeedback,Electric Stimulation Next Visit Focus/Plan Next Note Type Treatment Note Next Visit Plan review standing single leg squats next visit, work on the gym with cables for support, MFR techniques for the piriformis, and hamstrings
--- NOTE | 2023-05-21 16:00 | PT.OPPOC ---
Physical, Occupational & Speech Therapy At [facility] Current Diagnoses Stress incontinence (female) (male) (05/21/23) Pelvic and perineal pain (05/21/23) Visit Care Team Role Provider Type Madeleine Bloom DO Primary Care Provider Physician Specialty: Medical Address: [address] [place] [address], [facility] [address], [address] Email: [email or web address] Kadi Aguilar MD Family Provider Non-Staff Specialty: Family Practice Address: [address] [place] [address], [address] Phone: Fax: Email: [email or web address] Attending Provider Non-Staff Referring Provider Specialty: NEUROPSYCHOLOGY DIVISION CHIEF Address: [address] [place] [address], [address], [place], [address] Email: Plan Of Care PT-OP-T Assessment and Plan Start: 11/02/21 13:47 Freq: Status: Active Protocol: Document 05/21/23 13:50 [facility] (Rec: 05/22/23 08:55 [facility] [id number]) Physical Therapy Assessment Goals improved functional strength of the gluteals Impairment pt has difficulty with returning to standing from a squat and with single leg squats Prison Goal (LTG) Cece reports improved strength with returning from a squat and is able to perform 10 single leg squats from a raised chair some progress and Cece is working on single leg squats at home LTG Duration 12 weeks SI instability Impairment left sided SI instability with + ASLR test on the right side for left side unlocking Short Term Goal (STG) Cece is able to perform supine marches and heel slides with TA activation without left side SI unlocking this is improved overall decreased L sided Si joint unlocking STG Duration 6 weeks Varnish Blender Goal (LTG) Cece is able to perform dynamic stabilization exercises without the SI joint unlocking and has a neg ASLR test Cece has been able to start working on single leg dynamic activities without a increase in SI pain LTG Duration 12 weeks urinary stress incontinence and urgency Impairment urinary stress incontinence and urgency Short Term Goal (STG) Cece is educated on pelvic floor and transverse abdominal strengthening to help provide improved SI and bladder support Goal met STG Duration 5 weeks Varnish Blender Goal (LTG) Leakage is only occurring now with strong cough laugh or sneeze, she is no longer complaining of urgency. She is voiding 0-1 xms per night. GOAL MET LTG Duration 12 weeks left SI pain rated 5/10 Impairment left SI pain rated 5/10 making it difficult to sit symmetrically Prison Goal (LTG) Following her cortisone injection pain levels are decreased and Cece is ready to start working towards postural exercises and dynamic lumbar stabilization as of 05/21/23 pain in the SI is improved however Cece is still experiencing pain in the piriformis and into the hamstring attachment that then feels like nerve referral LTG Duration 12 weeks Assessment Summary Assessment Cece has undergone her needle EMG study and it does decreased nerve conduction from the S1 nerve root. She will follow up with Dr Armijo in July to review nerve conduction study and decide what is next for her. Cece does feel that since starting with both cortisone injections , prolotherapy, and PT her pain has been reduced from 8 to 4/10. She has been feeling more of the hamstring tightness and spasms lately and especially after the nerve study she notes her left hamstrings and lateral calf are sore. She does get temporary relief from manual treatments in PT and she would like to continue with PT . Physical Therapy Plan Frequency and Duration Frequency of Treatment 1x/Week Duration of treatment (weeks) 12 Plan of Care Start Date 05/21/23 Plan of Care End Date 08/13/23 Therapeutic Interventions Therapeutic Interventions Home Exercise Program,Manual Therapy,Neuromuscular Re- education,Patient/Caregiver Education,Self-Care/Home Management,Soft Tissue Mobilization,Therapeutic Exercises Modalities Biofeedback,Electric Stimulation Next Visit Focus/Plan Next Note Type Treatment Note Next Visit Plan review standing single leg squats next visit, work on the gym with cables for support, MFR techniques for the piriformis, and hamstrings Plan of Care Dates Plan of Care Start Date 05/21/23 Plan of Care End Date 08/13/23 Electronically Signed by: Rea Edwards, PT 05/22/23 0857 If you are in agreement with this Plan of Care, please return a signed and dated copy. I have reviewed this Plan of Care and certify that the skilled therapy services above are required to meet the patient?s needs. Physician Signature Date Printed Name and Credentials Clinical Instructor Signature Printed Name and Credentials
--- NOTE | 2023-06-04 14:44 | PT.OTN ---
Current Diagnoses Stress incontinence (female) (male) (06/04/23) Pelvic and perineal pain (06/04/23) Physical Therapy Treatment Note PT-OP-A Visit Information Start: 11/02/21 13:47 Freq: Status: Active Protocol: Document 06/04/23 13:45 [facility] (Rec: 06/04/23 14:43 [facility] [id number]) Out-Patient Physical Therapy Visit Information Visit Information Visit Type Treatment Note Visit Note 09/01 Visit Start Time 13:45 Visit Stop Time 14:30 Visit Number 34 PT-OP-B Current Condition Start: 11/02/21 13:47 Freq: Status: Active Protocol: Document 11/21/21 12:58 [facility] (Rec: 11/21/21 13:10 [facility] [id number]) Current Condition History of Current Condition Onset Date July 2021 diagnosis with endometreosis Current Complaints pelvic pain, L SI pain PT-OP-C Subjective Start: 11/02/21 13:47 Freq: Status: Active Protocol: Document 06/04/23 13:51 [facility] (Rec: 06/04/23 14:39 [facility] [id number]) OP-PT Subjective Patient Comments Patient Comments Cece reports she did message Dr. Chaparro if he had read her needle EMG test and he is having her do another MRI to look at the sacral levels due to nerve EMG showing S1 nerve impingement PT-OP-I Pelvic Floor Start: 11/02/21 13:47 Freq: Status: Active Protocol: Document 05/03/22 13:15 [facility] (Rec: 05/03/22 13:16 [facility] [id number]) Pelvic Floor Assessment SEMG (uV) Baseline 0 PT-OP-J Posture/Palpation/Skin Start: 11/02/21 13:47 Freq: Status: Active Protocol: Document 11/14/21 16:00 [facility] (Rec: 11/14/21 17:31 [facility] [id number]) Posture Evaluation Comments Posture Comments pt sits shifted to the right taking pressure off her left SI joint Palpation Assessment Location left SI joint Palpation Location pain left SI joint Palpation Findings Tenderness PT-OP-K Range of Motion Start: 11/16/21 09:34 Freq: Status: Active Protocol: Document 11/14/21 16:00 [facility] (Rec: 11/16/21 09:36 [facility] [id number]) Hip Goniometric Range of Motion Hip Active Hip ROM WFL Yes Comments pt presents with 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, especially with hip ER, IR PT-OP-L Special Tests Start: 11/02/21 13:47 Freq: Status: Active Protocol: Document 11/14/21 16:00 [facility] (Rec: 11/14/21 17:30 [facility] [id number]) Special Tests Lumbar Spine Special Tests +ASLR Test Results + for left side SI unlocking PT-OP-M Strength Start: 11/16/21 09:34 Freq: Status: Active Protocol: Document 11/14/21 16:00 [facility] (Rec: 11/16/21 09:37 [facility] [id number]) Trunk Strength Trunk Manual Muscle Testing Testing Position Supine Core Stabilization decreased core stabilization with left SI joint unlocking with movement of the right LE. Difficult for Cece to maintain TA stabilzation for repetitive movement PT-OP-Q Treatments Start: 11/21/21 12:58 Freq: Status: Active Protocol: Document 06/04/23 13:45 [facility] (Rec: 06/04/23 14:43 [facility] [id number]) Manual Therapy Treatment Soft Tissue Mobilization left lateral calf Mobilization Type Myofascial Release Body Position Prone Comments not as guarded and tight in the left lateral calf today MFR over the hamstrings and attachments tot he ischium Mobilization Type Myofascial Release Intensity/Depth Moderate Body Position Prone MFR at the ischium hamstring attachments Mobilization Type Myofascial Release Intensity/Depth Moderate Body Position prone over body pillow MFR over the left ITB Mobilization Type Myofascial Release Comments worked on proximal attachment today PT-OP-T Assessment and Plan Start: 11/02/21 13:47 Freq: Status: Active Protocol: Document 06/04/23 13:45 [facility] (Rec: 06/04/23 14:43 [facility] [id number]) Physical Therapy Assessment Assessment Summary Assessment Cece is in a waiting period prior to MRI and seeing Dr. Armijo again. Nerve EMG shows S 1 nerve impingement. Her chief complaint is piriformis and hamstring proximal attachment discomfort and pain . She does feel manual therapy techniques give her temporary relief Physical Therapy Plan Frequency and Duration Frequency of Treatment 1x/Week Duration of treatment (weeks) 12 Plan of Care Start Date 05/21/23 Plan of Care End Date 08/13/23 Therapeutic Interventions Therapeutic Interventions Home Exercise Program,Manual Therapy,Neuromuscular Re- education,Patient/Caregiver Education,Self-Care/Home Management,Soft Tissue Mobilization,Therapeutic Exercises Modalities Biofeedback,Electric Stimulation Next Visit Focus/Plan Next Note Type Treatment Note Next Visit Plan review standing single leg squats next visit, work on the gym with cables for support, MFR techniques for the piriformis, and hamstrings
--- NOTE | 2023-06-18 17:25 | PT.OTN ---
Current Diagnoses Stress incontinence (female) (male) (06/18/23) Pelvic and perineal pain (06/18/23) Physical Therapy Treatment Note PT-OP-A Visit Information Start: 11/02/21 13:47 Freq: Status: Active Protocol: Document 06/18/23 17:19 [facility] (Rec: 06/18/23 17:25 [facility] [id number]) Out-Patient Physical Therapy Visit Information Visit Information Visit Type Treatment Note Visit Note 10/01 Visit Start Time 13:45 Visit Stop Time 14:30 Visit Number 35 PT-OP-B Current Condition Start: 11/02/21 13:47 Freq: Status: Active Protocol: Document 11/21/21 12:58 [facility] (Rec: 11/21/21 13:10 [facility] [id number]) Current Condition History of Current Condition Onset Date July 2021 diagnosis with endometreosis Current Complaints pelvic pain, L SI pain PT-OP-C Subjective Start: 11/02/21 13:47 Freq: Status: Active Protocol: Document 06/18/23 13:46 [facility] (Rec: 06/18/23 14:29 [facility] [id number]) OP-PT Subjective Patient Comments Patient Comments pt notes her MRi is approved and it scheduled for and is on a cx list for Dr Armijo. She is scheduled for . PT-OP-I Pelvic Floor Start: 11/02/21 13:47 Freq: Status: Active Protocol: Document 05/03/22 13:15 [facility] (Rec: 05/03/22 13:16 [facility] [id number]) Pelvic Floor Assessment SEMG (uV) Baseline 0 PT-OP-J Posture/Palpation/Skin Start: 11/02/21 13:47 Freq: Status: Active Protocol: Document 11/14/21 16:00 [facility] (Rec: 11/14/21 17:31 [facility] [id number]) Posture Evaluation Comments Posture Comments pt sits shifted to the right taking pressure off her left SI joint Palpation Assessment Location left SI joint Palpation Location pain left SI joint Palpation Findings Tenderness PT-OP-K Range of Motion Start: 11/16/21 09:34 Freq: Status: Active Protocol: Document 11/14/21 16:00 [facility] (Rec: 11/16/21 09:36 [facility] [id number]) Hip Goniometric Range of Motion Hip Active Hip ROM WFL Yes Comments pt presents with 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, especially with hip ER, IR PT-OP-L Special Tests Start: 11/02/21 13:47 Freq: Status: Active Protocol: Document 11/14/21 16:00 [facility] (Rec: 11/14/21 17:30 [facility] [id number]) Special Tests Lumbar Spine Special Tests +ASLR Test Results + for left side SI unlocking PT-OP-M Strength Start: 11/16/21 09:34 Freq: Status: Active Protocol: Document 11/14/21 16:00 [facility] (Rec: 11/16/21 09:37 [facility] [id number]) Trunk Strength Trunk Manual Muscle Testing Testing Position Supine Core Stabilization decreased core stabilization with left SI joint unlocking with movement of the right LE. Difficult for Cece to maintain TA stabilzation for repetitive movement PT-OP-Q Treatments Start: 11/21/21 12:58 Freq: Status: Active Protocol: Document 06/18/23 17:19 [facility] (Rec: 06/18/23 17:25 [facility] [id number]) Manual Therapy Treatment Soft Tissue Mobilization MFR over the hamstrings and attachments tot he ischium Mobilization Type Myofascial Release Intensity/Depth Moderate Body Position Prone MFR at the ischium hamstring attachments Mobilization Type Myofascial Release Intensity/Depth Moderate Body Position prone over body pillow MFR over the left ITB Mobilization Type Myofascial Release Comments worked on proximal attachment today MFR over the left piriformis and sacral region Mobilization Type Myofascial Release Comments tightness throughout the left piriformis today PT-OP-T Assessment and Plan Start: 11/02/21 13:47 Freq: Status: Active Protocol: Document 06/18/23 17:19 [facility] (Rec: 06/18/23 17:25 [facility] [id number]) Physical Therapy Assessment Assessment Summary Assessment Cece is now scheduled for her MRI this . She notes contined tightness and guarding of the hamstring attachments to the ischium Physical Therapy Plan Frequency and Duration Frequency of Treatment 1x/Week Duration of treatment (weeks) 12 Plan of Care Start Date 05/21/23 Plan of Care End Date 08/13/23 Therapeutic Interventions Therapeutic Interventions Home Exercise Program,Manual Therapy,Neuromuscular Re- education,Patient/Caregiver Education,Self-Care/Home Management,Soft Tissue Mobilization,Therapeutic Exercises Modalities Biofeedback,Electric Stimulation Next Visit Focus/Plan Next Note Type Treatment Note Next Visit Plan continue with MFR techniques to help reduce tension of the hamstring attachment, continue with gluteal strengthening
--- NOTE | 2023-07-23 17:06 | PT.OTN ---
Current Diagnoses Stress incontinence (female) (male) (07/23/23) Pelvic and perineal pain (07/23/23) Physical Therapy Treatment Note PT-OP-A Visit Information Start: 11/02/21 13:47 Freq: Status: Active Protocol: Document 07/23/23 10:38 [facility] (Rec: 07/23/23 11:20 [facility] [id number]) Out-Patient Physical Therapy Visit Information Visit Information Visit Type Treatment Note Visit Start Time 10:35 Visit Stop Time 11:15 Visit Number 36 PT-OP-B Current Condition Start: 11/02/21 13:47 Freq: Status: Active Protocol: Document 11/21/21 12:58 [facility] (Rec: 11/21/21 13:10 [facility] [id number]) Current Condition History of Current Condition Onset Date July 2021 diagnosis with endometreosis Current Complaints pelvic pain, L SI pain PT-OP-C Subjective Start: 11/02/21 13:47 Freq: Status: Active Protocol: Document 07/23/23 10:38 [facility] (Rec: 07/23/23 11:20 [facility] [id number]) OP-PT Subjective Patient Comments Patient Comments pt is awaiting a cortisone injection at L5-S1 per Dr. Armijo's recommendation after seeing both the nerve conduction study as well as the MRI that was done. Cece is awaiting insurance approval for this She is feeling a lot of hamstring soreness and numbness and feels that she is not able to activate her gluteals much that the hamstrings take over Patient Reported Progress Same PT-OP-I Pelvic Floor Start: 11/02/21 13:47 Freq: Status: Active Protocol: Document 05/03/22 13:15 [facility] (Rec: 05/03/22 13:16 [facility] [id number]) Pelvic Floor Assessment SEMG (uV) Baseline 0 PT-OP-J Posture/Palpation/Skin Start: 11/02/21 13:47 Freq: Status: Active Protocol: Document 11/14/21 16:00 [facility] (Rec: 11/14/21 17:31 [facility] [id number]) Posture Evaluation Comments Posture Comments pt sits shifted to the right taking pressure off her left SI joint Palpation Assessment Location left SI joint Palpation Location pain left SI joint Palpation Findings Tenderness PT-OP-K Range of Motion Start: 11/16/21 09:34 Freq: Status: Active Protocol: Document 11/14/21 16:00 [facility] (Rec: 11/16/21 09:36 [facility] [id number]) Hip Goniometric Range of Motion Hip Active Hip ROM WFL Yes Comments pt presents with 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, especially with hip ER, IR PT-OP-L Special Tests Start: 11/02/21 13:47 Freq: Status: Active Protocol: Document 11/14/21 16:00 [facility] (Rec: 11/14/21 17:30 [facility] [id number]) Special Tests Lumbar Spine Special Tests +ASLR Test Results + for left side SI unlocking PT-OP-M Strength Start: 11/16/21 09:34 Freq: Status: Active Protocol: Document 11/14/21 16:00 [facility] (Rec: 11/16/21 09:37 [facility] [id number]) Trunk Strength Trunk Manual Muscle Testing Testing Position Supine Core Stabilization decreased core stabilization with left SI joint unlocking with movement of the right LE. Difficult for Cece to maintain TA stabilzation for repetitive movement PT-OP-Q Treatments Start: 11/21/21 12:58 Freq: Status: Active Protocol: Document 07/23/23 17:02 [facility] (Rec: 07/23/23 17:06 [facility] [id number]) Manual Therapy Treatment Soft Tissue Mobilization MFR over the hamstrings and attachments tot he ischium Mobilization Type Myofascial Release Intensity/Depth Moderate Body Position Prone MFR at the ischium hamstring attachments Mobilization Type Myofascial Release Intensity/Depth Moderate Body Position prone over body pillow MFR over the left ITB Mobilization Type Myofascial Release Comments worked on proximal attachment today PT-OP-T Assessment and Plan Start: 11/02/21 13:47 Freq: Status: Active Protocol: Document 07/23/23 17:02 [facility] (Rec: 07/23/23 17:06 [facility] [id number]) Physical Therapy Assessment Assessment Summary Assessment Treatment has been focusing on helping to release the tightness from the hamstrings and left gluteal region as Cece awaits further care. She is frustrated as she is in limbo as insurance has not yet authorized further treatment. At this point she is still guarded and tight in the medial hamstrings and attachments to the ischium. She is working on stretches at home Physical Therapy Plan Frequency and Duration Frequency of Treatment 1x/Week Duration of treatment (weeks) 12 Plan of Care Start Date 05/21/23 Plan of Care End Date 08/13/23 Therapeutic Interventions Therapeutic Interventions Home Exercise Program,Manual Therapy,Neuromuscular Re- education,Patient/Caregiver Education,Self-Care/Home Management,Soft Tissue Mobilization,Therapeutic Exercises Modalities Biofeedback,Electric Stimulation Next Visit Focus/Plan Next Note Type Treatment Note Next Visit Plan continue with MFR techniques to help reduce tension of the hamstring attachment, continue with gluteal strengthening
--- NOTE | 2023-08-06 16:46 | PT.OTN ---
Current Diagnoses Stress incontinence (female) (male) (08/06/23) Pelvic and perineal pain (08/06/23) Physical Therapy Treatment Note PT-OP-A Visit Information Start: 11/02/21 13:47 Freq: Status: Active Protocol: Document 08/06/23 14:31 [facility] (Rec: 08/06/23 16:43 [facility] [id number]) Out-Patient Physical Therapy Visit Information Visit Information Visit Type Treatment Note Visit Start Time 13:45 Visit Stop Time 14:30 Visit Number 37 PT-OP-B Current Condition Start: 11/02/21 13:47 Freq: Status: Active Protocol: Document 11/21/21 12:58 [facility] (Rec: 11/21/21 13:10 [facility] [id number]) Current Condition History of Current Condition Onset Date July 2021 diagnosis with endometreosis Current Complaints pelvic pain, L SI pain PT-OP-C Subjective Start: 11/02/21 13:47 Freq: Status: Active Protocol: Document 08/06/23 14:31 [facility] (Rec: 08/06/23 16:43 [facility] [id number]) OP-PT Subjective Patient Comments Patient Comments pt notes the weather change has affected her pain , she is feeling pretty much the same and feels not stable through the left side of her gluteals. She reports she is still waiting insurance approval for L5-S1 cortisone injection PT-OP-I Pelvic Floor Start: 11/02/21 13:47 Freq: Status: Active Protocol: Document 05/03/22 13:15 [facility] (Rec: 05/03/22 13:16 [facility] [id number]) Pelvic Floor Assessment SEMG (uV) Baseline 0 PT-OP-J Posture/Palpation/Skin Start: 11/02/21 13:47 Freq: Status: Active Protocol: Document 11/14/21 16:00 [facility] (Rec: 11/14/21 17:31 [facility] [id number]) Posture Evaluation Comments Posture Comments pt sits shifted to the right taking pressure off her left SI joint Palpation Assessment Location left SI joint Palpation Location pain left SI joint Palpation Findings Tenderness PT-OP-K Range of Motion Start: 11/16/21 09:34 Freq: Status: Active Protocol: Document 11/14/21 16:00 [facility] (Rec: 11/16/21 09:36 [facility] [id number]) Hip Goniometric Range of Motion Hip Active Hip ROM WFL Yes Comments pt presents with 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, especially with hip ER, IR PT-OP-L Special Tests Start: 11/02/21 13:47 Freq: Status: Active Protocol: Document 11/14/21 16:00 [facility] (Rec: 11/14/21 17:30 [facility] [id number]) Special Tests Lumbar Spine Special Tests +ASLR Test Results + for left side SI unlocking PT-OP-M Strength Start: 11/16/21 09:34 Freq: Status: Active Protocol: Document 11/14/21 16:00 [facility] (Rec: 11/16/21 09:37 [facility] [id number]) Trunk Strength Trunk Manual Muscle Testing Testing Position Supine Core Stabilization decreased core stabilization with left SI joint unlocking with movement of the right LE. Difficult for Cece to maintain TA stabilzation for repetitive movement PT-OP-Q Treatments Start: 11/21/21 12:58 Freq: Status: Active Protocol: Document 08/06/23 14:31 [facility] (Rec: 08/06/23 16:43 [facility] [id number]) Therapeutic Exercises Supine Exercises TA with SLR Reps/Minutes 2 x 10 reps each side dynamic hamstring stretch for nerve flossing Reps/Minutes x 10 reps left leg, good tolerance supine bridges with ball squeeze Supine Exercise Name bridges without ball squeeze today Reps/Minutes 2 x 10 reps TA with march Supine Exercise Name hold due to irritation at the SI joint Comments popping in anterior hip, continue to hold Prone Exercises prone thoracic extension Reps/Minutes x 10 reps Other Exercises prone opp arm lifts over ball Reps/Minutes x 10 reps prone over the ball with shoulder extension Reps/Minutes x 10 quadruped TA with opp leg extension Reps/Minutes x 10 reps quadruped TA with opp arm lift Reps/Minutes x 10 reps quadruped TA Reps/Minutes x 10 reps Manual Therapy Treatment Soft Tissue Mobilization MFR over the hamstrings and attachments tot he ischium Mobilization Type Myofascial Release Intensity/Depth Moderate Body Position Prone MFR over the left piriformis and sacral region Mobilization Type Myofascial Release Comments tightness throughout the left piriformis today PT-OP-T Assessment and Plan Start: 11/02/21 13:47 Freq: Status: Active Protocol: Document 08/06/23 14:31 [facility] (Rec: 08/06/23 16:43 [facility] [id number]) Physical Therapy Assessment Assessment Summary Assessment We worked on stabilization today using the hong konger exercise ball as Cece is continueing to note decreased stability from the left side of her low back and pelvis. She is very shakey especially with gluteal activation on the left as it is difficult for her to activate her left gluteals. She continues to await insurance approval for her next cortisone injection. Physical Therapy Plan Frequency and Duration Frequency of Treatment 1x/Week Duration of treatment (weeks) 12 Plan of Care Start Date 05/21/23 Plan of Care End Date 08/13/23 Therapeutic Interventions Therapeutic Interventions Home Exercise Program,Manual Therapy,Patient/Caregiver Education,Self-Care/Home Management,Therapeutic Exercises Modalities Biofeedback,Electric Stimulation Next Visit Focus/Plan Next Note Type Progress Note Next Visit Plan Assess how Cece did with stabilization execises with the ball, add in supine ball bridges and hip extension/ abduction in prone over the ball
--- NOTE | 2023-08-13 17:27 | PT.OTN ---
Current Diagnoses Stress incontinence (female) (male) (08/13/23) Pelvic and perineal pain (08/13/23) Physical Therapy Treatment Note PT-OP-A Visit Information Start: 11/02/21 13:47 Freq: Status: Active Protocol: Document 08/13/23 17:18 [facility] (Rec: 08/13/23 17:26 [facility] [id number]) Out-Patient Physical Therapy Visit Information Visit Information Visit Type Treatment Note Visit Start Time 14:30 Visit Stop Time 15:15 Visit Number 38 PT-OP-B Current Condition Start: 11/02/21 13:47 Freq: Status: Active Protocol: Document 11/21/21 12:58 [facility] (Rec: 11/21/21 13:10 [facility] [id number]) Current Condition History of Current Condition Onset Date July 2021 diagnosis with endometreosis Current Complaints pelvic pain, L SI pain PT-OP-C Subjective Start: 11/02/21 13:47 Freq: Status: Active Protocol: Document 08/13/23 17:18 [facility] (Rec: 08/13/23 17:26 [facility] [id number]) OP-PT Subjective Patient Comments Patient Comments Cece has been working on the ball exercises and now has a ball for home. She notes they are getting a little easier. She has also been trying to sit on her ball as a chair for her work station. PT-OP-I Pelvic Floor Start: 11/02/21 13:47 Freq: Status: Active Protocol: Document 05/03/22 13:15 [facility] (Rec: 05/03/22 13:16 [facility] [id number]) Pelvic Floor Assessment SEMG (uV) Baseline 0 PT-OP-J Posture/Palpation/Skin Start: 11/02/21 13:47 Freq: Status: Active Protocol: Document 11/14/21 16:00 [facility] (Rec: 11/14/21 17:31 [facility] [id number]) Posture Evaluation Comments Posture Comments pt sits shifted to the right taking pressure off her left SI joint Palpation Assessment Location left SI joint Palpation Location pain left SI joint Palpation Findings Tenderness PT-OP-K Range of Motion Start: 11/16/21 09:34 Freq: Status: Active Protocol: Document 11/14/21 16:00 [facility] (Rec: 11/16/21 09:36 [facility] [id number]) Hip Goniometric Range of Motion Hip Active Hip ROM WFL Yes Comments pt presents with 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, especially with hip ER, IR PT-OP-L Special Tests Start: 11/02/21 13:47 Freq: Status: Active Protocol: Document 11/14/21 16:00 [facility] (Rec: 11/14/21 17:30 [facility] [id number]) Special Tests Lumbar Spine Special Tests +ASLR Test Results + for left side SI unlocking PT-OP-M Strength Start: 11/16/21 09:34 Freq: Status: Active Protocol: Document 11/14/21 16:00 [facility] (Rec: 11/16/21 09:37 [facility] [id number]) Trunk Strength Trunk Manual Muscle Testing Testing Position Supine Core Stabilization decreased core stabilization with left SI joint unlocking with movement of the right LE. Difficult for Cece to maintain TA stabilzation for repetitive movement PT-OP-Q Treatments Start: 11/21/21 12:58 Freq: Status: Active Protocol: Document 08/13/23 17:18 [facility] (Rec: 08/13/23 17:26 [facility] [id number]) Therapeutic Exercises Other Exercises supine ball rolls and ball bridges Reps/Minutes x 10 each kneeling ball abdominal exercise Comments from kneeling with elbows on ball roll out to tolerance prone ball hip abduction Reps/Minutes x 10 prone ball hip extension Reps/Minutes x 10 prone opp arm lifts over ball Reps/Minutes x 10 reps prone over the ball with shoulder extension Reps/Minutes x 10 Manual Therapy Treatment Soft Tissue Mobilization MFR over the hamstrings and attachments tot he ischium Mobilization Type Myofascial Release Intensity/Depth Moderate Body Position Prone MFR over the left piriformis and sacral region Mobilization Type Myofascial Release Comments tightness throughout the left piriformis today PT-OP-T Assessment and Plan Start: 11/02/21 13:47 Freq: Status: Active Protocol: Document 08/13/23 17:18 [facility] (Rec: 08/13/23 17:26 [facility] [id number]) Physical Therapy Assessment Goals improved functional strength of the gluteals Impairment pt has difficulty with returning to standing from a squat and with single leg squats Toll Bridge Operator Goal (LTG) Cece reports improved strength with returning from a squat and is able to perform 10 single leg squats from a raised chair some progress and Cece is working on single leg squats at home LTG Duration 12 weeks SI instability Impairment left sided SI instability with + ASLR test on the right side for left side unlocking Short Term Goal (STG) Cece is able to perform supine marches and heel slides with TA activation without left side SI unlocking this is improved overall decreased L sided Si joint unlocking STG Duration 6 weeks Toll Bridge Operator Goal (LTG) Cece is able to perform dynamic stabilization exercises without the SI joint unlocking and has a neg ASLR test Cece has been able to start working on single leg dynamic activities without a increase in SI pain Cece is still limited with SLS activities but is trying single leg squats with hand holds for support. LTG Duration 12 weeks urinary stress incontinence and urgency Impairment urinary stress incontinence and urgency Short Term Goal (STG) Cece is educated on pelvic floor and transverse abdominal strenthening to help provide improved SI and bladder support Goal met STG Duration 5 weeks Toll Bridge Operator Goal (LTG) Leakage is only occuring now with strong cough laugh or sneeze, she is no longer complaining of urgency. She is voiding 0-1 xms per night. GOAL MET LTG Duration 12 weeks left SI pain rated 5/10 Impairment left SI pain rated 5/10 making it difficult to sit symmetrically Toll Bridge Operator Goal (LTG) Following her cortisone injection pain levels are decreased and Cece is ready to start working towards postural exercises and dynamic lumbar stabilization as of 05/21/23 pain in the SI is improved however Cece is still experiencing pain in the piriformis and into the hamstring attachment that then feels like nerve referral LTG Duration 12 weeks Assessment Summary Assessment Cece is tolerating stabilization exercises over the ball well and she has not experienced a increase in pain . We will continue to progress dynamic stabilization as tolerated as she is awaiting her next cortisone injection. She is still experiencing the left sided gluteal and hamstring pain along with gluteal weakness on the left as compared to her right side Physical Therapy Plan Frequency and Duration Frequency of Treatment 1x/Week Duration of treatment (weeks) 12 Plan of Care Start Date 08/13/23 Plan of Care End Date 11/05/23 Therapeutic Interventions Therapeutic Interventions Home Exercise Program,Manual Therapy,Patient/Caregiver Education,Self-Care/Home Management,Therapeutic Exercises Modalities Biofeedback,Electric Stimulation Next Visit Focus/Plan Next Note Type Treatment Note Next Visit Plan dynamic lumbar and pelvic stabilization with ball exercises and MFR techniques to reduce muscle and fascial tightness
--- NOTE | 2023-08-13 17:27 | PT.OPPOC ---
Physical, Occupational & Speech Therapy At [facility] Current Diagnoses Stress incontinence (female) (male) (08/13/23) Pelvic and perineal pain (08/13/23) Visit Care Team Role Provider Type Madeleine Bloom DO Primary Care Provider Physician Specialty: Medical Address: [address] [place] [address], [address], [address] Email: [email or web address] Kadi Aguilar MD Family Provider Non-Staff Specialty: Family Practice Address: [address] [place] [address], [address] Phone: Fax: Email: [email or web address] Gaming DO Attending Provider Non-Staff Referring Provider Specialty: INDUSTRIAL ENGINEER Address: [address] [place] [address], [address], [place], [address] Email: Plan Of Care PT-OP-T Assessment and Plan Start: 11/02/21 13:47 Freq: Status: Active Protocol: Document 08/13/23 17:18 [facility] (Rec: 08/13/23 17:26 [facility] [id number]) Physical Therapy Assessment Goals improved functional strength of the gluteals Impairment pt has difficulty with returning to standing from a squat and with single leg squats Intermediate Goal (LTG) Cece reports improved strength with returning from a squat and is able to perform 10 single leg squats from a raised chair some progress and Cece is working on single leg squats at home LTG Duration 12 weeks SI instability Impairment left sided SI instability with + ASLR test on the right side for left side unlocking Short Term Goal (STG) Cece is able to perform supine marches and heel slides with TA activation without left side SI unlocking this is improved overall decreased L sided Si joint unlocking STG Duration 6 weeks Office Chair Assembler Goal (LTG) Ecce is able to perform dynamic stabilization exercises without the SI joint unlocking and has a neg ASLR test Cece has been able to start working on single leg dynamic activities without a increase in SI pain Cece is still limited with SLS activities but is trying single leg squats with hand holds for support. LTG Duration 12 weeks urinary stress incontinence and urgency Impairment urinary stress incontinence and urgency Short Term Goal (STG) Cece is educated on pelvic floor and transverse abdominal strenthening to help provide improved SI and bladder support Goal met STG Duration 5 weeks Office Chair Assembler Goal (LTG) Leakage is only occuring now with strong cough laugh or sneeze, she is no longer complaining of urgency. She is voiding 0-1 xms per night. GOAL MET LTG Duration 12 weeks left SI pain rated 5/10 Impairment left SI pain rated 5/10 making it difficult to sit symmetrically Office Chair Assembler Goal (LTG) Following her cortisone injection pain levels are decreased and Cece is ready to start working towards postural exercises and dynamic lumbar stabilization as of 05/21/23 pain in the SI is improved however Cece is still experiencing pain in the piriformis and into the hamstring attachment that then feels like nerve referral LTG Duration 12 weeks Assessment Summary Assessment Cece is tolerating stabilization exercises over the ball well and she has not experienced a increase in pain . We will continue to progress dynamic stabilization as tolerated as she is awaiting her next cortisone injection. She is still experiencing the left sided gluteal and hamstring pain along with gluteal weakness on the left as compared to her right side Physical Therapy Plan Frequency and Duration Frequency of Treatment 1x/Week Duration of treatment (weeks) 12 Plan of Care Start Date 08/13/23 Plan of Care End Date 11/05/23 Therapeutic Interventions Therapeutic Interventions Home Exercise Program,Manual Therapy,Patient/Caregiver Education,Self-Care/Home Management,Therapeutic Exercises Modalities Biofeedback,Electric Stimulation Next Visit Focus/Plan Next Note Type Treatment Note Next Visit Plan dynamic lumbar and pelvic stabilization with ball exercises and MFR techniques to reduce muscle and fascial tightness Plan of Care Dates Plan of Care Start Date 08/13/23 Plan of Care End Date 11/05/23 Electronically Signed by: Rea Edwards, PT 08/13/23 7800 If you are in agreement with this Plan of Care, please return a signed and dated copy. I have reviewed this Plan of Care and certify that the skilled therapy services above are required to meet the patient?s needs. Physician Signature Date Printed Name and Credentials Clinical Instructor Signature Printed Name and Credentials
--- NOTE | 2023-09-10 16:48 | PT.OTN ---
Current Diagnoses Stress incontinence (female) (male) (09/10/23) Pelvic and perineal pain (09/10/23) Physical Therapy Treatment Note PT-OP-A Visit Information Start: 11/02/21 13:47 Freq: Status: Active Protocol: Document 09/10/23 16:45 [facility] (Rec: 09/10/23 16:47 [facility] [id number]) Out-Patient Physical Therapy Visit Information Visit Information Visit Type Treatment Note Visit Start Time 15:15 Visit Stop Time 14:00 Visit Number 39 PT-OP-B Current Condition Start: 11/02/21 13:47 Freq: Status: Active Protocol: Document 11/21/21 12:58 [facility] (Rec: 11/21/21 13:10 [facility] [id number]) Current Condition History of Current Condition Onset Date July 2021 diagnosis with endometreosis Current Complaints pelvic pain, L SI pain PT-OP-C Subjective Start: 11/02/21 13:47 Freq: Status: Active Protocol: Document 09/10/23 15:22 [facility] (Rec: 09/10/23 16:13 [facility] [id number]) OP-PT Subjective Patient Comments Patient Comments She was approved for her injection on September 23, she has been working with a [place] ball at home she is feeling the hamstring pain and nerve pain into her calf PT-OP-I Pelvic Floor Start: 11/02/21 13:47 Freq: Status: Active Protocol: Document 05/03/22 13:15 [facility] (Rec: 05/03/22 13:16 [facility] [id number]) Pelvic Floor Assessment SEMG (uV) Baseline 0 PT-OP-J Posture/Palpation/Skin Start: 11/02/21 13:47 Freq: Status: Active Protocol: Document 11/14/21 16:00 [facility] (Rec: 11/14/21 17:31 [facility] [id number]) Posture Evaluation Comments Posture Comments pt sits shifted to the right taking pressure off her left SI joint Palpation Assessment Location left SI joint Palpation Location pain left SI joint Palpation Findings Tenderness PT-OP-K Range of Motion Start: 11/16/21 09:34 Freq: Status: Active Protocol: Document 11/14/21 16:00 [facility] (Rec: 11/16/21 09:36 [facility] [id number]) Hip Goniometric Range of Motion Hip Active Hip ROM WFL Yes Comments pt presents with 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, especially with hip ER, IR PT-OP-L Special Tests Start: 11/02/21 13:47 Freq: Status: Active Protocol: Document 11/14/21 16:00 [facility] (Rec: 11/14/21 17:30 [facility] [id number]) Special Tests Lumbar Spine Special Tests +ASLR Test Results + for left side SI unlocking PT-OP-M Strength Start: 11/16/21 09:34 Freq: Status: Active Protocol: Document 11/14/21 16:00 [facility] (Rec: 11/16/21 09:37 [facility] [id number]) Trunk Strength Trunk Manual Muscle Testing Testing Position Supine Core Stabilization decreased core stabilization with left SI joint unlocking with movement of the right LE. Difficult for Cece to maintain TA stabilzation for repetitive movement PT-OP-Q Treatments Start: 11/21/21 12:58 Freq: Status: Active Protocol: Document 09/10/23 16:45 [facility] (Rec: 09/10/23 16:47 [facility] [id number]) Manual Therapy Treatment Soft Tissue Mobilization left lateral calf Mobilization Type Myofascial Release Body Position Prone Comments not as guarded and tight in the left lateral calf today MFR over the hamstrings and attachments tot he ischium Mobilization Type Myofascial Release Intensity/Depth Moderate Body Position Prone MFR at the ischium hamstring attachments Mobilization Type Myofascial Release Intensity/Depth Moderate Body Position prone over body pillow MFR over the left ITB Mobilization Type Myofascial Release Comments worked on proximal attachment today MFR over the left piriformis and sacral region Mobilization Type Myofascial Release Comments tightness throughout the left piriformis today PT-OP-T Assessment and Plan Start: 11/02/21 13:47 Freq: Status: Active Protocol: Document 09/10/23 16:45 [facility] (Rec: 09/10/23 16:47 [facility] [id number]) Physical Therapy Assessment Assessment Summary Assessment Cece will be able to have her cortisone injection prior to her next PT visit. She will continue to work on gluteal strengthening over the exercise ball and we will reassess her next PT visit. Physical Therapy Plan Frequency and Duration Frequency of Treatment 1x/Week Duration of treatment (weeks) 12 Plan of Care Start Date 08/13/23 Plan of Care End Date 11/05/23 Therapeutic Interventions Therapeutic Interventions Home Exercise Program,Manual Therapy,Patient/Caregiver Education,Self-Care/Home Management,Therapeutic Exercises Modalities Biofeedback,Electric Stimulation Next Visit Focus/Plan Next Note Type Treatment Note Next Visit Plan Reassess how Cece is doing after her cortisone injection next visit continue with dynamic lumbar and pelvic stabilization with ball exercises and MFR techniques to reduce muscle and fascial tightness
--- NOTE | 2023-10-10 16:11 | PT.OTN ---
Current Diagnoses Stress incontinence (female) (male) (10/10/23) Pelvic and perineal pain (10/10/23) Physical Therapy Treatment Note PT-OP-A Visit Information Start: 11/02/21 13:47 Freq: Status: Active Protocol: Document 10/10/23 11:27 [facility] (Rec: 10/10/23 12:12 [facility] [id number]) Out-Patient Physical Therapy Visit Information Visit Information Visit Type Treatment Note Visit Start Time 11:25 Visit Stop Time 12:05 Visit Number 40 PT-OP-B Current Condition Start: 11/02/21 13:47 Freq: Status: Active Protocol: Document 11/21/21 12:58 [facility] (Rec: 11/21/21 13:10 [facility] [id number]) Current Condition History of Current Condition Onset Date July 2021 diagnosis with endometreosis Current Complaints pelvic pain, L SI pain PT-OP-C Subjective Start: 11/02/21 13:47 Freq: Status: Active Protocol: Document 10/10/23 11:27 [facility] (Rec: 10/10/23 12:12 [facility] [id number]) OP-PT Subjective Patient Comments Patient Comments pt notes she had her injection and still feels like it hasn' t helped She does have a referral for ortho and she will be seeing ortho in november. PT-OP-I Pelvic Floor Start: 11/02/21 13:47 Freq: Status: Active Protocol: Document 05/03/22 13:15 [facility] (Rec: 05/03/22 13:16 [facility] [id number]) Pelvic Floor Assessment SEMG (uV) Baseline 0 PT-OP-J Posture/Palpation/Skin Start: 11/02/21 13:47 Freq: Status: Active Protocol: Document 11/14/21 16:00 [facility] (Rec: 11/14/21 17:31 [facility] [id number]) Posture Evaluation Comments Posture Comments pt sits shifted to the right taking pressure off her left SI joint Palpation Assessment Location left SI joint Palpation Location pain left SI joint Palpation Findings Tenderness PT-OP-K Range of Motion Start: 11/16/21 09:34 Freq: Status: Active Protocol: Document 11/14/21 16:00 [facility] (Rec: 11/16/21 09:36 [facility] [id number]) Hip Goniometric Range of Motion Hip Active Hip ROM WFL Yes Comments pt presents with 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, especially with hip ER, IR PT-OP-L Special Tests Start: 11/02/21 13:47 Freq: Status: Active Protocol: Document 11/14/21 16:00 [facility] (Rec: 11/14/21 17:30 [facility] [id number]) Special Tests Lumbar Spine Special Tests +ASLR Test Results + for left side SI unlocking PT-OP-M Strength Start: 11/16/21 09:34 Freq: Status: Active Protocol: Document 11/14/21 16:00 [facility] (Rec: 11/16/21 09:37 [facility] [id number]) Trunk Strength Trunk Manual Muscle Testing Testing Position Supine Core Stabilization decreased core stabilization with left SI joint unlocking with movement of the right LE. Difficult for Cece to maintain TA stabilzation for repetitive movement PT-OP-Q Treatments Start: 11/21/21 12:58 Freq: Status: Active Protocol: Document 10/10/23 11:20 [facility] (Rec: 10/10/23 16:10 [facility] [id number]) Manual Therapy Treatment Soft Tissue Mobilization MFR over the hamstrings and attachments tot he ischium Mobilization Type Myofascial Release Intensity/Depth Moderate Body Position Prone MFR at the ischium hamstring attachments Mobilization Type Myofascial Release Intensity/Depth Moderate Body Position prone over body pillow MFR over the left piriformis and sacral region Mobilization Type Myofascial Release Comments tightness throughout the left piriformis today PT-OP-T Assessment and Plan Start: 11/02/21 13:47 Freq: Status: Active Protocol: Document 10/10/23 11:20 [facility] (Rec: 10/10/23 16:10 [facility] [id number]) Physical Therapy Assessment Assessment Summary Assessment We discussed how it can take a few weeks for cortisone injection to take affect. She will continue to work on her stretches and home program. She is also being scheduled to have a consult with ortho Physical Therapy Plan Frequency and Duration Frequency of Treatment 1x/Week Duration of treatment (weeks) 12 Plan of Care Start Date 08/13/23 Plan of Care End Date 11/05/23 Next Visit Focus/Plan Next Note Type Treatment Note Next Visit Plan at next visit check in to see if Cece has had any further relief from cortisone and progress exercises if she is able to, continue with MFR techniques
--- NOTE | 2023-10-22 16:51 | PT.OTN ---
Current Diagnoses Stress incontinence (female) (male) (10/22/23) Pelvic and perineal pain (10/22/23) Physical Therapy Treatment Note PT-OP-A Visit Information Start: 11/02/21 13:47 Freq: Status: Active Protocol: Document 10/22/23 13:50 [facility] (Rec: 10/22/23 16:50 [facility] [id number]) Out-Patient Physical Therapy Visit Information Visit Information Visit Type Treatment Note Visit Start Time 13:50 Visit Stop Time 14:30 Visit Number 41 PT-OP-B Current Condition Start: 11/02/21 13:47 Freq: Status: Active Protocol: Document 11/21/21 12:58 [facility] (Rec: 11/21/21 13:10 [facility] [id number]) Current Condition History of Current Condition Onset Date July 2021 diagnosis with endometreosis Current Complaints pelvic pain, L SI pain PT-OP-C Subjective Start: 11/02/21 13:47 Freq: Status: Active Protocol: Document 10/22/23 13:51 [facility] (Rec: 10/22/23 14:33 [facility] [id number]) OP-PT Subjective Patient Comments Patient Comments No change in her symptoms and she has a ortho appt set up for November 12 with a PA who asses everything Patient Reported Progress Same PT-OP-I Pelvic Floor Start: 11/02/21 13:47 Freq: Status: Active Protocol: Document 05/03/22 13:15 [facility] (Rec: 05/03/22 13:16 [facility] [id number]) Pelvic Floor Assessment SEMG (uV) Baseline 0 PT-OP-J Posture/Palpation/Skin Start: 11/02/21 13:47 Freq: Status: Active Protocol: Document 11/14/21 16:00 [facility] (Rec: 11/14/21 17:31 [facility] [id number]) Posture Evaluation Comments Posture Comments pt sits shifted to the right taking pressure off her left SI joint Palpation Assessment Location left SI joint Palpation Location pain left SI joint Palpation Findings Tenderness PT-OP-K Range of Motion Start: 11/16/21 09:34 Freq: Status: Active Protocol: Document 11/14/21 16:00 [facility] (Rec: 11/16/21 09:36 [facility] [id number]) Hip Goniometric Range of Motion Hip Active Hip ROM WFL Yes Comments pt presents with 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, especially with hip ER, IR PT-OP-L Special Tests Start: 11/02/21 13:47 Freq: Status: Active Protocol: Document 11/14/21 16:00 [facility] (Rec: 11/14/21 17:30 [facility] [id number]) Special Tests Lumbar Spine Special Tests +ASLR Test Results + for left side SI unlocking PT-OP-M Strength Start: 11/16/21 09:34 Freq: Status: Active Protocol: Document 11/14/21 16:00 [facility] (Rec: 11/16/21 09:37 [facility] [id number]) Trunk Strength Trunk Manual Muscle Testing Testing Position Supine Core Stabilization decreased core stabilization with left SI joint unlocking with movement of the right LE. Difficult for Cece to maintain TA stabilzation for repetitive movement PT-OP-Q Treatments Start: 11/21/21 12:58 Freq: Status: Active Protocol: Document 10/22/23 13:50 [facility] (Rec: 10/22/23 16:50 [facility] [id number]) Manual Therapy Treatment Soft Tissue Mobilization MFR over the hamstrings and attachments tot he ischium Mobilization Type Myofascial Release Intensity/Depth Moderate Body Position Prone MFR at the ischium hamstring attachments Mobilization Type Myofascial Release Intensity/Depth Moderate Body Position prone over body pillow MFR over the left ITB Mobilization Type Myofascial Release Comments worked on proximal attachment today MFR over the left piriformis and sacral region Mobilization Type Myofascial Release Comments tightness throughout the left piriformis today PT-OP-T Assessment and Plan Start: 11/02/21 13:47 Freq: Status: Active Protocol: Document 10/22/23 13:50 [facility] (Rec: 10/22/23 16:50 [facility] [id number]) Physical Therapy Assessment Assessment Summary Assessment Cece has not had any relief s/ p her spinal injection. She is now awaiting her appt with ortho for consult on surgery. She is getting temporary relief with PT so I would like to get her to her appt in November with manual therapy techniques Physical Therapy Plan Frequency and Duration Frequency of Treatment 1x/Week Duration of treatment (weeks) 12 Plan of Care Start Date 08/13/23 Plan of Care End Date 11/05/23 Therapeutic Interventions Therapeutic Interventions Home Exercise Program,Manual Therapy,Patient/Caregiver Education,Self-Care/Home Management,Therapeutic Exercises Modalities Biofeedback,Electric Stimulation Next Visit Focus/Plan Next Note Type Progress Note Next Visit Plan continue with MFR and working on reducing tension from the lateral hamstrings and ITB
--- NOTE | 2023-10-29 17:02 | PT.OTN ---
Current Diagnoses Stress incontinence (female) (male) (10/29/23) Pelvic and perineal pain (10/29/23) Physical Therapy Treatment Note PT-OP-A Visit Information Start: 11/02/21 13:47 Freq: Status: Active Protocol: Document 10/29/23 11:19 [facility] (Rec: 10/29/23 12:04 [facility] [id number]) Out-Patient Physical Therapy Visit Information Visit Information Visit Type Treatment Note Visit Start Time 11:15 Visit Stop Time 12:00 Visit Number 42 PT-OP-B Current Condition Start: 11/02/21 13:47 Freq: Status: Active Protocol: Document 11/21/21 12:58 [facility] (Rec: 11/21/21 13:10 [facility] [id number]) Current Condition History of Current Condition Onset Date July 2021 diagnosis with endometreosis Current Complaints pelvic pain, L SI pain PT-OP-C Subjective Start: 11/02/21 13:47 Freq: Status: Active Protocol: Document 10/29/23 11:19 [facility] (Rec: 10/29/23 12:04 [facility] [id number]) OP-PT Subjective Patient Comments Patient Comments has a appt on nov 12 for a PA at the ortho clinic PT-OP-I Pelvic Floor Start: 11/02/21 13:47 Freq: Status: Active Protocol: Document 05/03/22 13:15 [facility] (Rec: 05/03/22 13:16 [facility] [id number]) Pelvic Floor Assessment SEMG (uV) Baseline 0 PT-OP-J Posture/Palpation/Skin Start: 11/02/21 13:47 Freq: Status: Active Protocol: Document 11/14/21 16:00 [facility] (Rec: 11/14/21 17:31 [facility] [id number]) Posture Evaluation Comments Posture Comments pt sits shifted to the right taking pressure off her left SI joint Palpation Assessment Location left SI joint Palpation Location pain left SI joint Palpation Findings Tenderness PT-OP-K Range of Motion Start: 11/16/21 09:34 Freq: Status: Active Protocol: Document 11/14/21 16:00 [facility] (Rec: 11/16/21 09:36 [facility] [id number]) Hip Goniometric Range of Motion Hip Active Hip ROM WFL Yes Comments pt presents with 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 Difficult for Cece to maintain TA stabilzation for repetitive movement PT-OP-Q Treatments Start: 11/21/21 12:58 Freq: Status: Active Protocol: Document 10/29/23 11:19 [facility] (Rec: 10/29/23 12:04 [facility] [id number]) Manual Therapy Treatment Soft Tissue Mobilization MFR over the hamstrings and attachments tot he ischium Mobilization Type Myofascial Release Intensity/Depth Moderate Body Position Prone MFR at the ischium hamstring attachments Mobilization Type Myofascial Release Intensity/Depth Moderate Body Position prone over body pillow MFR over the left ITB Mobilization Type Myofascial Release Comments worked on proximal attachment today MFR over the left piriformis and sacral region Mobilization Type Myofascial Release Comments tightness throughout the left piriformis today PT-OP-T Assessment and Plan Start: 11/02/21 13:47 Freq: Status: Active Protocol: Document 10/29/23 11:19 [facility] (Rec: 10/29/23 12:04 [facility] [id number]) Physical Therapy Assessment Assessment Summary Assessment Cece is awaiting her ortho consult, no change in her symptoms. She notes hamstring tightness and gluteal tightness increases with walking Physical Therapy Plan Frequency and Duration Frequency of Treatment 1x/Week Duration of treatment (weeks) 12 Plan of Care Start Date 08/13/23 Plan of Care End Date 11/05/23 Therapeutic Interventions Therapeutic Interventions Home Exercise Program,Manual Therapy,Patient/Caregiver Education,Self-Care/Home Management,Therapeutic Exercises Modalities Biofeedback,Electric Stimulation Next Visit Focus/Plan Next Note Type Progress Note Next Visit Plan continue with MFR and working on reducing tension from the lateral hamstrings and ITB
--- NOTE | 2023-11-05 16:00 | PT.OPPOC ---
Physical, Occupational & Speech Therapy At [facility] Current Diagnoses Stress incontinence (female) (male) (11/05/23) Pelvic and perineal pain (11/05/23) Visit Care Team Role Provider Type Madeleine Bloom DO Primary Care Provider Physician Specialty: Medical Address: [address] [place] [address], [facility] [address], [address] Email: [email or web address] Kadi Aguilar MD Family Provider Non-Staff Specialty: Family Practice Address: [address] [place] [address], [address] Phone: Fax: Email: [email or web address] Attending Provider Non-Staff Referring Provider Specialty: [employer] Address: [address] [place] [address], [address], [place], [address] Email: Plan Of Care PT-OP-B Current Condition Start: 11/02/21 13:47 Freq: Status: Active Protocol: Document 11/21/21 12:58 [facility] (Rec: 11/21/21 13:10 [facility] [id number]) Current Condition History of Current Condition Onset Date July 2021 diagnosis with endometriosis Current Complaints pelvic pain, L SI pain PT-OP-T Assessment and Plan Start: 11/02/21 13:47 Freq: Status: Active Protocol: Document 11/05/23 11:19 [facility] (Rec: 11/05/23 17:11 [facility] [id number]) Physical Therapy Assessment Goals improved functional strength of the gluteals Impairment pt has difficulty with returning to standing from a squat and with single leg squats Alf Goal (LTG) Cece reports improved strength with returning from a squat and is able to perform 10 single leg squats from a raised chair some progress and Cece is working on single leg squats at home LTG Duration 12 weeks SI instability Impairment left sided SI instability with + ASLR test on the right side for left side unlocking Short Term Goal (STG) Cece is able to perform supine marches and heel slides with TA activation without left side SI unlocking this is improved overall decreased L sided Si joint unlocking STG Duration 6 weeks Alf Goal (LTG) Cece is able to perform dynamic stabilization exercises without the SI joint unlocking and has a neg ASLR test Cece has been able to start working on single leg dynamic activities without a increase in SI pain Cece is still limited with SLS activities but is trying single leg squats with hand holds for support. 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 She is voiding 0-1 xms per night. GOAL MET LTG Duration 12 weeks left SI pain rated 5/10 Impairment left SI pain rated 5/10 making it difficult to sit symmetrically Alf Goal (LTG) Following her cortisone injection pain levels are decreased and Cece is ready to start working towards postural exercises and dynamic lumbar stabilization as of 11/05/23 pain in the SI is improved however Cece is still experiencing pain in the piriformis and into the hamstring attachment that then feels like nerve referral LTG Duration 12 weeks Assessment Summary Assessment Cece was not as tight today due to the hot water pool. I did encourage her to try and get into the water more frequently as this does seem to help relax her muscles. She is awaiting ortho consult November 12 for surgical consult. Cece feels temporary relief with myofascial release techniques in PT and would like to continue PT. Physical Therapy Plan Frequency and Duration Frequency of Treatment 1x/Week Duration of treatment (weeks) 12 Plan of Care Start Date 11/05/23 Plan of Care End Date 01/28/24 Therapeutic Interventions Therapeutic Interventions Home Exercise Program,Manual Therapy,Patient/Caregiver Education,Self-Care/Home Management,Therapeutic Exercises Modalities Biofeedback,Electric Stimulation Next Visit Focus/Plan Next Note Type Treatment Note Next Visit Plan continue with MFR and working on reducing tension from the lateral hamstrings and ITB and gluteal attachments to the sacrum Plan of Care Dates Plan of Care Start Date 11/05/23 Plan of Care End Date 01/28/24 Electronically Signed by: Rea Edwards, PT 11/06/23 1695 If you are in agreement with this Plan of Care, please return a signed and dated copy. I have reviewed this Plan of Care and certify that the skilled therapy services above are required to meet the patient?s needs. Physician Signature Date Printed Name and Credentials Clinical Instructor Signature Printed Name and Credentials
--- NOTE | 2023-11-05 16:00 | PT.OTN ---
Current Diagnoses Stress incontinence (female) (male) (11/05/23) Pelvic and perineal pain (11/05/23) Physical Therapy Treatment Note PT-OP-A Visit Information Start: 11/02/21 13:47 Freq: Status: Active Protocol: Document 11/05/23 11:19 [facility] (Rec: 11/05/23 12:06 [facility] [id number]) Out-Patient Physical Therapy Visit Information Visit Information Visit Type Treatment Note Visit Start Time 11:15 Visit Stop Time 12:00 Visit Number 43 PT-OP-B Current Condition Start: 11/02/21 13:47 Freq: Status: Active Protocol: Document 11/21/21 12:58 [facility] (Rec: 11/21/21 13:10 [facility] [id number]) Current Condition History of Current Condition Onset Date July 2021 diagnosis with endometreosis Current Complaints pelvic pain, L SI pain PT-OP-C Subjective Start: 11/02/21 13:47 Freq: Status: Active Protocol: Document 11/05/23 11:19 [facility] (Rec: 11/05/23 12:06 [facility] [id number]) OP-PT Subjective Patient Comments Patient Comments pt notes she was able to go into a warm pool and she feels this helps loosen her muscles , she also did a lot of walking and this felt good. She still feels her hamstring is super tight but its not the nerve twinging feeling today. Cece is awaiting ortho consult on November 12 for possible surgical options. Patient Reported Progress Improving PT-OP-I Pelvic Floor Start: 11/02/21 13:47 Freq: Status: Active Protocol: Document 05/03/22 13:15 [facility] (Rec: 05/03/22 13:16 [facility] [id number]) Pelvic Floor Assessment SEMG (uV) Baseline 0 PT-OP-J Posture/Palpation/Skin Start: 11/02/21 13:47 Freq: Status: Active Protocol: Document 11/14/21 16:00 [facility] (Rec: 11/14/21 17:31 [facility] [id number]) Posture Evaluation Comments Posture Comments pt sits shifted to the right taking pressure off her left SI joint Palpation Assessment Location left SI joint Palpation Location pain left SI joint Palpation Findings Tenderness PT-OP-K Range of Motion Start: 11/16/21 09:34 Freq: Status: Active Protocol: Document 11/14/21 16:00 [facility] (Rec: 11/16/21 09:36 [facility] [id number]) Hip Goniometric Range of Motion Hip Active Hip ROM WFL Yes Comments pt presents with 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, especially with hip ER, IR PT-OP-L Special Tests Start: 11/02/21 13:47 Freq: Status: Active Protocol: Document 11/14/21 16:00 [facility] (Rec: 11/14/21 17:30 [facility] [id number]) Special Tests Lumbar Spine Special Tests +ASLR Test Results + for left side SI unlocking PT-OP-M Strength Start: 11/16/21 09:34 Freq: Status: Active Protocol: Document 11/14/21 16:00 [facility] (Rec: 11/16/21 09:37 [facility] [id number]) Trunk Strength Trunk Manual Muscle Testing Testing Position Supine Core Stabilization decreased core stabilization with left SI joint unlocking with movement of the right LE. Difficult for Cece to maintain TA stabilzation for repetitive movement PT-OP-Q Treatments Start: 11/21/21 12:58 Freq: Status: Active Protocol: Document 11/05/23 11:19 [facility] (Rec: 11/05/23 17:11 [facility] [id number]) Manual Therapy Treatment Soft Tissue Mobilization MFR over the hamstrings and attachments tot he ischium Mobilization Type Myofascial Release Intensity/Depth Moderate Body Position Prone MFR at the ischium hamstring attachments Mobilization Type Myofascial Release Intensity/Depth Moderate Body Position prone over body pillow MFR over the left ITB Mobilization Type Myofascial Release Comments worked on proximal attachment today MFR over the left piriformis and sacral region Mobilization Type Myofascial Release Comments tightness throughout the left piriformis today PT-OP-T Assessment and Plan Start: 11/02/21 13:47 Freq: Status: Active Protocol: Document 11/05/23 11:19 [facility] (Rec: 11/05/23 17:11 [facility] [id number]) Physical Therapy Assessment Goals improved functional strength of the gluteals Impairment pt has difficulty with returning to standing from a squat and with single leg squats Long-Term Goal (LTG) Cece reports improved strength with returning from a squat and is able to perform 10 single leg squats from a raised chair some progress and Cece is working on single leg squats at home LTG Duration 12 weeks SI instability Impairment left sided SI instability with + ASLR test on the right side for left side unlocking Short Term Goal (STG) Cece is able to perform supine marches and heel slides with TA activation without left side SI unlocking this is improved overall decreased L sided Si joint unlocking STG Duration 6 weeks Long-Term Goal (LTG) Cece is able to perform dynamic stabilization exercises without the SI joint unlocking and has a neg ASLR test Cece has been able to start working on single leg dynamic activities without a increase in SI pain Cece is still limited with SLS activities but is trying single leg squats with hand holds for support. LTG Duration 12 weeks urinary stress incontinence and urgency Impairment urinary stress incontinence and urgency Short Term Goal (STG) Cece is educated on pelvic floor and transverse abdominal strenthening to help provide improved SI and bladder support Goal met STG Duration 5 weeks Long-Term Goal (LTG) Leakage is only occuring now with strong cough laugh or sneeze, she is no longer complaining of urgency. She is voiding 0-1 xms per night. GOAL MET LTG Duration 12 weeks left SI pain rated 5/10 Impairment left SI pain rated 5/10 making it difficult to sit symmetrically Long-Term Goal (LTG) Following her cortisone injection pain levels are decreased and Cece is ready to start working towards postural exercises and dynamic lumbar stabilization as of 11/05/23 pain in the SI is improved however Cece is still experiencing pain in the piriformis and into the hamstring attachment that then feels like nerve referral LTG Duration 12 weeks Assessment Summary Assessment Cece was not as tight today due to the hot water pool. I did encourge her to try and get into the water more frequently as this does seem to help relax her muscles. She is awaiting ortho consult november 12 for surgical consult. Cece feels temporary relief with myofascial release techniques in PT and would like to continue PT. Physical Therapy Plan Frequency and Duration Frequency of Treatment 1x/Week Duration of treatment (weeks) 12 Plan of Care Start Date 11/05/23 Plan of Care End Date 01/28/24 Therapeutic Interventions Therapeutic Interventions Home Exercise Program,Manual Therapy,Patient/Caregiver Education,Self-Care/Home Management,Therapeutic Exercises Modalities Biofeedback,Electric Stimulation Next Visit Focus/Plan Next Note Type Treatment Note Next Visit Plan continue with MFR and working on reducing tension from the lateral hamstrings and ITB and gluteal attachments to the sacrum
--- NOTE | 2023-11-19 17:13 | PT.OTN ---
Current Diagnoses Stress incontinence (female) (male) (11/19/23) Pelvic and perineal pain (11/19/23) Physical Therapy Treatment Note PT-OP-A Visit Information Start: 11/02/21 13:47 Freq: Status: Active Protocol: Document 11/19/23 11:22 [facility] (Rec: 11/19/23 12:16 [facility] [id number]) Out-Patient Physical Therapy Visit Information Visit Information Visit Type Treatment Note Visit Note Visit Start Time 11:20 Visit Stop Time 12:05 Visit Number 44 PT-OP-B Current Condition Start: 11/02/21 13:47 Freq: Status: Active Protocol: Document 11/21/21 12:58 [facility] (Rec: 11/21/21 13:10 [facility] [id number]) Current Condition History of Current Condition Onset Date July 2021 diagnosis with endometreosis Current Complaints pelvic pain, L SI pain PT-OP-C Subjective Start: 11/02/21 13:47 Freq: Status: Active Protocol: Document 11/19/23 11:22 [facility] (Rec: 11/19/23 12:16 [facility] [id number]) OP-PT Subjective Patient Comments Patient Comments Cece saw ortho and saw a PA and she wants another MRI. Cece was also told that dry needling may help her PT-OP-I Pelvic Floor Start: 11/02/21 13:47 Freq: Status: Active Protocol: Document 05/03/22 13:15 [facility] (Rec: 05/03/22 13:16 [facility] [id number]) Pelvic Floor Assessment SEMG (uV) Baseline 0 PT-OP-J Posture/Palpation/Skin Start: 11/02/21 13:47 Freq: Status: Active Protocol: Document 11/14/21 16:00 [facility] (Rec: 11/14/21 17:31 [facility] [id number]) Posture Evaluation Comments Posture Comments pt sits shifted to the right taking pressure off her left SI joint Palpation Assessment Location left SI joint Palpation Location pain left SI joint Palpation Findings Tenderness PT-OP-K Range of Motion Start: 11/16/21 09:34 Freq: Status: Active Protocol: Document 11/14/21 16:00 [facility] (Rec: 11/16/21 09:36 [facility] [id number]) Hip Goniometric Range of Motion Hip Active Hip ROM WFL Yes Comments pt presents with 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, especially with hip ER, IR PT-OP-L Special Tests Start: 11/02/21 13:47 Freq: Status: Active Protocol: Document 11/14/21 16:00 [facility] (Rec: 11/14/21 17:30 [facility] [id number]) Special Tests Lumbar Spine Special Tests +ASLR Test Results + for left side SI unlocking PT-OP-M Strength Start: 11/16/21 09:34 Freq: Status: Active Protocol: Document 11/14/21 16:00 [facility] (Rec: 11/16/21 09:37 [facility] [id number]) Trunk Strength Trunk Manual Muscle Testing Testing Position Supine Core Stabilization decreased core stabilization with left SI joint unlocking with movement of the right LE. Difficult for Cece to maintain TA stabilzation for repetitive movement PT-OP-Q Treatments Start: 11/21/21 12:58 Freq: Status: Active Protocol: Document 11/19/23 17:07 [facility] (Rec: 11/19/23 17:12 [facility] [id number]) Manual Therapy Treatment Soft Tissue Mobilization MFR over the hamstrings and attachments tot he ischium Mobilization Type Myofascial Release Intensity/Depth Moderate Body Position Prone MFR at the ischium hamstring attachments Mobilization Type Myofascial Release Intensity/Depth Moderate Body Position prone over body pillow MFR over the left piriformis and sacral region Mobilization Type Myofascial Release Comments tightness throughout the left piriformis today Manual Techniques sacral counternutation Type MET for sacral counter nutation Reps/Duration x 5 reps Comments sacral mobilizations into counternutation bring relief to Cece Self-Care/Home Management Treatment Education Patient Education Home Exercise Program,Pain Management Other Education time was spent discussion dry needling as a option for Cece as well as discussing her ortho appt and upcoming MRI being scheduled PT-OP-T Assessment and Plan Start: 11/02/21 13:47 Freq: Status: Active Protocol: Document 11/19/23 17:07 [facility] (Rec: 11/19/23 17:12 [facility] [id number]) Physical Therapy Assessment Assessment Summary Assessment Cece has been seen for ongoing left SI, gluteal, and hamstring pain and tightness. A nerve conduction study has been done showing some S1 nerve entrapment. Cece has tried cortisone injections and is not finding relief. She recently consulted with ortho who ordered a new MRI and also recommended dry needling. I feel Cece may really benefit from this so I am setting her up for dry needling in our clinic with Merlyn Bear DPT Physical Therapy Plan Frequency and Duration Frequency of Treatment 1x/Week Duration of treatment (weeks) 12 Plan of Care Start Date 11/05/23 Plan of Care End Date 01/28/24 Therapeutic Interventions Therapeutic Interventions Home Exercise Program,Manual Therapy,Patient/Caregiver Education,Self-Care/Home Management,Therapeutic Exercises Modalities Biofeedback,Electric Stimulation Next Visit Focus/Plan Next Note Type Treatment Note Next Visit Plan trial of dry needling next visit for the left sided gluteal and hamstring pain she is experiencing
--- NOTE | 2024-01-14 16:50 | PT.OTN ---
Current Diagnoses Stress incontinence (female) (male) (01/14/24) Pelvic and perineal pain (01/14/24) Physical Therapy Treatment Note PT-OP-A Visit Information Start: 11/02/21 13:47 Freq: Status: Active Protocol: Document 11/19/23 11:22 [facility] (Rec: 11/19/23 12:16 [facility] [id number]) Out-Patient Physical Therapy Visit Information Visit Information Visit Type Treatment Note Visit Note Visit Start Time 11:20 Visit Stop Time 12:05 Visit Number 44 PT-OP-B Current Condition Start: 11/02/21 13:47 Freq: Status: Active Protocol: Document 11/21/21 12:58 [facility] (Rec: 11/21/21 13:10 [facility] [id number]) Current Condition History of Current Condition Onset Date July 2021 diagnosis with endometreosis Current Complaints pelvic pain, L SI pain PT-OP-C Subjective Start: 11/02/21 13:47 Freq: Status: Active Protocol: Document 01/14/24 10:48 [facility] (Rec: 01/14/24 11:35 [facility] [id number]) OP-PT Subjective Patient Comments Patient Comments she went to orthopedic again and was told it was acupuncture he was talking about, he feels it SI joint dysfunction and there is really clear evidence that a SI joint fusion would help her . PT-OP-I Pelvic Floor Start: 11/02/21 13:47 Freq: Status: Active Protocol: Document 05/03/22 13:15 [facility] (Rec: 05/03/22 13:16 [facility] [id number]) Pelvic Floor Assessment SEMG (uV) Baseline 0 PT-OP-J Posture/Palpation/Skin Start: 11/02/21 13:47 Freq: Status: Active Protocol: Document 11/14/21 16:00 [facility] (Rec: 11/14/21 17:31 [facility] [id number]) Posture Evaluation Comments Posture Comments pt sits shifted to the right taking pressure off her left SI joint Palpation Assessment Location left SI joint Palpation Location pain left SI joint Palpation Findings Tenderness PT-OP-K Range of Motion Start: 11/16/21 09:34 Freq: Status: Active Protocol: Document 11/14/21 16:00 [facility] (Rec: 11/16/21 09:36 [facility] [id number]) Hip Goniometric Range of Motion Hip Active Hip ROM WFL Yes Comments pt presents with 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 Difficult for Cece to maintain TA stabilzation for repetitive movement PT-OP-Q Treatments Start: 11/21/21 12:58 Freq: Status: Active Protocol: Document 01/14/24 16:47 [facility] (Rec: 01/14/24 16:49 [facility] [id number]) Manual Therapy Treatment Soft Tissue Mobilization MFR over the hamstrings and attachments tot he ischium Mobilization Type Myofascial Release Intensity/Depth Moderate Body Position Prone MFR at the ischium hamstring attachments Mobilization Type Myofascial Release Intensity/Depth Moderate Body Position prone over body pillow PT-OP-T Assessment and Plan Start: 11/02/21 13:47 Freq: Status: Active Protocol: Document 01/14/24 16:47 [facility] (Rec: 01/14/24 16:49 [facility] [id number]) Physical Therapy Assessment Assessment Summary Assessment Still no change in symptoms and Cece will be trying more prolotherapy as well as PRC injections. I did encourage her to try eliptical security trainer to encourage movement without compression through her spine She saw Ortho and is not a candidate for any surgical procedures at this time. Physical Therapy Plan Frequency and Duration Frequency of Treatment 1x/Week Duration of treatment (weeks) 12 Plan of Care Start Date 11/05/23 Plan of Care End Date 01/28/24 Therapeutic Interventions Therapeutic Interventions Home Exercise Program,Manual Therapy,Patient/Caregiver Education,Self-Care/Home Management,Therapeutic Exercises Modalities Biofeedback,Electric Stimulation Next Visit Focus/Plan Next Note Type Progress Note Next Visit Plan trial of dry needling next visit for the left sided gluteal and hamstring pain she is experiencing
--- NOTE | 2024-02-25 13:36 | PT.OTN ---
Current Diagnoses Stress incontinence (female) (male) (02/25/24) Pelvic and perineal pain (02/25/24) Physical Therapy Treatment Note PT-OP-A Visit Information Start: 11/02/21 13:47 Freq: Status: Active Protocol: Document 02/25/24 17:52 [facility] (Rec: 02/25/24 17:53 [facility] [id number]) Out-Patient Physical Therapy Visit Information Visit Information Visit Type Treatment Note Visit Note Visit Start Time 11:30 Visit Stop Time 12:15 Visit Number 45 PT-OP-B Current Condition Start: 11/02/21 13:47 Freq: Status: Active Protocol: Document 11/21/21 12:58 [facility] (Rec: 11/21/21 13:10 [facility] [id number]) Current Condition History of Current Condition Onset Date July 2021 diagnosis with endometreosis Current Complaints pelvic pain, L SI pain PT-OP-C Subjective Start: 11/02/21 13:47 Freq: Status: Active Protocol: Document 02/25/24 11:36 [facility] (Rec: 02/25/24 12:22 [facility] [id number]) OP-PT Subjective Patient Comments Patient Comments Cece notes she hasn't been in to see Dr hobson yet she nores high heels recs her body PT-OP-I Pelvic Floor Start: 11/02/21 13:47 Freq: Status: Active Protocol: Document 05/03/22 13:15 [facility] (Rec: 05/03/22 13:16 [facility] [id number]) Pelvic Floor Assessment SEMG (uV) Baseline 0 PT-OP-J Posture/Palpation/Skin Start: 11/02/21 13:47 Freq: Status: Active Protocol: Document 11/14/21 16:00 [facility] (Rec: 11/14/21 17:31 [facility] [id number]) Posture Evaluation Comments Posture Comments pt sits shifted to the right taking pressure off her left SI joint Palpation Assessment Location left SI joint Palpation Location pain left SI joint Palpation Findings Tenderness PT-OP-K Range of Motion Start: 11/16/21 09:34 Freq: Status: Active Protocol: Document 11/14/21 16:00 [facility] (Rec: 11/16/21 09:36 [facility] [id number]) Hip Goniometric Range of Motion Hip Active Hip ROM WFL Yes Comments 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 Difficult for Cece to maintain TA stabilzation for repetitive movement PT-OP-Q Treatments Start: 11/21/21 12:58 Freq: Status: Active Protocol: Document 02/25/24 11:36 [facility] (Rec: 02/25/24 12:22 [facility] [id number]) Self-Care/Home Management Treatment Education Patient Education Home Exercise Program,Pain Management Other Education TIme was spent reviewing stretches to help reduce low back compression PT-OP-T Assessment and Plan Start: 11/02/21 13:47 Freq: Status: Active Protocol: Document 02/25/24 11:30 [facility] (Rec: 02/26/24 13:35 [facility] [id number]) Physical Therapy Assessment Assessment Summary Assessment Cece is still awaiting her cortisone injections. I did return to EMG biofeedback today and there is a small amount of elevated tone with her pelvic floor again. After her cortisone injection last year this tone was reduced. We discussed her home stretching program for the pelvic floor as well as continuing with her stabilization program. She may be a good candidate for a trial of trigger point release Physical Therapy Plan Frequency and Duration Frequency of Treatment 1x/Week Duration of treatment (weeks) 8 Plan of Care Start Date 02/25/24 Plan of Care End Date 04/21/24 Therapeutic Interventions Therapeutic Interventions Patient/Caregiver Education, Self-Care/Home Management Modalities Biofeedback,Electric Stimulation Next Visit Focus/Plan Next Note Type Progress Note Next Visit Plan trial of trigger point release next visit for the left sided gluteal and hamstring pain she is experiencing
--- NOTE | 2024-02-25 13:36 | PT.OPPOC ---
Physical, Occupational & Speech Therapy At [facility] Current Diagnoses Stress incontinence (female) (male) (02/25/24) Pelvic and perineal pain (02/25/24) Visit Care Team Role Provider Type Madeleine Bloom DO Primary Care Provider Physician Specialty: Medical Address: [address] [place] [address], [facility] [address], [address] Email: [email or web address] Kadi Aguilar MD Family Provider Non-Staff Specialty: Family Practice Address: [address] [place] [address], [address] Phone: Fax: Email: [email or web address] Gaming DO Attending Provider Non-Staff Referring Provider Specialty: EDUCATION DIAGNOSTICIAN Address: [address] [place] [address], [address], [place], [address] Email: Plan Of Care PT-OP-B Current Condition Start: 11/02/21 13:47 Freq: Status: Active Protocol: Document 11/21/21 12:58 [facility] (Rec: 11/21/21 13:10 [facility] [id number]) Current Condition History of Current Condition Onset Date July 2021 diagnosis with endometreosis Current Complaints pelvic pain, L SI pain PT-OP-T Assessment and Plan Start: 11/02/21 13:47 Freq: Status: Active Protocol: Document 02/25/24 11:30 [facility] (Rec: 02/26/24 13:35 [facility] [id number]) Physical Therapy Assessment Assessment Summary Assessment Cece is still awaiting her cortisone injections. I did return to EMG biofeedback today and there is a small amount of elevated tone with her pelvic floor again. After her cortisone injection last year this tone was reduced. We discussed her home stretching program for the pelvic floor as well as continuing with her stabilization program. She may be a good candidate for a trial of trigger point release Physical Therapy Plan Frequency and Duration Frequency of Treatment 1x/Week Duration of treatment (weeks) 8 Plan of Care Start Date 02/25/24 Plan of Care End Date 04/21/24 Therapeutic Interventions Therapeutic Interventions Patient/Caregiver Education, Self-Care/Home Management Modalities Biofeedback,Electric Stimulation Next Visit Focus/Plan Next Note Type Progress Note Next Visit Plan trial of trigger point release next visit for the left sided gluteal and hamstring pain she is experiencing Plan of Care Dates Plan of Care Start Date 02/25/24 Plan of Care End Date 04/21/24 Electronically Signed by: Rea Edwards, PT 02/26/24 2315 If you are in agreement with this Plan of Care, please return a signed and dated copy. I have reviewed this Plan of Care and certify that the skilled therapy services above are required to meet the patient?s needs. Physician Signature Date Printed Name and Credentials Clinical Instructor Signature Printed Name and Credentials
--- NOTE | 2024-03-12 16:00 | PT.OTN ---
Current Diagnoses Stress incontinence (female) (male) (03/12/24) Pelvic and perineal pain (03/12/24) Physical Therapy Treatment Note PT-OP-A Visit Information Start: 11/02/21 13:47 Freq: Status: Active Protocol: Document 03/12/24 13:04 [facility] (Rec: 03/12/24 13:16 [facility] [id number]) Out-Patient Physical Therapy Visit Information Visit Information Visit Type Treatment Note Visit Note 04/03 Visit Start Time 13:04 Visit Stop Time 13:45 Visit Number 1 PT-OP-B Current Condition Start: 11/02/21 13:47 Freq: Status: Active Protocol: Document 11/21/21 12:58 [facility] (Rec: 11/21/21 13:10 [facility] [id number]) Current Condition History of Current Condition Onset Date July 2021 diagnosis with endometreosis Current Complaints pelvic pain, L SI pain PT-OP-C Subjective Start: 11/02/21 13:47 Freq: Status: Active Protocol: Document 03/12/24 13:04 [facility] (Rec: 03/12/24 13:16 [facility] [id number]) OP-PT Subjective Patient Comments Patient Comments Dr Chaparro office got a injection approved for more prolotherapy, she is continueing with massage therape as well the sacrum is feeling a lot better since she stopped wearing the boots. PT-OP-I Pelvic Floor Start: 11/02/21 13:47 Freq: Status: Active Protocol: Document 05/03/22 13:15 [facility] (Rec: 05/03/22 13:16 [facility] [id number]) Pelvic Floor Assessment SEMG (uV) Baseline 0 PT-OP-J Posture/Palpation/Skin Start: 11/02/21 13:47 Freq: Status: Active Protocol: Document 11/14/21 16:00 [facility] (Rec: 11/14/21 17:31 [facility] [id number]) Posture Evaluation Comments Posture Comments pt sits shifted to the right taking pressure off her left SI joint Palpation Assessment Location left SI joint Palpation Location pain left SI joint Palpation Findings Tenderness PT-OP-K Range of Motion Start: 11/16/21 09:34 Freq: Status: Active Protocol: Document 11/14/21 16:00 [facility] (Rec: 11/16/21 09:36 [facility] [id number]) Hip Goniometric Range of Motion Hip Active Hip ROM WFL Yes Comments pt presents with 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, especially with hip ER, IR PT-OP-L Special Tests Start: 11/02/21 13:47 Freq: Status: Active Protocol: Document 11/14/21 16:00 [facility] (Rec: 11/14/21 17:30 [facility] [id number]) Special Tests Lumbar Spine Special Tests +ASLR Test Results + for left side SI unlocking PT-OP-M Strength Start: 11/16/21 09:34 Freq: Status: Active Protocol: Document 11/14/21 16:00 [facility] (Rec: 11/16/21 09:37 [facility] [id number]) Trunk Strength Trunk Manual Muscle Testing Testing Position Supine Core Stabilization decreased core stabilization with left SI joint unlocking with movement of the right LE. Difficult for Cece to maintain TA stabilzation for repetitive movement PT-OP-Q Treatments Start: 11/21/21 12:58 Freq: Status: Active Protocol: Document 03/12/24 13:00 [facility] (Rec: 03/18/24 08:22 [facility] [id number]) Manual Therapy Treatment Soft Tissue Mobilization MFR over the hamstrings and attachments tot he ischium Mobilization Type Myofascial Release Intensity/Depth Moderate Body Position Prone MFR at the ischium hamstring attachments Mobilization Type Myofascial Release Intensity/Depth Moderate Body Position prone over body pillow MFR over the left ITB Mobilization Type Myofascial Release Comments worked on proximal attachment today MFR over the left piriformis and sacral region Mobilization Type Myofascial Release Comments tightness throughout the left piriformis today PT-OP-T Assessment and Plan Start: 11/02/21 13:47 Freq: Status: Active Protocol: Document 03/12/24 13:00 [facility] (Rec: 03/18/24 08:22 [facility] [id number]) Physical Therapy Assessment Assessment Summary Assessment Cece continues to await her cortisone injection. She continues to have complaints of hamstring and piriformis irritation dispite treatment. Will do a trial of trigger point work with her as she awaits her next step with ortho Physical Therapy Plan Frequency and Duration Frequency of Treatment 1x/Week Duration of treatment (weeks) 8 Plan of Care Start Date 02/25/24 Plan of Care End Date 04/21/24 Therapeutic Interventions Therapeutic Interventions Patient/Caregiver Education, Self-Care/Home Management Modalities Biofeedback,Electric Stimulation Next Visit Focus/Plan Next Note Type Treatment Note Next Visit Plan trial of trigger point release next visit for the left sided gluteal and hamstring pain she is experiencing
--- NOTE | 2024-04-02 16:35 | PT.OTN ---
Current Diagnoses Stress incontinence (female) (male) (04/02/24) Pelvic and perineal pain (04/02/24) Physical Therapy Treatment Note PT-OP-A Visit Information Start: 11/02/21 13:47 Freq: Status: Active Protocol: Document 04/02/24 11:32 [facility] (Rec: 04/02/24 12:20 [facility] [id number]) Out-Patient Physical Therapy Visit Information Visit Information Visit Type Treatment Note Visit Start Time 11:32 Visit Stop Time 12:15 Visit Number 2 PT-OP-B Current Condition Start: 11/02/21 13:47 Freq: Status: Active Protocol: Document 11/21/21 12:58 [facility] (Rec: 11/21/21 13:10 [facility] [id number]) Current Condition History of Current Condition Onset Date July 2021 diagnosis with endometreosis Current Complaints pelvic pain, L SI pain PT-OP-C Subjective Start: 11/02/21 13:47 Freq: Status: Active Protocol: Document 04/02/24 11:32 [facility] (Rec: 04/02/24 12:20 [facility] [id number]) OP-PT Subjective Patient Comments Patient Comments pt is still waiting on hearing back on cortisone injection SHe is feeling that she has to go more often and she isn't voiding as well. she is hoping for the l4-5 cortisone injection. Her left hamstring has been really angry PT-OP-I Pelvic Floor Start: 11/02/21 13:47 Freq: Status: Active Protocol: Document 05/03/22 13:15 [facility] (Rec: 05/03/22 13:16 [facility] [id number]) Pelvic Floor Assessment SEMG (uV) Baseline 0 PT-OP-J Posture/Palpation/Skin Start: 11/02/21 13:47 Freq: Status: Active Protocol: Document 11/14/21 16:00 [facility] (Rec: 11/14/21 17:31 [facility] [id number]) Posture Evaluation Comments Posture Comments pt sits shifted to the right taking pressure off her left SI joint Palpation Assessment Location left SI joint Palpation Location pain left SI joint Palpation Findings Tenderness PT-OP-K Range of Motion Start: 11/16/21 09:34 Freq: Status: Active Protocol: Document 11/14/21 16:00 [facility] (Rec: 11/16/21 09:36 [facility] [id number]) Hip Goniometric Range of Motion Hip Active Hip ROM WFL Yes Comments pt presents with 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, especially with hip ER, IR PT-OP-L Special Tests Start: 11/02/21 13:47 Freq: Status: Active Protocol: Document 11/14/21 16:00 [facility] (Rec: 11/14/21 17:30 [facility] [id number]) Special Tests Lumbar Spine Special Tests +ASLR Test Results + for left side SI unlocking PT-OP-M Strength Start: 11/16/21 09:34 Freq: Status: Active Protocol: Document 11/14/21 16:00 [facility] (Rec: 11/16/21 09:37 [facility] [id number]) Trunk Strength Trunk Manual Muscle Testing Testing Position Supine Core Stabilization decreased core stabilization with left SI joint unlocking with movement of the right LE. Difficult for Cece to maintain TA stabilzation for repetitive movement PT-OP-Q Treatments Start: 11/21/21 12:58 Freq: Status: Active Protocol: Document 04/02/24 11:32 [facility] (Rec: 04/02/24 12:20 [facility] [id number]) Therapeutic Exercises Supine Exercises pelvic floor long holds Supine Exercise Name HEP Comments 15.2 and max 71 uv Manual Therapy Treatment Soft Tissue Mobilization MFR over the hamstrings and attachments tot he ischium Mobilization Type Myofascial Release Intensity/Depth Moderate Body Position Prone MFR at the ischium hamstring attachments Mobilization Type Myofascial Release Intensity/Depth Moderate Body Position prone over body pillow MFR over the left piriformis and sacral region Mobilization Type Myofascial Release Comments tightness throughout the left piriformis today PT-OP-T Assessment and Plan Start: 11/02/21 13:47 Freq: Status: Active Protocol: Document 04/02/24 11:30 [facility] (Rec: 04/07/24 16:34 [facility] [id number]) Physical Therapy Assessment Assessment Summary Assessment Today resting tone was pretty relaxed for the pelvic floor. We assessed after fascial release. I did talk to Cece about continuing her pelvic floor strenghtening exercises with emphasis on both the contraction as well as the relaxation phase Physical Therapy Plan Frequency and Duration Frequency of Treatment 1x/Week Duration of treatment (weeks) 8 Plan of Care Start Date 02/25/24 Plan of Care End Date 04/21/24 Next Visit Focus/Plan Next Note Type Treatment Note Next Visit Plan trial of trigger point release next visit for the left sided gluteal and hamstring pain she is experiencing
--- NOTE | 2024-04-16 15:40 | PT.OTN ---
Current Diagnoses Stress incontinence (female) (male) (04/16/24) Pelvic and perineal pain (04/16/24) Physical Therapy Treatment Note PT-OP-A Visit Information Start: 11/02/21 13:47 Freq: Status: Active Protocol: Document 04/16/24 13:01 [facility] (Rec: 04/16/24 13:49 [facility] [id number]) Out-Patient Physical Therapy Visit Information Visit Information Visit Type Treatment Note Visit Start Time 13:00 Visit Stop Time 13:45 Visit Number 3 PT-OP-B Current Condition Start: 11/02/21 13:47 Freq: Status: Active Protocol: Document 11/21/21 12:58 [facility] (Rec: 11/21/21 13:10 [facility] [id number]) Current Condition History of Current Condition Onset Date July 2021 diagnosis with endometreosis Current Complaints pelvic pain, L SI pain PT-OP-C Subjective Start: 11/02/21 13:47 Freq: Status: Active Protocol: Document 04/16/24 13:01 [facility] (Rec: 04/16/24 13:49 [facility] [id number]) OP-PT Subjective Patient Comments Patient Comments pt notes she went skiing and felt like she did really well She saw Dr Armijo and he 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 She would like to try TENs unit for co contraction of the muscles around her hip and SI joint today and may be interested in purchasing for home. She is also considering PRP to help stabilize the SI joint PT-OP-I Pelvic Floor Start: 11/02/21 13:47 Freq: Status: Active Protocol: Document 05/03/22 13:15 [facility] (Rec: 05/03/22 13:16 [facility] [id number]) Pelvic Floor Assessment SEMG (uV) Baseline 0 PT-OP-J Posture/Palpation/Skin Start: 11/02/21 13:47 Freq: Status: Active Protocol: Document 11/14/21 16:00 [facility] (Rec: 11/14/21 17:31 [facility] [id number]) Posture Evaluation Comments Posture Comments pt sits shifted to the right taking pressure off her left SI joint Palpation Assessment Location left SI joint Palpation Location pain left SI joint Palpation Findings Tenderness PT-OP-K Range of Motion Start: 11/16/21 09:34 Freq: Status: Active Protocol: Document 11/14/21 16:00 [facility] (Rec: 11/16/21 09:36 [facility] [id number]) Hip Goniometric Range of Motion Hip Active Hip ROM WFL Yes Comments pt presents with 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, especially with hip ER, IR PT-OP-L Special Tests Start: 11/02/21 13:47 Freq: Status: Active Protocol: Document 11/14/21 16:00 [facility] (Rec: 11/14/21 17:30 [facility] [id number]) Special Tests Lumbar Spine Special Tests +ASLR Test Results + for left side SI unlocking PT-OP-M Strength Start: 11/16/21 09:34 Freq: Status: Active Protocol: Document 11/14/21 16:00 [facility] (Rec: 11/16/21 09:37 [facility] [id number]) Trunk Strength Trunk Manual Muscle Testing Testing Position Supine Core Stabilization decreased core stabilization with left SI joint unlocking with movement of the right LE. Difficult for Cece to maintain TA stabilzation for repetitive movement PT-OP-Q Treatments Start: 11/21/21 12:58 Freq: Status: Active Protocol: Document 04/16/24 13:00 [facility] (Rec: 04/16/24 14:29 [facility] [id number]) Self-Care/Home Management Treatment Education Patient Education Home Exercise Program,Pain Management Other Education time was spent going over her MD visit and plan moving forward for SI joint stabilization. Cece was shown a tens unit to purchase and was shown where to place the electrodes for home. We discussed pelvic floor bracing exercises to continue with at home and use of fascial release balls over the piriformis musculature PT-OP-T Assessment and Plan Start: 11/02/21 13:47 Freq: Status: Active Protocol: Document 04/16/24 15:31 [facility] (Rec: 04/16/24 15:33 [facility] [id number]) Physical Therapy Assessment Assessment Summary Assessment trial of e-stim over the lateral hip and SI joint as Cece is interested in TENS unit for home. She was shown a tens to purchase and was shown how to place the pads over her lateral hip. She is wanting to work more on SI stabilization at home. Physical Therapy Plan Frequency and Duration Frequency of Treatment 1x/Week Duration of treatment (weeks) 8 Plan of Care Start Date 02/25/24 Plan of Care End Date 02/11/25 Therapeutic Interventions Therapeutic Interventions Patient/Caregiver Education, Self-Care/Home Management Modalities Biofeedback,Electric Stimulation Next Visit Focus/Plan Next Note Type Progress Note Next Visit Plan check in with how Cece did with the e-stim and with her pelvic floor bracing exercises
--- NOTE | 2024-04-23 16:13 | PT.OTN ---
Current Diagnoses Stress incontinence (female) (male) (04/23/24) Pelvic and perineal pain (04/23/24) Physical Therapy Treatment Note PT-OP-A Visit Information Start: 11/02/21 13:47 Freq: Status: Active Protocol: Document 04/23/24 13:00 [facility] (Rec: 04/23/24 13:49 [facility] [id number]) Out-Patient Physical Therapy Visit Information Visit Information Visit Type Treatment Note Visit Start Time 13:10 Visit Stop Time 13:50 Visit Number 4 PT-OP-B Current Condition Start: 11/02/21 13:47 Freq: Status: Active Protocol: Document 11/21/21 12:58 [facility] (Rec: 11/21/21 13:10 [facility] [id number]) Current Condition History of Current Condition Onset Date July 2021 diagnosis with endometreosis Current Complaints pelvic pain, L SI pain PT-OP-C Subjective Start: 11/02/21 13:47 Freq: Status: Active Protocol: Document 04/23/24 13:00 [facility] (Rec: 04/23/24 13:49 [facility] [id number]) OP-PT Subjective Patient Comments Patient Comments pt notes she ordered a TENS unitl for home as she felt it helped after last visit PT-OP-I Pelvic Floor Start: 11/02/21 13:47 Freq: Status: Active Protocol: Document 05/03/22 13:15 [facility] (Rec: 05/03/22 13:16 [facility] [id number]) Pelvic Floor Assessment SEMG (uV) Baseline 0 PT-OP-J Posture/Palpation/Skin Start: 11/02/21 13:47 Freq: Status: Active Protocol: Document 11/14/21 16:00 [facility] (Rec: 11/14/21 17:31 [facility] [id number]) Posture Evaluation Comments Posture Comments pt sits shifted to the right taking pressure off her left SI joint Palpation Assessment Location left SI joint Palpation Location pain left SI joint Palpation Findings Tenderness PT-OP-K Range of Motion Start: 11/16/21 09:34 Freq: Status: Active Protocol: Document 11/14/21 16:00 [facility] (Rec: 11/16/21 09:36 [facility] [id number]) Hip Goniometric Range of Motion Hip Active Hip ROM WFL Yes Comments pt presents with 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, especially with hip ER, IR PT-OP-L Special Tests Start: 11/02/21 13:47 Freq: Status: Active Protocol: Document 11/14/21 16:00 [facility] (Rec: 11/14/21 17:30 [facility] [id number]) Special Tests Lumbar Spine Special Tests +ASLR Test Results + for left side SI unlocking PT-OP-M Strength Start: 11/16/21 09:34 Freq: Status: Active Protocol: Document 11/14/21 16:00 [facility] (Rec: 11/16/21 09:37 [facility] [id number]) Trunk Strength Trunk Manual Muscle Testing Testing Position Supine Core Stabilization decreased core stabilization with left SI joint unlocking with movement of the right LE. Difficult for Cece to maintain TA stabilzation for repetitive movement PT-OP-Q Treatments Start: 11/21/21 12:58 Freq: Status: Active Protocol: Document 04/23/24 13:00 [facility] (Rec: 04/23/24 16:53 [facility] [id number]) Manual Therapy Treatment Soft Tissue Mobilization MFR over the hamstrings and attachments tot he ischium Mobilization Type Myofascial Release Intensity/Depth Moderate Body Position Prone MFR at the ischium hamstring attachments Mobilization Type Myofascial Release Intensity/Depth Moderate Body Position prone over body pillow MFR over the left piriformis and sacral region Mobilization Type Myofascial Release Comments tightness throughout the left piriformis today PT-OP-T Assessment and Plan Start: 11/02/21 13:47 Freq: Status: Active Protocol: Document 04/23/24 13:00 [facility] (Rec: 04/23/24 16:53 [facility] [id number]) Physical Therapy Assessment Goals improved functional strength of the gluteals Impairment pt has difficulty with returning to standing from a squat and with single leg squats 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) Cece reports improved strength with returning from a squat and is able to perform 10 single leg squats from a raised chair some progress and Cece is working on single leg squats at home LTG Duration 12 weeks SI instability Impairment left sided SI instability with + ASLR test on the right side for left side unlocking Short Term Goal (STG) Cece is able to perform supine marches and heel slides with TA activation without left side SI unlocking this is improved overall decreased L sided Si joint unlocking STG Duration 6 weeks 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) Cece is able to perform dynamic stabilization exercises without the SI joint unlocking and has a neg ASLR test Cece has been able to start working on single leg dynamic activities without a increase in SI pain Cece is still limited with SLS activities but is trying single leg squats with hand holds for support. LTG Duration 12 weeks urinary stress incontinence and urgency Impairment urinary stress incontinence and urgency Short Term Goal (STG) Cece is educated on pelvic floor and transverse abdominal strenthening to help provide improved SI and bladder support Goal met STG Duration 5 weeks Care Home Goal (LTG) Leakage is only occuring now with strong cough laugh or sneeze, she is no longer complaining of urgency. She is voiding 0-1 xms per night. GOAL MET LTG Duration 12 weeks left SI pain rated 5/10 Impairment left SI pain rated 5/10 making it difficult to sit symmetrically 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) Following her cortisone injection pain levels are decreased and Cece is ready to start working towards postural exercises and dynamic lumbar stabilization as of 11/05/23 pain in the SI is improved however Cece is still experiencing pain in the piriformis and into the hamstring attachment that then feels like nerve referral LTG Duration 12 weeks Assessment Summary Assessment Cece has reached the end of her plan of care. She has plateaued with PT at this point. She will try a TENS unit for home to see if that gives her some relief and she is looking into doing PRP therapy Physical Therapy Plan Frequency and Duration Frequency of Treatment 1x/Week Duration of treatment (weeks) 8 Plan of Care Start Date 02/25/24 Plan of Care End Date 04/21/24 Therapeutic Interventions Therapeutic Interventions Patient/Caregiver Education, Self-Care/Home Management Modalities Biofeedback,Electric Stimulation Discharge Physical Therapy Discharge Reasons Plateau in Progress
== END 2024-05-07 08:44 | disposition home or self-care (01) ==
LOC: PHYS 13:00
PROVIDERS: Family Provider Family Medicine; PCP Family Medicine; Referring Provider Obstetrics & Gynecology; Visit Provider Obstetrics & Gynecology
DX: N39.3 Stress incontinence (female) (male) (principal); R10.2 Pelvic and perineal pain
CPT/HCPCS: 97032; 97110; 97112; 97140; 97161; 97535

== ENCOUNTER → 2024-07-01 16:58 | Outpatient (CLI) | payer OTHER, SELFPAY ==
[2021-09-22 15:45] VITALS: BMI 29.5
[2024-07-01 17:22] LABS: Add Manual Diff / Slide Review NO; Basophils Absolute Auto 100 /uL (0-100); Basophils Percent Auto 0.7 % (0-2); Eosinophils Absolute Auto 1000 /uL (0-450); Eosinophils Percent Auto 9.6 % (2-4); Hematocrit 41.9 % (36-46); Hemoglobin 14.2 g/dL (12.0-16.0); Lymphocytes Absolute Auto 2400 /uL (1100-4500); Lymphocytes Percent Auto 22.5 % (25-40); Mean Corpuscular Hemoglobin 32.2 PG (26-34); Mean Corpuscular Volume 94.7 fL (80-100); Monocytes Absolute Auto 800 /uL (0-900); Neutrophils Absolute Auto 6200 /uL (1500-7000); Neutrophils Percent Auto 59.2 % (50-75); Platelet Count 348 X10^3/uL (150-400); Red Blood Cell Count 4.42 X10^6/uL (4.0-5.2); White Blood Cell Count 10.5 X10^3/uL (4.5-11.0)
[2024-07-01 17:42] LABS: Erythrocyte Sedimentation Rate 6 MM/HR (0-20)
[2024-07-01 18:16] LABS: Alanine Aminotransferase 62 IU/L (<35); Albumin 4.3 g/dL (3.5-5.0); Albumin Globulin Ratio 1.6 (1.0-2.8); Alkaline Phosphatase 72 U/L (38-126); Aspartate Aminotransferase 48 IU/L (14-36); Bilirubin Total 0.8 mg/dL (0.2-1.3); Blood Urea Nitrogen 11 mg/dL (7-17); C-Reactive Protein Quant < 0.5 mg/dL (<1.0); Calcium 9.8 mg/dL (8.4-10.2); Carbon Dioxide 29 mmol/L (22-32); Chloride 102 mmol/L (98-107); Estimated Glomerular Filt Rate > 60 mL/min (>60); Globulin 2.7 g/dL (1.7-4.1); Glucose 95 mg/dL (70-99); HEMOLYSIS < 15 (0-50); Potassium 4.3 mmol/L (3.4-5.1); Sodium 137 mmol/L (137-145)
[2024-07-01 19:03] LABS: Vitamin B12 Reflex MMA if <400 396 pg/mL (239-931)
== END ==
LOC: LAB 17:02
PROVIDERS: Family Provider Family Medicine; PCP Family Medicine; Referring Provider Physician Assistant; Visit Provider Physician Assistant
DX: L81.9 Disorder of pigmentation, unspecified (principal); R59.9 Enlarged lymph nodes, unspecified
CPT/HCPCS: 36415; 80053; 82607; 83520; 83921; 85025; 85651; 86038; 86140

== ENCOUNTER → 2024-07-02 15:17 | Outpatient (CLI) | payer OTHER, SELFPAY ==
[2021-09-22 15:45] VITALS: BMI 29.5
== END ==
LOC: LAB 15:19
PROVIDERS: Family Provider Family Medicine; PCP Family Medicine; Referring Provider Physician Assistant; Visit Provider Physician Assistant
DX: R74.8 Abnormal levels of other serum enzymes (principal)
CPT/HCPCS: 36415; 83516

== ENCOUNTER 2024-07-06 00:15 | Emergency (ER) | payer OTHER, SELFPAY ==
[2021-09-22 15:45] VITALS: BMI 29.5
[2024-07-06] VITALS (9 sets, daily range): BP systolic 142–179; BP diastolic 76–91; PULSE 71–89; RESP 16–18; TEMP 36.8; O2SAT 96–100; BMI 28.2
--- NOTE | 2024-07-06 05:49 | ED.SKABFB ---
HPI - Skin/Abscess/Foreign Bdy General Chief complaint: Skin/Abscess/Foreign Body Stated complaint: shoulder discoloring/ swelling moved to wrist Time Seen by Provider: 07/06/24 05:22 Source: patient Mode of arrival: Ambulatory History of Present Illness HPI narrative: 44-year-old female has had few days duration of right shoulder discoloration, appearing blanched wider than usual, no injury or trauma, some associated tingling in that same area. No hives or itching. No injury or trauma. No topical exposure to any elements in that area, no new treatments or creams. She has sensation however of right distal arm and hand swelling. No injury recalled. No history of blood clots to legs or lungs known. No shortness of breath or chest pain. No reponse to topical antifungal cream given from clinic visit. Related Data Home Medications Medication Instructions Recorded Confirmed Bifidobacterium infantis 4 mg 4 mg PO DAILY 04/04/22 07/01/24 capsule (Align (B.infantis)) loratadine 10 mg tablet 10 mg PO DAILY 05/29/23 07/01/24 famotidine 20 mg tablet See Rx Instructions .Route .COMPLEX 12/17/23 07/01/24 levothyroxine 150 mcg tablet 150 mcg PO QWEEK 12/17/23 07/01/24 vitamin D3 125 mcg (5,000 1 cap PO DAILY 12/17/23 07/01/24 unit)-vitamin K2 100 mcg capsule Previous Rx's Medication Instructions Recorded levothyroxine 75 mcg tablet 75 mcg PO DAILY #90 tabs 06/19/23 estradiol 0.025 mg/24 hr 1 patch transdermal 2XW #8 ea 05/26/24 semiweekly transdermal patch progesterone micronized 100 mg 100 - 400 mg (1 - 4 x 100 mg) PO 05/26/24 capsule BEDTIME #90 caps clotrimazole 1 % topical cream 1 applic topical BID #45 grams 07/02/24 pantoprazole 40 mg tablet,delayed 40 mg PO BEDTIME #90 tabs 07/03/24 release prednisone 20 mg tablet 40 mg (2 x 20 mg) PO DAILY 5 days 07/06/24 #10 tabs Allergies Allergy/AdvReac Type Severity Reaction Status Date / Time No Known Drug Allergies Allergy Verified 07/01/24 16:02 Patient History Medical History (Updated 07/06/24 @ 07:29 by Surinder Cohen MD) Iron deficiency anemia due to chronic blood loss Menorrhagia with regular cycle Lumbosacral radiculopathy at S1 Ligamentous laxity of multiple sites Herniated nucleus pulposus, L4-5 Lumbosacral radiculopathy at L5 Tobacco use disorder Bartholin gland cyst Labial abscess Abscess Shima's thyroiditis Anti-TPO antibodies present Muscle spasm Pinched nerve Shoulder pain Foot pain Benign mole (1997) Murmur Chicken pox (~1990) Abnormal Pap smear of cervix (~2011) Acne (~1987) Hemorrhoids Hayfever Rheumatoid arthritis HPV (human papilloma virus) infection (~2011) MRSA infection (~2011) Mixed anxiety depressive disorder (10/28/15) Environmental allergies (08/24/13) Ocular migraine (08/24/13) Surgical History Status post hysterectomy with oophorectomy History of esophagogastroduodenoscopy (EGD) (~08/2019) History of colonoscopy with polypectomy (~08/2019) History of evacuation of hematoma (01/12/14) Anesthesia Status post tendon repair (~2009) History of gynecologic surgery (01/15/14) Status post incision and drainage (2010) S/P primary low transverse (2017) Status post colposcopy (04/25/11) Status post tonsillectomy and adenoidectomy Family History Family/Other Abnormal blood pressure Stroke Family history of high cholesterol Family/Other Heart disease Scoliosis Brother Age: 43 Hypertension Father Hypertension History of cancer of sphenoid sinus Mother Age: 75 MD (Meckel's diverticulum) Hypertension High cholesterol Tachycardia Social History household members: family pets and animals: No education level: college occupational status: employed [employer]: Spiritual leisure activities: art and other other: hiking, photography, seatbelt use: always helmet use: Yes water heater temp set < 120 deg: Yes working smoke detector in home: Yes fire extinguisher in home: Yes carbon monox detector in home: Yes firearms in home: No Smoking Status: Current some day smoker alcohol intake: current substance use type: does not use during the past year weight has: remained stable well-balanced diet: daily or most days daily servings fruits/ve-4 caffeine: Yes (1/2 to 1 drink per day) eating out: other frequency: daily duration: > 90 minutes/day additional social history: 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 HEAD: Atraumatic. Normocephalic. EYES: Pupils equal round and reactive. Extraocular motions intact. No scleral icterus. No injection or drainage. ENT: Nose without bleeding, purulent drainage. Throat without erythema, tonsillar hypertrophy or exudate. Airway patent. NECK: Trachea midline. Non tender CARDIOVASCULAR: Regular rate and rhythm without murmurs, gallops, or rubs. RESPIRATORY: Clear to auscultation. Breath sounds equal bilaterally. No wheezes, rales, or rhonchi. GASTROINTESTINAL: Abdomen soft, non-tender, nondistended. EXTREMITIES: Right shoulder area over deltoid toward insertion lateral aspect with some blanching appearance compared to the lateral side and surrounding skin. No urticarial component obvious. No associated vesicles. No significant swelling to the right shoulder although there maybe some distal right forearm swelling compared to the left side, patient feels that there some swelling to the right distal arm now. Good radial pulses and good perfusion of her fingers. BACK: Nontender without deformity or crepitance. No flank tenderness. NEURO: AOx3. SKIN: No rash or erythema of visible areas Initial Vital Signs Initial Vital Signs: Vital Signs Temperature 98.3 F 07/06/24 00:32 Pulse Rate 89 07/06/24 00:32 Respiratory Rate 18 07/06/24 00:32 Blood Pressure 147/76 H 07/06/24 00:32 Pulse Oximetry 99 07/06/24 00:32 Oxygen Delivery Method Room Air 07/06/24 00:32 Course Orders Ordered: ED Orders 07/06/24 06:55 CBC Auto Diff [Complete Blood Count AUTO DIFF] Stat CMP [Comprehensive Metabolic Panel] Stat HCG Quantitative /Beta subunit Stat Vital Signs Vital signs: Vital Signs - 8 hr 07/06/24 00:32 07/06/24 05:00 07/06/24 05:30 Temperature 98.3 F Pulse Rate 89 74 79 Respiratory Rate 18 16 Blood Pressure 147/76 H 143/76 H Pulse Oximetry 99 100 97 Oxygen Delivery Method Room Air 07/06/24 05:37 07/06/24 05:37 07/06/24 06:00 Temperature Pulse Rate 81 Respiratory Rate Blood Pressure 179/91 H 150/76 H Pulse Oximetry 97 Oxygen Delivery Method 07/06/24 06:00 07/06/24 06:48 07/06/24 07:00 Temperature Pulse Rate 72 71 77 Respiratory Rate 18 Blood Pressure Pulse Oximetry 97 100 99 Oxygen Delivery Method 07/06/24 07:22 07/06/24 07:22 Temperature Pulse Rate 82 Respiratory Rate Blood Pressure 142/83 H Pulse Oximetry 96 Oxygen Delivery Method Room Air MDM - Skin/Abscess/Foreign Bdy Lab Data 07/06/24 06:55 07/06/24 06:55 Labs: Lab Results 07/06/24 Range/Units 06:55 WBC 10.1 (4.5-11.0) X10^3/uL RBC 4.08 (4.0-5.2) X10^6/uL Hgb 13.1 (12.0-16.0) g/dL Hct 38.9 (36-46) % MCV 95.3 (80-100) fL MCH 32.2 (26-34) PG MCHC 33.8 (30-36) % RDW 12.9 (11.6-14.8) % Plt Count 336 (150-400) X10^3/uL Neut % (Auto) Not Reportable Lymph % (Auto) Not Reportable Imperial % (Auto) Not Reportable Eos % (Auto) Not Reportable Baso % (Auto) Not Reportable Lymph # (Auto) Not Reportable Imperial # (Auto) Not Reportable Baso # (Auto) Not Reportable Total Counted 100 Seg Neutrophils % 43.0 (38-70) % Lymphocytes % (Manual) 31.0 (25-45) % Monocytes % (Manual) 10.0 (2-11) % Eosinophils % (Manual) 16.0 H (2-4) % Neutrophils # (Manual) 4343 (9293-0945) /uL RBC Morphology Normal morphology Sodium 135 L (137-145) mmol/L Potassium 3.8 (3.4-5.1) mmol/L Chloride 102 (98-107) mmol/L Carbon Dioxide 27 (22-32) mmol/L BUN 11 (7-17) mg/dL Creatinine 0.74 (0.52-1.04) mg/dL Estimated GFR > 60 (>60) mL/min BUN/Creatinine Ratio 14.9 (6-22) Glucose 99 (70-99) mg/dL Calcium 8.6 (8.4-10.2) mg/dL Total Bilirubin 0.3 (0.2-1.3) mg/dL AST 31 (14-36) IU/L ALT 38 H (<35) IU/L Alkaline Phosphatase 63 (38-126) U/L Total Protein 6.3 (6.3-8.2) g/dL Albumin 3.7 (3.5-5.0) g/dL Globulin 2.6 (1.7-4.1) g/dL Albumin/Globulin Ratio 1.4 (1.0-2.8) HCG, Quant < 2.39 mIU/mL MDM Narrative Medical decision making narrative: Right shoulder region blanching light skin discoloration, not responsive to antifungal treatments. Unclear cause. Some associated right upper extremity swelling. Vascular ultrasound right upper extremity venous Doppler pending. Right upper extremity venous Doppler. Impressions: ?No evidence of DVT in the deep veins of the right upper extremity. ? See tele radiology report CT angio chest with contrast. Impressions: ?No pulmonary embolism or aortic dissection or aneurysm.? There is no mention of abnormal masses or acute changes in the soft tissue shoulder regions there were also incidentally imaged. See tele radiology report. Copy of the report provided to the patient. Trial of prednisone if patient desires to try this, to see if this resolves the symptoms. Consider dermatology consultation. Patient to follow up with PCP. Return precautions discussed. Discharged home. Discharge Plan Departure Patient Disposition: Home Clinical Impression: Skin rash Activity Restrictions/Additional Instructions: Skin rash changes blanching like in quality right upper shoulder region. With some swelling sensation to the right upper extremity. No injuries recalled. No fevers. Ultrasound Doppler venous study showed no blood clots in the right upper extremity. CT angiogram of the chest showed no abnormal lesions or masses or lymphatic obstructing like changes, and also no incidental soft tissue changes in the shoulder imaged regions to explain symptoms. Trial of steroid that hopefully will reduce and maybe resolve with the symptoms. If it is persistent you might consider seeing Dermatology as consultation. Prednisone steroid prescription sent to your pharmacy. Consider recheck in clinic next few days with your regular provider, who might also facilitate dermatology referral if needed. Return earlier to this/nearest emergency department for any change worsening symptoms or any concerns prior. Prescriptions: New prednisone 20 mg tablet 40 mg PO DAILY 5 Days Qty: 10 0RF No Action pantoprazole 40 mg tablet,delayed release (DR/EC) 40 mg PO BEDTIME Qty: 90 3RF levothyroxine 75 mcg tablet 75 mcg PO DAILY Qty: 90 3RF loratadine 10 mg tablet 10 mg PO DAILY levothyroxine 150 mcg tablet 150 mcg PO QWEEK Rx Instructions: take 1 tab on Sundays. 75mcg all other days. famotidine 20 mg tablet See Rx Instructions .ROUTE .COMPLEX Dose Instruction: take 1 tablet by mouth at bedtime IN ADDITION TO OMEPRAZOLE Rx Instructions: take 1 tablet by mouth at bedtime IN ADDITION TO PANTOPRAZOLE vitamin D3-vitamin K2 125 mcg (5,000 unit)-100 mcg capsule 1 cap PO DAILY progesterone micronized 100 mg capsule 100 - 400 mg PO BEDTIME MDD 400mg Qty: 90 3RF estradiol 0.025 mg/24 hr patch semiweekly 1 patch transdermal 2XW Qty: 8 3RF Rx Instructions: apply 1 patch for 3 days alternating with 1 patch for 4 days each week clotrimazole 1 % cream 1 applic topical BID Qty: 45 0RF Align (B.infantis) 4 mg capsule 4 mg PO DAILY Referrals: Madeleine Bloom DO [Primary Care Provider] - Stand Alone Forms: Patient Portal/API/Survey
--- NOTE | 2024-07-06 06:09 | DI.US.S_ITS ---
PROCEDURE: US PERIPH VENOUS UP EXTREM RT INDICATIONS: swelling RUE TECHNIQUE: Real-time imaging, as well as color and pulse Doppler interrogation, was performed of the upper extremity deep veins from the inferior neck to the antecubital fossa. COMPARISON: None. FINDINGS: The internal jugular vein, visualized portions of the subclavian vein, axillary, and brachial veins are free of intraluminal thrombus. Where physically possible, the veins are normally compressible. Color and pulse Doppler demonstrate normal intraluminal flow, with expected phasicity and pulsatility. Additional scanning of the cephalic and basilic veins of the superficial system demonstrates normal compressibility, without thrombus. IMPRESSION: No findings of upper extremity deep venous thrombosis can be seen. Dictated by: Humberto Price M.D. on 07/06/2024 at 8:23 Approved by: Humberto Price M.D. on 07/06/2024 at 8:23
--- NOTE | 2024-07-06 06:10 | DI.CT.S_ITS ---
PROCEDURE: CT ANGIO CHEST INDICATIONS: RUE swelling, eval for vascular etiology TECHNIQUE: After the administration of intravenous contrast, 2 mm thick sections acquired from the pulmonary apices to the posterior costophrenic angles. 3-dimensional maximum intensity projection (MIP) coronal and sagittal reformats were then acquired through the thorax. For radiation dose reduction, the following was used: automated exposure control, adjustment of mA and/or kV according to patient size. COMPARISON: None. FINDINGS: Image quality: Diagnostic. Pulmonary arteries: Pulmonary arteries are normal in size, and demonstrate no intraluminal filling defects to suggest central pulmonary embolism. Lower Neck: No enlarged lymph nodes. Thyroid: No thyroid nodules which require sonographic follow up, per consensus guidelines. Axillae: No enlarged lymph nodes. Chest Wall: Unremarkable. Bones: There is asymmetric muscle edema of the right shoulder girdle. Lungs and Pleura: No pneumothorax or pleural effusions. No consolidation or suspicious nodules. Heart: Heart size is normal. No pericardial effusion. Thoracic Vessels: No aortic aneurysm. Mediastinum and Marti: No enlarged lymph nodes. Esophagus: No wall thickening. Small hiatal hernia. Upper Abdomen: 1.1 centimeter cyst at the liver dome. IMPRESSION: No pulmonary embolus. Asymmetric muscle edema of the right shoulder girdle of unknown etiology. No fluid collection. Agree with preliminary report. Dictated by: Humberto Price M.D. on 07/06/2024 at 8:23 Approved by: Humberto Price M.D. on 07/06/2024 at 8:27
[2024-07-06 07:07] LABS: Add Manual Diff / Slide Review YES; Hematocrit 38.9 % (36-46); Hemoglobin 13.1 g/dL (12.0-16.0); Mean Corpuscular HGB Conc 33.8 % (30-36); Mean Corpuscular Hemoglobin 32.2 PG (26-34); Mean Corpuscular Volume 95.3 fL (80-100); Platelet Count 336 X10^3/uL (150-400); Red Blood Cell Count 4.08 X10^6/uL (4.0-5.2); Red Cell Distribution Width 12.9 % (11.6-14.8); White Blood Cell Count 10.1 X10^3/uL (4.5-11.0)
[2024-07-06 07:18] LABS: Alanine Aminotransferase 38 IU/L (<35); Albumin 3.7 g/dL (3.5-5.0); Albumin Globulin Ratio 1.4 (1.0-2.8); Alkaline Phosphatase 63 U/L (38-126); Aspartate Aminotransferase 31 IU/L (14-36); BUN Creatinine Ratio 14.9 (6-22); Bilirubin Total 0.3 mg/dL (0.2-1.3); Blood Urea Nitrogen 11 mg/dL (7-17); Calcium 8.6 mg/dL (8.4-10.2); Carbon Dioxide 27 mmol/L (22-32); Chloride 102 mmol/L (98-107); Estimated Glomerular Filt Rate > 60 mL/min (>60); Globulin 2.6 g/dL (1.7-4.1); Glucose 99 mg/dL (70-99); HEMOLYSIS < 15 (0-50); Potassium 3.8 mmol/L (3.4-5.1); Sodium 135 mmol/L (137-145); Total Protein 6.3 g/dL (6.3-8.2)
[2024-07-06 07:22] LABS: Neutrophils Absolute Manual 4343 /uL (3000-5900); RBC Morphology Normal Morphology; Total Cells Counted 100
[2024-07-06 07:34] LABS: HCG Quantitative /Beta subunit < 2.39 mIU/mL
== END 2024-07-06 07:49 | disposition home or self-care (01) ==
PROVIDERS: Emergency Provider Emergency Medicine; Family Provider Family Medicine; PCP Family Medicine
DX: R21 Rash and other nonspecific skin eruption (principal)
CPT/HCPCS: 71275; 80053; 84702; 85007; 85025; 93971; 99281; 99284; Q9967

== ENCOUNTER → 2024-08-07 10:43 | Outpatient (CLI) | payer OTHER, SELFPAY ==
[2021-09-22 15:45] VITALS: BMI 29.5
--- NOTE | 2024-08-07 10:45 | DI.US.S_ITS ---
PROCEDURE: US ABDOMEN LIMITED INDICATIONS: elevated liver enzymes, TECHNIQUE: Real-time scanning was performed of the abdominal and retroperitoneal organs, with image documentation. COMPARISON: [facility], , US ABDOMEN LIMITED, 11/27/2020, 3:09. FINDINGS: Liver: Liver is normal in size and homogeneous in echotexture. Tiny 5 mm echogenic focus at the tip of the right hepatic lobe. Gallbladder: Surgically absent. Biliary ducts: Intrahepatic bile ducts are non-dilated. Extrahepatic bile duct caliber measures 6.4 mm. Normal is 6-7 mm or less in diameter, or 10 mm or less post-cholecystectomy. Pancreas: Visualized portions of the pancreas are sonographically normal. Tail is not well seen. Miscellaneous: No free abdominal fluid. IMPRESSION: Liver is normal in echogenicity. Tiny 5 mm echogenic focus at the tip of the right hepatic lobe, may represent a small hemangioma. Status post cholecystectomy. Dictated by: Demario Salgado M.D. on 08/08/2024 at 13:19 Approved by: Demario Salgado M.D. on 08/08/2024 at 13:21
== END ==
PROVIDERS: Family Provider Family Medicine; PCP Family Medicine; Referring Provider Physician Assistant; Visit Provider Physician Assistant
DX: R74.8 Abnormal levels of other serum enzymes (principal); Z90.49 Acquired absence of other specified parts of digestive tract
CPT/HCPCS: 76705

== ENCOUNTER → 2024-08-19 12:00 | Outpatient (CLI) | payer OTHER, SELFPAY ==
[2021-09-22 15:45] VITALS: BMI 29.5
--- NOTE | 2024-08-19 12:01 | DI.MG.S_ITS ---
MM diagnostic mammo BI, US axillary only rt: 08/19/2024 BI-RADS: 3 CLINICAL: 44-year old female for bilateral diagnostic mammogram and right diagnostic breast ultrasound. Tyrer-Cuzick lifetime risk of 19.1%. No personal or first- degree family history of breast cancer. Current reported family history of breast cancer: maternal aunt. PRIOR EXAMS 11/23/2020, 06/10/2020. MAMMOGRAPHY TECHNIQUE: 2D and 3D (tomosynthesis) digital mammographic views obtained, with additional images as needed for full coverage. Current study was also evaluated with a Computer Aided Detection (CAD) system. ULTRASOUND TECHNIQUE Exam is limited to the right axilla. Real-time mattson scale and color doppler imaging of the area of clinical interest was performed with image documentation. DENSITY C. The breasts are heterogeneously dense, which may obscure small masses. MAMMOGRAPHY FINDINGS Right: Axilla Outer Quadrant, Posterior depth: No suspicious mass, asymmetry, microcalcification, or other abnormality seen. Right: No correlate is seen for the reported skin changes. No suspicious mass, asymmetry, microcalcification, or other abnormality seen. Left: No suspicious mass, asymmetry, microcalcification, or other abnormality seen. ULTRASOUND FINDINGS Right: Axilla, measuring 3.5 x 0.8 x 0.7 cm: There is a lymph node with eccentric cortical thickening. Doppler shows hilar vascularity. Cortical thickening to 0.5 cm. Right: Axilla, measuring 1.7 x 1.9 x 0.8 cm: There is an axillary lymph node. Doppler shows branching hilar vascularity. Lobular. IMPRESSION: Right (Lymph Node): Axilla, measuring 3.5 x 0.8 x 0.7 cm * Probably Benign. Right (Lymph Node): Axilla, measuring 1.7 x 1.9 x 0.8 cm * Probably Benign. Left * No evidence of malignancy. RECOMMENDATIONS Right: Axilla * Three month followup with diagnostic ultrasound. OVERALL ASSESSMENT CATEGORY BI-RADS-3: Probably Benign. ELECTRONICALLY SIGNED: Sarthak Fonseca M.D. on 08/19/2024 at 09:10:15 PM PT Interpreting Station ID: [id number]
== END ==
LOC: MAMMO 12:00
PROVIDERS: Family Provider Family Medicine; PCP Family Medicine; Referring Provider Family Medicine; Visit Provider Family Medicine
DX: R92.333 Mammographic heterogeneous density, bilateral breasts (principal); M79.89 Other specified soft tissue disorders; M79.629 Pain in unspecified upper arm; R21 Rash and other nonspecific skin eruption; M25.411 Effusion, right shoulder; Z80.3 Family history of malignant neoplasm of breast
CPT/HCPCS: 76882; 77066; G0279